=== PATIENT | female | born 1940 | race Caucasian/White ===

== ENCOUNTER 2016-03-24 09:16 | Inpatient (IN) | payer BC, MEDICARE ==
[~2016-03-24] VITALS: Ht 157.5 cm; Wt 45.4 kg
[~2016-03-24 09:16] MED LIST: ACET-2267 PO; AMLO10TA4 PO; ARICEPT PO; ASPI-983 PO; ASPI325T32 PO; ATR20T PO; CITA20TA7 PO; DONE5TAB8 PO; GLMP4T PO; INSU100I14 SQ; INSU100I32 SQ; INSU100V3 SC; INSU100V31 IJ; INSU100V5 SQ; LEVO500T80 PO; LISI5TAB PO; MELO-195 PO; MEMA5TAB PO; MTF500T PO; MULT-1029 PO; TRAM50TA2 PO; VALA500T4 PO
--- OUTSIDE RECORDS SUMMARY | 2016-03-24 09:23 | XMS REPORT | Continuity of Care Document ---
Author Author [facility] [address] Organization [facility] [address] Address Unknown Phone Unavailable Allergies Active Description Code Type Severity Reaction Onset Reported/Identified Relationship to Patient Clinical Status Yes No Known Drug Allergies [id number] Drug Allergy Unknown N/ A 05/01/2013 Medications Problems Date Dx Coded Attending Type Code Diagnosis Diagnosed By 05/08/2013 YESSI FELIX DO Ot 250.00 DIAB ISMAEL WO COMPL, TYPE II OR UNSPEC TY 05/08/2013 GELLENDER DOYESSI Ot 272.4 HYPERLIPIDEMIA NEC/NOS 05/08/2013 GELLENDER DOYESSI Ot 401.9 HYPERTENSION NOS 05/08/2013 GELLENDER DOYESSI Ot 715.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-PELVIS 05/08/2013 GELLENDER DOYESSI Ot 722.10 LUMBAR DISC DISPLACEMENT 05/08/2013 GELLENDER DOYESSI Ot V15.88 HISTORY OF FALL 05/08/2013 AARONDER YESSI SARAVIA Ot V60.3 PERSON LIVING ALONE 01/11/2016 GELYVONNEDER YESSI SARAVIA Ot B02.9 ZOSTER WITHOUT COMPLICATIONS 01/11/2016 GELLENDER YESSI SARAVIA Ot D72.829 ELEVATED WHITE BLOOD CELL COUNT, UNSPECI 01/11/2016 GELLENDER YESSI SARAVIA Ot E10.65 TYPE 1 DIABETES MELLITUS WITH HYPERGLYCE 01/11/2016 GELLENDER DOYESSI Ot E86.0 DEHYDRATION 01/11/2016 GELLENDER DOYESSI Ot F03.90 UNSPECIFIED DEMENTIA WITHOUT BEHAVIORAL 01/11/2016 GELLENDER YESSI SARAVIA Ot F22 DELUSIONAL DISORDERS 01/11/2016 GELLENDER YESSI SARAVIA Ot F32.9 MAJOR DEPRESSIVE DISORDER, SINGLE EPISOD 01/11/2016 GELLENDER YESSI SARAVIA Ot H35.30 UNSPECIFIED MACULAR DEGENERATION 01/11/2016 YESSI FELIX DO Ot 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 01/11/2016 GELLENDER YESSI SARAVIA Ot R32 UNSPECIFIED URINARY INCONTINENCE 01/11/2016 GELLENDER DO, YESSI Gonzalez Ot R53.1 WEAKNESS 01/11/2016 GELLENDER DO, YESSI Gonzalez Ot R74.8 ABNORMAL LEVELS OF OTHER SERUM ENZYMES 01/11/2016 GELLENDER DO, YESSI Gonzalez Ot S89.92XA UNSPECIFIED INJURY OF LEFT LOWER LEG, IN 01/11/2016 GELLENDER DO, YESSI Gonzalez Ot W19.XXXA UNSPECIFIED FALL, INITIAL ENCOUNTER 01/11/2016 GELMCLAREN FLINTDER DO, YESSI Gonzalez Ot Y92.002 BATHRM OF [facility] 01/11/2016 GELMCLAREN FLINTDER DO, YESSI Gonzalez Ot Z79.4 BULB PLANTER (CURRENT) USE OF INSULIN 01/12/2016 [facility] DO, YESSI Gonzalez Ot B02.9 ZOSTER WITHOUT COMPLICATIONS 01/12/[facility] D72.829 ELEVATED WHITE BLOOD CELL COUNT, UNSPECI 01/12/2016 GELMCLAREN FLINTDER DO, YESSI Gonzalez Ot E10.65 TYPE 1 DIABETES MELLITUS WITH HYPERGLYCE 01/12/2016 [facility] Y[facility] Gonzalez Ot E86.0 DEHYDRATION 01/12/2016 GELMCLAREN FLINTDER DO, YESSI Gonzalez Ot F03.90 UNSPECIFIED DEMENTIA WITHOUT BEHAVIORAL 01/12/2016 [facility], YESSI Gonzalez Ot F22 DELUSIONAL DISORDERS 01/12/2016 [facility], YESSI Gonzalez Ot F32.9 MAJOR DEPRESSIVE DISORDER, SINGLE EPISOD 01/12/2016 [facility], YESSI Gonzalez Ot H35.30 UNSPECIFIED MACULAR DEGENERATION 01/12/2016 [facility], YESSI Gonzalez Ot 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 01/12/2016 [facility], YESSI Gonzalez Ot R32 UNSPECIFIED URINARY INCONTINENCE 01/12/2016 GELLENDER DO, YESSI Gonzalez Ot R53.1 WEAKNESS 01/12/2016 GELLENDER DO, YESSI Gonzalez Ot R74.8 ABNORMAL LEVELS OF OTHER SERUM ENZYMES 01/12/2016 GELMCLAREN FLINTDER DO, YESSI Gonzalez Ot S89.92XA UNSPECIFIED INJURY OF LEFT LOWER LEG, IN 01/12/2016 GELLENDER DO, YESSI Gonzalez Ot W19.XXXA UNSPECIFIED FALL, INITIAL ENCOUNTER 01/12/2016 GELMCLAREN FLINTDER DO, YESSI Gonzalez Ot Y92.002 BATHRM OF [facility] 01/12/2016 [facility], YESSI Gonzalez Ot Z79.4 LONGTERM (CURRENT) USE OF INSULIN 01/13/2016 GELLENDER DO, YESSI Gonzalez Ot B02.9 ZOSTER WITHOUT COMPLICATIONS 01/13/2016 GELLENDER DO, YESSI Gonzalez Ot D72.829 ELEVATED WHITE BLOOD CELL COUNT, UNSPECI 01/13/2016 GELLENDER DO, YESSI Gonzalez Ot E10.65 TYPE 1 DIABETES MELLITUS WITH HYPERGLYCE 01/13/2016 GELLENDER DO, YESSI Gonzalez Ot E86.0 DEHYDRATION 01/13/2016 GELLENDER DO, YESSI Gonzalez Ot F03.90 UNSPECIFIED DEMENTIA WITHOUT BEHAVIORAL 01/13/2016 GELLENDER DO, YESSI Gonzalez Ot F22 DELUSIONAL DISORDERS 01/13/2016 GELLENDER DO, YESSI Gonzalez Ot F32.9 MAJOR DEPRESSIVE DISORDER, SINGLE EPISOD 01/13/2016 GELLENDER DO, YESSI Gonzalez Ot H35.30 UNSPECIFIED MACULAR DEGENERATION 01/13/2016 GELLENDER DO, YESSI Gonzalez Ot 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 01/13/2016 GELLENDER DO, YESSI Gonzalez Ot R32 UNSPECIFIED URINARY INCONTINENCE 01/13/2016 GELLENDER DO, YESSI Gonzalez Ot R53.1 WEAKNESS 01/13/2016 GELLENDER DO, YESSI Gonzalez Ot R74.8 ABNORMAL LEVELS OF OTHER SERUM ENZYMES 01/13/2016 GELLENDER DO, YESSI Gonzalez Ot S89.92XA UNSPECIFIED INJURY OF LEFT LOWER LEG, IN 01/13/2016 GELLENDER DO, YESSI Gonzalez Ot W19.XXXA UNSPECIFIED FALL, INITIAL ENCOUNTER 01/13/2016 GELLENDER DO, YESSI Gonzalez Ot Y92.002 BATH OF [facility] 01/13/2016 GELLENDER DO, YESSI Gonzalez Ot Z79.4 BULB PLANTER (CURRENT) USE OF INSULIN 01/13/2016 GELLENDER DO, YESSI Gonzalez Ot B02.9 ZOSTER WITHOUT COMPLICATIONS 01/13/2016 GELLENDER DO, YESSI Gonzalez Ot D72.829 ELEVATED WHITE BLOOD CELL COUNT, UNSPECI 01/13/2016 GELLENDER DO, YESSI Gonzalez Ot E10.65 TYPE 1 DIABETES MELLITUS WITH HYPERGLYCE 01/13/2016 GELLENDER DO, YESSI Gonzalez Ot E86.0 DEHYDRATION 01/13/2016 GELLENDER DO, YESSI Gonzalez Ot F03.90 UNSPECIFIED DEMENTIA WITHOUT BEHAVIORAL 01/13/2016 GELLENDER DO, YESSI Gonzalez Ot F22 DELUSIONAL DISORDERS 01/13/2016 GELLENDER DO, YESSI Gonzalez Ot F32.9 MAJOR DEPRESSIVE DISORDER, SINGLE EPISOD 01/13/2016 GELLENDER DO, YESSI Gonzalez Ot H35.30 UNSPECIFIED MACULAR DEGENERATION 01/13/2016 GELLENDER DO, YESSI Gonzalez Ot 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 01/13/2016 GELLENDER DO, YESSI Gonzalez Ot R32 UNSPECIFIED URINARY INCONTINENCE 01/13/2016 GELLENDER DO, YESSI Gonzalez Ot R53.1 WEAKNESS 01/13/2016 GELLENDER DO, YESSI Gonzalez Ot R74.8 ABNORMAL LEVELS OF OTHER SERUM ENZYMES 01/13/2016 GELLENDER DO, YESSI Gonzalez Ot S89.92XA UNSPECIFIED INJURY OF LEFT LOWER LEG, IN 01/13/2016 GELLENDER DO, YESSI Gonzalez Ot W19.XXXA UNSPECIFIED FALL, INITIAL ENCOUNTER 01/13/2016 GELLENDER DO, YESSI Gonzalez Ot Y92.002 BATHRM OF [facility] 01/13/2016 GELLENDER DO, YESSI Gonzalez Ot Z79.4 LONGTERM (CURRENT) USE OF INSULIN 01/13/2016 GELLENDER DO, YESSI Gonzalez Ot B02.9 ZOSTER WITHOUT COMPLICATIONS 01/13/2016 GELLENDER DO, YESSI Gonzalez Ot D72.829 ELEVATED WHITE BLOOD CELL COUNT, UNSPECI 01/13/2016 GELLENDER DO, YESSI Gonzalez Ot E10.65 TYPE 1 DIABETES MELLITUS WITH HYPERGLYCE 01/13/2016 GELLENDER DO, YESSI Gonzalez Ot E86.0 DEHYDRATION 01/13/2016 GELLENDER DO, YESSI Gonzalez Ot F03.90 UNSPECIFIED DEMENTIA WITHOUT BEHAVIORAL 01/13/2016 GELLENDER DO, YESSI Gonzalez Ot F22 DELUSIONAL DISORDERS 01/13/2016 GELLENDER DO, YESSI Gonzalez Ot F32.9 MAJOR DEPRESSIVE DISORDER, SINGLE EPISOD 01/13/2016 GELLENDER DO, YESSI Gonzalez Ot H35.30 UNSPECIFIED MACULAR DEGENERATION 01/13/2016 GELLENDER DO, YESSI Gonzalez Ot 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 SNGL 01/13/2016 GELLENDER DO, YESSI Gonzalez Ot Z79.4 BULB PLANTER (CURRENT) USE OF INSULIN 01/14/2016 GELLENDER DO, YESSI Gonzalez Ot B02.9 ZOSTER WITHOUT COMPLICATIONS 01/14/2016 GELLENDER DO, YESSI Gonzalez Ot D72.829 ELEVATED WHITE BLOOD CELL COUNT, UNSPECI 01/14/2016 GELLENDER DO, YESSI Gonzalez Ot E10.65 TYPE 1 DIABETES MELLITUS WITH HYPERGLYCE 01/14/2016 GELLENDER DO, YESSI Gonzalez Ot E86.0 DEHYDRATION 01/14/2016 GELLENDER DO, YESSI Gonzalez Ot F03.90 UNSPECIFIED DEMENTIA WITHOUT BEHAVIORAL 01/14/2016 GELLENDER DO, YESSI Gonzalez Ot F22 DELUSIONAL DISORDERS 01/14/2016 GELLENDER DO, YESSI Gonzalez Ot F32.9 MAJOR DEPRESSIVE DISORDER, SINGLE EPISOD 01/14/2016 GELLENDER DO, YESSI Gonzalez Ot H35.30 UNSPECIFIED MACULAR DEGENERATION 01/14/2016 GELLENDER DO, YESSI Gonzalez Ot 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 SN 01/14/2016 GELLENDER DO, YESSI Gonzalez Ot Z79.4 BULB PLANTER (CURRENT) USE OF INSULIN 01/14/2016 GELLENDER DO, YESSI Gonzalez Ot B02.9 ZOSTER WITHOUT COMPLICATIONS 01/14/2016 GELLENDER DO, YESSI Gonzalez Ot D72.829 ELEVATED WHITE BLOOD CELL COUNT, UNSPECI 01/14/2016 GELLENDER DO, YESSI Gonzalez Ot E10.65 TYPE 1 DIABETES MELLITUS WITH HYPERGLYCE 01/14/2016 [facility], YESSI Gonzalez Ot E86.0 DEHYDRATION 01/14/2016 [facility], YESSI Gonzalez Ot F03.90 UNSPECIFIED DEMENTIA WITHOUT BEHAVIORAL 01/14/2016 [facility], YESSI Gonzalez Ot F22 DELUSIONAL DISORDERS 01/14/2016 [facility], YESSI Gonzalez Ot F32.9 MAJOR DEPRESSIVE DISORDER, SINGLE EPISOD 01/14/2016 [facility], YESSI Gonzalez Ot H35.30 UNSPECIFIED MACULAR DEGENERATION 01/14/2016 GELMCLAREN FLINTDER DO, YESSI Gonzalez Ot 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 01/14/2016 GELMCLAREN FLINTDER DO, YESSI Carlos Ot R32 UNSPECIFIED URINARY INCONTINENCE 01/14/2016 [facility], YESSI Gonzalez Ot R53.1 WEAKNESS 01/14/2016 [facility], YESSI Gonzalez Ot R74.8 ABNORMAL LEVELS OF OTHER SERUM ENZYMES 01/14/2016 ANNIEMCLAREN FLINTNASH YESSI Gonzalez Ot S89.92XA UNSPECIFIED INJURY OF LEFT LOWER LEG, IN 01/14/2016 [facility] W19.XXXA UNSPECIFIED FALL, INITIAL ENCOUNTER 01/14/2016 [facility] YESSI Gonzalez Ot Y92.002 BATHRM OF [facility] NON-INSTITUT RES[facility]CE SNGL 01/14/2016 [facility], YESSI Gonzalez Ot Z79.4 BULB PLANTER (CURRENT) USE OF INSULIN 01/14/2016 [facility] YESSI Gonzalez Ot Z91.19 PATIENT'S NONCOMPLIANCE W [facility] Procedures Code Description Performed By Performed On SPINAL CANAL INJECT NEC 05/03/2013 81.92 INJECTION INTO JOINT 05/03/2013 99.23 INJECT STEROID Results Test Result Range Complete blood count (CBC) with automated white blood cell (WBC) differential - 01/07/16 19:05 Blood leukocytes automated count (number/volume) 15.5 10*3/ uL 4.3-11.0 Blood erythrocytes automated count (number/volume) 4.90 10*6 /uL 4.35-5.85 Venous blood hemoglobin measurement (mass/volume) 15.3 g/dL 11.5-16.0 Blood hematocrit (volume fraction) 44 % 35-52 Automated erythrocyte mean corpuscular volume 89 [foz_us] 80-99 Automated erythrocyte mean corpuscular hemoglobin (mass per erythrocyte) 31 pg 25-34 Automated erythrocyte mean corpuscular hemoglobin concentration measurement ( mass/volume) 35 g/dL 32-36 Automated erythrocyte distribution width ratio 13.8 % 10.0-14.5 Automated blood platelet count (count/volume) 237 10*3/uL 130-400 Automated blood platelet mean volume measurement 10.1 [[facility] [place]] 7.4-10.4 Automated blood neutrophils/100 leukocytes 83 % 42-75 Automated blood lymphocytes/100 leukocytes 6 % 12-44 Blood monocytes/100 leukocytes 10 % 0-12 Automated blood eosinophils/100 leukocytes 0 % 0-10 Automated blood basophils/100 leukocytes 1 % 0-10 Blood neutrophils automated count (number/volume) 12.9 10*3 1.8-7.8 Blood lymphocytes automated count (number/volume) 1.0 10*3 1.0-4.0 Blood monocytes automated count (number/volume) 1.5 10*3 0.0-1.0 Automated eosinophil count 0.1 10*3/uL 0.0-0.3 Automated blood basophil count (count/volume) 0.1 10*3/uL 0.0-0.1 PT panel in platelet poor plasma by coagulation assay - 01/07/16 19:05 Prothrombin time (PT) in platelet poor plasma by coagulation assay 11.4 s 12.2-14.7 INR in platelet poor plasma or blood by coagulation assay 0.9 0.8-1.4 Activated partial thromboplastin time (aPTT) in platelet poor plasma bycoagulation assay - 01/07/16 19:05 Activated partial thromboplastin time (aPTT) in platelet poor plasma bycoagulation assay 26 s 24-35 Fibrin D-dimer FEU measurement in platelet poor plasma (mass/volume) - 19:05 Fibrin D-dimer FEU measurement in platelet poor plasma (mass/volume) 1.30 ug/mL 0.00-0.49 Comprehensive metabolic panel - 01/07/16 19:05 Serum or plasma sodium measurement (moles/volume) 130 mmol/ L 135-145 Serum or plasma potassium measurement (moles/volume) 4.6 mmol/L 3.6-5.0 Serum or plasma chloride measurement (moles/volume) 100 mmol /L 98-107 Carbon dioxide 18 mmol/L 21-32 Serum or plasma anion gap determination (moles/volume) 12 mmol/L 5-14 Serum or plasma urea nitrogen measurement (mass/volume) 13 mg/dL 7-18 Serum or plasma creatinine measurement (mass/volume) 0.72 mg /dL 0.60-1.30 Serum or plasma urea nitrogen/creatinine mass ratio 18 NRG Serum or plasma creatinine measurement with calculation of estimated glomerular filtration rate > NRG Serum or plasma glucose measurement (mass/volume) 226 mg/dL 70-105 Serum or plasma calcium measurement (mass/volume) 8.9 mg/dL 8.5-10.1 Serum or plasma total bilirubin measurement (mass/volume) 0.6 mg/dL 0.1-1.0 Serum or plasma alkaline phosphatase measurement (enzymatic activity/volume) 187 U/L 40-136 Serum or plasma aspartate aminotransferase measurement (enzymatic activity/ volume) 76 U/L 5-34 Serum or plasma alanine aminotransferase measurement (enzymatic activity/volume ) 62 U/L 0-55 Serum or plasma protein measurement (mass/volume) 6.8 g/dL 6.4-8.2 Serum or plasma albumin measurement (mass/volume) 3.9 g/dL 3.2-4.5 Serum or plasma troponin i.cardiac measurement (mass/volume) - 01/07/16 19:05 Serum or plasma troponin i.cardiac measurement (mass/volume) < ng/mL <0.30 Serum or plasma C reactive protein measurement (mass/volume) - 01/07/16 19:05 Serum or plasma C reactive protein measurement (mass/volume) 0.64 mg/dL 0.00-0.50 Blood manual differential performed detection - 01/07/16 19:05 Blood monocytes/100 leukocytes 9 % NRG Manual blood segmented neutrophils/100 leukocytes 63 % NRG Blood band neutrophils/100 leukocytes 19 % NRG Manual blood lymphocytes/100 leukocytes 9 % NRG Manual eosinophils/100 leukocytes in nose 0 % NRG Manual blood basophils/100 leukocytes 0 % NRG Blood erythrocyte morphology finding identification NORMAL NRG Serum or plasma lithium measurement (moles/volume) - 01/07/16 19:05 Serum or plasma prealbumin measurement (mass/volume) 17.6 mg /dL 18.0-35.7 Capillary blood glucose measurement by glucometer (mass/volume) - 01/07/16 19: 12 Capillary blood glucose measurement by glucometer (mass/volume) 234 mg/dL 70-110 Complete urinalysis with reflex to culture - 01/07/16 19:35 Urine color determination YELLOW NRG Urine clarity determination CLEAR NRG Urine pH measurement by test strip 5 5- 9 Specific gravity of urine by test strip 1.020 1.016-1.022 Urine protein assay by test strip, semi-quantitative 3+ NEGATIVE Urine glucose detection by automated test strip 4+ NEGATIVE Erythrocytes detection in urine sediment by light microscopy NEGATIVE NEGATIVE Urine ketones detection by automated test strip 2+ NEGATIVE Urine nitrite detection by test strip NEGATIVE NEGATIVE Urine total bilirubin detection by test strip NEGATIVE NEGATIVE Urine urobilinogen measurement by automated test strip (mass/volume) NORMAL NORMAL Urine leukocyte esterase detection by dipstick NEGATIVE NEGATIVE Automated urine sediment erythrocyte count by microscopy (number/high power field) NONE NRG Automated urine sediment leukocyte count by microscopy (number/high power field ) RARE NRG Bacteria detection in urine sediment by light microscopy NONE NRG Squamous epithelial cells detection in urine sediment by light microscopy 2-5 NRG Crystals detection in urine sediment by light microscopy PRESENT NRG Casts detection in urine sediment by light microscopy NONE NRG Mucus detection in urine sediment by light microscopy NEGATIVE NRG Complete urinalysis with reflex to culture NO NRG Amorphous sediment detection in urine sediment by light microscopy MOD CHINA URATES NR Bacterial blood culture - 01/07/16 20:14 FREE TEXT EXTERNAL SEE COMMENTS NRG QUANTITY OF GROWTH Isolated NRG Bacterial blood culture [id number] NR Bacterial blood culture - 01/07/16 20:20 Bacterial blood culture NG NR Blood lactic acid measurement (moles/volume) - 01/07/16 20:46 Blood lactic acid measurement (moles/volume) 0.9 mmol/L 0.5-2.0 Complete blood count (CBC) with automated white blood cell (WBC) differential - 01/08/16 05:22 Blood leukocytes automated count (number/volume) 13.0 10*3/ uL 4.3-11.0 Blood erythrocytes automated count (number/volume) 4.58 10*6 /uL 4.35-5.85 Venous blood hemoglobin measurement (mass/volume) 14.4 g/dL 11.5-16.0 Blood hematocrit (volume fraction) 41 % 35-52 Automated erythrocyte mean corpuscular volume 89 [foz_us] 80-99 Automated erythrocyte mean corpuscular hemoglobin (mass per erythrocyte) 31 pg 25-34 Automated erythrocyte mean corpuscular hemoglobin concentration measurement ( mass/volume) 35 g/dL 32-36 Automated erythrocyte distribution width ratio 13.7 % 10.0-14.5 Automated blood platelet count (count/volume) 219 10*3/uL 130-400 Automated blood platelet mean volume measurement 10.1 [foz_ us] 7.4-10.4 Automated blood neutrophils/100 leukocytes 76 % 42-75 Automated blood lymphocytes/100 leukocytes 12 % 12-44 Blood monocytes/100 leukocytes 11 % 0-12 Automated blood eosinophils/100 leukocytes 1 % 0-10 Automated blood basophils/100 leukocytes 1 % 0-10 Blood neutrophils automated count (number/volume) 9.9 10*3 1.8-7.8 Blood lymphocytes automated count (number/volume) 1.6 10*3 1.0-4.0 Blood monocytes automated count (number/volume) 1.4 10*3 0.0-1.0 Automated eosinophil count 0.1 10*3/uL 0.0-0.3 Automated blood basophil count (count/volume) 0.1 10*3/uL 0.0-0.1 Blood lactic acid measurement (moles/volume) - 01/08/16 05:22 Blood lactic acid measurement (moles/volume) 0.6 mmol/L 0.5-2.0 Comprehensive metabolic panel - 01/08/16 05:22 Serum or plasma sodium measurement (moles/volume) 133 mmol/ L 135-145 Serum or plasma potassium measurement (moles/volume) 4.5 mmol/L 3.6-5.0 Serum or plasma chloride measurement (moles/volume) 105 mmol /L 98-107 Carbon dioxide 14 mmol/L 21-32 Serum or plasma anion gap determination (moles/volume) 14 mmol/L 5-14 Serum or plasma urea nitrogen measurement (mass/volume) 9 mg /dL 7-18 Serum or plasma creatinine measurement (mass/volume) 0.68 mg /dL 0.60-1.30 Serum or plasma urea nitrogen/creatinine mass ratio 13 NRG Serum or plasma creatinine measurement with calculation of estimated glomerular filtration rate > NRG Serum or plasma glucose measurement (mass/volume) 363 mg/dL 70-105 Serum or plasma calcium measurement (mass/volume) 8.1 mg/dL 8.5-10.1 Serum or plasma total bilirubin measurement (mass/volume) 0.4 mg/dL 0.1-1.0 Serum or plasma alkaline phosphatase measurement (enzymatic activity/volume) 165 U/L 40-136 Serum or plasma aspartate aminotransferase measurement (enzymatic activity/ volume) 40 U/L 5-34 Serum or plasma alanine aminotransferase measurement (enzymatic activity/volume ) 53 U/L 0-55 Serum or plasma protein measurement (mass/volume) 6.0 g/dL 6.4-8.2 Serum or plasma albumin measurement (mass/volume) 3.5 g/dL 3.2-4.5 Magnesium - 01/08/16 05:22 Magnesium 1.6 mg/dL 1.8-2.4 THYROID STIMULATING HORMONE - 01/08/16 05:22 THYROID STIMULATING HORMONE 1.14 u[iU]/mL 0.35-4.94 Hemoglobin A1c - 01/08/16 05:22 Hemoglobin A1c 10.0 % 4.5-6.2 Capillary blood glucose measurement by glucometer (mass/volume) - 01/08/16 06: 14 Capillary blood glucose measurement by glucometer (mass/volume) 322 mg/dL 70-110 Capillary blood glucose measurement by glucometer (mass/volume) - 01/08/16 09: 55 Capillary blood glucose measurement by glucometer (mass/volume) 491 mg/dL 70-110 Cyanocobalamin measurement - 01/08/16 11:03 Vitamin B12 790 pg/mL 200-1000 Capillary blood glucose measurement by glucometer (mass/volume) - 01/08/16 14: 32 Capillary blood glucose measurement by glucometer (mass/volume) 346 mg/dL 70-110 Capillary blood glucose measurement by glucometer (mass/volume) - 01/08/16 19: 00 Capillary blood glucose measurement by glucometer (mass/volume) 215 mg/dL 70-110 Capillary blood glucose measurement by glucometer (mass/volume) - 01/08/16 21: 35 Capillary blood glucose measurement by glucometer (mass/volume) 156 mg/dL 70-110 Capillary blood glucose measurement by glucometer (mass/volume) - 01/09/16 03: 36 Capillary blood glucose measurement by glucometer (mass/volume) 44 mg/dL 70-110 Capillary blood glucose measurement by glucometer (mass/volume) - 01/09/16 03: 58 Capillary blood glucose measurement by glucometer (mass/volume) 56 mg/dL 70-110 Capillary blood glucose measurement by glucometer (mass/volume) - 01/09/16 04: 24 Capillary blood glucose measurement by glucometer (mass/volume) 96 mg/dL 70-110 Complete blood count (CBC) with automated white blood cell (WBC) differential - 01/09/16 06:11 Blood leukocytes automated count (number/volume) 17.9 10*3/ uL 4.3-11.0 Blood erythrocytes automated count (number/volume) 4.56 10*6 /uL 4.35-5.85 Venous blood hemoglobin measurement (mass/volume) 14.4 g/dL 11.5-16.0 Blood hematocrit (volume fraction) 40 % 35-52 Automated erythrocyte mean corpuscular volume 88 [foz_us] 80-99 Automated erythrocyte mean corpuscular hemoglobin (mass per erythrocyte) 32 pg 25-34 Automated erythrocyte mean corpuscular hemoglobin concentration measurement ( mass/volume) 36 g/dL 32-36 Automated erythrocyte distribution width ratio 13.7 % 10.0-14.5 Automated blood platelet count (count/volume) 208 10*3/uL 130-400 Automated blood platelet mean volume measurement 9.9 [foz_us ] 7.4-10.4 Automated blood neutrophils/100 leukocytes 82 % 42-75 Automated blood lymphocytes/100 leukocytes 8 % 12-44 Blood monocytes/100 leukocytes 9 % 0-12 Automated blood eosinophils/100 leukocytes 0 % 0-10 Automated blood basophils/100 leukocytes 0 % 0-10 Blood neutrophils automated count (number/volume) 14.7 10*3 1.8-7.8 Blood lymphocytes automated count (number/volume) 1.4 10*3 1.0-4.0 Blood monocytes automated count (number/volume) 1.6 10*3 0.0-1.0 Automated eosinophil count 0.0 10*3/uL 0.0-0.3 Automated blood basophil count (count/volume) 0.0 10*3/uL 0.0-0.1 Comprehensive metabolic panel - 01/09/16 06:11 Serum or plasma sodium measurement (moles/volume) 134 mmol/ L 135-145 Serum or plasma potassium measurement (moles/volume) 4.0 mmol/L 3.6-5.0 Serum or plasma chloride measurement (moles/volume) 108 mmol /L 98-107 Carbon dioxide 18 mmol/L 21-32 Serum or plasma anion gap determination (moles/volume) 8 mmol/L 5-14 Serum or plasma urea nitrogen measurement (mass/volume) 8 mg /dL 7-18 Serum or plasma creatinine measurement (mass/volume) 0.58 mg /dL 0.60-1.30 Serum or plasma urea nitrogen/creatinine mass ratio 14 NRG Serum or plasma creatinine measurement with calculation of estimated glomerular filtration rate > NRG Serum or plasma glucose measurement (mass/volume) 168 mg/dL 70-105 Serum or plasma calcium measurement (mass/volume) 8.3 mg/dL 8.5-10.1 Serum or plasma total bilirubin measurement (mass/volume) 0.4 mg/dL 0.1-1.0 Serum or plasma alkaline phosphatase measurement (enzymatic activity/volume) 184 U/L 40-136 Serum or plasma aspartate aminotransferase measurement (enzymatic activity/ volume) 128 U/L 5-34 Serum or plasma alanine aminotransferase measurement (enzymatic activity/volume ) 70 U/L 0-55 Serum or plasma protein measurement (mass/volume) 5.8 g/dL 6.4-8.2 Serum or plasma albumin measurement (mass/volume) 3.2 g/dL 3.2-4.5 Magnesium - 01/09/16 06:11 Magnesium 1.7 mg/dL 1.8-2.4 Capillary blood glucose measurement by glucometer (mass/volume) - 01/09/16 10: 49 Capillary blood glucose measurement by glucometer (mass/volume) 348 mg/dL 70-110 Complete urinalysis with reflex to culture - 01/09/16 16:00 Urine color determination YELLOW NRG Urine clarity determination CLEAR NRG Urine pH measurement by test strip 5 5- 9 Specific gravity of urine by test strip 1.010 1.016-1.022 Urine protein assay by test strip, semi-quantitative 1+ NEGATIVE Urine glucose detection by automated test strip 3+ NEGATIVE Erythrocytes detection in urine sediment by light microscopy NEGATIVE NEGATIVE Urine ketones detection by automated test strip NEGATIVE NEGATIVE Urine nitrite detection by test strip NEGATIVE NEGATIVE Urine total bilirubin detection by test strip NEGATIVE NEGATIVE Urine urobilinogen measurement by automated test strip (mass/volume) NORMAL NORMAL Urine leukocyte esterase detection by dipstick 2+ NEGATIVE Automated urine sediment erythrocyte count by microscopy (number/high power field) NONE NRG Automated urine sediment leukocyte count by microscopy (number/high power field ) [HPF] NRG Bacteria detection in urine sediment by light microscopy FEW NRG Crystals detection in urine sediment by light microscopy NONE NRG Casts detection in urine sediment by light microscopy NONE NRG Mucus detection in urine sediment by light microscopy NEGATIVE NRG Complete urinalysis with reflex to culture NO NRG Capillary blood glucose measurement by glucometer (mass/volume) - 01/09/16 17: 10 Capillary blood glucose measurement by glucometer (mass/volume) 253 mg/dL 70-110 Capillary blood glucose measurement by glucometer (mass/volume) - 01/09/16 21: 25 Capillary blood glucose measurement by glucometer (mass/volume) 249 mg/dL 70-110 Capillary blood glucose measurement by glucometer (mass/volume) - 01/10/16 06: 53 Capillary blood glucose measurement by glucometer (mass/volume) 377 mg/dL 70-110 Comprehensive metabolic panel - 01/10/16 07:19 Serum or plasma sodium measurement (moles/volume) 133 mmol/ L 135-145 Serum or plasma potassium measurement (moles/volume) 4.1 mmol/L 3.6-5.0 Serum or plasma chloride measurement (moles/volume) 104 mmol /L 98-107 Carbon dioxide 19 mmol/L 21-32 Serum or plasma anion gap determination (moles/volume) 10 mmol/L 5-14 Serum or plasma urea nitrogen measurement (mass/volume) 7 mg /dL 7-18 Serum or plasma creatinine measurement (mass/volume) 0.65 mg /dL 0.60-1.30 Serum or plasma urea nitrogen/creatinine mass ratio 11 NRG Serum or plasma creatinine measurement with calculation of estimated glomerular filtration rate > NRG Serum or plasma glucose measurement (mass/volume) 387 mg/dL 70-105 Serum or plasma calcium measurement (mass/volume) 8.2 mg/dL 8.5-10.1 Serum or plasma total bilirubin measurement (mass/volume) 0.6 mg/dL 0.1-1.0 Serum or plasma alkaline phosphatase measurement (enzymatic activity/volume) 195 U/L 40-136 Serum or plasma aspartate aminotransferase measurement (enzymatic activity/ volume) 42 U/L 5-34 Serum or plasma alanine aminotransferase measurement (enzymatic activity/volume ) 66 U/L 0-55 Serum or plasma protein measurement (mass/volume) 5.9 g/dL 6.4-8.2 Serum or plasma albumin measurement (mass/volume) 3.3 g/dL 3.2-4.5 Complete blood count (CBC) with automated white blood cell (WBC) differential - 01/10/16 07:19 Blood leukocytes automated count (number/volume) 10.1 10*3/ uL 4.3-11.0 Blood erythrocytes automated count (number/volume) 4.63 10*6 /uL 4.35-5.85 Venous blood hemoglobin measurement (mass/volume) 14.5 g/dL 11.5-16.0 Blood hematocrit (volume fraction) 41 % 35-52 Automated erythrocyte mean corpuscular volume 88 [foz_us] 80-99 Automated erythrocyte mean corpuscular hemoglobin (mass per erythrocyte) 31 pg 25-34 Automated erythrocyte mean corpuscular hemoglobin concentration measurement ( mass/volume) 36 g/dL 32-36 Automated erythrocyte distribution width ratio 13.5 % 10.0-14.5 Automated blood platelet count (count/volume) 215 10*3/uL 130-400 Automated blood platelet mean volume measurement 10.3 [foz_ us] 7.4-10.4 Automated blood neutrophils/100 leukocytes 71 % 42-75 Automated blood lymphocytes/100 leukocytes 16 % 12-44 Blood monocytes/100 leukocytes 11 % 0-12 Automated blood eosinophils/100 leukocytes 2 % 0-10 Automated blood basophils/100 leukocytes 1 % 0-10 Blood neutrophils automated count (number/volume) 7.1 10*3 1.8-7.8 Blood lymphocytes automated count (number/volume) 1.6 10*3 1.0-4.0 Blood monocytes automated count (number/volume) 1.1 10*3 0.0-1.0 Automated eosinophil count 0.2 10*3/uL 0.0-0.3 Automated blood basophil count (count/volume) 0.1 10*3/uL 0.0-0.1 Blood blood smear finding identification by light microscopy YES NRG Capillary blood glucose measurement by glucometer (mass/volume) - 01/10/16 10: 00 Capillary blood glucose measurement by glucometer (mass/volume) 306 mg/dL 70-110 Capillary blood glucose measurement by glucometer (mass/volume) - 01/10/16 14: 54 Capillary blood glucose measurement by glucometer (mass/volume) 442 mg/dL 70-110 Capillary blood glucose measurement by glucometer (mass/volume) - 01/10/16 16: 13 Capillary blood glucose measurement by glucometer (mass/volume) 422 mg/dL 70-110 Capillary blood glucose measurement by glucometer (mass/volume) - 01/10/16 18: 40 Capillary blood glucose measurement by glucometer (mass/volume) 338 mg/dL 70-110 Capillary blood glucose measurement by glucometer (mass/volume) - 01/10/16 20: 20 Capillary blood glucose measurement by glucometer (mass/volume) 71 mg/dL 70-110 Capillary blood glucose measurement by glucometer (mass/volume) - 01/10/16 21: 39 Capillary blood glucose measurement by glucometer (mass/volume) 74 mg/dL 70-110 Capillary blood glucose measurement by glucometer (mass/volume) - 01/10/16 23: 28 Capillary blood glucose measurement by glucometer (mass/volume) 55 mg/dL 70-110 Capillary blood glucose measurement by glucometer (mass/volume) - 01/11/16 01: 42 Capillary blood glucose measurement by glucometer (mass/volume) 279 mg/dL 70-110 Complete blood count (CBC) with automated white blood cell (WBC) differential - 01/11/16 05:33 Blood leukocytes automated count (number/volume) 12.1 10*3/ uL 4.3-11.0 Blood erythrocytes automated count (number/volume) 4.43 10*6 /uL 4.35-5.85 Venous blood hemoglobin measurement (mass/volume) 13.8 g/dL 11.5-16.0 Blood hematocrit (volume fraction) 39 % 35-52 Automated erythrocyte mean corpuscular volume 88 [foz_us] 80-99 Automated erythrocyte mean corpuscular hemoglobin (mass per erythrocyte) 31 pg 25-34 Automated erythrocyte mean corpuscular hemoglobin concentration measurement ( mass/volume) 35 g/dL 32-36 Automated erythrocyte distribution width ratio 13.3 % 10.0-14.5 Automated blood platelet count (count/volume) 231 10*3/uL 130-400 Automated blood platelet mean volume measurement 10.0 [foz_ us] 7.4-10.4 Automated blood neutrophils/100 leukocytes 72 % 42-75 Automated blood lymphocytes/100 leukocytes 17 % 12-44 Blood monocytes/100 leukocytes 9 % 0-12 Automated blood eosinophils/100 leukocytes 2 % 0-10 Automated blood basophils/100 leukocytes 1 % 0-10 Blood neutrophils automated count (number/volume) 8.7 10*3 1.8-7.8 Blood lymphocytes automated count (number/volume) 2.0 10*3 1.0-4.0 Blood monocytes automated count (number/volume) 1.1 10*3 0.0-1.0 Automated eosinophil count 0.2 10*3/uL 0.0-0.3 Automated blood basophil count (count/volume) 0.1 10*3/uL 0.0-0.1 Comprehensive metabolic panel - 01/11/16 05:33 Serum or plasma sodium measurement (moles/volume) 136 mmol/ L 135-145 Serum or plasma potassium measurement (moles/volume) 3.8 mmol/L 3.6-5.0 Serum or plasma chloride measurement (moles/volume) 105 mmol /L 98-107 Carbon dioxide 23 mmol/L 21-32 Serum or plasma anion gap determination (moles/volume) 8 mmol/L 5-14 Serum or plasma urea nitrogen measurement (mass/volume) 7 mg /dL 7-18 Serum or plasma creatinine measurement (mass/volume) 0.51 mg /dL 0.60-1.30 Serum or plasma urea nitrogen/creatinine mass ratio 14 NRG Serum or plasma creatinine measurement with calculation of estimated glomerular filtration rate > NRG Serum or plasma glucose measurement (mass/volume) 85 mg/dL 70-105 Serum or plasma calcium measurement (mass/volume) 8.3 mg/dL 8.5-10.1 Serum or plasma total bilirubin measurement (mass/volume) 0.4 mg/dL 0.1-1.0 Serum or plasma alkaline phosphatase measurement (enzymatic activity/volume) 218 U/L 40-136 Serum or plasma aspartate aminotransferase measurement (enzymatic activity/ volume) 129 U/L 5-34 Serum or plasma alanine aminotransferase measurement (enzymatic activity/volume ) 96 U/L 0-55 Serum or plasma protein measurement (mass/volume) 5.6 g/dL 6.4-8.2 Serum or plasma albumin measurement (mass/volume) 3.0 g/dL 3.2-4.5 Capillary blood glucose measurement by glucometer (mass/volume) - 01/11/16 10: 09 Capillary blood glucose measurement by glucometer (mass/volume) 262 mg/dL 70-110 Capillary blood glucose measurement by glucometer (mass/volume) - 01/11/16 14: 37 Capillary blood glucose measurement by glucometer (mass/volume) 410 mg/dL 70-110 Capillary blood glucose measurement by glucometer (mass/volume) - 01/11/16 18: 16 Capillary blood glucose measurement by glucometer (mass/volume) 200 mg/dL 70-110 Capillary blood glucose measurement by glucometer (mass/volume) - 01/11/16 20: 21 Capillary blood glucose measurement by glucometer (mass/volume) 308 mg/dL 70-110 Capillary blood glucose measurement by glucometer (mass/volume) - 01/12/16 05: 43 Capillary blood glucose measurement by glucometer (mass/volume) 60 mg/dL 70-110 Complete blood count (CBC) with automated white blood cell (WBC) differential - 01/12/16 05:44 Blood leukocytes automated count (number/volume) 12.2 10*3/ uL 4.3-11.0 Blood erythrocytes automated count (number/volume) 4.42 10*6 /uL 4.35-5.85 Venous blood hemoglobin measurement (mass/volume) 13.9 g/dL 11.5-16.0 Blood hematocrit (volume fraction) 39 % 35-52 Automated erythrocyte mean corpuscular volume 89 [foz_us] 80-99 Automated erythrocyte mean corpuscular hemoglobin (mass per erythrocyte) 31 pg 25-34 Automated erythrocyte mean corpuscular hemoglobin concentration measurement ( mass/volume) 36 g/dL 32-36 Automated erythrocyte distribution width ratio 13.5 % 10.0-14.5 Automated blood platelet count (count/volume) 275 10*3/uL 130-400 Automated blood platelet mean volume measurement 10.0 [foz_ us] 7.4-10.4 Automated blood neutrophils/100 leukocytes 68 % 42-75 Automated blood lymphocytes/100 leukocytes 19 % 12-44 Blood monocytes/100 leukocytes 10 % 0-12 Automated blood eosinophils/100 leukocytes 3 % 0-10 Automated blood basophils/100 leukocytes 0 % 0-10 Blood neutrophils automated count (number/volume) 8.3 10*3 1.8-7.8 Blood lymphocytes automated count (number/volume) 2.4 10*3 1.0-4.0 Blood monocytes automated count (number/volume) 1.2 10*3 0.0-1.0 Automated eosinophil count 0.3 10*3/uL 0.0-0.3 Automated blood basophil count (count/volume) 0.1 10*3/uL 0.0-0.1 Comprehensive metabolic panel - 01/12/16 05:44 Serum or plasma sodium measurement (moles/volume) 138 mmol/ L 135-145 Serum or plasma potassium measurement (moles/volume) 3.5 mmol/L 3.6-5.0 Serum or plasma chloride measurement (moles/volume) 107 mmol /L 98-107 Carbon dioxide 22 mmol/L 21-32 Serum or plasma anion gap determination (moles/volume) 9 mmol/L 5-14 Serum or plasma urea nitrogen measurement (mass/volume) 9 mg /dL 7-18 Serum or plasma creatinine measurement (mass/volume) 0.50 mg /dL 0.60-1.30 Serum or plasma urea nitrogen/creatinine mass ratio 18 NRG Serum or plasma creatinine measurement with calculation of estimated glomerular filtration rate > NRG Serum or plasma glucose measurement (mass/volume) 57 mg/dL 70-105 Serum or plasma calcium measurement (mass/volume) 8.4 mg/dL 8.5-10.1 Serum or plasma total bilirubin measurement (mass/volume) 0.5 mg/dL 0.1-1.0 Serum or plasma alkaline phosphatase measurement (enzymatic activity/volume) 240 U/L 40-136 Serum or plasma aspartate aminotransferase measurement (enzymatic activity/ volume) 87 U/L 5-34 Serum or plasma alanine aminotransferase measurement (enzymatic activity/volume ) 104 U/L 0-55 Serum or plasma protein measurement (mass/volume) 5.8 g/dL 6.4-8.2 Serum or plasma albumin measurement (mass/volume) 3.2 g/dL 3.2-4.5 Capillary blood glucose measurement by glucometer (mass/volume) - 01/12/16 06: 42 Capillary blood glucose measurement by glucometer (mass/volume) 175 mg/dL 70-110 Capillary blood glucose measurement by glucometer (mass/volume) - 01/12/16 11: 33 Capillary blood glucose measurement by glucometer (mass/volume) 358 mg/dL 70-110 Capillary blood glucose measurement by glucometer (mass/volume) - 01/12/16 16: 11 Capillary blood glucose measurement by glucometer (mass/volume) 307 mg/dL 70-110 Capillary blood glucose measurement by glucometer (mass/volume) - 01/12/16 19: 48 Capillary blood glucose measurement by glucometer (mass/volume) 270 mg/dL 70-110 Automated blood complete blood count (hemogram) panel - 01/13/16 04:50 Blood leukocytes automated count (number/volume) 19.0 10*3/ uL 4.3-11.0 Blood erythrocytes automated count (number/volume) 4.59 10*6 /uL 4.35-5.85 Venous blood hemoglobin measurement (mass/volume) 14.2 g/dL 11.5-16.0 Blood hematocrit (volume fraction) 41 % 35-52 Automated erythrocyte mean corpuscular volume 89 [foz_us] 80-99 Automated erythrocyte mean corpuscular hemoglobin (mass per erythrocyte) 31 pg 25-34 Automated erythrocyte mean corpuscular hemoglobin concentration measurement ( mass/volume) 35 g/dL 32-36 Automated erythrocyte distribution width ratio 13.5 % 10.0-14.5 Automated blood platelet count (count/volume) 358 10*3/uL 130-400 Automated blood platelet mean volume measurement 9.6 [foz_us ] 7.4-10.4 Comprehensive metabolic panel - 01/13/16 04:50 Serum or plasma sodium measurement (moles/volume) 136 mmol/ L 135-145 Serum or plasma potassium measurement (moles/volume) 3.8 mmol/L 3.6-5.0 Serum or plasma chloride measurement (moles/volume) 102 mmol /L 98-107 Carbon dioxide 25 mmol/L 21-32 Serum or plasma anion gap determination (moles/volume) 9 mmol/L 5-14 Serum or plasma urea nitrogen measurement (mass/volume) 11 mg/dL 7-18 Serum or plasma creatinine measurement (mass/volume) 0.55 mg /dL 0.60-1.30 Serum or plasma urea nitrogen/creatinine mass ratio 20 NRG Serum or plasma creatinine measurement with calculation of estimated glomerular filtration rate > NRG Serum or plasma glucose measurement (mass/volume) 42 mg/dL 70-105 Serum or plasma calcium measurement (mass/volume) 9.1 mg/dL 8.5-10.1 Serum or plasma total bilirubin measurement (mass/volume) 0.4 mg/dL 0.1-1.0 Serum or plasma alkaline phosphatase measurement (enzymatic activity/volume) 287 U/L 40-136 Serum or plasma aspartate aminotransferase measurement (enzymatic activity/ volume) 92 U/L 5-34 Serum or plasma alanine aminotransferase measurement (enzymatic activity/volume ) 121 U/L 0-55 Serum or plasma protein measurement (mass/volume) 6.3 g/dL 6.4-8.2 Serum or plasma albumin measurement (mass/volume) 3.3 g/dL 3.2-4.5 Capillary blood glucose measurement by glucometer (mass/volume) - 01/13/16 05: 03 Capillary blood glucose measurement by glucometer (mass/volume) 48 mg/dL 70-110 Capillary blood glucose measurement by glucometer (mass/volume) - 01/13/16 05: 34 Capillary blood glucose measurement by glucometer (mass/volume) 81 mg/dL 70-110 Bacterial blood culture - 01/13/16 08:44 Bacterial blood culture NG NRG Bacterial blood culture - 01/13/16 08:50 Bacterial blood culture NG NRG Capillary blood glucose measurement by glucometer (mass/volume) - 01/13/16 09: 29 Capillary blood glucose measurement by glucometer (mass/volume) 375 mg/dL 70-110 Complete urinalysis with reflex to culture - 01/13/16 16:15 Urine color determination YELLOW NRG Urine clarity determination CLEAR NRG Urine pH measurement by test strip 6.5 5 -9 Specific gravity of urine by test strip 1.010 1.016-1.022 Urine protein assay by test strip, semi-quantitative NEGATIVE NEGATIVE Urine glucose detection by automated test strip 4+ NEGATIVE Erythrocytes detection in urine sediment by light microscopy NEGATIVE NEGATIVE Urine ketones detection by automated test strip NEGATIVE NEGATIVE Urine nitrite detection by test strip NEGATIVE NEGATIVE Urine total bilirubin detection by test strip NEGATIVE NEGATIVE Urine urobilinogen measurement by automated test strip (mass/volume) NORMAL NORMAL Urine leukocyte esterase detection by dipstick 1+ NEGATIVE Automated urine sediment erythrocyte count by microscopy (number/high power field) RARE NRG Automated urine sediment leukocyte count by microscopy (number/high power field ) [HPF] NRG Bacteria detection in urine sediment by light microscopy NONE NRG Squamous epithelial cells detection in urine sediment by light microscopy 0-2 NRG Crystals detection in urine sediment by light microscopy NONE NRG Casts detection in urine sediment by light microscopy NONE NRG Mucus detection in urine sediment by light microscopy NEGATIVE NRG Complete urinalysis with reflex to culture NO NRG Capillary blood glucose measurement by glucometer (mass/volume) - 01/13/16 16: 19 Capillary blood glucose measurement by glucometer (mass/volume) 505 mg/dL 70-110 Capillary blood glucose measurement by glucometer (mass/volume) - 01/13/16 19: 14 Capillary blood glucose measurement by glucometer (mass/volume) 393 mg/dL 70-110 Capillary blood glucose measurement by glucometer (mass/volume) - 01/13/16 20: 59 Capillary blood glucose measurement by glucometer (mass/volume) 291 mg/dL 70-110 Complete blood count (CBC) with automated white blood cell (WBC) differential - 01/14/16 05:15 Blood leukocytes automated count (number/volume) 9.6 10*3/ uL 4.3-11.0 Blood erythrocytes automated count (number/volume) 3.59 10*6 /uL 4.35-5.85 Venous blood hemoglobin measurement (mass/volume) 10.3 g/dL 11.5-16.0 Blood hematocrit (volume fraction) 32 % 35-52 Automated erythrocyte mean corpuscular volume 90 [foz_us] 80-99 Automated erythrocyte mean corpuscular hemoglobin (mass per erythrocyte) 29 pg 25-34 Automated erythrocyte mean corpuscular hemoglobin concentration measurement ( mass/volume) 32 g/dL 32-36 Automated erythrocyte distribution width ratio 13.6 % 10.0-14.5 Automated blood platelet count (count/volume) 431 10*3/uL 130-400 Automated blood platelet mean volume measurement 9.2 [foz_us ] 7.4-10.4 Automated blood neutrophils/100 leukocytes 82 % 42-75 Automated blood lymphocytes/100 leukocytes 8 % 12-44 Blood monocytes/100 leukocytes 8 % 0-12 Automated blood eosinophils/100 leukocytes 2 % 0-10 Automated blood basophils/100 leukocytes 1 % 0-10 Blood neutrophils automated count (number/volume) 7.1 10*3 1.8-7.8 Blood lymphocytes automated count (number/volume) 0.7 10*3 1.0-4.0 Blood monocytes automated count (number/volume) 0.7 10*3 0.0-1.0 Automated eosinophil count 0.1 10*3/uL 0.0-0.3 Automated blood basophil count (count/volume) 0.0 10*3/uL 0.0-0.1 Comprehensive metabolic panel - 01/14/16 05:15 Serum or plasma sodium measurement (moles/volume) 136 mmol/ L 135-145 Serum or plasma potassium measurement (moles/volume) 5.5 mmol/L 3.6-5.0 Serum or plasma chloride measurement (moles/volume) 99 mmol/ L 98-107 Carbon dioxide 27 mmol/L 21-32 Serum or plasma anion gap determination (moles/volume) 10 mmol/L 5-14 Serum or plasma urea nitrogen measurement (mass/volume) 25 mg/dL 7-18 Serum or plasma creatinine measurement (mass/volume) 0.61 mg /dL 0.60-1.30 Serum or plasma urea nitrogen/creatinine mass ratio 41 NRG Serum or plasma creatinine measurement with calculation of estimated glomerular filtration rate > NRG Serum or plasma glucose measurement (mass/volume) 97 mg/dL 70-105 Serum or plasma calcium measurement (mass/volume) 8.3 mg/dL 8.5-10.1 Serum or plasma total bilirubin measurement (mass/volume) 0.7 mg/dL 0.1-1.0 Serum or plasma alkaline phosphatase measurement (enzymatic activity/volume) 252 U/L 40-136 Serum or plasma aspartate aminotransferase measurement (enzymatic activity/ volume) 52 U/L 5-34 Serum or plasma alanine aminotransferase measurement (enzymatic activity/volume ) 41 U/L 0-55 Serum or plasma protein measurement (mass/volume) 6.2 g/dL 6.4-8.2 Serum or plasma albumin measurement (mass/volume) 2.8 g/dL 3.2-4.5 Blood manual differential performed detection - 01/14/16 05:15 Blood monocytes/100 leukocytes 9 % NR Manual blood segmented neutrophils/100 leukocytes 79 % NR Manual blood lymphocytes/100 leukocytes 4 % NRG Manual eosinophils/100 leukocytes in nose 6 % NR Manual blood basophils/100 leukocytes 2 % NR Blood erythrocyte morphology finding identification NORMAL NR Capillary blood glucose measurement by glucometer (mass/volume) - 01/14/16 06: 00 Capillary blood glucose measurement by glucometer (mass/volume) 387 mg/dL 70-110 Automated blood complete blood count (hemogram) panel - 01/14/16 11:04 Blood leukocytes automated count (number/volume) 16.6 10*3/ uL 4.3-11.0 Blood erythrocytes automated count (number/volume) 4.33 10*6 /uL 4.35-5.85 Venous blood hemoglobin measurement (mass/volume) 13.6 g/dL 11.5-16.0 Blood hematocrit (volume fraction) 39 % 35-52 Automated erythrocyte mean corpuscular volume 90 [foz_us] 80-99 Automated erythrocyte mean corpuscular hemoglobin (mass per erythrocyte) 31 pg 25-34 Automated erythrocyte mean corpuscular hemoglobin concentration measurement ( mass/volume) 35 g/dL 32-36 Automated erythrocyte distribution width ratio 13.4 % 10.0-14.5 Automated blood platelet count (count/volume) 375 10*3/uL 130-400 Automated blood platelet mean volume measurement 9.7 [foz_us ] 7.4-10.4 Capillary blood glucose measurement by glucometer (mass/volume) - 01/14/16 12: 20 Capillary blood glucose measurement by glucometer (mass/volume) 508 mg/dL 70-110 Capillary blood glucose measurement by glucometer (mass/volume) - 01/14/16 12: 29 Capillary blood glucose measurement by glucometer (mass/volume) 486 mg/dL 70-110 Capillary blood glucose measurement by glucometer (mass/volume) - 01/14/16 14: 41 Capillary blood glucose measurement by glucometer (mass/volume) 423 mg/dL 70-110 Encounters ACCT No. Visit Date/Time Discharge Status Pt. Type Provider Facility Loc./Unit Complaint [id number] 01/08/2016 09:20:00 2015 15:30:00 DIS Inpatient YESSI FELIX DO [facility] [address] WEAKNESS,UNCONTROLLED HYPERGLYCEMIA,DEHYDRATION [id number] 05/02/2013 18:20:00 2013 14:45:00 DIS Inpatient YESSI FELIX DO [facility] [address] SUDDEN ONSET OF NOT BEING ABLE TO WALK,FALLS
--- NOTE | 2016-03-24 10:22 | Diagnostic Imaging Report ---
EXAMINATION: 2 views of the left hip. INDICATION: Fall. FINDINGS: There is suggestion of a minimally impacted subcapital femoral neck fracture. There is no dislocation or subluxation. No radiopaque foreign body. IMPRESSION: Findings suggestive of minimally impacted subcapital left femoral neck fracture. This can be confirmed with CT scan if needed. Dictated by: Dictated on workstation # [id number]
--- NOTE | 2016-03-24 10:28 | Diagnostic Imaging Report ---
EXAMINATION: AP view of the pelvis. COMPARISON: 01/07/16 FINDINGS: There is a sclerotic line with suggestion of a minimally impacted nondisplaced subcapital left femoral neck fracture. No fracture in the right hip. Deformities in the superior and inferior left pubic rami are age-indeterminate and are not obviously present on the previous radiograph IMPRESSION: Suggestion of a subcapital left femoral neck fracture. There is also deformity in the inferior and superior left pubic rami suggestive of age indeterminate minimally displaced fractures. Correlate clinically and with CT pelvis if needed. Dictated by: Dictated on workstation # [id number]
--- NOTE | 2016-03-24 10:46 | ED Fall/Injury ---
General Chief Complaint: Trauma-Non Activation Stated Complaint: FALL Nursing Triage Note: SAME LEVEL FALL, DENIES ANY LOC Source: patient, family Exam Limitations: no limitations History of Present Illness Time seen by provider: 09:25 Initial Comments This pleasant 76-year-old woman from [facility] presents to the emergency room after slipping on her hardwood floor in the closet. She fell onto her left side and was unable to stand up or bear weight. She has pain in the left hip. She reports lightly striking her head on the door but had no pain or loss of consciousness. She denies pain or tenderness in the neck. There was no prodrome before the fall and she was feeling well prior to the incident. She was wearing socks without wet process head miller on the sole and slid on the slick surface. She is an insulin-dependent diabetic but is otherwise relatively healthy. She was admitted to [facility] for physical therapy. Occurred: just prior to arrival Allergies and Home Medications Allergies Coded Allergies: No Known Drug Allergies (Unverified , 05/01/13) Home Medications Acetaminophen 325 Mg Tablet 650 MG PO Q6H PRN PRN TEMP/MILD PAIN (Reported) TAKES 2 (325MG) TABLETS Amlodipine Besylate 10 Mg Tablet 10 MG PO DAILY (Reported) HOLD FOR SBP < 100 AND/OR DBP < 60 AND PULSE LESS THAN OR EQUAL TO 60 Aspirin 81 Mg Tablet.dr 81 MG PO DAILY (Reported) Atorvastatin 20 Mg Tablet 20 MG PO HS (Reported) Citalopram Hydrobromide 20 Mg Tablet 20 MG PO DAILY (Reported) Donepezil HCl 10 Mg Tablet 10 MG PO HS (Reported) Insulin Aspart 100 Unit/1 Ml Susp 5 UNIT SQ TIDAC (Reported) Insulin Aspart 100 Unit/1 Ml Susp SQ SLIDING/SCALE PRN PRN BS ABOVE 150 ( Reported) USE THIS SLIDING SCALE IN ADDITION TO 5 UNTIS WITH MEALS 150-210 = 1 EXTRA UNIT 211-270 = 2 EXTRA UNITS 271-330 = 3 EXTRA UNITS 331-390 = 4 EXTRA UNITS > 390 = 5 EXTRA UNITS NOT AT BEDTIME Insulin Determir 1,000 Units/10 Ml Soln 10 UNITS SQ DAILY (Reported) Insulin Determir 1,000 Units/10 Ml Soln 5 UNITS SQ HS (Reported) Lisinopril 5 Mg Tablet 5 MG PO DAILY (Reported) HOLD FOR SBP<100 AND/OR DBP<60 AND PULSE LESS THAN OR EQUAL TO 60 Loperamide HCl 2 Mg Tablet 2 MG PO QID PRN PRN LOOSE STOOLS (Reported) Memantine HCl 10 Mg Tablet 10 MG PO BID (Reported) Nicotine 1 Each Patch.td24 14 MG TD DAILY (Reported) Nystatin 15 Gm Cream..g. TP BID (Reported) Tolterodine Tartrate 4 Mg Cap.er.24h 4 MG PO DAILY (Reported) Constitutional: no symptoms reported Eyes: No Symptoms Reported Ears, Nose, Mouth, Throat: no symptoms reported Respiratory: no symptoms reported Cardiovascular: no symptoms reported Gastrointestinal: no symptoms reported Genitourinary: no symptoms reported Musculoskeletal: see HPI Skin: no symptoms reported Psychiatric/Neurological: No Symptoms Reported Past Jzfbokt-Vnmxys-Awqudf Hx Patient Social History Alcohol Use: Denies Use Recreational Drug Use: No Smoking Status: Former Smoker Type Used: Cigarettes Recent Foreign Travel: No Contact w/Someone Who Travel: No Recent Infectious Disease Expo: No Recent Hopitalizations: Yes (DEC 2015) Immunizations Up To Date Tetanus Booster (TDap): More than 5yrs Date of Pneumonia Vaccine: Dec 16, 2010 Date of Influenza Vaccine: Nov 11, 2015 Seasonal Allergies Seasonal Allergies: No Surgeries HX Surgeries: No Respiratory Hx Respiratory Disorders: No Cardiovascular Hx Cardiac Disorders: Yes Cardiac Disorders: Hypertension Neurological Hx Neurological Disorders: Yes Neurological Disorders: Dementia Reproductive System Hx Reproductive Disorders: No Sexually Transmitted Disease: No HIV/AIDS: No 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 Disorders: Denies Genitourinary Hx Genitourinary Disorders: No Gastrointestinal Hx Gastrointestinal Disorders: No Musculoskeletal Hx Musculoskeletal Disorders: No Endocrine Hx Endocrine Disorders: Yes Endocrine Disorders: Diabetes, Insulin dep HEENT HX ENT Disorders: No HEENT Disorders: Macular Degeneration Loss of Vision: Denies Hearing Impairment: Denies Cancer Hx Cancer: No Psychosocial Hx Psychiatric Problems: Yes Behavioral Health Disorders: Depression Integumentary HX Skin/Integumentary Disorder: Yes (current shingles) Skin/Integumentary Disorders: Herpes Blood Transfusions Hx Blood Disorders: No Adverse Reaction to a Blood Tr: No Family Medical History Significant Family History: No Pertinent Family Hx Family Medial History: Stroke 03 FATHER, Onset:70 Physical Exam Vital Signs Vital Sign - Last 12Hours 03/24/16 09:22 Temp 97.8 Pulse 71 Resp 20 B/P 155/75 Pulse Ox 96 O2 Delivery Room Air Capillary Refill : Less Than 3 Seconds General Appearance: WD/WN no apparent distress HEENT: PERRL/EOMI normal ENT inspection pharynx normal Neck: non-tender full range of motion supple normal inspection Cardiovascular: regular rate, rhythm no edema no murmur Respiratory: lungs clear normal breath sounds no respiratory distress no accessory muscle use Gastrointestinal: normal bowel sounds non tender soft Back: normal inspection no CVA tenderness Extremities: non-tender normal inspection no pedal edema other (no pain with palpation or external rotation of the hip. No pain with palpation of the pelvis. She does have pain with attempts to extend the hip.) Neurologic/Psychiatric: list of first job ideas II-XII nml as tested no motor/sensory deficits alert normal mood/affect oriented x 3 Skin: normal color warm/dry Víctor Coma Score Best Eye Response: (4) Open Spontaneously Best Verbal Response: (5) Oriented Best Motor Response: (6) Obeys Commands Víctor Total: 15 Progress/Results/Core Measures Results/Orders Lab Results Laboratory Tests Test 03/24/16 11:05 03/24/16 12:58 Range/Units Activated Partial Thromboplast Time 24 24-35 SEC Alanine Aminotransferase (ALT/SGPT) 66 H 0-55 U/L Albumin 3.4 3.2-4.5 G/DL Alkaline Phosphatase 204 H 40-136 U/L Anion Gap 11 5-14 MMOL/L Aspartate Amino Transf (AST/SGOT) 32 5-34 U/L BUN/Creatinine Ratio 21 Band Neutrophils 9 % Basophils # (Auto) 0.1 0.0-0.1 10^3/uL Basophils % (Manual) 0 % Basophils (%) (Auto) 0 0-10 % Blood Morphology Comment NORMAL Blood Urea Nitrogen 18 7-18 MG/DL Calcium Level 8.7 8.5-10.1 MG/DL Carbon Dioxide Level 21 21-32 MMOL/L Chloride Level 103 98-107 MMOL/L Creatinine 0.86 0.60-1.30 MG/DL Eosinophils # (Auto) 0.1 0.0-0.3 10^3/uL Eosinophils % (Manual) 1 % Eosinophils (%) (Auto) 1 0-10 % Estimat Glomerular Filtration Rate > 60 Glucose Level 299 H 70-105 MG/DL Hematocrit 40 35-52 % Hemoglobin 13.8 11.5-16.0 G/DL INR Comment 0.9 0.8-1.4 Lymphocytes # (Auto) 1.4 1.0-4.0 X 10^3 Lymphocytes % (Manual) 9 % Lymphocytes (%) (Auto) 7 L 12-44 % Mean Corpuscular Hemoglobin 31 25-34 PG Mean Corpuscular Hemoglobin Concent 35 32-36 G/DL Mean Corpuscular Volume 90 80-99 FL Mean Platelet Volume 9.7 7.4-10.4 FL Monocytes # (Auto) 1.4 H 0.0-1.0 X 10^3 Monocytes % (Manual) 4 % Monocytes (%) (Auto) 7 0-12 % Neutrophils # (Auto) 17.5 H 1.8-7.8 X 10^3 Neutrophils % (Manual) 77 % Neutrophils (%) (Auto) 85 H 42-75 % Platelet Count 262 130-400 10^3/uL Potassium Level 4.4 3.6-5.0 MMOL/L Prothrombin Time 12.2 12.2-14.7 SEC Red Blood Count 4.41 4.35-5.85 10^6/uL Red Cell Distribution Width 13.5 10.0-14.5 % Sodium Level 135 135-145 MMOL/L Total Bilirubin 0.6 0.1-1.0 MG/DL Total Protein 6.8 6.4-8.2 G/DL White Blood Count 20.5 H 4.3-11.0 10^3/uL Glucometer 281 H 70-110 MG/DL My Orders Orders-CRUZ REYES MD Pelvis (03/24/16 09:28) Hip, Left, 2 Views (03/24/16 09:28) Ct Pelvis Wo (03/24/16 10:45) Chest 1 View, Ap/Pa Only (03/24/16 10:46) Cbc With Automated Diff (03/24/16 10:46) Comprehensive Metabolic Panel (03/24/16 10:46) Protime With Inr (03/24/16 10:46) Partial Thromboplastin Time (03/24/16 10:46) Saline Lock/Iv-Start (03/24/16 10:46) Ekg Tracing (03/24/16 10:46) Fentanyl Injection (Sublimaze Injection (03/24/16 11:00) Manual Differential (03/24/16 11:05) Fentanyl Injection (Sublimaze Injection (03/24/16 12:45) Accucheck Stat ONCE (03/24/16 12:43) Medications Given in ED Current Medications Medications Dose Ordered Sig/Venessa Route Start Time Stop Time Status Last Admin Dose Admin Fentanyl Citrate 25 mcg ONCE ONCE IVP 03/24/16 11:00 03/24/16 11:01 DC 03/24/16 11:08 25 MCG Fentanyl Citrate 25 mcg ONCE ONCE IVP 03/24/16 12:45 03/24/16 12:46 DC 03/24/16 12:51 25 MCG Vital Signs/I&O Vital Sign - Last 12Hours 03/24/16 09:22 Temp 97.8 Pulse 71 Resp 20 B/P 155/75 Pulse Ox 96 O2 Delivery Room Air Blood Pressure Mean: 101 Progress Note #1: Time: 10:46 Progress Note There is questionable evidence of left hip fracture and possibly pelvic fracture noted on hip and pelvis x-rays. CT is recommended. On repeat examination, patient was unable to raise the left leg off of the bed. Fracture is suspected. CT was ordered. Progress Note #2: Time: 13:07 Progress Note Pelvic fractures, sacral fracture, and subcapital left femoral neck fracture were identified on CT. Case was reviewed with Dr. Bravo. He would like to take her to surgery within the next 1-2 hours. Patient's daughter stated patient is a brittle diabetic and took her long-acting insulin this morning. Fingerstick blood sugar was 281. Dr. Felix was contacted and agrees to consultation. He sees no reason why she wouldn't be able to have surgery today. Plan was discussed with patient and her daughter. They are agreeable. Progress Note #3: Time: 14:16 Progress Note Felder has been placed and sediment and mucus were noted in the urine. UA was sent for processing. Anesthesia is meeting with patient at present. Anesthesia prefers to wait 8 hours after last oral intake which was 08:00. Surgery will be tentatively planned for between 15:30 and 16:00. Patient is comfortable after fentanyl administration. Zofran was given for nausea. ECG Initial ECG Impression Date: Mar 24, 2016 Initial ECG Impression Time: 11:41 Initial ECG Rate: 72 Initial ECG Rhythm: Normal Sinus Comment Normal sinus rhythm with no ST elevation or depression. No abnormal intervals or axis deviation. Diagnostic Imaging Diagonstic Imaging: Xray Plain Films/CT/US/NM/MRI: chest Comments NAME: ROMINA HART [facility] REC#: [id number] PT STATUS: REG ER : 1940 PHYSICIAN: CRUZ REYES MD ADMIT DATE: 03/24/16/ER Draft Date of Exam:03/24/16 CHEST 1 VIEW, AP/PA ONLY INDICATION: Fall with chest discomfort. PA chest obtained at 11:23 a.m. Heart and mediastinal silhouette are normal in appearance. The lungs are clear. There is no pneumothorax or pleural fluid. IMPRESSION: Negative chest. Dictated on workstation # [id number] Dict: 03/24/16 1154 Trans: 03/24/16 1209 [id number] Interpreted by: RONEN BARKLEY MD Diagonstic Imaging: Xray Plain Films/CT/US/NM/MRI: hip Comments Left hip x-ray viewed by me and report reviewed. See report below: NAME: ROMINA HART [facility] REC#: [id number] PT STATUS: REG ER : 1940 PHYSICIAN: CRUZ REYES MD ADMIT DATE: 03/24/16/ER Draft Date of Exam:03/24/16 HIP, LEFT, 2 VIEWS EXAMINATION: 2 views of the left hip. INDICATION: Fall. FINDINGS: There is suggestion of a minimally impacted subcapital femoral neck fracture. There is no dislocation or subluxation. No radiopaque foreign body. IMPRESSION: Findings suggestive of minimally impacted subcapital left femoral neck fracture. This can be confirmed with CT scan if needed. Dictated on workstation # [id number] Dict: 03/24/16 1017 Trans: 03/24/16 1021 [facility] [id number] Interpreted by: JUVE REEVES MD Diagonstic Imaging: Xray Plain Films/CT/US/NM/MRI: pelvis Comments Pelvis x-ray viewed by me and report reviewed. See report below: NAME: ROMINA HART [facility] REC#: [id number] PT STATUS: REG ER : 1940 PHYSICIAN: CRUZ REYES MD ADMIT DATE: 03/24/16/ER Draft Date of Exam:03/24/16 PELVIS EXAMINATION: AP view of the pelvis. COMPARISON: 01/07/16 FINDINGS: There is a sclerotic line with suggestion of a minimally impacted nondisplaced subcapital left femoral neck fracture. No fracture in the right hip. Deformities in the superior and inferior left pubic rami are age-indeterminate and are not obviously present on the previous radiograph IMPRESSION: Suggestion of a subcapital left femoral neck fracture. There is also deformity in the inferior and superior left pubic rami suggestive of age indeterminate minimally displaced fractures. Correlate clinically and with CT pelvis if needed. Dictated on workstation # [id number] Dict: 03/24/16 1019 Trans: 03/24/16 1028 [facility] [id number] Interpreted by: JUVE REEVES MD Diagonstic Imaging: CT Plain Films/CT/US/NM/MRI: pelvis Comments CT pelvis viewed by me and report reviewed. See report below: NAME: ROMINA HART [facility] REC#: [id number] PT STATUS: REG ER : 1940 PHYSICIAN: CRUZ REYES MD ADMIT DATE: 03/24/16/ER Draft Date of Exam:03/24/16 CT PELVIS WO PROCEDURE: CT pelvis without contrast. TECHNIQUE: Multiple contiguous axial images were obtained through the pelvis without the use of intravenous contrast. Sagittal and coronal reformations were performed. INDICATION: Hip pain after fall, greater on the left. COMPARISON: Pelvis radiographs of earlier same day at 9:53 AM FINDINGS: There is a minimally impacted, but complete subcapital fracture of the left femoral neck. There is no significant varus or valgus angulation. No anterior or posterior displacement of the distal fracture fragment. Femoral head remains spherical. There is an acute, mildly comminuted fracture involving the left pubic body, which also involves the most medial aspect of the superior pubic ramus. There is also a transverse fracture through the mid left inferior pubic ramus. There is a nondisplaced fracture in the lateral aspect of the left sacral ala which does not have definitive intra-articular extension into the left SI joint. Diffuse osteoporosis. There is no fracture in the right hemipelvis. No sacral insufficiency fractures identified. Proximal right femur is intact. No free pelvic fluid or evidence of pelvic hematoma. No pelvic lymphadenopathy. Colonic diverticulosis without evidence of diverticulitis. IMPRESSION: 1. Complete, minimally impacted but otherwise nondisplaced subcapital fracture of the left femoral neck. 2. Mildly displaced fractures of the left pubic body and left inferior pubic ramus. 3. Nondisplaced fracture of the lateral left sacral ala. There is no extension into the SI joint. 4. Osteoporosis. Dictated on workstation # [id number] Dict: 03/24/16 1237 Trans: 03/24/16 1246 [facility] [id number] Interpreted by: ALVA WALKER MD Departure Impression Impression: Primary Impression: Subcapital fracture of left hip Qualified Code: S72.012A - Unspecified intracapsular fracture of left femur, initial encounter for closed fracture Additional Impressions: Pelvic fracture Qualified Code: S32.502A - Unspecified fracture of left pubis, initial encounter for closed fracture Sacral fracture Qualified Code: S32.10XA - Unspecified fracture of sacrum, initial encounter for closed fracture Fall on same level Qualified Code: W18.30XA - Fall on same level, unspecified, initial encounter Disposition: ADMITTED INPATIENT Condition: Improved Decision to Admit Reason: Admit from ER (Trauma) Decision to Admit/Date: Mar 24, 2016 Time/Decision to Admit Time: 13:00 Departure-Patient Inst. Referrals: YESSI FELIX DO (PCP/Family) Primary Care Physician CRUZ REYES MD Mar 24, 2016 10:46
[2016-03-24] MEDS ORDERED: fentaNYL INJECTION 100 MCG/2 ML AMP IVP ONE ×2 (11:00→12:45)
[2016-03-24 11:17] LABS: BASOPHILS # (AUTO) 0.1 10^3/uL (0.0-0.1); BASOPHILS % (AUTO) 0 % (0-10); EOSINOPHILS # (AUTO) 0.1 10^3/uL (0.0-0.3); EOSINOPHILS % (AUTO) 1 % (0-10); LYMPHOCYTES # (AUTO) 1.4 X 10^3 (1.0-4.0); LYMPHOCYTES % (AUTO) 7 % (12-44); MEAN CORPUSCULAR HEMOGLOBIN 31 PG (25-34); MEAN CORPUSCULAR HGB CONC 35 G/DL (32-36); MEAN CORPUSCULAR VOLUME 90 FL (80-99); MEAN PLATELET VOLUME 9.7 FL (7.4-10.4); MONOCYTES # (AUTO) 1.4 X 10^3 (0.0-1.0); MONOCYTES % (AUTO) 7 % (0-12); NEUTROPHILS # (AUTO) 17.5 X 10^3 (1.8-7.8); NEUTROPHILS % (AUTO) 85 % (42-75); PLATELET COUNT 262 10^3/uL (130-400); RED BLOOD COUNT 4.41 10^6/uL (4.35-5.85); RED CELL DISTRIBUTION WIDTH 13.5 % (10.0-14.5); WHITE BLOOD COUNT 20.5 10^3/uL (4.3-11.0)
[2016-03-24 11:29] LABS: INR 0.9 (0.8-1.4); PROTHROMBIN TIME PATIENT 12.2 SEC (12.2-14.7)
[2016-03-24 11:34] LABS: BAND NEUTROPHILS 9 %; BASOPHILS % (MANUAL) 0 %; EOSINOPHILS % (MANUAL) 1 %; LYMPHOCYTES % (MANUAL) 9 %; NEUTROPHILS % (MANUAL) 77 %
[2016-03-24 11:38] LABS: ALANINE AMINOTRANSFERASE 66 U/L (0-55); ALBUMIN 3.4 G/DL (3.2-4.5); ANION GAP 11 MMOL/L (5-14); ASPARTATE AMINO TRANSFERASE 32 U/L (5-34); BILIRUBIN,TOTAL 0.6 MG/DL (0.1-1.0); BLOOD UREA NITROGEN 18 MG/DL (7-18); BUN/CREATININE RATIO 21; CALCIUM 8.7 MG/DL (8.5-10.1); CARBON DIOXIDE 21 MMOL/L (21-32); CHLORIDE 103 MMOL/L (98-107); CREATININE SERUM 0.86 MG/DL (0.60-1.30); GFR ESTIMATED > 60; GLUCOSE 299 MG/DL (70-105); POTASSIUM 4.4 MMOL/L (3.6-5.0); SODIUM 135 MMOL/L (135-145); TOTAL PROTEIN 6.8 G/DL (6.4-8.2)
--- NOTE | 2016-03-24 12:09 | Diagnostic Imaging Report ---
INDICATION: Fall with chest discomfort. PA chest obtained at 11:23 a.m. Heart and mediastinal silhouette are normal in appearance. The lungs are clear. There is no pneumothorax or pleural fluid. IMPRESSION: Negative chest. Dictated by: Dictated on workstation # [id number]
--- NOTE | 2016-03-24 12:46 | Diagnostic Imaging Report ---
PROCEDURE: CT pelvis without contrast. TECHNIQUE: Multiple contiguous axial images were obtained through the pelvis without the use of intravenous contrast. Sagittal and coronal reformations were performed. INDICATION: Hip pain after fall, greater on the left. COMPARISON: Pelvis radiographs of earlier same day at 9:53 AM FINDINGS: There is a minimally impacted, but complete subcapital fracture of the left femoral neck. There is no significant varus or valgus angulation. No anterior or posterior displacement of the distal fracture fragment. Femoral head remains spherical. There is an acute, mildly comminuted fracture involving the left pubic body, which also involves the most medial aspect of the superior pubic ramus. There is also a transverse fracture through the mid left inferior pubic ramus. There is a nondisplaced fracture in the lateral aspect of the left sacral ala which does not have definitive intra-articular extension into the left SI joint. Diffuse osteoporosis. There is no fracture in the right hemipelvis. No sacral insufficiency fractures identified. Proximal right femur is intact. No free pelvic fluid or evidence of pelvic hematoma. No pelvic lymphadenopathy. Colonic diverticulosis without evidence of diverticulitis. IMPRESSION: 1. Complete, minimally impacted but otherwise nondisplaced subcapital fracture of the left femoral neck. 2. Mildly displaced fractures of the left pubic body and left inferior pubic ramus. 3. Nondisplaced fracture of the lateral left sacral ala. There is no extension into the SI joint. 4. Osteoporosis. Dictated by: Dictated on workstation # [id number]
[2016-03-24] MEDS ORDERED: LACTATED RINGERS 1,000 ML IV ONE ×3 (13:47→19:35)
[2016-03-24] MEDS ORDERED: ONDANSETRON 4 MG/2 ML (SDV) Z0FRAN ONE ×2 (13:53→19:35)
[2016-03-24] MEDS ORDERED: ONDANSETRON 4 MG/2 ML (SDV) Z0FRAN IVP ONE (14:00)
[2016-03-24 14:25] VITALS: BP 141/74
[2016-03-24] MEDS: LACTATED RINGERS 1,000 ML IV SCH ×2 (14:40→22:21)
[2016-03-24 15:06] LABS: BILIRUBIN,URINE NEGATIVE (NEGATIVE); KETONES,URINE 1+ (NEGATIVE); LEUKOCYTE ESTERASE ,URINE 3+ (NEGATIVE); NITRITE,URINE NEGATIVE (NEGATIVE); PH,URINE 6 (5-9); PROTEIN,URINE 3+ (NEGATIVE); UROBILINOGEN,URINE NORMAL (NORMAL)
[2016-03-24 15:14] LABS: WBC,URINE TNTC /HPF; YEAST,URINE MODERATE /HPF
[2016-03-24] MEDS ORDERED: CATHETER FLUSH 10 ML SYR IV PRN (15:15)
[2016-03-24] MEDS ORDERED: fentaNYL INJECTION 100 MCG/2 ML AMP IV PRN (15:15)
[2016-03-24] MEDS ORDERED: TOLT4CAP13 PO (15:45)
[2016-03-24] MEDS ORDERED: NCT14P TD (15:45)
[2016-03-24] MEDS ORDERED: INSU100V16 SQ ×2 (15:45)
[2016-03-24] MEDS ORDERED: LOPE2TAB34 PO (15:45)
[2016-03-24] MEDS ORDERED: ALBU2.5V4 IH (15:45)
[2016-03-24] MEDS ORDERED: DONE10TA12 PO (15:45)
[2016-03-24] MEDS ORDERED: MEMA10TA2 PO (15:45)
[2016-03-24] MEDS ORDERED: ACET325T38 PO (15:45)
[2016-03-24] MEDS ORDERED: CITA20TA7 PO (15:45)
[2016-03-24] MEDS ORDERED: NYST15CR TP (15:45)
[2016-03-24] MEDS ORDERED: INSU100V5 SQ ×2 (15:45)
[2016-03-24 16:00] VITALS: BP 137/71
--- NOTE | 2016-03-24 18:52 | Consultation ---
History of Present Illness History of Present Illness Patient Consulted On(etelvina/time) 03/24/16 18:49 Date of Admission History of Present Illness patient [facility] a [facility] [place]. Patient went to the closet and fell and hit her left side area Patient brought out to the emergency room. X-ray showed left hip fracture, pelvic fracture and sacral fracture. Patient and known diabetic. Patient has dementia. White blood cell count 20,000. UA shows infection. Patient put on Rocephin. Patient has been alert according to the family the last 2 days Allergies and Home Medications Allergies Coded Allergies: No Known Drug Allergies (Unverified , 05/01/13) Home Medications Acetaminophen 325 Mg Tablet 650 MG PO Q6H PRN PRN TEMP/MILD PAIN (Reported) TAKES 2 (325MG) TABLETS Amlodipine Besylate 10 Mg Tablet 10 MG PO DAILY (Reported) HOLD FOR SBP < 100 AND/OR DBP < 60 AND PULSE LESS THAN OR EQUAL TO 60 Aspirin 81 Mg Tablet.dr 81 MG PO DAILY (Reported) Atorvastatin 20 Mg Tablet 20 MG PO HS (Reported) Citalopram Hydrobromide 20 Mg Tablet 20 MG PO DAILY (Reported) Donepezil HCl 10 Mg Tablet 10 MG PO HS (Reported) Insulin Aspart 100 Unit/1 Ml Susp 5 UNIT SQ TIDAC (Reported) Insulin Aspart 100 Unit/1 Ml Susp SQ SLIDING/SCALE PRN PRN BS ABOVE 150 ( Reported) USE THIS SLIDING SCALE IN ADDITION TO 5 UNTIS WITH MEALS 150-210 = 1 EXTRA UNIT 211-270 = 2 EXTRA UNITS 271-330 = 3 EXTRA UNITS 331-390 = 4 EXTRA UNITS > 390 = 5 EXTRA UNITS NOT AT BEDTIME Insulin Determir 1,000 Units/10 Ml Soln 10 UNITS SQ DAILY (Reported) Insulin Determir 1,000 Units/10 Ml Soln 5 UNITS SQ HS (Reported) Lisinopril 5 Mg Tablet 5 MG PO DAILY (Reported) HOLD FOR SBP<100 AND/OR DBP<60 AND PULSE LESS THAN OR EQUAL TO 60 Loperamide HCl 2 Mg Tablet 2 MG PO QID PRN PRN LOOSE STOOLS (Reported) Memantine HCl 10 Mg Tablet 10 MG PO BID (Reported) Nicotine 1 Each Patch.td24 14 MG TD DAILY (Reported) Nystatin 15 Gm Cream..g. TP BID (Reported) Tolterodine Tartrate 4 Mg Cap.er.24h 4 MG PO DAILY (Reported) Past Vvzihhp-Gvgkha-Dqbpto Hx Patient Social History Alcohol Use: Denies Use Recreational Drug Use: No Smoking Status: Former Smoker Type Used: Cigarettes Recent Foreign Travel: No Contact w/Someone Who Travel: No Recent Infectious Disease Expo: No Recent Hopitalizations: Yes (DEC 2015) Immunizations Up To Date Tetanus Booster (TDap): More than 5yrs Date of Pneumonia Vaccine: Dec 16, 2010 Date of Influenza Vaccine: Nov 11, 2015 Seasonal Allergies Seasonal Allergies: No Surgeries HX Surgeries: No Respiratory Hx Respiratory Disorders: No Cardiovascular Hx Cardiac Disorders: Yes Cardiac Disorders: Hypertension Neurological Hx Neurological Disorders: Yes Neurological Disorders: Dementia Reproductive System Hx Reproductive Disorders: No Sexually Transmitted Disease: No HIV/AIDS: No 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 Disorders: Denies Genitourinary Hx Genitourinary Disorders: No Gastrointestinal Hx Gastrointestinal Disorders: No Musculoskeletal Hx Musculoskeletal Disorders: No Endocrine Hx Endocrine Disorders: Yes Endocrine Disorders: Diabetes, Insulin dep HEENT HX ENT Disorders: No HEENT Disorders: Macular Degeneration Loss of Vision: Denies Hearing Impairment: Denies Cancer Hx Cancer: No Psychosocial Hx Psychiatric Problems: Yes Behavioral Health Disorders: Depression Integumentary HX Skin/Integumentary Disorder: Yes (current shingles) Skin/Integumentary Disorders: Herpes Blood Transfusions Hx Blood Disorders: No Adverse Reaction to a Blood Tr: No Family Medical History Significant Family History: No Pertinent Family Hx Family Medial History: Stroke 03 FATHER, Onset:70 Review of Systems-General Constitutional: no symptoms reported weakness EENTM: no symptoms reported Respiratory: no symptoms reported Cardiovascular: no symptoms reported Gastrointestinal: no symptoms reported Physical Exam-General Problems Physical Exam Vital Signs Vital Sign - Last 12Hours 03/24/16 09:22 Temp 97.8 Pulse 71 Resp 20 B/P 155/75 Pulse Ox 96 O2 Delivery Room Air Capillary Refill : Less Than 3 Seconds General Appearance: no apparent distress thin HEENT: normal ENT inspection Neck: non-tender full range of motion Respiratory: chest non-tender no respiratory distress Cardiovascular: regular rate, rhythm no murmur Gastrointestinal: non tender soft Assessment/Plan Assessment/Plan Admission Diagnosis/Plan left hip fracture. Pelvic fracture. Sacral fracture. Diabetes. Dementia. Hypertension YESSI FELIX DO Mar 24, 2016 18:52
[2016-03-24] MEDS ORDERED: ACETAMINOPHEN 325 MG TABLET/CAPLET (TYLENOL) PO PRN ×2 (19:00→20:15)
[2016-03-24] MEDS ORDERED: LIDOCAINE PF 2% 10 ML (XYLOCAINE) AMP ONE (19:35)
[2016-03-24] MEDS ORDERED: MIDAZOLAM 2 MG/2 ML (VERSED) VIAL ONE (19:35)
[2016-03-24] MEDS ORDERED: proPOfol 200 MG/20 ML (DIPRIVAN) VIAL IV ONE (19:35)
[2016-03-24] MEDS ORDERED: SEVOFLURANE (ULTANE) 15 ML INHAL SOLN ONE (19:35)
[2016-03-24] MEDS ORDERED: fentaNYL INJECTION 100 MCG/2 ML AMP ONE (19:35)
[2016-03-24] MEDS: ATORVASTATIN 20 MG (LIPITOR) TABLET PO SCH (19:43)
[2016-03-24] MEDS: DONEPEZIL 10 MG (ARICEPT) TAB PO SCH (19:43)
[2016-03-24] MEDS: MEMANTINE 10 MG (NAMENDA) TABLET PO SCH (19:44)
--- NOTE | 2016-03-24 19:56 | History & Physicial ---
History of Present Illness History of Present Illness Reason for visit/HPI Patient is a 76 y/o white female who experienced a fall earlier today. Patient fell onto her left side and immediately experienced left hip pain. Patient is a resident of a nursing facility, and EMS transported the patient to [facility]. Upon arrival CT scan revealed a left femoral neck subcapital fracture, Superior and inferior left pubic rami fracture, and left sacral ala fracture. She denies LOC, or other injury. Due to this the patient was admitted to our service for evaluation and treatment. Patient has dementia, and labs reveal UTI. Date of Admission Mar 24, 2016 at 13:27 I consulted on this patient on 03/24/16 19:50 Attending Physician Evelio Bravo MD Admitting Physician Vazquez Higgins DO Consult Allergies and Home Medications Allergies Coded Allergies: No Known Drug Allergies (Unverified , 05/01/13) Home Medications Acetaminophen 325 Mg Tablet 650 MG PO Q6H PRN PRN TEMP/MILD PAIN (Reported) TAKES 2 (325MG) TABLETS Amlodipine Besylate 10 Mg Tablet 10 MG PO DAILY (Reported) HOLD FOR SBP < 100 AND/OR DBP < 60 AND PULSE LESS THAN OR EQUAL TO 60 Aspirin 81 Mg Tablet.dr 81 MG PO DAILY (Reported) Atorvastatin 20 Mg Tablet 20 MG PO HS (Reported) Citalopram Hydrobromide 20 Mg Tablet 20 MG PO DAILY (Reported) Donepezil HCl 10 Mg Tablet 10 MG PO HS (Reported) Insulin Aspart 100 Unit/1 Ml Susp 5 UNIT SQ TIDAC (Reported) Insulin Aspart 100 Unit/1 Ml Susp SQ SLIDING/SCALE PRN PRN BS ABOVE 150 ( Reported) USE THIS SLIDING SCALE IN ADDITION TO 5 UNTIS WITH MEALS 150-210 = 1 EXTRA UNIT 211-270 = 2 EXTRA UNITS 271-330 = 3 EXTRA UNITS 331-390 = 4 EXTRA UNITS > 390 = 5 EXTRA UNITS NOT AT BEDTIME Insulin Determir 1,000 Units/10 Ml Soln 10 UNITS SQ DAILY (Reported) Insulin Determir 1,000 Units/10 Ml Soln 5 UNITS SQ HS (Reported) Lisinopril 5 Mg Tablet 5 MG PO DAILY (Reported) HOLD FOR SBP<100 AND/OR DBP<60 AND PULSE LESS THAN OR EQUAL TO 60 Loperamide HCl 2 Mg Tablet 2 MG PO QID PRN PRN LOOSE STOOLS (Reported) Memantine HCl 10 Mg Tablet 10 MG PO BID (Reported) Nicotine 1 Each Patch.td24 14 MG TD DAILY (Reported) Nystatin 15 Gm Cream..g. TP BID (Reported) Tolterodine Tartrate 4 Mg Cap.er.24h 4 MG PO DAILY (Reported) Past Wunvpaf-Blqseb-Otkvyi Hx Patient Social History Alcohol Use: Denies Use Recreational Drug Use: No Smoking Status: Former Smoker Type Used: Cigarettes Recent Foreign Travel: No Contact w/other who traveled: No Recent Hopitalizations: Yes (DEC 2015) Recent Infectious Disease Expo: No Immunizations Up To Date Tetanus Booster (TDap): More than 5yrs Date of Pneumonia Vaccine: Dec 16, 2010 Date of Influenza Vaccine: Nov 11, 2015 Seasonal Allergies Seasonal Allergies: No Surgeries HX Surgeries: No Respiratory Hx Respiratory Disorders: No Cardiovascular Hx Cardiovascular Disorders: Yes Cardiac Disorders: Hypertension Neurological Hx Neurological Disorders: Yes Neurological Disorders: Dementia Reproductive System Hx Reproductive Disorders: No Sexually Transmitted Disease: No HIV/AIDS: No 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 Disorders: Denies Genitourinary Hx Genitourinary Disorders: No Gastrointestinal Hx Gastrointestinal Disorders: No Musculoskeletal Hx Musculoskeletal Disorders: No Endocrine Hx Endocrine Disorders: Yes Endocrine Disorders: Diabetes, Insulin dep HEENT HX ENT Disorders: No HEENT Disorders: Macular Degeneration Loss of Vision: Denies Hearing Impairment: Denies Cancer Hx Cancer: No Psychosocial Hx Psychiatric Problems: Yes Behavioral Health Disorders: Depression Integumentary HX Skin/Integumentary Disorder: Yes (current shingles) Skin/Integumentary Disorders: Herpes Blood Transfusions Hx Blood Disorders: No Adverse Reaction to a Blood Tr: No Family Medical History Significant Family History: No Pertinent Family Hx Family Hx: Stroke 03 FATHER, Onset:70 Constitutional: No chills, No dizziness EENTM: no symptoms reported Respiratory: no symptoms reported Cardiovascular: no symptoms reported Genitourinary: frequency incontinence Musculoskeletal: other (left hip pain) Skin: no symptoms reported Psychiatric/Neurological: Other (dementia) Physical Exam Vital Signs Vital Sign - Last 12Hours 03/24/16 09:22 Temp 97.8 Pulse 71 Resp 20 B/P 155/75 Pulse Ox 96 O2 Delivery Room Air Capillary Refill : Less Than 3 Seconds General Appearance: No Apparent Distress HEENT: PERRL/EOMI Neck: Normal Inspection Respiratory: No Accessory Muscle Use No Respiratory Distress Cardiovascular: Normal Peripheral Pulses Gastrointestinal: Soft Rectal: Deferred Genital/Rectal: Normal Vaginal Exam Extremity: Normal Capillary Refill Other (Tenderness with palpation of left hip) Neurologic/Psychiatric: Alert Oriented x3 No Motor/Sensory Deficits Normal 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 Patient and family have been educated on risks and benefits of surgical intervention, and wish to proceed at this time. MAR OLGUIN Mar 24, 2016 19:56
[2016-03-24] MEDS ORDERED: ceFAZolin 1,000 MG (ANCEF) VIAL ONE (20:15)
[2016-03-24] MEDS ORDERED: ceFAZolin 2 GM/50 ML NS 50 ML IV ONE (20:15)
[2016-03-24] MEDS ORDERED: NS (IVPB) 100 ML ONE (20:16)
[2016-03-24] MEDS ORDERED: ISOFLURANE (FORANE) 15 ML/15 MIN INHALATION ONE (20:44)
[2016-03-24] MEDS ORDERED: NON-FORMULARY MEDICATION 1 EA EA (Atorvastatin (Lipitor 20MG) 20 MG) PO SCH (21:00)
--- NOTE | 2016-03-24 21:08 | Progress Note-Post Operative ---
Post-Operative Progess Note Chemist Assistant Ghulam Scott, PAC Pre-Operative Diagnosis Left Impacted Femoral Neck Fracture, Closed Post-Operative Diagnosis Same Post-Op Procedure Note Date of Procedure: Mar 24, 2016 Name of Procedure: Left Hip Perc Pinning Procedure Note/Findings Fx Anesthesia Type LMA Estimated blood loss (mL): MOHAMUD Staples MD Mar 24, 2016 9:08 pm
[2016-03-24] MEDS ORDERED: MEPERIDINE (DEMEROL) INJ 50 MG/ML IVP PRN (21:15)
[2016-03-24] MEDS ORDERED: ONDANSETRON 4 MG/2 ML (SDV) Z0FRAN IVP PRN (21:15)
[2016-03-24] MEDS ORDERED: morphine INJ 10 MG/ML 1ML (SYR OR VIAL) IVP PRN (21:15)
[2016-03-24] MEDS ORDERED: KETOROLAC 30 MG/ML VIAL ONE (21:45)
[2016-03-24] MEDS: KETOROLAC 15 MG/ML VIAL IM/IV SCH (21:48)
[2016-03-25] VITALS: BP 155/74
[2016-03-25] MEDS: ceFAZolin 2 GM/50 ML NS 50 ML IV SCH ×2 (02:14→02:15)
[2016-03-25] MEDS: KETOROLAC 15 MG/ML VIAL IM/IV SCH ×2 (03:12→09:22)
[2016-03-25 04:00] VITALS: BP 189/80
[2016-03-25] MEDS: ceFAZolin 2 GM/NS 50 ML IVPB IV SCH ×3 (04:38→20:24)
[2016-03-25 05:15] LABS: BASOPHILS % (AUTO) 0 % (0-10); EOSINOPHILS # (AUTO) 0.3 10^3/uL (0.0-0.3); EOSINOPHILS % (AUTO) 2 % (0-10); LYMPHOCYTES # (AUTO) 1.8 X 10^3 (1.0-4.0); LYMPHOCYTES % (AUTO) 11 % (12-44); MEAN CORPUSCULAR HEMOGLOBIN 31 PG (25-34); MEAN CORPUSCULAR HGB CONC 34 G/DL (32-36); MEAN CORPUSCULAR VOLUME 90 FL (80-99); MEAN PLATELET VOLUME 9.9 FL (7.4-10.4); MONOCYTES # (AUTO) 1.2 X 10^3 (0.0-1.0); MONOCYTES % (AUTO) 8 % (0-12); NEUTROPHILS # (AUTO) 12.5 X 10^3 (1.8-7.8); NEUTROPHILS % (AUTO) 79 % (42-75); PLATELET COUNT 215 10^3/uL (130-400); RED BLOOD COUNT 3.79 10^6/uL (4.35-5.85); RED CELL DISTRIBUTION WIDTH 13.3 % (10.0-14.5); WHITE BLOOD COUNT 15.8 10^3/uL (4.3-11.0)
[2016-03-25 05:21] LABS: ALANINE AMINOTRANSFERASE 49 U/L (0-55); ANION GAP 10 MMOL/L (5-14); ASPARTATE AMINO TRANSFERASE 22 U/L (5-34); BILIRUBIN,TOTAL 0.9 MG/DL (0.1-1.0); BLOOD UREA NITROGEN 13 MG/DL (7-18); BUN/CREATININE RATIO 18; CALCIUM 8.3 MG/DL (8.5-10.1); CARBON DIOXIDE 21 MMOL/L (21-32); CHLORIDE 101 MMOL/L (98-107); CREATININE SERUM 0.74 MG/DL (0.60-1.30); GFR ESTIMATED > 60; GLUCOSE 400 MG/DL (70-105); POTASSIUM 4.6 MMOL/L (3.6-5.0); SODIUM 132 MMOL/L (135-145); TOTAL PROTEIN 5.9 G/DL (6.4-8.2)
--- NOTE | 2016-03-25 07:30 | Progress Note (SOAP) ---
Subjective Subjective/Events-last exam patient feeling good today. Patient is alert. Urine shows yeast so far. Patient put on Diflucan. Blood tests look okay except for sugars being high Spoke to family Objective Exam Vital Signs Date Time Temp Pulse Resp B/P Pulse Ox O2 Delivery O2 Flow Rate FiO2 03/25/16 00:00 99.4 83 18 155/74 96 Room Air 03/24/16 21:48 99.1 03/24/16 16:00 94 20 137/71 94 Room Air 03/24/16 14:30 97.8 75 18 93 03/24/16 14:25 99.5 94 20 141/74 93 Room Air 03/24/16 14:25 Room Air 03/24/16 09:22 97.8 71 20 155/75 96 Room Air I & O 03/25/16 07:00 Intake Total 1100 ml Output Total 1085 ml Balance 15 ml Capillary Refill : Less Than 3 SecondsLess Than 3 Seconds General Appearance: No Apparent Distress Thin HEENT: Normal ENT Inspection Neck: Full Range of Motion Normal Inspection Respiratory: Chest Non Tender Lungs Clear Normal Breath Sounds No Accessory Muscle Use No Respiratory Distress Cardiovascular: Regular Rate, Rhythm No Murmur Gastrointestinal: non tender soft Results Lab Laboratory Tests 03/24/16 11:05 03/25/16 04:15 Laboratory Tests 03/24/16 11:05: Activated Partial Thromboplast Time 24, Alanine Aminotransferase (ALT/SGPT) 66H , Albumin 3.4, Alkaline Phosphatase 204H, Anion Gap 11, Aspartate Amino Transf ( AST/SGOT) 32, BUN/Creatinine Ratio 21, Band Neutrophils 9, Basophils # (Auto) 0.1, Basophils % (Manual) 0, Basophils (%) (Auto) 0, Blood Morphology Comment NORMAL, Blood Urea Nitrogen 18, Calcium Level 8.7, Carbon Dioxide Level 21, Chloride Level 103, Creatinine 0.86, Eosinophils # (Auto) 0.1, Eosinophils % ( Manual) 1, Eosinophils (%) (Auto) 1, Estimat Glomerular Filtration Rate > 60, Glucose Level 299H, Hematocrit 40, Hemoglobin 13.8, INR Comment 0.9, Lymphocytes # (Auto) 1.4, Lymphocytes % (Manual) 9, Lymphocytes (%) (Auto) 7L, Mean Corpuscular Hemoglobin 31, Mean Corpuscular Hemoglobin Concent 35, Mean Corpuscular Volume 90, Mean Platelet Volume 9.7, Monocytes # (Auto) 1.4H, Monocytes % (Manual) 4, Monocytes (%) (Auto) 7, Neutrophils # (Auto) 17.5H, Neutrophils % (Manual) 77, Neutrophils (%) (Auto) 85H, Platelet Count 262, Potassium Level 4.4, Prothrombin Time 12.2, Red Blood Count 4.41, Red Cell Distribution Width 13.5, Sodium Level 135, Total Bilirubin 0.6, Total Protein 6.8, White Blood Count 20.5H 03/24/16 12:58: Glucometer 281H 03/24/16 13:30: Urine Bacteria MODERATEH, Urine Bilirubin NEGATIVE, Urine Casts NONE, Urine Clarity MUCOUS, Urine Color YELLOW, Urine Crystals NONE, Urine Culture Indicated YES, Urine Glucose (UA) 3+H, Urine Ketones 1+H, Urine Leukocyte Esterase 3+H, Urine Mucus NEGATIVE, Urine Nitrite NEGATIVE, Urine Protein 3+H, Urine RBC 10-25H, Urine RBC (Auto) 4+H, Urine Specific [place] 1.025H, Urine Urobilinogen NORMAL, Urine WBC TNTCH, Urine Yeast MODERATEH, Urine pH 6 03/24/16 20:09: Glucometer 289H 03/24/16 21:20: Glucometer 310H 03/25/16 04:15: Alanine Aminotransferase (ALT/SGPT) 49, Albumin 3.0L, Alkaline Phosphatase 171H , Anion Gap 10, Aspartate Amino Transf (AST/SGOT) 22, BUN/Creatinine Ratio 18, Basophils # (Auto) 0.0, Basophils (%) (Auto) 0, Blood Urea Nitrogen 13, Calcium Level 8.3L, Carbon Dioxide Level 21, Chloride Level 101, Creatinine 0.74, Eosinophils # (Auto) 0.3, Eosinophils (%) (Auto) 2, Estimat Glomerular Filtration Rate > 60, Glucose Level 400H, Hematocrit 34L, Hemoglobin 11.7, Lymphocytes # (Auto) 1.8, Lymphocytes (%) (Auto) 11L, Mean Corpuscular Hemoglobin 31, Mean Corpuscular Hemoglobin Concent 34, Mean Corpuscular Volume 90, Mean Platelet Volume 9.9, Monocytes # (Auto) 1.2H, Monocytes (%) (Auto) 8, Neutrophils # (Auto) 12.5H, Neutrophils (%) (Auto) 79H, Platelet Count 215, Potassium Level 4.6, Red Blood Count 3.79L, Red Cell Distribution Width 13.3, Sodium Level 132L, Total Bilirubin 0.9, Total Protein 5.9L, White Blood Count 15.8H Microbiology 03/24/16 Urine Culture - Preliminary, Resulted Yeast Species Assessment/Plan Assessment/Plan Assess & Plan/Chief Complaint left hip fracture. Pelvic fracture. Sacral fracture. Diabetes. Dementia. Hypertension. . 03/25/16. Hip fracture. Pelvic fracture. Sacral fracture. Diabetes. Demented area. Hypertension. Patient looks good this morning. Patient is alert. Urine shows yeast. White blood cell count 15,000 from 20,000 the other day Diagnosis/Problems: Clinical Quality Measures DVT/VTE Risk/Contraindication: Risk Factor Score Per Nursin RFS Level Per Nursing on Admit: 4+=Very High YESSI FELIX DO Mar 25, 2016 07:30
--- NOTE | 2016-03-25 08:18 | Diagnostic Imaging Report ---
Intraoperative view of the left hip. INDICATION: Left hip internal fixation for femoral neck fracture. 33 seconds of fluoroscopy time is provided. IMPRESSION: Images demonstrate 2 views of the left hip with three screws fixating femoral neck fracture in good position. Dictated by: Dictated on workstation # [id number]
[2016-03-25 08:51] VITALS: BP 155/77
[2016-03-25] MEDS: MEMANTINE 10 MG (NAMENDA) TABLET PO SCH ×2 (09:22→20:24)
[2016-03-25] MEDS: lisINopril 5 MG (PRINIVIL) TABLET PO SCH (09:22)
[2016-03-25] MEDS: cefTRIAXone INJECTION 1,000 MG in NS (IVPB) 50 ML IV SCH (09:22)
[2016-03-25] MEDS: amLODIPine 10 MG (NORVASC) TAB PO SCH (09:22)
[2016-03-25] MEDS: NICOTINE 14 MG (NICODERM) PATCH TD SCH (09:22)
[2016-03-25] MEDS: NICOTINE PATCH REMOVAL TP SCH (09:23)
--- NOTE | 2016-03-25 09:51 | Anesthesia-General Post-Op ---
General Patient Condition Mental Status/LOC: Same as Preop Cardiovascular: Satisfactory Nausea/Vomiting: Absent Respiratory: Satisfactory Pain: Controlled Complications: Absent Post Op Complications Complications None Follow Up Care/Instructions Patient Instructions None needed. Anesthesia/Patient Condition Patient Condition Patient is doing well, no complaints, stable vital signs, no apparent adverse anesthesia problems. No complications reported per nursing. D/C home per [facility] Criteria: No MALLORY MARTI CRNA Mar 25, 2016 09:51
[2016-03-25] MEDS: inSUlin DETERMIR 1 UNIT/0.01 ML (LEVEMIR) CHARGE PER UNIT SQ SCH ×2 (10:04→21:16)
[2016-03-25] MEDS: fluCOnazole (DIFLUCAN) 100 MG TAB PO SCH (10:04)
[2016-03-25] MEDS: LACTATED RINGERS 1,000 ML IV SCH ×2 (10:05→20:24)
--- NOTE | 2016-03-25 10:09 | Physical Therapy Evaluation ---
PT Evaluation-General Medical Diagnosis Admission Date Mar 24, 2016 at 13:27 Medical Diagnosis: left hip fracture/pelvic fracture Onset Date: Mar 24, 2016 Therapy Diagnosis Therapy Diagnosis: general debility Height/Weight Height (Feet): 5 Height (Inches): 2.00 Weight (Pounds): 100 Weight (Ounces): 0.0 Precautions Precautions/Isolations: Fall Prevention, Standard Precautions, Pressure Ulcer Weight Bear Status Weight Bearing Restriction: Touch Toe Bearing Location Restriction: L LE Referral Physician: Lawrence Reason for Referral: Evaluation/Treatment Medical History Pertinent Medical History: DM, Dementia, HTN Additional Medical History current shingles Current History s/p fall at [facility] resulting in left femoral neck fracture, superior and inferior pubic rami, left sacral ala fracture Reviewed History: Yes Social History Home: Detention Prior/[facility] FIM Prior Level of Function Functional [place] Measure 0=Not Assessed/NA 4=Minimal Assistance 1=Total Assistance 5=Supervision or Setup 2=Maximal Assistance 6=Modified [place] 3=Moderate Assistance 7=Complete [place] Bed Mobility: 6 Transfers (B,C,W/C) (FIM): 6 Gait: 6 PT Evaluation-Current Subjective Patient is alert and agreeable to participate with PT. Family present. Pain Numeric Pain Scale: 8 Location: Left Location Body Site: Hip Pain Description: Acute Objective Patient Orientation: Person, Time, Situation Problem Solving: Fair Attachments: Felder Catheter, IV ROM/Strength ROM Lower Extremities right LE WFL; left LE limited due to pain with ROM Strenght Lower Extremities right LE 4/5 knee flexion/extension; hip flexion 4/5 left LE 3-/5 knee flexion/extension; hip flexion NT Integumentary/Posture Integumentary refer to nursing notes Bowel Incontinence: No Bladder Incontinence: Felder Cath Posture WNL Neuromuscular (Tone, Coordination, Reflexes) slightly diminished coordination Sensory Vision: Wears Glasses Hearing: Functional Sensation Right Lower Extremit: Intact Sensation Left Lower Extremity: Intact Transfers Functional [place] Measure 0=Not Assessed/NA 4=Minimal Assistance 1=Total Assistance 5=Supervision or Setup 2=Maximal Assistance 6=Modified [place] 3=Moderate Assistance 7=Complete [place] Transfers (B, C, W/C) (FIM): 2 Scootin Supine to/from Sit: 2 Sit to/from Stand: 2 bed t/f WC(FIM only if WC use): 2 patient has difficulty maintaining TTWB left LE Gait Mode of Locomotion: Walk Anticipated Mode of Locomotion: Both Distance (FIM): 0=does not occure Gait Assistive Device: FWW Comments/Gait Description Patient is unable to maintain TTWB left LE to safely take a step with FWW and max assist Balance Sitting Static: Fair Sitting Dynamic: Fair Standing Static: Poor Standing Dynamic: Poor Assessment/Needs 76 y.o. female, will benefit from skilled PT to address functional strength and mobility to improve current LOF. Patient's family desires patient to return to [facility] when medically stable to. Rehab Potential: Good PT Prison Goals Lasting Machine Operator Hand Method Goals PT Prison Goals Time Frame: Mar 30, 2016 Transfers (B,C,W/C) (FIM): 3 Gait (FIM): 1 (TTWB left LE) Gait distance (FIM): 1=up to 49 ft Distance: 3 steps Gait Level of Assist: 3 Gait Assistive Device: FWW PT Plan Problem List Problem List: Activity Tolerance, Functional Strength, Safety, Balance, Gait, Transfer, Bed Mobility Treatment/Plan Treatment Plan: Continue Plan of Care Treatment Plan: Bed Mobility, Education, Functional Activity Isael, Functional Strength, Gait, Safety, Therapeutic Exercise, Transfers Treatment Duration: Mar 30, 2016 # of days/week 5-6 Visits Per Week: 10-11 Pt/Family Agrees w/Plan: Yes Discharge Recommendations Therapy D/C Recommendations: Retirement (TCU/NH) Time/GCodes Time In: 830 Time Out: 900 Total Billed Treatment Time: 30 Total Billed Treatment 1 visit EVMod 30 min NICK STARR PT Mar 25, 2016 10:09
[2016-03-25] MEDS: inSUlin ASPART (NovoLOG) 1 UNIT/0.01 ML (CHARGE PER UNIT) SQ SCH ×2 (11:34→15:56)
[2016-03-25 12:00] VITALS: BP 148/79
--- NOTE | 2016-03-25 13:01 | Physical Therapy Daily Note ---
PT Daily Note-Current Subjective Patient is in recliner with family present. PT asked patient if she remembered how much weight she is allow to put through her left LE. Patient responded, " No one has told me so I guess I can put all my weight." PT reeducated patient on TTWB left LE status. Pain Numeric Pain Scale: 7 Location: Left Location Body Site: Hip Pain Description: Acute Comment: FLACC Appearance increased confusion this p.m. Mental Status Patient Orientation: Confused Attachments: Felder Catheter, IV Transfers Functional [place] Measure 0=Not Assessed/NA 4=Minimal Assistance 1=Total Assistance 5=Supervision or Setup 2=Maximal Assistance 6=Modified [place] 3=Moderate Assistance 7=Complete IndependenceIRFPAI Quality Coding Scale 6 Independent with activity with or without an assistive device 5 Patient requires set up or clean up by helper. Patient completes activity by themselves 4 Supervision or touching assist (CGA). [place] provide cues , steadying assist 3 The helper provides less than half the effort to complete the activity 2 The helper provides more than half the effort to complete the activity 1 Dependent. The helper does all the effort to complete an activity 7 Patient refused to complete or attempt activity 9 The patient did not perform the activity before the current illness or injury 88 Not attempted due to Medical conditions or safety concerns Transfers (B, C, W/C) (FIM): 2 Scootin Rollin Supine to/from Sit: 2 Sit to/from Stand: 2 Bed to/from Chair: 2 Patient is unable to comply with TTWB left LE this p.m. requiring assistance to safely transfer chair to bed. Weight Bearing Weight Bearing Restriction: Touch Toe Bearing Location Restriction: L LE Exercises Supine Ex: Ankle pumps, Heel Slides (AAROM) Supine Reps: 15 Seated Therapy Exercises: Ankle pumps, Long arc quads (AAROM) Seated Reps: 15 Assessment Patient tolerates minimal activity this p.m. due to pain and inability to follow simple direction. Daughter is present and reinforces that patient will be more comfortable at the NH where it is familiar. PT to increase activity as tolerated by patient. PT Sanitizer Goals Half-Way Goals PT Half-Way Goals Time Frame: Mar 30, 2016 Transfers (B,C,W/C) (FIM): 3 Gait (FIM): 1 (TTWB left LE) Gait distance (FIM): 1=up to 49 ft Distance: 3 steps Gait Level of Assist: 3 Gait Assistive Device: FWW PT Plan Treatment/Plan Treatment Plan: Continue Plan of Care Treatment Plan: Bed Mobility, Education, Functional Activity Isael, Functional Strength, Gait, Safety, Therapeutic Exercise, Transfers Treatment Duration: Mar 30, 2016 Visits Per Week: 10-11 Safety Risks/Education Patient Education: Safety Issues Teaching Recipient: Patient, Family Teaching Methods: Discussion Response to Teaching: Reinforcement Needed Discharge Recommendations Therapy D/C Recommendations: Half-Way (TCU/NH) Time/GCodes Time In: 1235 Time Out: 1250 Total Billed Treatment Time: 15 Total Billed Treatment 1 visit FA 15 min NICK STARR PT Mar 25, 2016 13:01
--- NOTE | 2016-03-25 13:39 | Progress Note (SOAP) ---
Subjective Subjective/Events-last exam No complaints feeling good. Objective Exam Vital Signs Date Time Temp Pulse Resp B/P Pulse Ox O2 Delivery O2 Flow Rate FiO2 03/25/16 08:51 98.4 72 18 155/77 99 Nasal Cannula 2.00 03/25/16 04:00 99.0 80 18 189/80 94 Nasal Cannula 2.00 03/25/16 00:00 99.4 83 18 155/74 96 Room Air 03/24/16 21:48 99.1 03/24/16 16:00 94 20 137/71 94 Room Air 03/24/16 14:30 97.8 75 18 93 03/24/16 14:25 99.5 94 20 141/74 93 Room Air 03/24/16 14:25 Room Air I & O 03/25/16 07:00 Intake Total 1100 ml Output Total 1085 ml Balance 15 ml Capillary Refill : Less Than 3 SecondsLess Than 3 Seconds General Appearance: No Apparent Distress Respiratory: No Accessory Muscle Use No Respiratory Distress Cardiovascular: No Murmur Normal Peripheral Pulses Extremity: Other (Dressing dry, calf soft) Results Lab Laboratory Tests 03/24/16 20:09: Glucometer 289H 03/24/16 21:20: Glucometer 310H 03/25/16 04:15: Alanine Aminotransferase (ALT/SGPT) 49, Albumin 3.0L, Alkaline Phosphatase 171H , Anion Gap 10, Aspartate Amino Transf (AST/SGOT) 22, BUN/Creatinine Ratio 18, Basophils # (Auto) 0.0, Basophils (%) (Auto) 0, Blood Urea Nitrogen 13, Calcium Level 8.3L, Carbon Dioxide Level 21, Chloride Level 101, Creatinine 0.74, Eosinophils # (Auto) 0.3, Eosinophils (%) (Auto) 2, Estimat Glomerular Filtration Rate > 60, Glucose Level 400H, Hematocrit 34L, Hemoglobin 11.7, Lymphocytes # (Auto) 1.8, Lymphocytes (%) (Auto) 11L, Mean Corpuscular Hemoglobin 31, Mean Corpuscular Hemoglobin Concent 34, Mean Corpuscular Volume 90, Mean Platelet Volume 9.9, Monocytes # (Auto) 1.2H, Monocytes (%) (Auto) 8, Neutrophils # (Auto) 12.5H, Neutrophils (%) (Auto) 79H, Platelet Count 215, Potassium Level 4.6, Red Blood Count 3.79L, Red Cell Distribution Width 13.3, Sodium Level 132L, Total Bilirubin 0.9, Total Protein 5.9L, White Blood Count 15.8H 03/25/16 08:00: Glucometer 375H Microbiology 03/24/16 Urine Culture - Preliminary, Resulted Yeast Species Assessment/Plan Assessment/Plan Assess & Plan/Chief Complaint S/P Left Hip perc pinning for impacted femoral neck fracture Plan: likely transfer back to SNF tmrw, d/w Dr Call Diagnosis/Problems: Clinical Quality Measures DVT/VTE Risk/Contraindication: Risk Factor Score Per Nursin RFS Level Per Nursing on Admit: 4+=Very High MOHAMUD REINA MD Mar 25, 2016 1:39 pm
--- NOTE | 2016-03-25 13:56 | Occupational Therapy Eval ---
OT Evaluation-General/PLF Medical Diagnosis Admission Date Mar 24, 2016 at 13:27 Medical Diagnosis: left hip fracture/pelvic fracture Onset Date: Mar 24, 2016 Therapy Diagnosis Therapy Diagnosis: decreased self care skills Height/Weight Height (Feet): 5 Height (Inches): 2.00 Weight (Pounds): 100 Weight (Ounces): 0.0 Precautions Precautions/Isolations: Fall Prevention, Standard Precautions, Pressure Ulcer Safety Interventions: Bed Exit Alarm, Reorient-Attempt, Reorient-PRN Weight Bear Status Weight Bearing Restriction: Touch Toe Bearing Location Restriction: L LE Referral Physician: Lawrence Medical History Pertinent Medical History: DM, Dementia, HTN Additional Medical History Macular degeneration, Depression Current History [place] resulting in left femoral neck fracture, superior and inferior pubic rami, left sacral ala fracture Reviewed History: Yes Social History Home: Custodial ADL-Prior Level of Function ADL PLOF Comments Pt has been at [facility]. Daughter states pt is able to complete basic self care without assistance and was recently discharged from therapy services. Drive Self: No OT Current Status Subjective Pt in bed, agrees to treatment. Daughter present. Pt reports pain in left LE, but does not rate. Mental Status/Objective Patient Orientation: Person, Confused Attachments: Felder Catheter, IV Current Glasses/Contacts: Yes Hand Dominance: Right Upper Extremity ROM Grossly WFL Upper Extremity Strength Fair ADL-Treatment ADL-Current Pt supine to sit with moderate assistance. Skilled cues for technique. Pt participated in UE assessment while seated EOB. Daughter requests pt sit in chair for lunch, pt is agreeable. Education provided regarding TTWB status. Pt sit to stand with maximal assistance. Pt initially did not bear weight through left LE, but as transfer progressed, pt unable to maintain TTWB on left LE. Max assist required for transfer to chair with FWW. Pt positioned in chair with needs met and daughter present after session. RN notified. Functional [place] Measure 0=Not Assessed/NA 4=Minimal Assistance 1=Total Assistance 5=Supervision or Setup 2=Maximal Assistance 6=Modified [place] 3=Moderate Assistance 7=Complete IndependenceIRFPAI Quality Coding Scale 6 Independent with activity with or without an assistive device 5 Patient requires set up or clean up by helper. Patient completes activity by themselves 4 Supervision or touching assist (CGA). [place] provide cues , steadying assist 3 The helper provides less than half the effort to complete the activity 2 The helper provides more than half the effort to complete the activity 1 Dependent. The helper does all the effort to complete an activity 7 Patient refused to complete or attempt activity 9 The patient did not perform the activity before the current illness or injury 88 Not attempted due to Medical conditions or safety concerns Education OT Patient Education: Rehab process Teaching Recipient: Patient Teaching Methods: Discussion Response to Teaching: Reinforcement Needed OT Short Term Goals Short Term Goals 1=Demonstrate adherence to instructed precautions during ADL tasks. 2=Patient will verbalize/demonstrate understanding of assistive devices/ modifications for ADL. 3=Patient will improve strength/tolerance for activity to enable patient to perform ADL's. OT Skilled Nursing Goals Supervisor Cooler Service Goals Time Frame: Apr 08, 2016 Eating (FIM): 5 Grooming(FIM): 5 Upper Body Dressing(FIM): 5 Lower Body Dressing(FIM): 3 Toilet/Commode Transfer(FIM): 4 Additional Goals: 1-Demonstrate ADL Tasks, 2-Verbalize Understanding, 3- ImproveStrength/Isael 1=Demonstrate adherence to instructed precautions during ADL tasks. 2=Patient will verbalize/demonstrate understanding of assistive devices/ modifications for ADL. 3=Patient will improve strength/tolerance for activity to enable patient to perform ADL's. OT Education/Plan Problem List/Assessment Assessment: Decreased Activ Tolerance, Decreased Safety Aware, Decreased UE Strength, Dependent Transfers, Impaired Funct Balance, Impaired Self-Care Skills Pt s/p left hip fracture, left superior and inferior pubic rami fracture and left sacral ala fracture. Pt s/p left femoral neck percutaneous pinning. Pt demonstrates decreased mobility, ADL functioning, and strength. Pt to benefit from skilled OT intervention for ADL training, transfers, and strengthening to improve level of function and allow safe discharge. Discharge Recommendations Plan/Recommendations: Continue POC Treatment Plan/Plan of Care Treatment,Training & Education: Yes Patient would benefit from OT for education, treatment and training to promote independence in ADL's, mobility, safety and/or upper extremity function for ADL' s. Plan of Care: ADL Retraining, Functional Mobility, UE Funct Exercise/Act Treatment Duration: Apr 08, 2016 # of days/week 5 Visits Per Week: 5 Agreement: Yes Rehab Potential: Good Time/GCodes Start Time: 11:05 Stop Time: 11:31 Total Time Billed (hr/min): 26 Billed Treatment Time 1 visit, EVL(15minutes), FA(11minutes) JODEE CRONIN OT Mar 25, 2016 13:56
[2016-03-25 16:00] VITALS: BP 126/58
[2016-03-25] MEDS: inSUlin ASPART (NovoLOG) 1 UNIT/0.01 ML (CHARGE PER UNIT) SQ PRN (17:23)
[2016-03-25] MEDS: ACETAMINOPHEN 325 MG TABLET/CAPLET (TYLENOL) PO SCH ×2 (17:30→23:05)
[2016-03-25 20:00] VITALS: BP 135/68
[2016-03-25] MEDS: DONEPEZIL 10 MG (ARICEPT) TAB PO SCH (20:24)
[2016-03-25] MEDS: ATORVASTATIN 20 MG (LIPITOR) TABLET PO SCH (20:24)
[2016-03-26] VITALS: BP 118/60
[2016-03-26 03:52] LABS: BASOPHILS # (AUTO) 0.1 10^3/uL (0.0-0.1); BASOPHILS % (AUTO) 0 % (0-10); EOSINOPHILS # (AUTO) 0.5 10^3/uL (0.0-0.3); EOSINOPHILS % (AUTO) 4 % (0-10); LYMPHOCYTES # (AUTO) 1.8 X 10^3 (1.0-4.0); LYMPHOCYTES % (AUTO) 14 % (12-44); MEAN CORPUSCULAR HEMOGLOBIN 31 PG (25-34); MEAN CORPUSCULAR HGB CONC 35 G/DL (32-36); MEAN CORPUSCULAR VOLUME 90 FL (80-99); MEAN PLATELET VOLUME 9.7 FL (7.4-10.4); MONOCYTES # (AUTO) 1.1 X 10^3 (0.0-1.0); MONOCYTES % (AUTO) 8 % (0-12); NEUTROPHILS # (AUTO) 9.5 X 10^3 (1.8-7.8); NEUTROPHILS % (AUTO) 73 % (42-75); PLATELET COUNT 188 10^3/uL (130-400); RED BLOOD COUNT 3.75 10^6/uL (4.35-5.85); WHITE BLOOD COUNT 12.9 10^3/uL (4.3-11.0)
[2016-03-26 04:00] VITALS: BP 109/66
[2016-03-26 04:30] LABS: ALANINE AMINOTRANSFERASE 41 U/L (0-55); ALBUMIN 2.9 G/DL (3.2-4.5); ANION GAP 10 MMOL/L (5-14); ASPARTATE AMINO TRANSFERASE 34 U/L (5-34); BILIRUBIN,TOTAL 0.7 MG/DL (0.1-1.0); BLOOD UREA NITROGEN 10 MG/DL (7-18); BUN/CREATININE RATIO 16; CARBON DIOXIDE 21 MMOL/L (21-32); CHLORIDE 104 MMOL/L (98-107); CREATININE SERUM 0.61 MG/DL (0.60-1.30); GFR ESTIMATED > 60; GLUCOSE 171 MG/DL (70-105); POTASSIUM 3.7 MMOL/L (3.6-5.0); SODIUM 135 MMOL/L (135-145); TOTAL PROTEIN 5.3 G/DL (6.4-8.2)
[2016-03-26] MEDS: ACETAMINOPHEN 325 MG TABLET/CAPLET (TYLENOL) PO SCH ×4 (05:44→22:49)
[2016-03-26] MEDS: LACTATED RINGERS 1,000 ML IV SCH ×2 (05:45→22:48)
--- NOTE | 2016-03-26 07:55 | Progress Note (SOAP) ---
Subjective Subjective/Events-last exam No Complaints, feels good Objective Exam Vital Signs Date Time Temp Pulse Resp B/P Pulse Ox O2 Delivery O2 Flow Rate FiO2 03/26/16 04:00 99.5 78 20 109/66 93 Room Air 03/26/16 00:00 99.7 73 20 118/60 91 Room Air 03/25/16 20:00 99.1 95 20 135/68 92 Room Air 03/25/16 16:00 100.4 85 20 126/58 93 Room Air 03/25/16 12:00 98.6 84 17 148/79 96 Room Air 03/25/16 08:51 98.4 72 18 155/77 99 Nasal Cannula 2.00 I & O 03/26/16 07:00 Intake Total 4180 ml Output Total 720 ml Balance 3460 ml Capillary Refill : Less Than 3 SecondsLess Than 3 Seconds General Appearance: No Apparent Distress Cardiovascular: Normal Peripheral Pulses Extremity: No Calf Tenderness Swelling Neurologic/Psychiatric: Alert Results Lab Laboratory Tests 03/25/16 08:00: Glucometer 375H 03/25/16 16:59: Glucometer 340H 03/25/16 20:52: Glucometer 337H 03/26/16 03:30: Alanine Aminotransferase (ALT/SGPT) 41, Albumin 2.9L, Alkaline Phosphatase 165H , Anion Gap 10, Aspartate Amino Transf (AST/SGOT) 34, BUN/Creatinine Ratio 16, Basophils # (Auto) 0.1, Basophils (%) (Auto) 0, Blood Urea Nitrogen 10, Calcium Level 8.0L, Carbon Dioxide Level 21, Chloride Level 104, Creatinine 0.61, Eosinophils # (Auto) 0.5H, Eosinophils (%) (Auto) 4, Estimat Glomerular Filtration Rate > 60, Glucose Level 171H, Hematocrit 34L, Hemoglobin 11.6, Lymphocytes # (Auto) 1.8, Lymphocytes (%) (Auto) 14, Mean Corpuscular Hemoglobin 31, Mean Corpuscular Hemoglobin Concent 35, Mean Corpuscular Volume 90, Mean Platelet Volume 9.7, Monocytes # (Auto) 1.1H, Monocytes (%) (Auto) 8, Neutrophils # (Auto) 9.5H, Neutrophils (%) (Auto) 73, Platelet Count 188, Potassium Level 3.7, Red Blood Count 3.75L, Red Cell Distribution Width 13.0, Sodium Level 135, Total Bilirubin 0.7, Total Protein 5.3L, White Blood Count 12.9H 03/26/16 05:31: Glucometer 123H Microbiology 03/24/16 Urine Culture - Preliminary, Resulted Yeast Species Assessment/Plan Assessment/Plan Assess & Plan/Chief Complaint S/P Left Hip perc pinning for impacted femoral neck fracture Plan: Will transfer to SNF Monday Continue Current Care Diagnosis/Problems: Clinical Quality Measures DVT/VTE Risk/Contraindication: Risk Factor Score Per Nursin RFS Level Per Nursing on Admit: 4+=Very High MOHAMUD REINA MD Mar 26, 2016 7:55 am
[2016-03-26 08:00] VITALS: BP 156/72
[2016-03-26] MEDS: cefTRIAXone INJECTION 1,000 MG in NS (IVPB) 50 ML IV SCH (08:25)
[2016-03-26] MEDS: MEMANTINE 10 MG (NAMENDA) TABLET PO SCH ×2 (08:25→20:44)
[2016-03-26] MEDS: NICOTINE 14 MG (NICODERM) PATCH TD SCH (08:25)
[2016-03-26] MEDS: fluCOnazole (DIFLUCAN) 100 MG TAB PO SCH (08:25)
[2016-03-26] MEDS: amLODIPine 10 MG (NORVASC) TAB PO SCH (08:25)
[2016-03-26] MEDS: inSUlin DETERMIR 1 UNIT/0.01 ML (LEVEMIR) CHARGE PER UNIT SQ SCH ×2 (08:26→20:44)
[2016-03-26] MEDS: inSUlin ASPART (NovoLOG) 1 UNIT/0.01 ML (CHARGE PER UNIT) SQ SCH ×3 (08:26→16:00)
[2016-03-26] MEDS: ONDANSETRON 4 MG/2 ML (SDV) Z0FRAN IV PRN (08:27)
[2016-03-26] MEDS: lisINopril 5 MG (PRINIVIL) TABLET PO SCH (08:28)
[2016-03-26] MEDS: NICOTINE PATCH REMOVAL TP SCH (08:39)
--- NOTE | 2016-03-26 10:17 | Physical Therapy Daily Note ---
PT Daily Note-Current Subjective Pt. in bed with daughter and nurse aide present to get patient over to chair for bathing. Pt. moans in pain with movement of L LE but does not give objective pain rating when asked. Mental Status Patient Orientation: Person Attachments: IV Transfers Functional [place] Measure 0=Not Assessed/NA 4=Minimal Assistance 1=Total Assistance 5=Supervision or Setup 2=Maximal Assistance 6=Modified [place] 3=Moderate Assistance 7=Complete IndependenceIRFPAI Quality Coding Scale 6 Independent with activity with or without an assistive device 5 Patient requires set up or clean up by helper. Patient completes activity by themselves 4 Supervision or touching assist (CGA). [place] provide cues , steadying assist 3 The helper provides less than half the effort to complete the activity 2 The helper provides more than half the effort to complete the activity 1 Dependent. The helper does all the effort to complete an activity 7 Patient refused to complete or attempt activity 9 The patient did not perform the activity before the current illness or injury 88 Not attempted due to Medical conditions or safety concerns Transfers (B, C, W/C) (FIM): 1 Supine to/from Sit: 1 (max x 2) Sit to/from Stand: 1 Bed to/from Chair: 1 (mod A x 2) pt. is unable to maintain TTWB on L LE fully throughout transfer bed to chair Weight Bearing Weight Bearing Restriction: Touch Toe Bearing Location Restriction: L LE Treatments transfers Assessment Current Status: Fair Progress Pt. gives minimal assistance to transfer supine to sit and moans in pain with movement of L LE. She is mod A to sit at EOB. Pt. needs constant cuing for bed to chair transfers and is unable to fully maintain TTWB on L LE. Pt. up in chair post session with call light, daughter present and all needs met. PT Penitentiary Goals Dental Practitioner Goals PT Dental Practitioner Goals Time Frame: Mar 30, 2016 Transfers (B,C,W/C) (FIM): 3 Gait (FIM): 1 (TTWB left LE) Gait distance (FIM): 1=up to 49 ft Distance: 3 steps Gait Level of Assist: 3 Gait Assistive Device: FWW PT Plan Treatment/Plan Treatment Plan: Continue Plan of Care Treatment Plan: Bed Mobility, Education, Functional Activity Isael, Functional Strength, Gait, Safety, Therapeutic Exercise, Transfers Treatment Duration: Mar 30, 2016 Visits Per Week: 10-11 Time/GCodes Time In: 915 Time Out: 930 Total Billed Treatment Time: 15 Total Billed Treatment 1, FA 15' LAURA WHITE PT Mar 26, 2016 10:17
--- NOTE | 2016-03-26 10:39 | OPERATIVE REPORT ---
PROCEDURE PHYSICIAN: MOHAMUD BRAVO DATE OF PROCEDURE: 03/24/2016 PREOPERATIVE DIAGNOSIS: Left closed impacted femoral neck fracture. POSTOPERATIVE DIAGNOSIS: Left closed impacted femoral neck fracture. PROCEDURE PERFORMED: Percutaneous pin fixation of left femoral neck fracture. IMPLANTS USED: Synthes 7.3 cannulated screws. SURGEON: Dr. Bravo MOTORCYLES FINAL INSPECTOR: ALVIN Lerma. ROLE OF LASER BEAM COLOR SCANNER OPERATOR: Aid in retraction of the procedure, aid in implantation instrumentation, wound closure. ANESTHESIA: General endotracheal. ESTIMATED BLOOD LOSS: Minimal. IV FLUIDS: Please see anesthesia record. ANTIBIOTICS: Ancef. COMPLICATIONS: None. INDICATION FOR THE PROCEDURE: Mrs. Orourke is a 76-year-old female who fell at [employer] today injuring her left hip. She denies any other injury. Currently has an impacted femoral neck fracture on the left with a superior and inferior pubic ramus fracture and a nondisplaced sacral fracture as well. Risks, benefits and alternatives were discussed with the patient and family. They elected to proceed with operative intervention. DESCRIPTION OF THE PROCEDURE: The patient was taken to the preoperative holding area and brought back to the operative suite. After adequate induction of general anesthetic, preoperative antibiotics, she was placed supine on the flat top Nolan table. A sandbag was placed underneath the left flank and sterile prepped and draped to the lateral aspect of the left thigh was performed. Guide pin was utilized to make a small incision overlying the lateral proximal femur and utilizing the barrel well pin guide from the Synthes 7.3 cannulated set, 3 guide pins were placed into satisfactory position in the femoral head. The lateral cortex was broached and then 80 mm 7.3 cannulated screws were placed into satisfactory position. Final position was checked in AP and frog leg views. Wounds were irrigated, closed in layers. The patient transferred to the recovery room in stable condition having tolerated the procedure well. Job ID: [id number] Dictated Date: 03/24/2016 21:10:20 Telegraph Repeater Installer Date: 03/26/2016 10:30:37 / [email or web address]
[2016-03-26] MEDS: inSUlin ASPART (NovoLOG) 1 UNIT/0.01 ML (CHARGE PER UNIT) SQ PRN ×2 (11:09→16:00)
--- NOTE | 2016-03-26 11:47 | Progress Note (SOAP) ---
Subjective Subjective/Events-last exam Fwup left femoral neck fracture, left pubic fracture, left sacral fracture, uncontrolled diabetes mellitus--insulin requiring, hypertension, dementia. Pain well controlled with scheduled tramadol with tylenol and not making more confused per family. Eating fairly well. Objective Exam Vital Signs Date Time Temp Pulse Resp B/P Pulse Ox O2 Delivery O2 Flow Rate FiO2 03/26/16 08:00 98.0 75 18 156/72 92 Room Air 03/26/16 04:00 99.5 78 20 109/66 93 Room Air 03/26/16 00:00 99.7 73 20 118/60 91 Room Air 03/25/16 20:00 99.1 95 20 135/68 92 Room Air 03/25/16 16:00 100.4 85 20 126/58 93 Room Air 03/25/16 12:00 98.6 84 17 148/79 96 Room Air I & O 03/26/16 07:00 Intake Total 4180 ml Output Total 720 ml Balance 3460 ml Capillary Refill : Less Than 3 SecondsLess Than 3 Seconds General Appearance: No Apparent Distress Neck: Supple Respiratory: Crackles (bases) Cardiovascular: Regular Rate, Rhythm Systolic Murmur Gastrointestinal: normal bowel sounds non tender soft Extremity: Non Tender No Calf Tenderness No Pedal Edema Neurologic/Psychiatric: Alert Skin: Other (left hip dressing dry and in place) Results Lab Laboratory Tests 03/25/16 16:59: Glucometer 340H 03/25/16 20:52: Glucometer 337H 03/26/16 03:30: Alanine Aminotransferase (ALT/SGPT) 41, Albumin 2.9L, Alkaline Phosphatase 165H , Anion Gap 10, Aspartate Amino Transf (AST/SGOT) 34, BUN/Creatinine Ratio 16, Basophils # (Auto) 0.1, Basophils (%) (Auto) 0, Blood Urea Nitrogen 10, Calcium Level 8.0L, Carbon Dioxide Level 21, Chloride Level 104, Creatinine 0.61, Eosinophils # (Auto) 0.5H, Eosinophils (%) (Auto) 4, Estimat Glomerular Filtration Rate > 60, Glucose Level 171H, Hematocrit 34L, Hemoglobin 11.6, Lymphocytes # (Auto) 1.8, Lymphocytes (%) (Auto) 14, Mean Corpuscular Hemoglobin 31, Mean Corpuscular Hemoglobin Concent 35, Mean Corpuscular Volume 90, Mean Platelet Volume 9.7, Monocytes # (Auto) 1.1H, Monocytes (%) (Auto) 8, Neutrophils # (Auto) 9.5H, Neutrophils (%) (Auto) 73, Platelet Count 188, Potassium Level 3.7, Red Blood Count 3.75L, Red Cell Distribution Width 13.0, Sodium Level 135, Total Bilirubin 0.7, Total Protein 5.3L, White Blood Count 12.9H 03/26/16 05:31: Glucometer 123H 03/26/16 10:55: Glucometer 200H Microbiology 03/24/16 Urine Culture - Preliminary, Resulted Yeast Species Assessment/Plan Assessment/Plan Assess & Plan/Chief Complaint 1. Left Femoral Neck fracture--S/P pinning, Left Sacral Fx, Left Sup/Inf pubic rami fx--continue PT and pain control 2. Diabetes mellitus--insulin requiring--on home levemir dose with SSI 3. Dementia--stable 4. UTI with yeast--on diflucan 5. Hypertension--stable, back on home meds Diagnosis/Problems: Clinical Quality Measures DVT/VTE Risk/Contraindication: Risk Factor Score Per Nursin RFS Level Per Nursing on Admit: 4+=Very High AISHA LÓPEZ DO Mar 26, 2016 11:47 am
[2016-03-26 12:00] VITALS: BP 120/59
[2016-03-26 15:46] VITALS: BP 125/67
[2016-03-26] MEDS: ATORVASTATIN 20 MG (LIPITOR) TABLET PO SCH (20:44)
[2016-03-26] MEDS: DONEPEZIL 10 MG (ARICEPT) TAB PO SCH (20:44)
[2016-03-27] VITALS: BP 136/71
[2016-03-27] MEDS: ACETAMINOPHEN 325 MG TABLET/CAPLET (TYLENOL) PO SCH ×4 (05:09→22:42)
[2016-03-27 05:52] LABS: BASOPHILS % (AUTO) 0 % (0-10); EOSINOPHILS # (AUTO) 0.6 10^3/uL (0.0-0.3); EOSINOPHILS % (AUTO) 4 % (0-10); LYMPHOCYTES # (AUTO) 1.8 X 10^3 (1.0-4.0); LYMPHOCYTES % (AUTO) 14 % (12-44); MEAN CORPUSCULAR HEMOGLOBIN 31 PG (25-34); MEAN CORPUSCULAR HGB CONC 34 G/DL (32-36); MEAN CORPUSCULAR VOLUME 91 FL (80-99); MEAN PLATELET VOLUME 10.1 FL (7.4-10.4); MONOCYTES # (AUTO) 1.6 X 10^3 (0.0-1.0); MONOCYTES % (AUTO) 13 % (0-12); NEUTROPHILS # (AUTO) 8.6 X 10^3 (1.8-7.8); NEUTROPHILS % (AUTO) 69 % (42-75); PLATELET COUNT 191 10^3/uL (130-400); RED BLOOD COUNT 3.71 10^6/uL (4.35-5.85); RED CELL DISTRIBUTION WIDTH 13.4 % (10.0-14.5); WHITE BLOOD COUNT 12.6 10^3/uL (4.3-11.0)
[2016-03-27] MEDS: inSUlin ASPART (NovoLOG) 1 UNIT/0.01 ML (CHARGE PER UNIT) SQ SCH ×3 (06:45→16:41)
[2016-03-27 08:00] VITALS: BP 171/81
[2016-03-27 08:10] VITALS: BP 171/81
[2016-03-27] MEDS: NICOTINE PATCH REMOVAL TP SCH (08:59)
[2016-03-27] MEDS: inSUlin DETERMIR 1 UNIT/0.01 ML (LEVEMIR) CHARGE PER UNIT SQ SCH ×2 (09:21→21:00)
[2016-03-27] MEDS: cefTRIAXone INJECTION 1,000 MG in NS (IVPB) 50 ML IV SCH (09:21)
[2016-03-27] MEDS: fluCOnazole (DIFLUCAN) 100 MG TAB PO SCH (09:21)
[2016-03-27] MEDS: MEMANTINE 10 MG (NAMENDA) TABLET PO SCH ×2 (09:21→20:58)
[2016-03-27] MEDS: amLODIPine 10 MG (NORVASC) TAB PO SCH (09:21)
[2016-03-27] MEDS: lisINopril 5 MG (PRINIVIL) TABLET PO SCH (09:21)
--- NOTE | 2016-03-27 10:11 | Progress Note (SOAP) ---
Subjective Subjective/Events-last exam Fwup left femoral neck fracture, left pubic fracture, left sacral fracture, uncontrolled diabetes mellitus--insulin requiring, hypertension, dementia. Reports little more pain this morning but had just been moved. Appetite okay per nursing. Objective Exam Vital Signs Date Time Temp Pulse Resp B/P Pulse Ox O2 Delivery O2 Flow Rate FiO2 03/27/16 08:10 96.4 68 18 171/81 97 Nasal Cannula 2.00 03/27/16 08:00 96.4 68 18 171/81 97 Nasal Cannula 2.00 03/27/16 07:40 98 Nasal Cannula 2.00 03/27/16 00:00 97.3 73 20 136/71 98 Nasal Cannula 2.00 03/26/16 15:46 97.9 74 16 125/67 95 Nasal Cannula 2.00 03/26/16 12:00 98.4 72 20 120/59 90 Room Air I & O 03/27/16 07:00 Intake Total 2382 ml Balance 2382 ml Capillary Refill : Less Than 3 SecondsLess Than 3 Seconds General Appearance: No Apparent Distress Neck: Supple Respiratory: Lungs Clear Cardiovascular: Regular Rate, Rhythm Gastrointestinal: normal bowel sounds non tender soft Extremity: Non Tender No Calf Tenderness No Pedal Edema Other Neurologic/Psychiatric: Alert Oriented x3 Skin: Other (left hip dressing dry and in place) Results Lab Laboratory Tests 03/26/16 10:55: Glucometer 200H 03/26/16 15:51: Glucometer 165H 03/26/16 20:34: Glucometer 217H 03/27/16 03:53: Basophils # (Auto) 0.0, Basophils (%) (Auto) 0, Eosinophils # (Auto) 0.6H, Eosinophils (%) (Auto) 4, Hematocrit 34L, Hemoglobin 11.5, Lymphocytes # (Auto) 1.8, Lymphocytes (%) (Auto) 14, Mean Corpuscular Hemoglobin 31, Mean Corpuscular Hemoglobin Concent 34, Mean Corpuscular Volume 91, Mean Platelet Volume 10.1, Monocytes # (Auto) 1.6H, Monocytes (%) (Auto) 13H, Neutrophils # ( Auto) 8.6H, Neutrophils (%) (Auto) 69, Platelet Count 191, Red Blood Count 3.71L , Red Cell Distribution Width 13.4, White Blood Count 12.6H 03/27/16 05:34: Glucometer 111H Microbiology 03/24/16 Urine Culture - Final, Complete Presumptive Lorena Albicans Assessment/Plan Assessment/Plan Assess & Plan/Chief Complaint 1. Left Femoral Neck fracture--S/P pinning, Left Sacral Fx, Left Sup/Inf pubic rami fx--continue PT and pain control 2. Diabetes mellitus--insulin requiring--on home levemir dose with SSI 3. Dementia--stable 4. UTI with yeast--on diflucan 5. Hypertension--stable, back on home meds Diagnosis/Problems: Clinical Quality Measures DVT/VTE Risk/Contraindication: Risk Factor Score Per Nursin RFS Level Per Nursing on Admit: 4+=Very High AISHA LÓPEZ DO Mar 27, 2016 10:11
[2016-03-27] MEDS: inSUlin ASPART (NovoLOG) 1 UNIT/0.01 ML (CHARGE PER UNIT) SQ PRN (11:32)
[2016-03-27] MEDS: ONDANSETRON 4 MG/2 ML (SDV) Z0FRAN IV PRN (13:26)
[2016-03-27 16:00] VITALS: BP 167/72
[2016-03-27] MEDS: LACTATED RINGERS 1,000 ML IV SCH (20:06)
[2016-03-27] MEDS: DONEPEZIL 10 MG (ARICEPT) TAB PO SCH (20:58)
[2016-03-27] MEDS: ATORVASTATIN 20 MG (LIPITOR) TABLET PO SCH (20:58)
[2016-03-28] VITALS: BP 149/71
[2016-03-28 05:36] LABS: BASOPHILS # (AUTO) 0.1 10^3/uL (0.0-0.1); BASOPHILS % (AUTO) 0 % (0-10); EOSINOPHILS # (AUTO) 0.5 10^3/uL (0.0-0.3); EOSINOPHILS % (AUTO) 4 % (0-10); LYMPHOCYTES # (AUTO) 1.6 X 10^3 (1.0-4.0); LYMPHOCYTES % (AUTO) 14 % (12-44); MEAN CORPUSCULAR HEMOGLOBIN 31 PG (25-34); MEAN CORPUSCULAR HGB CONC 34 G/DL (32-36); MEAN CORPUSCULAR VOLUME 90 FL (80-99); MEAN PLATELET VOLUME 9.8 FL (7.4-10.4); MONOCYTES # (AUTO) 1.5 X 10^3 (0.0-1.0); MONOCYTES % (AUTO) 13 % (0-12); NEUTROPHILS # (AUTO) 7.8 X 10^3 (1.8-7.8); NEUTROPHILS % (AUTO) 68 % (42-75); PLATELET COUNT 224 10^3/uL (130-400); RED BLOOD COUNT 4.07 10^6/uL (4.35-5.85); RED CELL DISTRIBUTION WIDTH 13.2 % (10.0-14.5); WHITE BLOOD COUNT 11.5 10^3/uL (4.3-11.0)
[2016-03-28] MEDS: ACETAMINOPHEN 325 MG TABLET/CAPLET (TYLENOL) PO SCH ×2 (05:36→11:56)
[2016-03-28 06:10] LABS: ANION GAP 13 MMOL/L (5-14); BLOOD UREA NITROGEN 5 MG/DL (7-18); BUN/CREATININE RATIO 9; CALCIUM 8.6 MG/DL (8.5-10.1); CARBON DIOXIDE 22 MMOL/L (21-32); CHLORIDE 103 MMOL/L (98-107); CREATININE SERUM 0.53 MG/DL (0.60-1.30); GFR ESTIMATED > 60; GLUCOSE 126 MG/DL (70-105); POTASSIUM 3.9 MMOL/L (3.6-5.0); SODIUM 138 MMOL/L (135-145)
[2016-03-28] MEDS: inSUlin ASPART (NovoLOG) 1 UNIT/0.01 ML (CHARGE PER UNIT) SQ SCH ×2 (06:58→11:55)
[2016-03-28 08:00] VITALS: BP 152/73
--- NOTE | 2016-03-28 08:10 | Progress Note (SOAP) ---
Subjective Subjective/Events-last exam patient feeling good today. Patient looking good today. Left hip fracture. Pelvic fracture. Sacral fracture. Middle diabetes. Alzheimer's disease. patient voices no complaints Objective Exam Vital Signs Date Time Temp Pulse Resp B/P Pulse Ox O2 Delivery O2 Flow Rate FiO2 03/28/16 00:00 97.4 78 18 149/71 94 Nasal Cannula 2.00 03/27/16 21:00 94 Nasal Cannula 2.00 03/27/16 16:00 98.8 81 18 167/72 98 Nasal Cannula 2.00 03/27/16 14:49 2.00 03/27/16 08:10 96.4 68 18 171/81 97 Nasal Cannula 2.00 I & O 03/28/16 07:00 Intake Total 2030 ml Balance 2030 ml Capillary Refill : Less Than 3 SecondsLess Than 3 Seconds General Appearance: No Apparent Distress Thin HEENT: Normal ENT Inspection Neck: Full Range of Motion Normal Inspection Non Tender Respiratory: Chest Non Tender Lungs Clear Normal Breath Sounds No Accessory Muscle Use No Respiratory Distress Cardiovascular: Regular Rate, Rhythm No Murmur Gastrointestinal: non tender soft Results Lab Laboratory Tests 03/27/16 11:00: Glucometer 188H 03/27/16 16:18: Glucometer 143H 03/27/16 20:59: Glucometer 201H 03/28/16 05:25: Anion Gap 13, BUN/Creatinine Ratio 9, Basophils # (Auto) 0.1, Basophils (%) ( Auto) 0, Blood Urea Nitrogen 5L, Calcium Level 8.6, Carbon Dioxide Level 22, Chloride Level 103, Creatinine 0.53L, Eosinophils # (Auto) 0.5H, Eosinophils (% ) (Auto) 4, Estimat Glomerular Filtration Rate > 60, Glucose Level 126H, Hematocrit 37, Hemoglobin 12.6, Lymphocytes # (Auto) 1.6, Lymphocytes (%) (Auto ) 14, Mean Corpuscular Hemoglobin 31, Mean Corpuscular Hemoglobin Concent 34, Mean Corpuscular Volume 90, Mean Platelet Volume 9.8, Monocytes # (Auto) 1.5H, Monocytes (%) (Auto) 13H, Neutrophils # (Auto) 7.8, Neutrophils (%) (Auto) 68, Platelet Count 224, Potassium Level 3.9, Red Blood Count 4.07L, Red Cell Distribution Width 13.2, Sodium Level 138, White Blood Count 11.5H Microbiology 03/24/16 Urine Culture - Final, Complete Presumptive Lorena Albicans Assessment/Plan Assessment/Plan Assess & Plan/Chief Complaint left hip fracture. Pelvic fracture. Sacral fracture. Diabetes. Dementia. Hypertension. . 03/25/16. Hip fracture. Pelvic fracture. Sacral fracture. Diabetes. Demented area. Hypertension. Patient looks good this morning. Patient is alert. Urine shows yeast. White blood cell count 15,000 from 20,000 the other day. . 03/28/16. Patient doing better. Blood tests look good. Patient voices no complaints. Dementia. Hospital diabetes. Pelvic fracture. Hip fracture. Sacral fracture. Patient voices no complaints Diagnosis/Problems: Clinical Quality Measures DVT/VTE Risk/Contraindication: Risk Factor Score Per Nursin RFS Level Per Nursing on Admit: 4+=Very High YESSI FELIX DO Mar 28, 2016 08:10
[2016-03-28] MEDS: NICOTINE PATCH REMOVAL TP SCH (08:59)
[2016-03-28] MEDS: fluCOnazole (DIFLUCAN) 100 MG TAB PO SCH (09:05)
[2016-03-28] MEDS: lisINopril 5 MG (PRINIVIL) TABLET PO SCH (09:05)
[2016-03-28] MEDS: cefTRIAXone INJECTION 1,000 MG in NS (IVPB) 50 ML IV SCH (09:05)
[2016-03-28] MEDS: amLODIPine 10 MG (NORVASC) TAB PO SCH (09:05)
[2016-03-28] MEDS: MEMANTINE 10 MG (NAMENDA) TABLET PO SCH (09:05)
[2016-03-28] MEDS: inSUlin DETERMIR 1 UNIT/0.01 ML (LEVEMIR) CHARGE PER UNIT SQ SCH (10:00)
--- NOTE | 2016-03-28 10:17 | Physical Therapy Progress Note ---
Therapy Progress Note Patient adamantly declined PT at this time stating, "I just got into bed and I don't want to get up." PT educated patient in possible negative side effects by not participating vs the positive outcome of increased activity. Patient continued to decline. RN notified and states patient will dismiss back to [place] on this date. 1 ref NICK STARR PT Mar 28, 2016 10:17
--- NOTE | 2016-03-28 11:19 | Physical Therapy Daily Note ---
PT Daily Note-Current Subjective Patient is in bed and states, as she looks at the wall and the window, "Yosef, who works out of that window or that window, ordered my lunch." Pain Numeric Pain Scale: 10-Worst Possible Pain Location: Left Location Body Site: Hip Comment: FLACC Appearance very confused and unaware of situation and surroundings Mental Status Patient Orientation: Confused Attachments: IV Transfers Functional [place] Measure 0=Not Assessed/NA 4=Minimal Assistance 1=Total Assistance 5=Supervision or Setup 2=Maximal Assistance 6=Modified [place] 3=Moderate Assistance 7=Complete IndependenceIRFPAI Quality Coding Scale 6 Independent with activity with or without an assistive device 5 Patient requires set up or clean up by helper. Patient completes activity by themselves 4 Supervision or touching assist (CGA). [place] provide cues , steadying assist 3 The helper provides less than half the effort to complete the activity 2 The helper provides more than half the effort to complete the activity 1 Dependent. The helper does all the effort to complete an activity 7 Patient refused to complete or attempt activity 9 The patient did not perform the activity before the current illness or injury 88 Not attempted due to Medical conditions or safety concerns Transfers (B, C, W/C) (FIM): 1 Scootin Rollin Supine to/from Sit: 1 Sit to/from Stand: 1 Bed to/from Chair: 1 Patient is dependent with all mobility and unable to sit EOB without assistance. PT educated patient on TTWB left LE, however, patient stated that no one told her that. Patient is unable to tolerate TTWB left LE. Weight Bearing Weight Bearing Restriction: Touch Toe Bearing Location Restriction: L LE Exercises Seated Therapy Exercises: Ankle pumps, Long arc quads Seated Reps: 15 Assessment Patient tolerates minimal activity at this time and is incontinent urine with dependent assist to change and cleanse. From a PT stand point, patient would benefit from skilled PT upon return to [place]. PT Automatic Spinning Lathe Setter Goals Automatic Spinning Lathe Setter Goals PT Prison Goals Time Frame: Mar 30, 2016 Transfers (B,C,W/C) (FIM): 3 Gait (FIM): 1 (TTWB left LE) Gait distance (FIM): 1=up to 49 ft Distance: 3 steps Gait Level of Assist: 3 Gait Assistive Device: FWW PT Plan Treatment/Plan Treatment Plan: Continue Plan of Care Treatment Plan: Bed Mobility, Education, Functional Activity Isael, Functional Strength, Gait, Safety, Therapeutic Exercise, Transfers Treatment Duration: Mar 30, 2016 Visits Per Week: 10-11 Discharge Recommendations Therapy D/C Recommendations: Usp Placement, Mcc (TCU/NH) Time/GCodes Time In: 1055 Time Out: 1110 Total Billed Treatment Time: 15 Total Billed Treatment 1 visit FA 15 min NICK STARR PT Mar 28, 2016 11:19
[2016-03-28] MEDS: inSUlin ASPART (NovoLOG) 1 UNIT/0.01 ML (CHARGE PER UNIT) SQ PRN (11:55)
--- NOTE | 2016-03-30 07:28 | Discharge Summary ---
Diagnosis/Chief Complaint Date of Admission Mar 24, 2016 at 13:27 Date of Discharge Mar 28, 2016 at 13:15 Discharge Date: Mar 28, 2016 Admission Diagnosis Admission Diagnosis Left femoral neck impacted subcapital fracture Left inferior and superior pubic rami fracture left sacral ala fracture dementia urinary tract infection Proceed with left femoral neck percutaneous pinning at this time. Patient and family have been educated on risks and benefits of surgical intervention, and wish to proceed at this time. Discharge Diagnosis fracture left femur. Fractured sacrum. Fracture left hip. Fractured pelvis. Alzheimer's. Essential hypertension. Type II diabetes. Fall. Long-term use of insulin Reason Hospital Visit patient is a resident of a snf. Patient went to the closet and fell and hit her left side area Patient brought out to the emergency room. X-ray showed left hip fracture, pelvic fracture and sacral fracture. Patient and known diabetic. Patient has dementia. White blood cell count 20,000. UA shows infection. Patient put on Rocephin. Patient has been alert according to the family the last 2 days Discharge Summary Procedures orthopedic surgery Discharge Physical Examination Allergies: Uncoded Allergies: narcotics (Adverse Reaction, Severe, 03/25/16) Vitals & I&Os Vital Signs Date Time Temp Pulse Resp B/P Pulse Ox O2 Delivery O2 Flow Rate FiO2 03/28/16 13:16 03/28/16 08:00 97.6 75 18 93 Nasal Cannula 2.00 Hospital Course Labs (last 24 hrs) Laboratory Tests 03/24/16 11:05: Activated Partial Thromboplast Time 24, Alanine Aminotransferase (ALT/SGPT) 66H , Albumin 3.4, Alkaline Phosphatase 204H, Anion Gap 11, Aspartate Amino Transf ( AST/SGOT) 32, BUN/Creatinine Ratio 21, Band Neutrophils 9, Basophils # (Auto) 0.1, Basophils % (Manual) 0, Basophils (%) (Auto) 0, Blood Morphology Comment NORMAL, Blood Urea Nitrogen 18, Calcium Level 8.7, Carbon Dioxide Level 21, Chloride Level 103, Creatinine 0.86, Eosinophils # (Auto) 0.1, Eosinophils % ( Manual) 1, Eosinophils (%) (Auto) 1, Estimat Glomerular Filtration Rate > 60, Glucose Level 299H, Hematocrit 40, Hemoglobin 13.8, INR Comment 0.9, Lymphocytes # (Auto) 1.4, Lymphocytes % (Manual) 9, Lymphocytes (%) (Auto) 7L, Mean Corpuscular Hemoglobin 31, Mean Corpuscular Hemoglobin Concent 35, Mean Corpuscular Volume 90, Mean Platelet Volume 9.7, Monocytes # (Auto) 1.4H, Monocytes % (Manual) 4, Monocytes (%) (Auto) 7, Neutrophils # (Auto) 17.5H, Neutrophils % (Manual) 77, Neutrophils (%) (Auto) 85H, Platelet Count 262, Potassium Level 4.4, Prothrombin Time 12.2, Red Blood Count 4.41, Red Cell Distribution Width 13.5, Sodium Level 135, Total Bilirubin 0.6, Total Protein 6.8, White Blood Count 20.5H 03/24/16 12:58: Glucometer 281H 03/24/16 13:30: Urine Bacteria MODERATEH, Urine Bilirubin NEGATIVE, Urine Casts NONE, Urine Clarity MUCOUS, Urine Color YELLOW, Urine Crystals NONE, Urine Culture Indicated YES, Urine Glucose (UA) 3+H, Urine Ketones 1+H, Urine Leukocyte Esterase 3+H, Urine Mucus NEGATIVE, Urine Nitrite NEGATIVE, Urine Protein 3+H, Urine RBC 10-25H, Urine RBC (Auto) 4+H, Urine Specific [place] 1.025H, Urine Urobilinogen NORMAL, Urine WBC TNTCH, Urine Yeast MODERATEH, Urine pH 6 03/24/16 20:09: Glucometer 289H 03/24/16 21:20: Glucometer 310H 03/25/16 04:15: Alanine Aminotransferase (ALT/SGPT) 49, Albumin 3.0L, Alkaline Phosphatase 171H , Anion Gap 10, Aspartate Amino Transf (AST/SGOT) 22, BUN/Creatinine Ratio 18, Basophils # (Auto) 0.0, Basophils (%) (Auto) 0, Blood Urea Nitrogen 13, Calcium Level 8.3L, Carbon Dioxide Level 21, Chloride Level 101, Creatinine 0.74, Eosinophils # (Auto) 0.3, Eosinophils (%) (Auto) 2, Estimat Glomerular Filtration Rate > 60, Glucose Level 400H, Hematocrit 34L, Hemoglobin 11.7, Lymphocytes # (Auto) 1.8, Lymphocytes (%) (Auto) 11L, Mean Corpuscular Hemoglobin 31, Mean Corpuscular Hemoglobin Concent 34, Mean Corpuscular Volume 90, Mean Platelet Volume 9.9, Monocytes # (Auto) 1.2H, Monocytes (%) (Auto) 8, Neutrophils # (Auto) 12.5H, Neutrophils (%) (Auto) 79H, Platelet Count 215, Potassium Level 4.6, Red Blood Count 3.79L, Red Cell Distribution Width 13.3, Sodium Level 132L, Total Bilirubin 0.9, Total Protein 5.9L, White Blood Count 15.8H 03/25/16 08:00: Glucometer 375H 03/25/16 16:59: Glucometer 340H 03/25/16 20:52: Glucometer 337H 03/26/16 03:30: Alanine Aminotransferase (ALT/SGPT) 41, Albumin 2.9L, Alkaline Phosphatase 165H , Anion Gap 10, Aspartate Amino Transf (AST/SGOT) 34, BUN/Creatinine Ratio 16, Basophils # (Auto) 0.1, Basophils (%) (Auto) 0, Blood Urea Nitrogen 10, Calcium Level 8.0L, Carbon Dioxide Level 21, Chloride Level 104, Creatinine 0.61, Eosinophils # (Auto) 0.5H, Eosinophils (%) (Auto) 4, Estimat Glomerular Filtration Rate > 60, Glucose Level 171H, Hematocrit 34L, Hemoglobin 11.6, Lymphocytes # (Auto) 1.8, Lymphocytes (%) (Auto) 14, Mean Corpuscular Hemoglobin 31, Mean Corpuscular Hemoglobin Concent 35, Mean Corpuscular Volume 90, Mean Platelet Volume 9.7, Monocytes # (Auto) 1.1H, Monocytes (%) (Auto) 8, Neutrophils # (Auto) 9.5H, Neutrophils (%) (Auto) 73, Platelet Count 188, Potassium Level 3.7, Red Blood Count 3.75L, Red Cell Distribution Width 13.0, Sodium Level 135, Total Bilirubin 0.7, Total Protein 5.3L, White Blood Count 12.9H 03/26/16 05:31: Glucometer 123H 03/26/16 10:55: Glucometer 200H 03/26/16 15:51: Glucometer 165H 03/26/16 20:34: Glucometer 217H 03/27/16 03:53: Basophils # (Auto) 0.0, Basophils (%) (Auto) 0, Eosinophils # (Auto) 0.6H, Eosinophils (%) (Auto) 4, Hematocrit 34L, Hemoglobin 11.5, Lymphocytes # (Auto) 1.8, Lymphocytes (%) (Auto) 14, Mean Corpuscular Hemoglobin 31, Mean Corpuscular Hemoglobin Concent 34, Mean Corpuscular Volume 91, Mean Platelet Volume 10.1, Monocytes # (Auto) 1.6H, Monocytes (%) (Auto) 13H, Neutrophils # ( Auto) 8.6H, Neutrophils (%) (Auto) 69, Platelet Count 191, Red Blood Count 3.71L , Red Cell Distribution Width 13.4, White Blood Count 12.6H 03/27/16 05:34: Glucometer 111H 03/27/16 11:00: Glucometer 188H 03/27/16 16:18: Glucometer 143H 03/27/16 20:59: Glucometer 201H 03/28/16 05:25: Anion Gap 13, BUN/Creatinine Ratio 9, Basophils # (Auto) 0.1, Basophils (%) ( Auto) 0, Blood Urea Nitrogen 5L, Calcium Level 8.6, Carbon Dioxide Level 22, Chloride Level 103, Creatinine 0.53L, Eosinophils # (Auto) 0.5H, Eosinophils (% ) (Auto) 4, Estimat Glomerular Filtration Rate > 60, Glucose Level 126H, Hematocrit 37, Hemoglobin 12.6, Lymphocytes # (Auto) 1.6, Lymphocytes (%) (Auto ) 14, Mean Corpuscular Hemoglobin 31, Mean Corpuscular Hemoglobin Concent 34, Mean Corpuscular Volume 90, Mean Platelet Volume 9.8, Monocytes # (Auto) 1.5H, Monocytes (%) (Auto) 13H, Neutrophils # (Auto) 7.8, Neutrophils (%) (Auto) 68, Platelet Count 224, Potassium Level 3.9, Red Blood Count 4.07L, Red Cell Distribution Width 13.2, Sodium Level 138, White Blood Count 11.5H 03/28/16 11:18: Glucometer 204H Microbiology 03/24/16 Urine Culture - Final, Complete Presumptive Lorena Albicans Laboratory Tests 03/24/16 11:05 03/25/16 04:15 03/26/16 03:30 03/27/16 03:53 03/28/16 05:25 Pending Labs Microbiology Date/Time Source Procedure Growth Status 03/24/16 13:30 Urine Clean Catch Urine Culture - Final Presumptive Lorena Albicans Complete Laboratory Tests 03/24/16 11:05: Activated Partial Thromboplast Time 24, Alanine Aminotransferase (ALT/SGPT) 66, Albumin 3.4, Alkaline Phosphatase 204, Anion Gap 11, Aspartate Amino Transf (AST /SGOT) 32, BUN/Creatinine Ratio 21, Band Neutrophils 9, Basophils # (Auto) 0.1, Basophils % (Manual) 0, Basophils (%) (Auto) 0, Blood Morphology Comment NORMAL , Blood Urea Nitrogen 18, Calcium Level 8.7, Carbon Dioxide Level 21, Chloride Level 103, Creatinine 0.86, Eosinophils # (Auto) 0.1, Eosinophils % (Manual) 1, Eosinophils (%) (Auto) 1, Estimat Glomerular Filtration Rate > 60, Glucose Level 299, Hematocrit 40, Hemoglobin 13.8, INR Comment 0.9, Lymphocytes # (Auto ) 1.4, Lymphocytes % (Manual) 9, Lymphocytes (%) (Auto) 7, Mean Corpuscular Hemoglobin 31, Mean Corpuscular Hemoglobin Concent 35, Mean Corpuscular Volume 90, Mean Platelet Volume 9.7, Monocytes # (Auto) 1.4, Monocytes % (Manual) 4, Monocytes (%) (Auto) 7, Neutrophils # (Auto) 17.5, Neutrophils % (Manual) 77, Neutrophils (%) (Auto) 85, Platelet Count 262, Potassium Level 4.4, Prothrombin Time 12.2, Red Blood Count 4.41, Red Cell Distribution Width 13.5, Sodium Level 135, Total Bilirubin 0.6, Total Protein 6.8, White Blood Count 20.5 03/24/16 12:58: Glucometer 281 03/24/16 13:30: Urine Bacteria MODERATE, Urine Bilirubin NEGATIVE, Urine Casts NONE, Urine Clarity MUCOUS, Urine Color YELLOW, Urine Crystals NONE, Urine Culture Indicated YES, Urine Glucose (UA) 3+, Urine Ketones 1+, Urine Leukocyte Esterase 3+, Urine Mucus NEGATIVE, Urine Nitrite NEGATIVE, Urine Protein 3+, Urine RBC 10-25, Urine RBC (Auto) 4+, Urine Specific [place] 1.025, Urine Urobilinogen NORMAL, Urine WBC TNTC, Urine Yeast MODERATE, Urine pH 6 03/24/16 20:09: Glucometer 289 03/24/16 21:20: Glucometer 310 03/25/16 04:15: Alanine Aminotransferase (ALT/SGPT) 49, Albumin 3.0, Alkaline Phosphatase 171, Anion Gap 10, Aspartate Amino Transf (AST/SGOT) 22, BUN/Creatinine Ratio 18, Basophils # (Auto) 0.0, Basophils (%) (Auto) 0, Blood Urea Nitrogen 13, Calcium Level 8.3, Carbon Dioxide Level 21, Chloride Level 101, Creatinine 0.74, Eosinophils # (Auto) 0.3, Eosinophils (%) (Auto) 2, Estimat Glomerular Filtration Rate > 60, Glucose Level 400, Hematocrit 34, Hemoglobin 11.7, Lymphocytes # (Auto) 1.8, Lymphocytes (%) (Auto) 11, Mean Corpuscular Hemoglobin 31, Mean Corpuscular Hemoglobin Concent 34, Mean Corpuscular Volume 90, Mean Platelet Volume 9.9, Monocytes # (Auto) 1.2, Monocytes (%) (Auto) 8, Neutrophils # (Auto) 12.5, Neutrophils (%) (Auto) 79, Platelet Count 215, Potassium Level 4.6, Red Blood Count 3.79, Red Cell Distribution Width 13.3, Sodium Level 132, Total Bilirubin 0.9, Total Protein 5.9, White Blood Count 15.8 03/25/16 08:00: Glucometer 375 03/25/16 16:59: Glucometer 340 03/25/16 20:52: Glucometer 337 03/26/16 03:30: Alanine Aminotransferase (ALT/SGPT) 41, Albumin 2.9, Alkaline Phosphatase 165, Anion Gap 10, Aspartate Amino Transf (AST/SGOT) 34, BUN/Creatinine Ratio 16, Basophils # (Auto) 0.1, Basophils (%) (Auto) 0, Blood Urea Nitrogen 10, Calcium Level 8.0, Carbon Dioxide Level 21, Chloride Level 104, Creatinine 0.61, Eosinophils # (Auto) 0.5, Eosinophils (%) (Auto) 4, Estimat Glomerular Filtration Rate > 60, Glucose Level 171, Hematocrit 34, Hemoglobin 11.6, Lymphocytes # (Auto) 1.8, Lymphocytes (%) (Auto) 14, Mean Corpuscular Hemoglobin 31, Mean Corpuscular Hemoglobin Concent 35, Mean Corpuscular Volume 90, Mean Platelet Volume 9.7, Monocytes # (Auto) 1.1, Monocytes (%) (Auto) 8, Neutrophils # (Auto) 9.5, Neutrophils (%) (Auto) 73, Platelet Count 188, Potassium Level 3.7, Red Blood Count 3.75, Red Cell Distribution Width 13.0, Sodium Level 135, Total Bilirubin 0.7, Total Protein 5.3, White Blood Count 12.9 03/26/16 05:31: Glucometer 123 03/26/16 10:55: Glucometer 200 03/26/16 15:51: Glucometer 165 03/26/16 20:34: Glucometer 217 03/27/16 03:53: Basophils # (Auto) 0.0, Basophils (%) (Auto) 0, Eosinophils # (Auto) 0.6, Eosinophils (%) (Auto) 4, Hematocrit 34, Hemoglobin 11.5, Lymphocytes # (Auto) 1.8, Lymphocytes (%) (Auto) 14, Mean Corpuscular Hemoglobin 31, Mean Corpuscular Hemoglobin Concent 34, Mean Corpuscular Volume 91, Mean Platelet Volume 10.1, Monocytes # (Auto) 1.6, Monocytes (%) (Auto) 13, Neutrophils # ( Auto) 8.6, Neutrophils (%) (Auto) 69, Platelet Count 191, Red Blood Count 3.71, Red Cell Distribution Width 13.4, White Blood Count 12.6 03/27/16 05:34: Glucometer 111 03/27/16 11:00: Glucometer 188 03/27/16 16:18: Glucometer 143 03/27/16 20:59: Glucometer 201 03/28/16 05:25: Anion Gap 13, BUN/Creatinine Ratio 9, Basophils # (Auto) 0.1, Basophils (%) ( Auto) 0, Blood Urea Nitrogen 5, Calcium Level 8.6, Carbon Dioxide Level 22, Chloride Level 103, Creatinine 0.53, Eosinophils # (Auto) 0.5, Eosinophils (%) ( Auto) 4, Estimat Glomerular Filtration Rate > 60, Glucose Level 126, Hematocrit 37, Hemoglobin 12.6, Lymphocytes # (Auto) 1.6, Lymphocytes (%) (Auto) 14, Mean Corpuscular Hemoglobin 31, Mean Corpuscular Hemoglobin Concent 34, Mean Corpuscular Volume 90, Mean Platelet Volume 9.8, Monocytes # (Auto) 1.5, Monocytes (%) (Auto) 13, Neutrophils # (Auto) 7.8, Neutrophils (%) (Auto) 68, Platelet Count 224, Potassium Level 3.9, Red Blood Count 4.07, Red Cell Distribution Width 13.2, Sodium Level 138, White Blood Count 11.5 03/28/16 11:18: Glucometer 204 Discharge Home Medications: Active Scripts Active Reported Nystatin 15 Gm Cream..g. TP BID Levemir (Insulin Determir) 1,000 Units/10 Ml Soln 5 Units SQ HS Levemir (Insulin Determir) 1,000 Units/10 Ml Soln 10 Units SQ DAILY Novolog (Insulin Aspart) 100 Unit/1 Ml Susp SQ SLIDING/SCALE PRN USE THIS SLIDING SCALE IN ADDITION TO 5 UNTIS WITH MEALS 150-210 = 1 EXTRA UNIT 211-270 = 2 EXTRA UNITS 271-330 = 3 EXTRA UNITS 331-390 = 4 EXTRA UNITS >390 = 5 EXTRA UNITS NOT AT BEDTIME Novolog (Insulin Aspart) 100 Unit/1 Ml Susp 5 Unit SQ TIDAC Loperamide (Loperamide HCl) 2 Mg Tablet 2 Mg PO QID PRN Namenda (Memantine HCl) 10 Mg Tablet 10 Mg PO BID Tylenol (Acetaminophen) 325 Mg Tablet 650 Mg PO Q6H PRN TAKES 2 (325MG) TABLETS Tolterodine Tartrate ER (Tolterodine Tartrate) 4 Mg Cap.er.24h 4 Mg PO DAILY Aricept (Donepezil HCl) 10 Mg Tablet 10 Mg PO HS Citalopram HBr (Citalopram Hydrobromide) 20 Mg Tablet 20 Mg PO DAILY Aspirin EC (Aspirin) 81 Mg Tablet.dr 81 Mg PO DAILY Lipitor 20MG (Atorvastatin Calcium) 20 Mg Tablet 20 Mg PO HS Prinivil (Lisinopril) 5 Mg Tablet 5 Mg PO DAILY HOLD FOR SBP<100 AND/OR DBP<60 AND PULSE LESS THAN OR EQUAL TO 60 Norvasc (Amlodipine Besylate) 10 Mg Tablet 10 Mg PO DAILY HOLD FOR SBP < 100 AND/OR DBP < 60 AND PULSE LESS THAN OR EQUAL TO 60 Instructions to patient/family Please see electonic discharge instructions given to patient. Clinical Quality Measures DVT/VTE Risk/Contraindication: Risk Factor Score Per Nursin RFS Level Per Nursing on Admit: 4+=Very High YESSI FELIX DO Mar 30, 2016 07:28
== END 2016-03-28 13:15 | DRG 481 ==
LOC: EDUNIT# 09:16 → ER 09:17 → UNDOADMIN 13:27 → ICU 13:27 → 4TH 22:30
PROVIDERS: ADMIT Orthopaedic Surgery Orthopaedic Surgery of the Spine; ATTEND Orthopaedic Surgery Orthopaedic Surgery of the Spine
PROC: 0QS734Z Reposition Left Upper Femur with Internal Fixation Device, Percutaneous Approach (ICD-10-PCS; principal; 2016-03-24 20:15)
DX: M80.052A Age-related osteoporosis with current pathological fracture, left femur, initial encounter for fracture (principal); B37.49 Other urogenital candidiasis; E11.65 Type 2 diabetes mellitus with hyperglycemia; I10 Essential (primary) hypertension; F32.9 Major depressive disorder, single episode, unspecified; F03.90 Unspecified dementia, unspecified severity, without behavioral disturbance, psychotic disturbance, mood disturbance, and anxiety; B02.9 Zoster without complications; W01.10XA Fall on same level from slipping, tripping and stumbling with subsequent striking against unspecified object, initial encounter; Y92.128 Other place in nursing home as the place of occurrence of the external cause; Y99.8 Other external cause status; Z79.4 Long term (current) use of insulin; Z87.891 Personal history of nicotine dependence
CPT/HCPCS: 36415; 51702; 71010; 72170; 72192; 73502; 80048; 80053; 81000; 82962; 85007; 85025; 85027; 85610; 85730; 87088; 93005; 96361; 96374; 96375; 96376

== ENCOUNTER 2016-04-19 01:30 | Emergency (ER) | payer BC, MEDICARE ==
[~2016-04-19] VITALS: Ht 157.5 cm; Wt 59.4 kg
[~2016-04-19 01:30] MED LIST changes: +ACET325T38 PO; +ALBU2.5V4 IH; +DONE10TA12 PO; +INSU100V16 SQ; +LOPE2TAB34 PO; +MEMA10TA2 PO; +NCT14P TD; +NYST15CR TP; +TOLT4CAP13 PO
--- OUTSIDE RECORDS SUMMARY | 2016-04-19 01:43 | XMS REPORT | Continuity of Care Document ---
Author Author [facility] Organization [facility] Address Unknown Phone Unavailable Care Team Providers Care Staff Assistant Name Role Phone YESSI FELIX DO PCP Insurance Providers Payer Name Policy Number Subscriber Name Relationship [facility] [id number] Romina Orourke 18 Self / Same As Patient s Medicare [id number] Romina Orourke 18 Self / Same As Patient Advance Directives Directive Response Recorded Date/Time Advance Directives Yes 03/24/16 2:45pm Health Care Power of [employer]ision L[employer] Yes 03/24/16 2:45pm Organ Donor No 03/24/16 2:45pm Resuscitation Status DNR-Pt Request 03/24/16 2:45pm Chief Complaint and Reason for Visit Chief Complaint LEFT HIP FX,PELVIC FX,SACRAL FX Reason for Visit Shingles outbreak Subcapital fracture of left hip Uncontrolled diabetes mellitus with hyperglycemia Weakness Problems Active Problems Medical Problem Onset Date Status Dehydration Unknown Acute Fall on same level Unknown Acute Pelvic fracture Unknown Acute Sacral fracture Unknown Acute Shingles outbreak Unknown Acute Subcapital fracture of left hip Unknown Acute Uncontrolled diabetes mellitus with hyperglycemia Unknown Acute Weakness Unknown Acute Medications Current Home Medications Medication Dose Units Route Directions Days/Qty Instructions Start Date Amlodipine Besylate 10 Mg 10 Mg Oral Daily HOLD FOR SBP < 100 AND/OR DBP < 60 AND PULSE LESS THAN OR EQUAL TO 60 05/01/13 Lisinopril 5 Mg 5 Mg Oral Daily HOLD FOR SBP<100 AND/OR DBP<60 AND PULSE LESS THAN OR EQUAL TO 60 05/01/13 Atorvastatin Calcium 20 Mg 20 Mg Oral Bedtime 05/01/13 Aspirin 81 Mg 81 Mg Oral Daily 01/08/16 Citalopram Hydrobromide 20 Mg 20 Mg Oral Daily 03/24/16 Donepezil Hcl 10 Mg 10 Mg Oral Bedtime 03/24/16 Tolterodine Tartrate 4 Mg 4 Mg Oral Daily 03/24/16 Acetaminophen 325 Mg 650 Mg Oral Every 6 Hours as needed for Temp/Mild Pain TAKES 2 (325MG) TABLETS 03/24/16 Memantine Hcl 10 Mg 10 Mg Oral Twice A Day 03/24/16 Loperamide Hcl 2 Mg 2 Mg Oral Four Times Daily as needed for Loose Stools 03/24/16 Insulin Aspart 100 Unit/1 Ml 5 Unit Sub-Q Three Times A Day Before Meals 03/24/16 Insulin Aspart 100 Unit/1 Ml Sub-Q Sliding/Scale as needed for Bs Above 150 USE THIS SLIDING SCALE IN ADDITION TO 5 UNTIS WITH MEALS 150-210= 1 EXTRA UNIT 211-270=2 EXTRA UNITS 271-330=3 EXTRA UNITS 331-390=4 EXTRA UNITS > 390=5 EXTRA UNITS NOT AT BEDTIME 03/24/16 Insulin Determir 1,000 Units/10 Ml 10 Units Sub-Q Daily 03/24/16 Insulin Determir 1,000 Units/10 Ml 5 Units Sub-Q Bedtime 03/24/16 Nystatin 15 Gm Topical Twice A Day 03/24/16 Past Home Medications Medication Directions Ordered Status Metformin Hcl (Glucophage) 500 Mg Tablet, 1000 Mg Oral Twice A Day 05/01/13 Discontinued Glimepiride 4 Mg Tab, 6 Mg Oral Daily 05/01/13 Discontinued Aspirin 325 Mg Tablet.dr, 325 Mg Oral Daily 05/01/13 Discontinued Mu-Vits-Min Th/Lycopene/Lutein 1 Each Tablet, 1 Tab Oral Daily 05/01/13 Discontinued Insulin Aspart 100 Unit/1 Ml Insuln.pen, Sub-Q Before Meals for Sliding Scale 05/01/13 Discontinued Meloxicam (Mobic) 15 Mg Tablet, 15 Mg Oral Daily 05/01/13 Discontinued Tramadol Hcl 50 Mg Tablet, 50 Mg Oral Every 6 Hours as needed for Pain Discontinued Acetaminophen 500 Mg Tablet, 500-1000 Mg Oral Every 4HRS as needed for Pain 01/08/16 Discontinued Levofloxacin 500 Mg Tablet, 500 Mg Oral Daily@11 01/14/16 Discontinued Valacyclovir Hcl 500 Mg Tablet, 1000 Mg Oral Twice A Day 01/14/16 Discontinued Citalopram Hydrobromide 20 Mg Tablet, 20 Mg Oral Daily 01/14/16 Discontinued Insulin Regular, Human 100 Unit/1 Ml Vial, 100 Unit Injection As Directed 09/21 Discontinued Memantine Hcl 5 Mg Tablet, 5 Mg Oral Daily 01/14/16 Discontinued Donepezil Hcl 5 Mg Tablet, 5 Mg Oral Bedtime 01/14/16 Discontinued Insulin Degludec 100 Unit/1 Ml Insuln.pen, 21 Unit Sub-Q Bedtime 01/14/16 Discontinued Nicotine 1 Each Patch.td24, 14 Mg Transderm Daily 03/24/16 Discontinued Albuterol Sulfate 2.5 Mg/3 Ml Vial.neb, 2.5 Mg Inhalation Take Today At 8:00AM , 2:00PM, And 8:00PM 03/24/16 Discontinued Social History Social History Problem Response Recorded Date/Time Alcohol Use Denies Use 05/01/2013 12:00pm Recreational Drug Use No 05/01/2013 12:00pm Recent Foreign Travel No 05/01/2013 12:00pm Recent Infectious Disease Exposure No 05/01/2013 12:00pm Hospitalization with Isolation Denies 05/08/2013 3:18pm Sexually Transmitted Disease No 03/24/2016 2:45pm HIV/AIDS No 03/24/2016 2:45pm Smoking Status Former Smoker 03/24/2016 2:45pm Type Used Cigarettes 03/28/2016 1:53pm Recent Hopitalizations Y DEC 2015 03/24/2016 2:45pm Sexually Transmitted Disease No 03/24/2016 2:45pm Hospitalization with Isolation Denies 05/08/2013 3:18pm Query Response Start Date Stop Date Smoking Status Former Smoker Hospital Discharge Instructions No hospital discharge instructions. Plan of Care Discharge Date 03/28/16 1:15pm Disposition 09 ADMITTED INPATIENT Instructions/Education Provided Hip Fracture Forms Provided PDI Medical Prescriptions See Medication Section Referrals (Unspecified) - Reason(s) for Referral: Follow up with Dr. Bravo as instructed Functional Status Query Response Date Recorded Patient Orientation Confused March 28, 2016 11:19am Patient Orientation Person March 28, 2016 1:53pm Comprehension Ability Understands Concepts March 27, 2016 7:40am Allergies, Adverse Reactions, Alerts Allergen Type Severity Reaction Status Last Updated narcotics Adverse Reaction Severe Active 03/25/16 Immunizations No immunization records. Vital Signs Acute Vital Signs Vital Response Date/Time Temperature (Fahrenheit) 97.6 degrees F (97.6 - 99.5) 03/28/2016 8:00am Temperature (Calculated Celsius) 36.14783 degrees C (36.4 - 37.5) 03/28/2016 8:00am Temperature Source Tympanic 03/28/2016 8:00am Pulse Rate (adult) 75 bpm (60 - 90) 03/28/2016 8:00am Respiratory Rate 18 bpm (12 - 24) 03/28/2016 8:00am O2 Sat by Pulse Oximetry 93 % (88 - 100) 03/28/2016 8:00am Blood Pressure 152/73 mm Hg 03/28/2016 8:00am Blood Pressure Mean 99 mm Hg 03/28/2016 8:00am Pain Numeric Pain Scale 10-Worst Possible Pain 03/28/2016 11:19am Height (Feet) 5 feet 03/24/2016 2:45pm Height (Inches) 2.00 inches 03/24/2016 2:45pm Height (Calculated Centimeters) 157.715251 cm 03/24/2016 2:45pm Weight (Pounds) 100 pounds 03/24/2016 2:45pm Weight (Ounces) 0.0 oz 03/24/2016 2:45pm Weight (Calculated Grams) 56623.24 gm 03/24/2016 2:45pm Weight (Calculated Kilograms) 45.834441 kilograms 03/24/2016 2:45pm Calculated BMI 18.3 03/24/2016 2:45pm Capillary Refill Capillary Refill Less Than 3 Seconds 03/27/2016 9:00pm Results Laboratory Results Test Name Result Units Flags Reference Collection Date/Time Result Date/ Time Comments White Blood Count 11.5 10^3/uL H 4.3-11.0 03/28/2016 5:25am 03/28/2016 5: 39am Red Blood Count 4.07 10^6/uL L 4.35-5.85 03/28/2016 5:25am 03/28/2016 5: 39am Hemoglobin 12.6 G/DL 11.5-16.0 03/28/2016 5:03/28/2016 5:39am Hematocrit 37 % 35-52 03/28/2016 5:03/28/2016 5:39am Mean Corpuscular Volume 90 FL 80-99 03/28/2016 5:03/28/2016 5: 39am Mean Corpuscular Hemoglobin 31 PG 25-34 03/28/2016 5:03/28/2016 5: 39am Mean Corpuscular Hemoglobin Concent 34 G/DL 32-36 03/28/2016 5: 5:39am Red Cell Distribution Width 13.2 % 10.0-14.5 03/28/2016 5:2016 5:39am Platelet Count 224 10^3/uL 130-400 03/28/2016 5:03/28/2016 5:39am Mean Platelet Volume 9.8 FL 7.4-10.4 03/28/2016 5:03/28/2016 5: 39am Neutrophils (%) (Auto) 68 % 42-75 03/28/2016 5:03/28/2016 5:39am Lymphocytes (%) (Auto) 14 % 12-44 03/28/2016 5:03/28/2016 5:39am Monocytes (%) (Auto) 13 % H 0-12 03/28/2016 5:03/28/2016 5:39am Eosinophils (%) (Auto) 4 % 0-10 03/28/2016 5:03/28/2016 5:39am Basophils (%) (Auto) 0 % 0-10 03/28/2016 5:03/28/2016 5:39am Neutrophils # (Auto) 7.8 X 10^3 1.8-7.8 03/28/2016 5:03/28/2016 5: 39am Lymphocytes # (Auto) 1.6 X 10^3 1.0-4.0 03/28/2016 5:03/28/2016 5: 39am Monocytes # (Auto) 1.5 X 10^3 H 0.0-1.0 03/28/2016 5:03/28/2016 5: 39am Eosinophils # (Auto) 0.5 10^3/uL H 0.0-0.3 03/28/2016 5:25am 03/28/2016 5 :39am Basophils # (Auto) 0.1 10^3/uL 0.0-0.1 03/28/2016 5:25am 03/28/2016 5: 39am Neutrophils % (Manual) 77 % 03/24/2016 11:05am 03/24/2016 11:35am Band Neutrophils 9 % 03/24/2016 11:05am 03/24/2016 11:35am Lymphocytes % (Manual) 9 % 03/24/2016 11:05am 03/24/2016 11:35am Monocytes % (Manual) 4 % 03/24/2016 11:05am 03/24/2016 11:35am Eosinophils % (Manual) 1 % 03/24/2016 11:05am 03/24/2016 11:35am Basophils % (Manual) 0 % 03/24/2016 11:05am 03/24/2016 11:35am Blood Morphology Comment NORMAL 03/24/2016 11:05am 03/24/2016 11: 35am Prothrombin Time 12.2 SEC 12.2-14.7 03/24/2016 11:05am 03/24/2016 11: 30am INR Comment 0.9 0.8-1.4 03/24/2016 11:05am 03/24/2016 11:30am INTERPRETIVE DATA SUGGESTED THERAPEUTIC RANGE FOR INR'S: VENOUS THROMBOSIS, PULMONARY EMBOLISM, OR PREVENTION OF SYSTEMIC EMBOLISM (EG. IN ATRIAL FIBRILLATION): 2.0 - 3.0 MECHANICAL PROSTHETIC HEART VALVES: 2.5 - 3.5* *NOTE: INR'S UP TO 4.5 MAY BE NECESSARY IN SELECTED GROUPS OF HIGH RISK PATIENTS. [place] [place] [employer] OF CHEST PHYSICIANS CONSENSUS CONFERENCE ON ANTITHROMBOTIC THERAPY (2000). Activated Partial Thromboplast Time 24 SEC 24-35 03/24/2016 11:05am 11:30am Urine Color YELLOW 03/24/2016 1:30pm 03/24/2016 3:14pm Urine Clarity MUCOUS 03/24/2016 1:30pm 03/24/2016 3:14pm Urine pH 6 5-9 03/24/2016 1:30pm 03/24/2016 3:14pm Urine Specific [place] 1.025 * 1.016-1.022 03/24/2016 1:30pm 2016 3:14pm Urine Protein 3+ * NEGATIVE 03/24/2016 1:30pm 03/24/2016 3:14pm Urine Glucose (UA) 3+ * NEGATIVE 03/24/2016 1:30pm 03/24/2016 3:14pm Urine RBC (Auto) 4+ * NEGATIVE 03/24/2016 1:30pm 03/24/2016 3:14pm Urine Ketones 1+ * NEGATIVE 03/24/2016 1:30pm 03/24/2016 3:14pm Urine Nitrite NEGATIVE NEGATIVE 03/24/2016 1:30pm 03/24/2016 3:14pm Urine Bilirubin NEGATIVE NEGATIVE 03/24/2016 1:30pm 03/24/2016 3: 14pm Urine Urobilinogen NORMAL MG/DL NORMAL 03/24/2016 1:30pm 03/24/2016 3: 14pm Urine Leukocyte Esterase 3+ * NEGATIVE 03/24/2016 1:30pm 03/24/2016 3: 14pm Urine RBC 10-25 /HPF * 03/24/2016 1:30pm 03/24/2016 3:14pm Urine WBC TNTC /HPF * 03/24/2016 1:30pm 03/24/2016 3:14pm Urine Bacteria MODERATE /HPF * 03/24/2016 1:30pm 03/24/2016 3:14pm Urine Crystals NONE /LPF 03/24/2016 1:30pm 03/24/2016 3:14pm Urine Casts NONE /LPF 03/24/2016 1:30pm 03/24/2016 3:14pm Urine Mucus NEGATIVE /LPF 03/24/2016 1:30pm 03/24/2016 3:14pm Urine Yeast MODERATE /HPF * 03/24/2016 1:30pm 03/24/2016 3:14pm Urine Culture Indicated YES 03/24/2016 1:30pm 03/24/2016 3:14pm Sodium Level 138 MMOL/L 135-145 03/28/2016 5:25am 03/28/2016 6:11am Potassium Level 3.9 MMOL/L 3.6-5.0 03/28/2016 5:25am 03/28/2016 6:11am Chloride Level 103 MMOL/L 98-107 03/28/2016 5:25am 03/28/2016 6:11am Carbon Dioxide Level 22 MMOL/L 21-32 03/28/2016 5:25am 03/28/2016 6: 11am Anion Gap 13 MMOL/L 5-14 03/28/2016 5:25am 03/28/2016 6:11am Blood Urea Nitrogen 5 MG/DL L 7-18 03/28/2016 5:25am 03/28/2016 6:11am Creatinine 0.53 MG/DL L 0.60-1.30 03/28/2016 5:25am 03/28/2016 6:11am BUN/Creatinine Ratio 9 03/28/2016 5:25am 03/28/2016 6:11am Estimat Glomerular Filtration Rate > 60 03/28/2016 5:25am 2016 6:11am GFR INTERPRETIVE DATA UNITS FOR ESTIMATED GFR (eGFR): mL/min/1.73 M2 REFERENCE RANGE FOR ESTIMATED GFR (eGFR) eGFR NORMAL eGFR >60 MODERATELY DECREASED eGFR 30-59 SEVERLY DECREASED eGFR 15-29 KIDNEY FAILURE <15 (OR DIALYSIS) Glucose Level 126 MG/DL H 70-105 03/28/2016 5:25am 03/28/2016 6:11am Glucometer 204 MG/DL H 70-110 03/28/2016 11:18am 03/28/2016 11:38am Calcium Level 8.6 MG/DL 8.5-10.1 03/28/2016 5:25am 03/28/2016 6:11am Total Bilirubin 0.7 MG/DL 0.1-1.0 03/26/2016 3:30am 03/26/2016 4:31am Alkaline Phosphatase 165 U/L H 40-136 03/26/2016 3:30am 03/26/2016 4: 31am Aspartate Amino Transf (AST/SGOT) 34 U/L 5-34 03/26/2016 3:30am 2016 4:31am Alanine Aminotransferase (ALT/SGPT) 41 U/L 0-55 03/26/2016 3:30am 03/26 4:31am Total Protein 5.3 G/DL L 6.4-8.2 03/26/2016 3:30am 03/26/2016 4:31am Albumin 2.9 G/DL L 3.2-4.5 03/26/2016 3:30am 03/26/2016 4:31am Microbiology Results Procedure Source Result Collection Date/Time Result Date/Time Urine Culture Urine, Clean Catch PRESUMPTIVE PERCY ALBICANS 03/24/2016 1: 30pm 03/26/2016 5:21pm Procedures Procedure Status Date Provider(s) Internal fixation of left hip Completed 03/24/16 MOHAMUD BRAVO MD Tracing only of electrocardiogram Completed 03/24/16 CRUZ REYES MD Encounters Encounter Location Arrival/Admit Date Discharge/Depart Date Attending Provider Discharged Inpatient [facility] 03/24/16 1:27pm 1:15pm MOHAMUD BRAVO MD Recent Diagnosis Shingles outbreak Subcapital fracture of left hip Uncontrolled diabetes mellitus with hyperglycemia Weakness
[2016-04-19] MEDS ORDERED: fentaNYL INJECTION 100 MCG/2 ML AMP IVP STA (02:07)
[2016-04-19] MEDS ORDERED: ONDANSETRON 4 MG/2 ML (SDV) Z0FRAN IVP ONE (02:15)
--- NOTE | 2016-04-19 02:18 | ED Upper Extremity ---
General Chief Complaint: Trauma-Non Activation Stated Complaint: L UPPER ARM INJURY Nursing Triage Note: Fall from bed to floor and assited up by staff before EMS arrival. Pt is alert and answers brief, simple questions. Pain to upper left arm near shoulder. No LOC reported, denied by staff Nursing Sepsis Screen: No Definite Risk Source: patient, family Exam Limitations: no limitations History of Present Illness Time seen by provider: 01:55 Initial Comments Here by EMS. Per report, patient fell from bed to the floor. She was assisted back into bed and noted left arm is burning. Reportedly this is near the shoulder and patient states that is where it hurts. She is able to move her hand or wrist and fingers. Pain is on the left side. Denies hitting her head having other injury. She is recovering from a left hip fracture currently and had repair. She is currently in physical therapy for this. Location Injury Occurred: Patient found in bed by EMS and staff had assisted pt up from floor Onset: just prior to arrival Severity: moderate Pain/Injury Location: left arm Method of Injury: fell Modifying Factors: Improves With Immobilization, Worse With Movement, Improves With Rest Allergies and Home Medications Allergies Uncoded Allergies: narcotics (Adverse Reaction, Severe, 03/25/16) Home Medications Acetaminophen 325 Mg Tablet 650 MG PO Q6H PRN PRN TEMP/MILD PAIN (Reported) TAKES 2 (325MG) TABLETS Amlodipine Besylate 10 Mg Tablet 10 MG PO DAILY (Reported) HOLD FOR SBP < 100 AND/OR DBP < 60 AND PULSE LESS THAN OR EQUAL TO 60 Aspirin 81 Mg Tablet.dr 81 MG PO DAILY (Reported) Atorvastatin 20 Mg Tablet 20 MG PO HS (Reported) Citalopram Hydrobromide 20 Mg Tablet 20 MG PO DAILY (Reported) Donepezil HCl 10 Mg Tablet 10 MG PO HS (Reported) Insulin Aspart 100 Unit/1 Ml Susp 5 UNIT SQ TIDAC (Reported) Insulin Aspart 100 Unit/1 Ml Susp SQ SLIDING/SCALE PRN PRN BS ABOVE 150 ( Reported) USE THIS SLIDING SCALE IN ADDITION TO 5 UNTIS WITH MEALS 150-210 = 1 EXTRA UNIT 211-270 = 2 EXTRA UNITS 271-330 = 3 EXTRA UNITS 331-390 = 4 EXTRA UNITS > 390 = 5 EXTRA UNITS NOT AT BEDTIME Insulin Determir 1,000 Units/10 Ml Soln 10 UNITS SQ DAILY (Reported) Insulin Determir 1,000 Units/10 Ml Soln 5 UNITS SQ HS (Reported) Lisinopril 5 Mg Tablet 5 MG PO DAILY (Reported) HOLD FOR SBP<100 AND/OR DBP<60 AND PULSE LESS THAN OR EQUAL TO 60 Loperamide HCl 2 Mg Tablet 2 MG PO QID PRN PRN LOOSE STOOLS (Reported) Memantine HCl 10 Mg Tablet 10 MG PO BID (Reported) Nystatin 15 Gm Cream..g. TP BID (Reported) Tolterodine Tartrate 4 Mg Cap.er.24h 4 MG PO DAILY (Reported) Constitutional: see HPINo chills, No fever EENTM: no symptoms reported Respiratory: no symptoms reported Cardiovascular: no symptoms reported Gastrointestinal: nauseaNo vomiting Genitourinary: no symptoms reported Musculoskeletal: see HPI joint pain muscle pain Skin: no symptoms reported Psychiatric/Neurological: No Symptoms ReportedDenies Numbness, Denies Tingling Past Ujozvat-Eqzcxa-Zuhioe Hx Patient Social History Alcohol Use: Denies Use Recreational Drug Use: No Smoking Status: Former Smoker Type Used: Cigarettes 2nd Hand Smoke Exposure: No Recent Foreign Travel: No Contact w/Someone Who Travel: No Recent Infectious Disease Expo: No Recent Hopitalizations: No Immunizations Up To Date Tetanus Booster (TDap): More than 5yrs Date of Pneumonia Vaccine: Dec 16, 2010 Date of Influenza Vaccine: Nov 11, 2015 Seasonal Allergies Seasonal Allergies: No Surgeries HX Surgeries: No Respiratory Hx Respiratory Disorders: No Cardiovascular Hx Cardiac Disorders: Yes Cardiac Disorders: Hypertension Neurological Hx Neurological Disorders: Yes Neurological Disorders: Dementia Reproductive System Hx Reproductive Disorders: No Sexually Transmitted Disease: No HIV/AIDS: No 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 Disorders: Denies Genitourinary Hx Genitourinary Disorders: No Genitourinary Disorders: UTI-Chronic Gastrointestinal Hx Gastrointestinal Disorders: No Musculoskeletal Hx Musculoskeletal Disorders: No Endocrine Hx Endocrine Disorders: Yes Endocrine Disorders: Diabetes, Insulin dep HEENT HX ENT Disorders: No HEENT Disorders: Macular Degeneration Loss of Vision: Denies Hearing Impairment: Denies Cancer Hx Cancer: No Psychosocial Hx Psychiatric Problems: Yes Behavioral Health Disorders: Depression Integumentary HX Skin/Integumentary Disorder: Yes (current shingles) Skin/Integumentary Disorders: Herpes Blood Transfusions Hx Blood Disorders: No Adverse Reaction to a Blood Tr: No Reviewed Nursing Assessment Reviewed/Agree w Nursing PMH: Yes Family Medical History Significant Family History: No Pertinent Family Hx Family Medial History: Stroke 03 FATHER, Onset:70 Physical Exam Vital Signs Vital Sign - Last 12Hours 04/19/16 01:30 Temp 99.0 Pulse 75 Resp 16 B/P 164/79 Pulse Ox 98 O2 Delivery Room Air Capillary Refill : Less Than 3 Seconds General Appearance: WD/WN no apparent distress HEENT: PERRL/EOMI pharynx normal other (no obvious head injury. No abrasions , bumps or bruising noted.) Neck: non-tender full range of motion supple normal inspection Cardiovascular: regular rate, rhythm no murmur Respiratory: lungs clear normal breath sounds Gastrointestinal: non tender soft Back: normal inspection no CVA tenderness no vertebral tenderness Shoulder: limited ROM (left shoulder) soft tissue tenderness (left upper humerus) swelling (left upper humerus) Elbow/Forearm: non-tender, no evidence of injury, normal ROM, Right, Left Wrist: Yes normal inspection, Yes non-tender, Yes no evidence of injury, Yes normal ROM Hand: normal inspection, non-tender, no evidence of injury, normal ROM, Bilateral Neurologic/Psychiatric: no motor/sensory deficits alert oriented x 3 Skin: normal color warm/dry Progress/Results/Core Measures Results/Orders My Orders Orders-MARY ROBLES MD Chest 1 View, Ap/Pa Only (04/19/16 01:40) Humerus, Left, 2 Views (04/19/16 01:40) Ondansetron Injection (Zofran Injectio (04/19/16 02:15) Fentanyl Injection (Sublimaze Injection (04/19/16 02:07) Forearm, Left, 2 Views (04/19/16 02:35) Medications Given in ED Current Medications Medications Dose Ordered Sig/Venessa Route Start Time Stop Time Status Last Admin Dose Admin Ondansetron HCl 4 mg ONCE ONCE IVP 04/19/16 02:15 04/19/16 02:16 DC 04/19/16 02:24 4 MG Vital Signs/I&O Vital Sign - Last 12Hours 04/19/16 04/19/16 01:30 02:24 Temp 99.0 99.0 Pulse 75 Resp 16 B/P 164/79 Pulse Ox 98 O2 Delivery Room Air Blood Pressure Mean: 107 Progress Note : Progress Note Seen and evaluated. X-ray left humerus ordered. Proximal fracture noted. Sling applied. Fentanyl 25 g IV and Zofran 4 mg IV for pain and nausea. Patient reports now that she has left forearm pain just to the area of the proximal forearm. This is nontender and previous exam but she states that it's tender now. X-ray of the forearm ordered. Discharged home with return precautions. Patient and family verbalize understanding instructions and agreement with plan. Departure Impression Impression: Primary Impression: Closed fracture of left proximal humerus Qualified Code: S42.295A - Other nondisplaced fracture of upper end of left humerus, initial encounter for closed fracture Disposition: HOME, SELF-CARE Condition: Stable Departure-Patient Inst. Decision time for Depature: 03:14 Referrals: YESSI FELIX DO (PCP/Family) Primary Care Physician MOHAMUD REINA MD Patient Instructions: Upper Arm Fracture Add. Discharge Instructions: All discharge instructions reviewed with patient and/or family. Voiced understanding. Follow-up with Dr. REINA within one week for recheck and further evaluation of the fracture. Use sling at all times except when showering. Discussed with Dr. REINA regarding further orders for therapy of hip with concerns of left arm fracture. Return for worse pain, fever, vomiting, weakness, breathing problems or other concerns as needed. Continue home medications as directed. Copy Copies To 1: MOHAMUD REINA MD, TIMOTHY D MD Apr 19, 2016 02:18
[2016-04-19] MEDS ORDERED: TRAM50TA2 PO (03:33)
[2016-04-19 03:51] VITALS: BP 145/79
--- NOTE | 2016-04-19 07:00 | Diagnostic Imaging Report ---
INDICATION: Fall with left humeral fracture. Single view of the chest is obtained. Comparison is made to study of 03/24/2016. FINDINGS: Overall heart size and pulmonary vascularity are within normal limits. There is no pneumothorax or consolidation. There is a minimally displaced fracture involving the proximal left humerus without dislocation. IMPRESSION: No acute abnormality identified in the chest apart from proximal left humeral fracture. Dictated by: Dictated on workstation # [id number]
--- NOTE | 2016-04-19 07:02 | Diagnostic Imaging Report ---
INDICATION: Fall with left arm pain. FINDINGS: AP and lateral views of the left humerus reveal comminuted humeral head and neck fracture without dislocation. There is no significant displacement of fracture fragments. No other fracture or malalignment is identified. IMPRESSION: Comminuted proximal left humeral fracture involving the humeral head and neck without dislocation. Dictated by: Dictated on workstation # [id number]
--- NOTE | 2016-04-19 08:11 | Diagnostic Imaging Report ---
EXAMINATION: 2 views of the left forearm. INDICATION: Fall. FINDINGS: Positioning is suboptimal, however no definite fracture is seen. The proximal and distal joints appear grossly unremarkable. No radiopaque foreign body. IMPRESSION: No fracture seen. Dictated by: Dictated on workstation # [id number]
== END 2016-04-19 03:51 | disposition home or self-care (01) ==
LOC: EDUNIT# 01:32 → ER 01:38
DX: S42.295A Other nondisplaced fracture of upper end of left humerus, initial encounter for closed fracture (principal); E11.9 Type 2 diabetes mellitus without complications; Z79.4 Long term (current) use of insulin; Z79.82 Long term (current) use of aspirin; Z79.899 Other long term (current) drug therapy; W06.XXXA Fall from bed, initial encounter; Y92.122 Bedroom in nursing home as the place of occurrence of the external cause; Y99.8 Other external cause status
CPT/HCPCS: 71010; 73060; 73090; 96374; 96375; 99285

== ENCOUNTER → 2016-04-23 | Outpatient (CLI) | payer MEDICARE, BC ==
--- OUTSIDE RECORDS SUMMARY | 2016-04-24 00:46 | XMS REPORT | Continuity of Care Document ---
Author Author [facility] Organization [facility] Address Unknown Phone Unavailable Care Team Providers Care Car Carder Name Role Phone YESSI FELIX DO PCP Insurance Providers Payer Name Policy Number Subscriber Name Relationship [facility] [id number] Romina Orourke 18 Self / Same As Patient s Medicare [id number] Romina Orourke 18 Self / Same As Patient Advance Directives Directive Response Recorded Date/Time Advance Directives Yes 03/24/16 2:45pm Health Care Power of Pigment Grinder Yes 03/24/16 2:45pm Organ Donor No 03/24/16 [...] - 99.5) 03/28/2016 8:00am Temperature (Calculated Celsius) 36.67688 degrees C (36.4 - 37.5) 03/28/2016 8:00am [...] 2.00 inches 03/24/2016 2:45pm Height (Calculated Centimeters) 157.203014 cm 03/24/2016 2:45pm Weight (Pounds) 100 pounds 03/24/2016 2:45pm Weight (Ounces) 0.0 oz 03/24/2016 2:45pm Weight (Calculated Grams) 72759.24 gm 03/24/2016 2:45pm Weight (Calculated Kilograms) 45.116217 kilograms 03/24/2016 2:45pm Calculated BMI 18.3 03/24/2016 [...] SELECTED GROUPS OF HIGH RISK PATIENTS. [employer] [place] [employer] OF CHEST PHYSICIANS CONSENSUS CONFERENCE ON ANTITHROMBOTIC THERAPY (2000). Activated Partial Thromboplast Time 24 SEC 24-35 03/24/2016 11:05am 11:30am Urine Color YELLOW 03/24/2016 1:30pm 03/24/2016 3:14pm Urine Clarity MUCOUS 03/24/2016 1:30pm 03/24/2016 3:14pm Urine pH 6 5-9 03/24/2016 1:30pm 03/24/2016 3:14pm Urine Specific [place] 1.025 * 1.016-1.022 03/24/2016 1:30pm 2016 3:14pm [...] Discharge/Depart Date Attending Provider Discharged Inpatient [facility] 03/24/16 1:27pm 1:15pm MOHAMUD BRAVO MD Recent Diagnosis Shingles outbreak Subcapital fracture of left hip Uncontrolled diabetes mellitus with hyperglycemia Weakness
--- OUTSIDE RECORDS SUMMARY | 2016-04-24 00:49 | XMS REPORT | Continuity of Care Document ---
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 [employer] CONSENSUS CONFERENCE ON ANTITHROMBOTIC THERAPY (2000). Activated Partial Thromboplast Time 24 SEC 24-35 03/24/2016 11:05am 11:30am Urine Color YELLOW 03/24/2016 1:30pm 03/24/2016 3:14pm Urine Clarity MUCOUS 03/24/2016 1:30pm 03/24/2016 3:14pm Urine pH 6 5-9 03/24/2016 1:30pm 03/24/2016 3:14pm Urine Specific [place] 1.025 * 1.016-1.022 03/24/2016 1:30pm 2016 3:14pm [...] Discharge/Depart Date Attending Provider Discharged Inpatient [facility] [address] 03/24/16 1:27pm 1:15pm MOHAMUD BRAVO MD Recent Diagnosis Shingles outbreak Subcapital fracture of left hip Uncontrolled diabetes mellitus with hyperglycemia Weakness
[2016-04-24 00:59] LABS: BILIRUBIN,URINE NEGATIVE (NEGATIVE); KETONES,URINE NEGATIVE (NEGATIVE); LEUKOCYTE ESTERASE ,URINE 3+ (NEGATIVE); NITRITE,URINE NEGATIVE (NEGATIVE); PH,URINE 6 (5-9); PROTEIN,URINE 2+ (NEGATIVE); UROBILINOGEN,URINE NORMAL (NORMAL)
[2016-04-24 01:02] LABS: SQUAMOUS EPITHELIAL CELL,UR RARE /HPF; WBC,URINE TNTC /HPF; YEAST,URINE FEW /HPF
== END ==
LOC: CVS 19:00
PROVIDERS: ATTEND Family Medicine
DX: R10.84 Generalized abdominal pain (principal); R41.0 Disorientation, unspecified; R44.3 Hallucinations, unspecified; R82.99 Other abnormal findings in urine
CPT/HCPCS: 81000; 87088

== ENCOUNTER → 2016-06-30 | Outpatient (CLI) | payer BC, MEDICARE ==
--- NOTE | 2016-06-30 15:20 | Diagnostic Imaging Report ---
EXAMINATION: Two views of the left hip. INDICATION: Fall. COMPARISON: Correlation with intraoperative fluoroscopic images of 03/24/2016 reviewed. FINDINGS: There is internal fixation with three screws seen for subcapital femoral neck fracture. This is demonstrating no definite change compared to 03/24/2016. No subluxation or dislocation of the joint. No definite fracture is seen. IMPRESSION: Stable internal fixation screws for femoral neck fracture similar to 03/24/2016 exam. No displacement or new fractures are identified. Dictated by: Dictated on workstation # [id number]
--- NOTE | 2016-06-30 15:21 | Diagnostic Imaging Report ---
EXAMINATION: Two views of the left femur. INDICATION: Fall. FINDINGS: There are three screws seen through the femoral neck, similar in position and appearance to intraoperative fluoroscopic image of 03/24/16 exam during internal fixation. No definite new fracture is seen. The slightly impacted subcapital femoral neck fracture is unchanged in appearance. The mid and distal left femur appear unremarkable with no fracture seen. Prominent degenerative changes in the knee and mild degenerative changes in the hip joints are noted. IMPRESSION: Internal fixation for femoral neck fracture similar to 03/24/16 exam. No other new fracture is seen. Dictated by: Dictated on workstation # [id number]
--- NOTE | 2016-06-30 15:49 | Diagnostic Imaging Report ---
EXAMINATION: Three views of the lumbar spine. INDICATION: Fall. FINDINGS: There is a compression fracture of approximately 40% seen of uncertain age. This is new from the MRI of the lumbar spine dated 05/02/2013. Other lumbar spine vertebra appear normal in height. There is significant disc degenerative changes and moderate disc height loss at the L4-5 level. Multilevel anterior osteophytes are noted. No significant posterior osteophyte. IMPRESSION: Age-indeterminate 40% compression fracture of the L3 vertebral body. Further evaluation with an MRI of the lumbar spine is suggested to assess if this is an acute fracture. The findings were discussed with Dr. Higgins at the time of dictation. Dictated by: Dictated on workstation # [id number]
== END ==
LOC: RAD 14:46
PROVIDERS: ATTEND Family Medicine
DX: S32.030A Wedge compression fracture of third lumbar vertebra, initial encounter for closed fracture (principal); W19.XXXA Unspecified fall, initial encounter
CPT/HCPCS: 72100; 73502; 73552

== ENCOUNTER → 2016-07-01 | Outpatient (CLI) | payer BC, MEDICARE ==
--- NOTE | 2016-07-05 08:09 | Diagnostic Imaging Report ---
PROCEDURE: MRI lumbar spine. TECHNIQUE: Multiplanar, multisequence MRI of the lumbar spine was performed without contrast. INDICATION: Low back pain. FINDINGS: There is a compression fracture at L3 vertebral body associated with prominent bone marrow edema compatible with an acute to subacute fracture. It is reducing the AP dimension of the vertebral body by about 50%. There is no compression fracture seen at other levels. There is mildly hyperintense T2 lesion measuring 1.3 cm seen in L4 vertebral body with peripheral hyperintensity on T1 and lobulated appearance, similar to 2014 exam compatible with an atypical hemangioma. No suspicious bone marrow lesion is identified. The alignment at the lumbar spine is satisfactory. There is straightening of the thoracolumbar junction. The vertebral body heights are preserved. There is disc desiccation at all levels. There is endplate irregularity at L4-L5 level and adjacent endplate Modic type 1 and 2 reactive changes. Small Schmorl's nodes in the lower thoracic spine are seen. The cauda equina and conus medullaris appear grossly unremarkable. T12-L1: There is no disc herniation, no spinal canal, or foramina stenosis. L1-L2: No disc herniation. There is mild facet hypertrophy. No spinal canal or foramina stenosis. L2-L3: There is a mild disc bulge and qelw-tj-xhzxtaqu facet hypertrophy. There is a mild spinal canal stenosis reducing the AP dimension of the canal to 9 mm with no significant lateral recess stenosis. No significant foramina stenosis. L3-L4: There is a disc bulge and snxs-su-cvywvzhl facet hypertrophy. No significant central canal stenosis. There is bilateral moderate lateral recess stenosis, however. The foramina demonstrate fjxd-hu-pxsjihdi narrowing bilaterally. L4-L5: There is a diffuse disc bulge and posterior ligamentous thickening. There is associated mmqmtcob-hs-jeukxw central canal stenosis reducing the AP dimension of the canal to 6.7 mm and there is bilateral ecsnnohq-jd-iryqnr lateral recess stenosis worse on the right side. The foramina demonstrate cunykmks-fz-uzqxiq stenosis bilaterally. L5-S1: No disc herniation. There is bilateral moderate facet hypertrophy. No central canal stenosis. There is no significant lateral recess stenosis. The foramina demonstrate bilateral moderate stenosis. IMPRESSION: 1. There is a 50% compression fracture of L3 vertebral body, associated with prominent bone marrow edema suggestive of an acute to subacute compression fracture. 2. Degenerative changes. There is zbtmagxj-cv-zngady central canal stenosis at the L4-L5 level. Multilevel neuroforaminal and lateral recess stenosis also seen as described above. Dictated by: Dictated on workstation # [id number]
== END ==
LOC: RAD 11:00
PROVIDERS: ATTEND Family Medicine
DX: S32.030A Wedge compression fracture of third lumbar vertebra, initial encounter for closed fracture (principal); M48.06 Spinal stenosis, lumbar region; M47.896 Other spondylosis, lumbar region; X58.XXXA Exposure to other specified factors, initial encounter
CPT/HCPCS: 72148

== ENCOUNTER → 2016-09-09 | Outpatient (CLI) | payer BC, MEDICARE ==
[2016-09-09 21:48] LABS: BILIRUBIN,URINE NEGATIVE (NEGATIVE); KETONES,URINE NEGATIVE (NEGATIVE); LEUKOCYTE ESTERASE ,URINE 3+ (NEGATIVE); NITRITE,URINE NEGATIVE (NEGATIVE); PH,URINE 5 (5-9); PROTEIN,URINE 1+ (NEGATIVE); UROBILINOGEN,URINE NORMAL (NORMAL)
[2016-09-09 21:57] LABS: WBC,URINE TNTC /HPF; YEAST,URINE SMALL /HPF
== END ==
LOC: CVS 21:42
PROVIDERS: ATTEND Family Medicine
DX: R41.0 Disorientation, unspecified (principal); R30.0 Dysuria; R39.15 Urgency of urination; R35.0 Frequency of micturition
CPT/HCPCS: 81000; 87088; 87186

== ENCOUNTER 2016-12-31 02:30 | Emergency (ER) | payer BC, MEDICARE ==
[~2016-12-31] VITALS: Ht 157.5 cm; Wt 59.4 kg
[~2016-12-31 02:30] MED LIST changes: -NCT14P TD; +NICO-587 TD
[2016-12-31] MEDS ORDERED: GLIM4TAB (02:39)
[2016-12-31] MEDS ORDERED: METF500T4 (02:39)
[2016-12-31] MEDS ORDERED: inSUlin (REGULAR) HUMAN 1 UNIT/0.01 ML (CHARGE PER UNIT) IV STA ×2 (02:41→04:11)
[2016-12-31 02:51] LABS: BASOPHILS # (AUTO) 0.1 10^3/uL (0.0-0.1); BASOPHILS % (AUTO) 1 % (0-10); EOSINOPHILS # (AUTO) 0.2 10^3/uL (0.0-0.3); EOSINOPHILS % (AUTO) 2 % (0-10); LYMPHOCYTES # (AUTO) 2.4 X 10^3 (1.0-4.0); LYMPHOCYTES % (AUTO) 25 % (12-44); MEAN CORPUSCULAR HEMOGLOBIN 30 PG (25-34); MEAN CORPUSCULAR HGB CONC 34 G/DL (32-36); MEAN CORPUSCULAR VOLUME 87 FL (80-99); MEAN PLATELET VOLUME 9.8 FL (7.4-10.4); MONOCYTES # (AUTO) 1.1 X 10^3 (0.0-1.0); MONOCYTES % (AUTO) 11 % (0-12); NEUTROPHILS # (AUTO) 5.9 X 10^3 (1.8-7.8); NEUTROPHILS % (AUTO) 62 % (42-75); PLATELET COUNT 290 10^3/uL (130-400); RED BLOOD COUNT 4.15 10^6/uL (4.35-5.85); RED CELL DISTRIBUTION WIDTH 13.7 % (10.0-14.5); WHITE BLOOD COUNT 9.6 10^3/uL (4.3-11.0)
[2016-12-31 03:26] LABS: ALBUMIN 2.9 GM/DL (3.2-4.5); BILIRUBIN,TOTAL 0.6 MG/DL (0.1-1.0); CALCIUM 8.2 MG/DL (8.5-10.1); CREATININE SERUM 1.04 MG/DL (0.60-1.30); MAGNESIUM 1.6 MG/DL (1.8-2.4); PHOSPHORUS 3.4 MG/DL (2.3-4.7); POTASSIUM 4.2 MMOL/L (3.6-5.0); TOTAL PROTEIN 6.1 GM/DL (6.4-8.2)
--- NOTE | 2016-12-31 03:27 | ED General ---
General Chief Complaint: Glucose Problems Stated Complaint: HIGH BLOOD SUGAR Nursing Triage Note: HIGH BLOOD GLUCOSE Nursing Sepsis Screen: No Definite Risk Source of Information: Patient Exam Limitations: No Limitations History of Present Illness Time Seen by Provider: 02:35 Initial Comments Here with report of high blood sugar over the last several days. She's been unable to get it down at the [facility] through additional insulin dosing. She only complains of increased thirst and being off balance. States that she is urinating quite a bit more as well. She reports that they have been given her meds as ordered. Timing/Duration: 3-4 Days Severity: Moderate Associated Systoms: No Chest Pain, No Fever/Chills, No Nausea/Vomiting, No Shortness of Air, No Weakness Allergies and Home Medications Allergies Uncoded Allergies: narcotics (Adverse Reaction, Severe, 03/25/16) Home Medications Acetaminophen 325 Mg Tablet, 650 MG PO Q6H PRN for TEMP/MILD PAIN, (Reported) TAKES 2 (325MG) TABLETS Amlodipine Besylate 10 Mg Tablet, 10 MG PO DAILY, (Reported) HOLD FOR SBP < 100 AND/OR DBP < 60 AND PULSE LESS THAN OR EQUAL TO 60 Aspirin 81 Mg Tablet.dr, 81 MG PO DAILY, (Reported) Atorvastatin 20 Mg Tablet, 20 MG PO HS, (Reported) Cephalexin 500 Mg Tablet, 500 MG PO BID, #14 Ref 0 Prescribed by: MARY ROBLES on 12/31/16 0419 Citalopram Hydrobromide 20 Mg Tablet, 20 MG PO DAILY, (Reported) Donepezil HCl 10 Mg Tablet, 10 MG PO HS, (Reported) Glimepiride 4 Mg Tablet, (Reported) Insulin Aspart 100 Unit/1 Ml Susp, 5 UNIT SQ TIDAC, (Reported) Insulin Aspart 100 Unit/1 Ml Susp, SQ SLIDING/SCALE PRN for BS ABOVE 150, ( Reported) USE THIS SLIDING SCALE IN ADDITION TO 5 UNTIS WITH MEALS 150-210 = 1 EXTRA UNIT 211-270 = 2 EXTRA UNITS 271-330 = 3 EXTRA UNITS 331-390 = 4 EXTRA UNITS > 390 = 5 EXTRA UNITS NOT AT BEDTIME Insulin Determir 1,000 Units/10 Ml Soln, 10 UNITS SQ DAILY, (Reported) Insulin Determir 1,000 Units/10 Ml Soln, 5 UNITS SQ HS, (Reported) Lisinopril 5 Mg Tablet, 5 MG PO DAILY, (Reported) HOLD FOR SBP<100 AND/OR DBP<60 AND PULSE LESS THAN OR EQUAL TO 60 Loperamide HCl 2 Mg Tablet, 2 MG PO QID PRN for LOOSE STOOLS, (Reported) Memantine HCl 10 Mg Tablet, 10 MG PO BID, (Reported) Metformin HCl 500 Mg Tablet, (Reported) Nystatin 15 Gm Cream..g., TP BID, (Reported) Tolterodine Tartrate 4 Mg Cap.er.24h, 4 MG PO DAILY, (Reported) Tramadol HCl 50 Mg Tablet, 50 MG PO Q6H PRN for PAIN, #20 Ref 0 Prescribed by: MARY ROBLES on 04/19/16 0333 Constitutional: see HPI, No chills, No fever EENTM: no symptoms reported Respiratory: no symptoms reported Cardiovascular: no symptoms reported Gastrointestinal: no symptoms reported Genitourinary: see HPI, frequency, No pain Musculoskeletal: no symptoms reported Skin: no symptoms reported All Other Systems Reviewed Negative Unless Noted: Yes Past Qhljdny-Pnsfdu-Ryqfod Hx Patient Social History Alcohol Use: Rarely Uses Alcohol Beverage of Choice: Wine Recreational Drug Use: No Smoking Status: Former Smoker Type Used: Cigarettes Former Smoker, Quit: Jan 13, 2016 2nd Hand Smoke Exposure: No Recent Foreign Travel: No Contact w/Someone Who Travel: No Recent Infectious Disease Expo: No Recent Hopitalizations: No Immunizations Up To Date Tetanus Booster (TDap): More than 5yrs Date of Pneumonia Vaccine: Dec 16, 2010 Date of Influenza Vaccine: Nov 11, 2015 Seasonal Allergies Seasonal Allergies: No Surgeries History of Surgeries: No Respiratory History of Respiratory Disorde: No Cardiovascular History of Cardiac Disorders: Yes Cardiac Disorders: Hypertension Neurological History of Neurological Disord: Yes Neurological Disorders: Dementia Reproductive System : No Hx Reproductive Disorders: No Sexually Transmitted Disease: No HIV/AIDS: No 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 Disorders: Denies 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 Genitourinary History of Genitourinary Disor: Yes Genitourinary Disorders: UTI-Chronic Gastrointestinal History of Gastrointestinal Di: No Musculoskeletal History of Musculoskeletal Dis: No Endocrine History of Endocrine Disorders: Yes Endocrine Disorders: Diabetes, Insulin dep HEENT HEENT Disorders: Macular Degeneration Loss of Vision: Denies Hearing Impairment: Denies Cancer History of Cancer: No Psychosocial History of Psychiatric Problem: Yes Behavioral Health Disorders: Depression Integumentary History of Skin or Integumenta: Yes (current shingles) Skin/Integumentary Disorders: Herpes Blood Transfusions History of Blood Disorders: No Adverse Reaction to a Blood Tr: No Reviewed Nursing Assessment Reviewed/Agree w Nursing PMH: Yes Family Medical History Significant Family History: No Pertinent Family Hx Family Medial History: Stroke 03 FATHER, Onset:70 Physical Exam Vital Signs Vital Sign - Last 12Hours 12/31/16 02:40 Temp 97.7 Pulse 76 Resp 18 B/P (MAP) 152/80 Pulse Ox 94 O2 Delivery Room Air Capillary Refill : Less Than 3 Seconds General Appearance: No Apparent Distress, WD/WN HEENT: PERRL/EOMI, Pharynx Normal, Other (mucous membranes dry) Neck: Full Range of Motion, Normal Inspection, Non Tender, Supple Respiratory: Lungs Clear, Normal Breath Sounds Cardiovascular: Regular Rate, Rhythm, No Murmur Gastrointestinal: Non Tender, Soft Back: Normal Inspection, No CVA Tenderness, No Vertebral Tenderness Extremity: Normal Inspection, Normal Range of Motion, Non Tender Neurologic/Psychiatric: Alert, Oriented x3, No Motor/Sensory Deficits Skin: Normal Color, Warm/Dry Progress/Results/Core Measures Suspected Sepsis Recent Fever Within 48 Hours: No Infection Criteria Present: None New/Unexplained Altered Menta: No Sepsis Screen: No Definite Risk Sepsis Diagnosis: SIRS Temperature:97.7 Pulse: 76 Respiratory Rate: 18 Laboratory Tests 12/31/16 02:35: White Blood Count 9.6 Blood Pressure 152 /80 Mean: 104 Laboratory Tests 12/31/16 02:35: Creatinine 1.04, Platelet Count 290, Total Bilirubin 0.6 Results/Orders Lab Results Laboratory Tests Test 12/31/16 02:35 12/31/16 02:40 12/31/16 03:25 12/31/16 03:52 Range/Units White Blood Count 9.6 4.3-11.0 10^3/uL Red Blood Count 4.15 L 4.35-5.85 10^6/uL Hemoglobin 12.3 11.5-16.0 G/DL Hematocrit 36 35-52 % Mean Corpuscular Volume 87 80-99 FL Mean Corpuscular Hemoglobin 30 25-34 PG Mean Corpuscular Hemoglobin Concent 34 32-36 G/DL Red Cell Distribution Width 13.7 10.0-14.5 % Platelet Count 290 130-400 10^3/uL Mean Platelet Volume 9.8 7.4-10.4 FL Neutrophils (%) (Auto) 62 42-75 % Lymphocytes (%) (Auto) 25 12-44 % Monocytes (%) (Auto) 11 0-12 % Eosinophils (%) (Auto) 2 0-10 % Basophils (%) (Auto) 1 0-10 % Neutrophils # (Auto) 5.9 1.8-7.8 X 10^3 Lymphocytes # (Auto) 2.4 1.0-4.0 X 10^3 Monocytes # (Auto) 1.1 H 0.0-1.0 X 10^3 Eosinophils # (Auto) 0.2 0.0-0.3 10^3/uL Basophils # (Auto) 0.1 0.0-0.1 10^3/uL Sodium Level 135 135-145 MMOL/L Potassium Level 4.2 3.6-5.0 MMOL/L Chloride Level 102 98-107 MMOL/L Carbon Dioxide Level 23 21-32 MMOL/L Anion Gap 10 5-14 MMOL/L Blood Urea Nitrogen 18 7-18 MG/DL Creatinine 1.04 0.60-1.30 MG/DL Estimat Glomerular Filtration Rate 51 BUN/Creatinine Ratio 17 Glucose Level 632 *H 70-105 MG/DL Calcium Level 8.2 L 8.5-10.1 MG/DL Phosphorus Level 3.4 2.3-4.7 MG/DL Magnesium Level 1.6 L 1.8-2.4 MG/DL Total Bilirubin 0.6 0.1-1.0 MG/DL Aspartate Amino Transf (AST/SGOT) 31 5-34 U/L Alanine Aminotransferase (ALT/SGPT) 22 0-55 U/L Alkaline Phosphatase 148 H 40-136 U/L Total Protein 6.1 L 6.4-8.2 GM/DL Albumin 2.9 L 3.2-4.5 GM/DL Glucometer 471 *H 335 H 70-110 MG/DL Urine Color YELLOW Urine Clarity VERY CLOUDY H Urine pH 7 5-9 Urine Specific [place] 1.010 L 1.016-1.022 Urine Protein 1+ H NEGATIVE Urine Glucose (UA) 4+ H NEGATIVE Urine Ketones 1+ H NEGATIVE Urine Nitrite NEGATIVE NEGATIVE Urine Bilirubin NEGATIVE NEGATIVE Urine Urobilinogen NORMAL NORMAL MG/DL Urine Leukocyte Esterase 3+ H NEGATIVE Urine RBC (Auto) 2+ H NEGATIVE Urine RBC 5-10 H /HPF Urine WBC >100 H /HPF Urine Squamous Epithelial Cells 2-5 /HPF Urine Crystals NONE /LPF Urine Bacteria FEW H /HPF Urine Casts NONE /LPF Urine Mucus NEGATIVE /LPF Urine Yeast MODERATE H /HPF Urine Culture Indicated YES My Orders Orders - MARY ROBLES MD Cbc With Automated Diff (12/31/16 02:41) Comprehensive Metabolic Panel (12/31/16 02:41) Ua Culture If Indicated (12/31/16 02:41) Insulin (Regular) Human (Humulin R (Per (12/31/16 02:41) Magnesium (12/31/16 02:42) Phosphorus (12/31/16 02:42) Urine Culture (12/31/16 03:25) Insulin (Regular) Human (Humulin R (Per (12/31/16 04:11) Cephalexin Capsule (Keflex Capsule) (12/31/16 04:11) Vital Signs/I&O Vital Sign - Last 12Hours 12/31/16 02:40 Temp 97.7 Pulse 76 Resp 18 B/P (MAP) 152/80 Pulse Ox 94 O2 Delivery Room Air Capillary Refill : Less Than 3 Seconds Blood Pressure Mean: 104 Point of Care Testing Finger Stick Blood Glucose: 471 Blood Glucose Action Taken: ERP NOTIFIED Progress Note : Progress Note Seen and evaluated. IV, labs, normal saline 1 L bolus initiated by EMS. Insulin 15 units IV. UA ordered. Monitor patient. UA grossly positive. Keflex 500 mg by mouth ordered. Repeat insulin 10 units IV for blood sugar now 335. Patient is of diffuse states. We will treat UTI outpatient. This is likely the cause of her hyperglycemia. Discharged home with return precautions. Patient and her son verbalized understanding instructions and agreement with plan. Departure Impression Impression: Primary Impression: Hyperglycemia Additional Impression: Urinary tract infection Qualified Codes: N30.00 - Acute cystitis without hematuria Disposition: HOME, SELF-CARE Condition: Improved Departure-Patient Inst. Decision time for Depature: 04:18 Referrals: YESSI FELIX DO (PCP/Family) Primary Care Physician Patient Instructions: Hyperglycemia, Adult (DC), Urinary Tract Infection, Adult (DC) Add. Discharge Instructions: All discharge instructions reviewed with patient and/or family. Voiced understanding. Take medications as directed. Follow-up with your Dr. in a few days for recheck and further evaluation. Return for worse pain, fever, vomiting, weakness, breathing problems or other concerns as needed. Drink plenty of fluids and carefully watch your blood sugars. Scripts Cephalexin (Cephalexin) 500 Mg Tablet 500 MG PO BID, #14 TAB 0 Refills Prov: MARY ROBLES MD 12/31/16 Copy Copies To 1: FRED VARGAS MD, TIMOTHY D MD Dec 31, 2016 03:27
[2016-12-31 03:32] LABS: BILIRUBIN,URINE NEGATIVE (NEGATIVE); KETONES,URINE 1+ (NEGATIVE); LEUKOCYTE ESTERASE ,URINE 3+ (NEGATIVE); NITRITE,URINE NEGATIVE (NEGATIVE); PH,URINE 7 (5-9); PROTEIN,URINE 1+ (NEGATIVE); UROBILINOGEN,URINE NORMAL (NORMAL)
[2016-12-31 04:00] LABS: WBC,URINE >100 /HPF; YEAST,URINE MODERATE /HPF
[2016-12-31] MEDS ORDERED: CEPHALEXIN 250 MG (KEFLEX) CAP PO STA (04:11)
[2016-12-31] MEDS ORDERED: CEPH500T PO (04:19)
[2016-12-31 04:34] VITALS: BP 129/57
== END 2016-12-31 04:30 | disposition home or self-care (01) ==
LOC: EDUNIT# 02:30 → ER 02:35
DX: E11.65 Type 2 diabetes mellitus with hyperglycemia (principal); N39.0 Urinary tract infection, site not specified; I10 Essential (primary) hypertension; F32.9 Major depressive disorder, single episode, unspecified; F03.90 Unspecified dementia, unspecified severity, without behavioral disturbance, psychotic disturbance, mood disturbance, and anxiety; Z87.440 Personal history of urinary (tract) infections; Z86.19 Personal history of other infectious and parasitic diseases; Z79.4 Long term (current) use of insulin; Z79.82 Long term (current) use of aspirin; Z87.891 Personal history of nicotine dependence
CPT/HCPCS: 36415; 80053; 81000; 82962; 83735; 84100; 85025; 87077; 87088; 87186

== ENCOUNTER → 2018-05-25 | Outpatient (CLI) | payer BC, MEDICARE ==
[~2018-05-25] MED LIST changes: +CEPH500T PO; -CITA20TA7 PO; +CITA20TA9 PO; +GLIM4TAB; +METF-397
--- NOTE | 2018-05-25 14:48 | Diagnostic Imaging Report ---
INDICATION: Low-back pain, fall one week ago. Time of exam 1:32 p.m. FINDINGS: Curvature and alignment is normal. There is a compression fracture involving the L3 vertebral body with moderate central and anterior compression noted. No definite retropulsion is seen. This was present on prior radiographs from 06/30/2016. No new lumbar compression fractures are seen. There is multilevel degenerative disc disease with variable disc space narrowing and marginal spurring. Aorta is calcified. IMPRESSION: Chronic compression fracture deformity of the L3 vertebral body. No new abnormality is detected. Dictated by: Dictated on workstation # [id number]
== END ==
LOC: RAD 13:21
PROVIDERS: ATTEND Nurse Practitioner Family
DX: M48.56XA Collapsed vertebra, not elsewhere classified, lumbar region, initial encounter for fracture (principal); W19.XXXA Unspecified fall, initial encounter
CPT/HCPCS: 72100

== ENCOUNTER 2018-12-01 09:58 | Emergency (ER) | payer BC, MEDICARE ==
[~2018-12-01] VITALS: Ht 157.4 cm; Wt 53.6 kg
--- NOTE | 2018-12-01 10:12 | ED Upper Extremity ---
General Chief Complaint: Trauma-Non Activation Stated Complaint: FALL Source: patient Exam Limitations: no limitations (BRADLEY CALLE STUDENT) History of Present Illness Date Seen by Provider: Dec 01, 2018 Time Seen by Provider: 10:00 Initial Comments Patient presents to the ED today after slipping on the porch this morning, resulting in a fall on her left shoulder. She complains of moderate pain and limited range of motion to that shoulder. She denies hitting her head, losing consciousness, or a syncopal episode prior to the fall. She denies any other associated symptoms. Location Injury Occurred: Home Onset: this morning Severity: moderate Pain/Injury Location: left shoulder Method of Injury: fell Modifying Factors: Improves With Rest (BRADLEY CALLE STUDENT) Initial Comments Here with report of fall this morning approximately 2 hours ago. States she slipped on the porch and landed on her left side. Initially complained of some left shoulder pain and she does have previous fracture there. Also complains of some hip pain. She is able to walk with assistance and actually is doing much better and without complaints currently. Method of Injury: fell Modifying Factors: Improves With Immobilization; Worse With Movement; Improves With Rest (MARY ROBLES MD) Allergies and Home Medications Allergies Uncoded Allergies: narcotics (Adverse Reaction, Severe, 03/25/16) Home Medications Acetaminophen 325 Mg Tablet, 650 MG PO Q6H PRN for TEMP/MILD PAIN, (Reported) TAKES 2 (325MG) TABLETS Amlodipine Besylate 10 Mg Tablet, 10 MG PO DAILY, (Reported) HOLD FOR SBP < 100 AND/OR DBP < 60 AND PULSE LESS THAN OR EQUAL TO 60 Aspirin 81 Mg Tablet.dr, 81 MG PO DAILY, (Reported) Atorvastatin 20 Mg Tablet, 20 MG PO HS, (Reported) Citalopram Hydrobromide 20 Mg Tablet, 20 MG PO DAILY, (Reported) Donepezil HCl 10 Mg Tablet, 10 MG PO HS, (Reported) Insulin Aspart 100 Unit/1 Ml Susp, 5 UNIT SQ TIDAC, (Reported) Insulin Aspart 100 Unit/1 Ml Susp, SQ SLIDING/SCALE PRN for BS ABOVE 150, (Reported) USE THIS SLIDING SCALE IN ADDITION TO 5 UNTIS WITH MEALS 150-210 = 1 EXTRA UNIT 211-270 = 2 EXTRA UNITS 271-330 = 3 EXTRA UNITS 331-390 = 4 EXTRA UNITS >390 = 5 EXTRA UNITS NOT AT BEDTIME Insulin Determir 1,000 Units/10 Ml Soln, 10 UNITS SQ DAILY, (Reported) Insulin Determir 1,000 Units/10 Ml Soln, 5 UNITS SQ HS, (Reported) Lisinopril 5 Mg Tablet, 5 MG PO DAILY, (Reported) HOLD FOR SBP<100 AND/OR DBP<60 AND PULSE LESS THAN OR EQUAL TO 60 Loperamide HCl 2 Mg Tablet, 2 MG PO QID PRN for LOOSE STOOLS, (Reported) Memantine HCl 10 Mg Tablet, 10 MG PO BID, (Reported) Nystatin 15 Gm Cream..g., TP BID, (Reported) Tolterodine Tartrate 4 Mg Cap.er.24h, 4 MG PO DAILY, (Reported) Tramadol HCl 50 Mg Tablet, 50 MG PO Q6H PRN for PAIN Prescribed by: MARY ROBLES on 04/19/16 0333 Patient Home Medication List Home Medication List Reviewed: Yes (MARY ROBLES MD) Review of Systems Constitutional: no symptoms reported EENTM: no symptoms reported Respiratory: no symptoms reported Cardiovascular: no symptoms reported Gastrointestinal: no symptoms reported Genitourinary: no symptoms reported : No Musculoskeletal: see HPI Skin: no symptoms reported Psychiatric/Neurological: No Symptoms Reported (BRDALEY CALLE) Constitutional: no symptoms reported Respiratory: no symptoms reported Cardiovascular: no symptoms reported Musculoskeletal: see HPI, joint pain, muscle pain Skin: no symptoms reported (MARY ROBLES MD) Past Lgzqiwp-Fvncsh-Jbngyq Hx Past Med/Social Hx: Reviewed Nursing Past Med/Soc Hx (MARY ROBLES MD) Patient Social History Alcohol Beverage of Choice: Wine Type Used: Cigarettes Former Smoker, Quit: Jan 13, 2016 2nd Hand Smoke Exposure: No Recent Foreign Travel: No Contact w/Someone Who Travel: No Recent Hopitalizations: No (BRADLEY CALLE STUDENT) Immunizations Up To Date Tetanus Booster (TDap): More than 5yrs Date of Pneumonia Vaccine: Dec 16, 2010 Date of Influenza Vaccine: Nov 11, 2015 (BRADLEY CALLE STUDENT) Seasonal Allergies Seasonal Allergies: No (BRADLEY CALLE) Past Medical History Surgeries: No Respiratory: No Cardiac: Yes Hypertension Neurological: Yes Dementia Reproductive Disorders: No 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 Disorders: Denies [employer]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 Sexually Transmitted Disease: No HIV/AIDS: No Genitourinary: Yes UTI-Chronic Gastrointestinal: No Musculoskeletal: No Endocrine: Yes Diabetes, Insulin dep Macular Degeneration Loss of Vision: Denies Hearing Impairment: Denies Cancer: No Psychosocial: Yes Depression Integumentary: Yes (current shingles) Herpes Blood Disorders: No Adverse Reaction/Blood Tranf: No (BRADLEY CALLE STUDENT) Family Medical History Reviewed Nursing Family Hx (MARY ROBLES MD) Stroke 03 FATHER, Onset:69 No Pertinent Family Hx (BRADLEY CALLE) Physical Exam Vital Signs Vital Signs - First Documented 12/01/18 10:00 Temp 36.3 Pulse 77 B/P (MAP) 148/77 (100) Pulse Ox 99 O2 Delivery Room Air (MARY ROBLES MD) Vital Signs Capillary Refill : (BRADLEY CALLE) Height, Weight, BMI Height: 5'2.00" Weight: 131lbs. 0.0oz. [id number]; 18.3 BMI Method:Stated General Appearance: WD/WN, no apparent distress HEENT: PERRL/EOMI, pharynx normal Neck: non-tender, full range of motion, supple, normal inspection Cardiovascular: normal peripheral pulses, regular rate, rhythm, no edema, no gallop, no JVD, no murmur Respiratory: chest non-tender, lungs clear, normal breath sounds, no respiratory distress, no accessory muscle use Gastrointestinal: normal bowel sounds, non tender, soft, no organomegaly, no pulsatile mass Back: normal inspection, no CVA tenderness, no vertebral tenderness Shoulder: bone tenderness, limited ROM, pain Elbow/Forearm: normal inspection Wrist: Yes normal inspection Hand: normal inspection Neurologic/Tendon: normal sensation Neurologic/Psychiatric: alert, normal mood/affect, oriented x 3 Skin: normal color, warm/dry Lymphatic: no adenopathy (BRADLEY CALLE STUDENT) General Appearance: WD/WN, no apparent distress HEENT: PERRL/EOMI, pharynx normal Neck: non-tender, full range of motion, supple, normal inspection Cardiovascular: regular rate, rhythm, no murmur Respiratory: lungs clear, normal breath sounds Back: other (normal and stable pelvis without pain and no deformity to either hip.) Shoulder: bone tenderness; No deformity; pain; No swelling Elbow/Forearm: normal inspection Wrist: Yes normal inspection Hand: normal inspection Neurologic/Psychiatric: alert, normal mood/affect Skin: normal color, warm/dry (MARY ROBLES MD) Progress/Results/Core Measures Results/Orders My Orders Orders - MARY ROBLES MD Shoulder, Left, 3 Views (12/01/18 10:09) Pelvis/Saranya Hips 5> Views (12/01/18 10:09) Ct Head Wo (12/01/18 10:49) (MARY ROBLES MD) Vital Signs/I&O 12/01/18 10:00 Temp 36.3 Pulse 77 B/P (MAP) 148/77 (100) Pulse Ox 99 O2 Delivery Room Air (MARY ROBLES MD) Progress Progress Note : Progress Note Seen and evaluated. X-ray left shoulder and pelvis with bilateral hips. After evaluation and talking with her care nurse, we will go ahead and get CT of her head as she intermittently does have confusion so would be hard to watch for that for head injury. She denies hitting her head and there is no obvious injury to her head but she is 78 with history of fall on concrete and boards. Monitor patient. 1125: No acute fractures or other findings. Discharged home with return precautions. Patient and care nurse verbalize understanding instructions and agreement with plan. (MARY ROBLES MD) Diagnostic Imaging Diagonstic Imaging: CT Plain Films/CT/US/NM/MRI: head Comments [facility] [place], [place] NAME: ROMINA HART [facility] REC#: [id number] PT STATUS: REG ER : 1940 PHYSICIAN: MARY ROBLES MD ADMIT DATE: 12/01/18/ER Draft Date of Exam:12/01/18 CT HEAD WO PROCEDURE: CT head without contrast. TECHNIQUE: Multiple contiguous axial images were obtained through the brain without the use of intravenous contrast. Auto Exposure Controls were utilized during the CT exam to meet ALARA standards for radiation dose reduction. INDICATION: Fell. Headache. FINDINGS: This study is less than optimal due to streak artifact. There is no mass, shift of the midline or hemorrhage to suggest an acute intracranial abnormality. The ventricles are not abnormally dilated and stable in size when compared to the prior exam of 01/07/2016. The senescent changes seen producing cortical atrophy and periventricular encephalomalacia are again evident and no different. The bone windows show no sign of a fracture or of a destructive lesion. The orbits and sinuses were not visualized in their entirety. Where visualized, there is no acute abnormality. IMPRESSION: 1. There is no evidence for an acute intracranial abnormality. When compared to the prior study there has been no significant change. 2. If clinical concern regarding an acute abnormality persists, then MRI would be recommended for further study. Dictated on workstation # [id number] Dict: 12/01/18 1112 Trans: 12/01/18 1119 [facility] [id number] Interpreted by: MAYUR EDGE MD Electronically signed by: Hanna Imaging: Xray Plain Films/CT/US/NM/MRI: pelvis, hip Comments [facility], [place] NAME: ROMINA HART [facility] REC#: [id number] PT STATUS: REG ER : 1940 PHYSICIAN: MARY ROBLES MD ADMIT DATE: 12/01/18/ER Draft Date of Exam:12/01/18 PELVIS/SARANYA HIPS 5> VIEWS Pelvis and bilateral hips. INDICATION: Fell. Single AP view of the pelvis and AP and lateral views of both hip joints were obtained. FINDINGS: There is no fracture, dislocation or acute bony abnormality noted. As seen on the prior exam of 03/24/2016, there is deformity of both pubic rami on the left due to prior trauma. Also, in the interval since the previous study, 3 orthopedic fixation screws have been inserted into the left femoral neck. The orthopedic hardware appears to be in good position. There is moderate degenerative disease involving the hip and sacroiliac joints. The degenerative changes do not appear to have progressed since the prior study. The soft tissues are unremarkable. IMPRESSION: 1. There are post traumatic and post surgical changes involving the left pelvis and the left hip. There is no acute bony abnormality appreciated. Dictated on workstation # [id number] Dict: 12/01/18 1103 Trans: 12/01/18 1110 [id number] Interpreted by: MAYUR EDGE MD Electronically signed by: Hanna Imaging: Xray Plain Films/CT/US/NM/MRI: other Comments [facility] [place] NAME: ROMINA HART [facility] REC#: [id number] PT STATUS: REG ER : 1940 PHYSICIAN: MARY ROBLES MD ADMIT DATE: 12/01/18/ER Draft Date of Exam:12/01/18 SHOULDER, LEFT, 3 VIEWS EXAMINATION: Left shoulder at 1029 hours. INDICATION: Injury, arm pain. Three views were obtained. FINDINGS: The previous left humerus exam of 04/19/2016 noted a comminuted proximal left humeral fracture and humeral head fracture. In the interval since that exam, the fractures have healed. There is deformity of the humeral head and proximal humerus due to the prior trauma. There is no fracture or acute bony abnormality appreciated however. There is moderate degenerative disease of the glenohumeral, and acromioclavicular joints. The soft tissues are unremarkable. IMPRESSION: There is evidence of prior trauma to the humeral head and proximal humerus but there is no sign of an acute abnormality. Dictated on workstation # [id number] Dict: 12/01/18 1045 Trans: 12/01/18 1059 [facility] [id number] Interpreted by: MAYUR EDEG MD Electronically signed by: (MARY ROBLES MD) Departure Impression Primary Impression: Contusion of shoulder, left Qualified Codes: S40.012A - Contusion of left shoulder, initial encounter Additional Impressions: Left hip pain Fall from standing Qualified Codes: W19.XXXA - Unspecified fall, initial encounter Disposition: 01 HOME, SELF-CARE Condition: Stable Departure-Patient Inst. Decision time for Depature: 11:27 (MARY ROBLES MD) Referrals: YESSI FELIX DO (PCP/Family) Primary Care Physician Patient Instructions: Hip Pain (DC), Contusion (DC), Shoulder Pain (DC) Add. Discharge Instructions: All discharge instructions reviewed with patient and/or family. Voiced understanding. Follow-up with your doctor in 2-3 days for recheck and further evaluation. Return for worse pain, swelling, weakness, vision or balance problems or other concerns as needed. Continue home medications as previously prescribed. BRADLEY CALLE STUDENT Dec 01, 2018 10:12 MARY ROBLES MD Dec 01, 2018 10:52
--- NOTE | 2018-12-01 10:59 | Diagnostic Imaging Report ---
EXAMINATION: Left shoulder at 1029 hours. INDICATION: Injury, arm pain. Three views were obtained. FINDINGS: The previous left humerus exam of 04/19/2016 noted a comminuted proximal left humeral fracture and humeral head fracture. In the interval since that exam, the fractures have healed. There is deformity of the humeral head and proximal humerus due to the prior trauma. There is no fracture or acute bony abnormality appreciated however. There is moderate degenerative disease of the glenohumeral, and acromioclavicular joints. The soft tissues are unremarkable. IMPRESSION: There is evidence of prior trauma to the humeral head and proximal humerus but there is no sign of an acute abnormality. Dictated by: Dictated on workstation # [id number]
--- NOTE | 2018-12-01 11:11 | Diagnostic Imaging Report ---
Pelvis and bilateral hips. INDICATION: Fell. Single AP view of the pelvis and AP and lateral views of both hip joints were obtained. FINDINGS: There is no fracture, dislocation or acute bony abnormality noted. As seen on the prior exam of 03/24/2016, there is deformity of both pubic rami on the left due to prior trauma. Also, in the interval since the previous study, 3 orthopedic fixation screws have been inserted into the left femoral neck. The orthopedic hardware appears to be in good position. There is moderate degenerative disease involving the hip and sacroiliac joints. The degenerative changes do not appear to have progressed since the prior study. The soft tissues are unremarkable. IMPRESSION: There are post traumatic and post surgical changes involving the left pelvis and the left hip. There is no acute bony abnormality appreciated. Dictated by: Dictated on workstation # [id number]
--- NOTE | 2018-12-01 11:19 | Diagnostic Imaging Report ---
PROCEDURE: CT head without contrast. TECHNIQUE: Multiple contiguous axial images were obtained through the brain without the use of intravenous contrast. Auto Exposure Controls were utilized during the CT exam to meet ALARA standards for radiation dose reduction. INDICATION: Fell. Headache. FINDINGS: This study is less than optimal due to streak artifact. There is no mass, shift of the midline or hemorrhage to suggest an acute intracranial abnormality. The ventricles are not abnormally dilated and stable in size when compared to the prior exam of 01/07/2016. The senescent changes seen producing cortical atrophy and periventricular encephalomalacia are again evident and no different. The bone windows show no sign of a fracture or of a destructive lesion. The orbits and sinuses were not visualized in their entirety. Where visualized, there is no acute abnormality. IMPRESSION: 1. There is no evidence for an acute intracranial abnormality. When compared to the prior study there has been no significant change. 2. If clinical concern regarding an acute abnormality persists, then MRI would be recommended for further study.-+ Dictated by: Dictated on workstation # [id number]
[2018-12-01 11:32] VITALS: BP 148/77
== END 2018-12-01 11:32 | disposition home or self-care (01) ==
LOC: EDUNIT# 09:58 → ER 09:59
DX: S40.012A Contusion of left shoulder, initial encounter (principal); M25.552 Pain in left hip; I10 Essential (primary) hypertension; E11.9 Type 2 diabetes mellitus without complications; F03.90 Unspecified dementia, unspecified severity, without behavioral disturbance, psychotic disturbance, mood disturbance, and anxiety; F32.9 Major depressive disorder, single episode, unspecified; Z87.440 Personal history of urinary (tract) infections; Z88.5 Allergy status to narcotic agent; Z79.82 Long term (current) use of aspirin; Z79.4 Long term (current) use of insulin; Z87.891 Personal history of nicotine dependence; W01.0XXA Fall on same level from slipping, tripping and stumbling without subsequent striking against object, initial encounter
CPT/HCPCS: 70450; 73030; 73523

== ENCOUNTER 2018-12-07 14:35 | Emergency (ER) | payer BC, MEDICARE ==
[~2018-12-07] VITALS: Ht 154 cm; Wt 55.0 kg
[~2018-12-07 14:35] MED LIST changes: -GLIM4TAB; +GLIM4TAB3; +TRM50T PO
[2018-12-07] MEDS ORDERED: NS IV 500 ML 500 ML IV ONE (15:15)
[2018-12-07 15:54] LABS: BILIRUBIN,URINE NEGATIVE (NEGATIVE); CLARITY,URINE CLEAR; COLOR,URINE YELLOW; GLUCOSE, URINE (UA) 4+ (NEGATIVE); KETONES,URINE 2+ (NEGATIVE); LEUKOCYTE ESTERASE ,URINE NEGATIVE (NEGATIVE); NITRITE,URINE POSITIVE (NEGATIVE); PH,URINE 5 (5-9); PROTEIN,URINE 1+ (NEGATIVE)
[2018-12-07 15:57] LABS: BASOPHILS % (AUTO) 0 % (0-10); EOSINOPHILS # (AUTO) 0.1 10^3/uL (0.0-0.3); EOSINOPHILS % (AUTO) 1 % (0-10); HEMATOCRIT 38 % (35-52); HEMOGLOBIN 12.9 G/DL (11.5-16.0); LYMPHOCYTES # (AUTO) 1.5 X 10^3 (1.0-4.0); LYMPHOCYTES % (AUTO) 13 % (12-44); MEAN CORPUSCULAR HEMOGLOBIN 29 PG (25-34); MEAN CORPUSCULAR HGB CONC 34 G/DL (32-36); MEAN CORPUSCULAR VOLUME 86 FL (80-99); MEAN PLATELET VOLUME 9.3 FL (7.4-10.4); MONOCYTES # (AUTO) 0.9 X 10^3 (0.0-1.0); MONOCYTES % (AUTO) 9 % (0-12); NEUTROPHILS # (AUTO) 8.5 X 10^3 (1.8-7.8); NEUTROPHILS % (AUTO) 77 % (42-75); PLATELET COUNT 306 10^3/uL (130-400); RED CELL DISTRIBUTION WIDTH 14.1 % (10.0-14.5)
--- NOTE | 2018-12-07 15:58 | ED General ---
General Chief Complaint: Cardiac/General Problems Stated Complaint: FATIGUE. LBP Nursing Triage Note: pt extremely tired, low blood pressure, states seeing things not there. elevated blood sugar Nursing Sepsis Screen: No Definite Risk Source of Information: Patient Exam Limitations: No Limitations History of Present Illness Date Seen by Provider: Dec 07, 2018 Time Seen by Provider: 15:08 Initial Comments Here with report of fatigue and feeling tired and noted to have blood pressure low at her care facility. When the blood pressure was noted to be low, nursing facility began to encourage fluids and family arrived and continue this. Overall she is doing a little better now. There is a questionable urinary tract infection earlier this week and sample grew normal johnnie so no antibiotics started. No reported nausea, vomiting or diarrhea. She did have a fall last week and was evaluated here and did not show any acute fracture or injuries within the head. Overall she is doing better currently. Timing/Duration: 4-6 Hours, Changing Over Time Severity: Moderate Modifying Factors: improves with Rest Associated Systoms: No Chest Pain, No Cough, No Fever/Chills, No Nausea/Vomiting, No Shortness of Air; Weakness Allergies and Home Medications Allergies Uncoded Allergies: narcotics (Adverse Reaction, Severe, 03/25/16) Home Medications Acetaminophen 325 Mg Tablet, 650 MG PO Q6H PRN for TEMP/MILD PAIN, (Reported) TAKES 2 (325MG) TABLETS Amlodipine Besylate 10 Mg Tablet, 10 MG PO DAILY, (Reported) HOLD FOR SBP < 100 AND/OR DBP < 60 AND PULSE LESS THAN OR EQUAL TO 60 Aspirin 81 Mg Tablet.dr, 81 MG PO DAILY, (Reported) Atorvastatin 20 Mg Tablet, 20 MG PO HS, (Reported) Citalopram Hydrobromide 20 Mg Tablet, 20 MG PO DAILY, (Reported) Donepezil HCl 10 Mg Tablet, 10 MG PO HS, (Reported) Insulin Aspart 100 Unit/1 Ml Susp, 5 UNIT SQ TIDAC, (Reported) Insulin Aspart 100 Unit/1 Ml Susp, SQ SLIDING/SCALE PRN for BS ABOVE 150, (Reported) USE THIS SLIDING SCALE IN ADDITION TO 5 UNTIS WITH MEALS 150-210 = 1 EXTRA UNIT 211-270 = 2 EXTRA UNITS 271-330 = 3 EXTRA UNITS 331-390 = 4 EXTRA UNITS >390 = 5 EXTRA UNITS NOT AT BEDTIME Insulin Determir 1,000 Units/10 Ml Soln, 10 UNITS SQ DAILY, (Reported) Insulin Determir 1,000 Units/10 Ml Soln, 5 UNITS SQ HS, (Reported) Lisinopril 5 Mg Tablet, 5 MG PO DAILY, (Reported) HOLD FOR SBP<100 AND/OR DBP<60 AND PULSE LESS THAN OR EQUAL TO 60 Loperamide HCl 2 Mg Tablet, 2 MG PO QID PRN for LOOSE STOOLS, (Reported) Memantine HCl 10 Mg Tablet, 10 MG PO BID, (Reported) Nystatin 15 Gm Cream..g., TP BID, (Reported) Tolterodine Tartrate 4 Mg Cap.er.24h, 4 MG PO DAILY, (Reported) Tramadol HCl 50 Mg Tablet, 50 MG PO Q6H PRN for PAIN Prescribed by: MARY ROBLES on 04/19/16 0333 Patient Home Medication List Home Medication List Reviewed: Yes Review of Systems Review of Systems Constitutional: see HPI; No chills, No fever EENTM: no symptoms reported Respiratory: no symptoms reported Cardiovascular: see HPI; No palpitations; other (low blood pressure and near syncope) Gastrointestinal: No abdominal pain, No nausea, No vomiting Genitourinary: no symptoms reported Musculoskeletal: no symptoms reported Skin: no symptoms reported Psychiatric/Neurological: No Symptoms Reported All Other Systems Reviewed Negative Unless Noted: Yes Past Oyencvv-Yoyfuk-Pndbie Hx Past Med/Social Hx: Reviewed Nursing Past Med/Soc Hx Patient Social History Alcohol Beverage of Choice: Wine Type Used: Cigarettes Former Smoker, Quit: Jan 13, 2016 2nd Hand Smoke Exposure: No Recent Foreign Travel: No Contact w/Someone Who Travel: No Recent Infectious Disease Expo: No Recent Hopitalizations: No Immunizations Up To Date Tetanus Booster (TDap): More than 5yrs Date of Pneumonia Vaccine: Dec 16, 2010 Date of Influenza Vaccine: Nov 11, 2015 Seasonal Allergies Seasonal Allergies: No Past Medical History Surgeries: No Respiratory: No Cardiac: Yes Hypertension Neurological: Yes Dementia Reproductive Disorders: No 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 Disorders: Denies [employer] History: Menopausal Sexually Transmitted Disease: No HIV/AIDS: No Genitourinary: Yes UTI-Chronic Gastrointestinal: No Musculoskeletal: No Endocrine: Yes Diabetes, Insulin dep Macular Degeneration Loss of Vision: Denies Hearing Impairment: Denies Cancer: No Psychosocial: Yes Depression Integumentary: Yes (current shingles) Herpes Blood Disorders: No Adverse Reaction/Blood Tranf: No Family Medical History Reviewed Nursing Family Hx Stroke 03 FATHER, Onset:69 No Pertinent Family Hx Physical Exam Vital Signs Vital Signs - First Documented 12/07/18 14:51 Pulse 58 Resp 16 B/P (MAP) 116/57 (76) Pulse Ox 97 O2 Delivery Room Air Capillary Refill : Less Than 3 Seconds Height, Weight, BMI Height: 5'2.00" Weight: 131lbs. 0.0oz. [id number]; 23.00 BMI Method:Stated General Appearance: No Apparent Distress, WD/WN HEENT: PERRL/EOMI, Pharynx Normal Neck: Non Tender, Supple Respiratory: Lungs Clear, Normal Breath Sounds Cardiovascular: Regular Rate, Rhythm, No Murmur Gastrointestinal: Non Tender, Soft Back: Normal Inspection, No CVA Tenderness, No Vertebral Tenderness Extremity: Normal Inspection, Normal Range of Motion, Non Tender Neurologic/Psychiatric: Alert, Oriented x3 Skin: Normal Color, Warm/Dry Progress/Results/Core Measures Suspected Sepsis Recent Fever Within 48 Hours: No Infection Criteria Present: None New/Unexplained Altered Menta: No Sepsis Screen: No Definite Risk SIRS Temperature: Pulse: 58 Respiratory Rate: 16 Laboratory Tests 12/07/18 15:48: White Blood Count 11.0 Blood Pressure 116 /57 Mean: 76 Laboratory Tests 12/07/18 15:48: Creatinine 0.99, Platelet Count 306, Total Bilirubin 0.7 Results/Orders Lab Results Laboratory Tests Test 12/07/18 15:45 12/07/18 15:48 Range/Units Urine Color YELLOW Urine Clarity CLEAR Urine pH 5 5-9 Urine Specific [place] 1.020 1.016-1.022 Urine Protein 1+ H NEGATIVE Urine Glucose (UA) 4+ H NEGATIVE Urine Ketones 2+ H NEGATIVE Urine Nitrite POSITIVE H NEGATIVE Urine Bilirubin NEGATIVE NEGATIVE Urine Urobilinogen NORMAL NORMAL MG/DL Urine Leukocyte Esterase NEGATIVE NEGATIVE Urine RBC (Auto) NEGATIVE NEGATIVE Urine RBC NONE /HPF Urine WBC 0-2 /HPF Urine Squamous Epithelial Cells NONE /HPF Urine Crystals NONE /LPF Urine Bacteria LARGE H /HPF Urine Casts PRESENT /LPF Urine Hyaline Casts 10-25 H /LPF Urine Mucus NEGATIVE /LPF Urine Culture Indicated YES White Blood Count 11.0 4.3-11.0 10^3/uL Red Blood Count 4.41 4.35-5.85 10^6/uL Hemoglobin 12.9 11.5-16.0 G/DL Hematocrit 38 35-52 % Mean Corpuscular Volume 86 80-99 FL Mean Corpuscular Hemoglobin 29 25-34 PG Mean Corpuscular Hemoglobin Concent 34 32-36 G/DL Red Cell Distribution Width 14.1 10.0-14.5 % Platelet Count 306 130-400 10^3/uL Mean Platelet Volume 9.3 7.4-10.4 FL Neutrophils (%) (Auto) 77 H 42-75 % Lymphocytes (%) (Auto) 13 12-44 % Monocytes (%) (Auto) 9 0-12 % Eosinophils (%) (Auto) 1 0-10 % Basophils (%) (Auto) 0 0-10 % Neutrophils # (Auto) 8.5 H 1.8-7.8 X 10^3 Lymphocytes # (Auto) 1.5 1.0-4.0 X 10^3 Monocytes # (Auto) 0.9 0.0-1.0 X 10^3 Eosinophils # (Auto) 0.1 0.0-0.3 10^3/uL Basophils # (Auto) 0.0 0.0-0.1 10^3/uL Sodium Level 137 135-145 MMOL/L Potassium Level 4.1 3.6-5.0 MMOL/L Chloride Level 104 98-107 MMOL/L Carbon Dioxide Level 22 21-32 MMOL/L Anion Gap 11 5-14 MMOL/L Blood Urea Nitrogen 20 H 7-18 MG/DL Creatinine 0.99 0.60-1.30 MG/DL Estimat Glomerular Filtration Rate 54 BUN/Creatinine Ratio 20 Glucose Level 161 H 70-105 MG/DL Calcium Level 9.3 8.5-10.1 MG/DL Corrected Calcium 9.6 8.5-10.1 MG/DL Total Bilirubin 0.7 0.1-1.0 MG/DL Aspartate Amino Transf (AST/SGOT) 18 5-34 U/L Alanine Aminotransferase (ALT/SGPT) 24 0-55 U/L Alkaline Phosphatase 201 H 40-136 U/L C-Reactive Protein High Sensitivity 0.53 H 0.00-0.50 MG/DL Total Protein 7.0 6.4-8.2 GM/DL Albumin 3.6 3.2-4.5 GM/DL My Orders Orders - MARY ROBLES MD Cbc With Automated Diff (12/07/18 15:15) Comprehensive Metabolic Panel (12/07/18 15:15) Hs C Reactive Protein (12/07/18 15:15) Ua Culture If Indicated (12/07/18 15:15) Ed Iv/Invasive Line Start (12/07/18 15:15) Ns Iv 500 Ml (Sodium Chloride 0.9%) (12/07/18 15:15) Straight Cath For Spec.-Adult (12/07/18 15:15) Urine Culture (12/07/18 15:45) Ceftriaxone For Iv Use (Rocephin For I (12/07/18 16:30) Medications Given in ED Current Medications Medications Dose Ordered Sig/Venessa Route Start Time Stop Time Status Last Admin Dose Admin Ceftriaxone Sodium 1000 mg/ Sterile Water 10 ml @ 200 mls/hr ONCE ONCE IV 12/07/18 16:30 12/07/18 16:32 DC 12/07/18 16:32 200 MLS/HR Sodium Chloride 500 ml @ 0 mls/hr Q0M ONCE IV 12/07/18 15:15 12/07/18 15:16 DC 12/07/18 15:48 0 MLS/HR Vital Signs/I&O 12/07/18 14:51 Pulse 58 Resp 16 B/P (MAP) 116/57 (76) Pulse Ox 97 O2 Delivery Room Air Capillary Refill : Less Than 3 Seconds Blood Pressure Mean: 76 POS Progress Note : Progress Note Seen and evaluated. IV, labs, UA via straight catheter and normal saline 500 mL bolus ordered. Monitor patient. 1654: UA is definitely positive for urinary tract infection. Historically her cultures would be sensitive to ceftriaxone and Bactrim. We have given Rocephin 1 g IV now and will continue outpatient t reatment with Bactrim for 3 more days. I will send a copy of the chart over to Dr. Mcdonnell. Discharged home with return precautions. Patient family verbalized understanding instructions and agreement with plan. Departure Impression Primary Impression: Urinary tract infection Qualified Codes: N30.00 - Acute cystitis without hematuria Disposition: HOME, SELF-CARE Condition: Improved Departure-Patient Inst. Decision time for Depature: 16:56 Referrals: YESSI FELIX DO (PCP/Family) Primary Care Physician Patient Instructions: Urinary Tract Infection, Adult (DC) Add. Discharge Instructions: All discharge instructions reviewed with patient and/or family. Voiced understanding. Take medications as directed. Follow-up with your doctor early next week for recheck and further evaluation. Return for worsening, fever, vomiting, weakness, breathing problems or other concerns as needed. Drink plenty of fluids. Scripts Sulfamethoxazole/Trimethoprim (Sulfamethoxazole-Tmp Ds Tablet) 1 Each Tablet 1 EACH PO BID, #8 TAB 0 Refills Prov: MARY ROBLES MD 12/07/18 Copy Copies To 1: FRED MCDONNELL MD, TIMOTHY D MD Dec 07, 2018 15:58 POS
[2018-12-07 16:20] LABS: BACTERIA,URINE LARGE /HPF; WBC,URINE 0-2 /HPF
[2018-12-07 16:29] LABS: ALBUMIN 3.6 GM/DL (3.2-4.5); BILIRUBIN,TOTAL 0.7 MG/DL (0.1-1.0); CALCIUM 9.3 MG/DL (8.5-10.1); CREATININE SERUM 0.99 MG/DL (0.60-1.30); POTASSIUM 4.1 MMOL/L (3.6-5.0)
[2018-12-07] MEDS ORDERED: cefTRIAXone FOR IV USE 1,000 MG in WATER (STERILE) FOR INJECTION 10 ML IV ONE (16:30)
[2018-12-07] MEDS ORDERED: SULF-222 PO (16:57)
[2018-12-07 17:10] VITALS: BP 118/67
[2018-12-10] MEDS ORDERED: OXYB5TAB13 PO (08:58)
[2018-12-10] MEDS ORDERED: TRM50T PO (08:59)
[2018-12-13] MEDS ORDERED: INSU100V5 SQ (09:19)
[2018-12-13] MEDS ORDERED: TRM50T PO (09:19)
[2018-12-13] MEDS ORDERED: MELA3TAB65 PO (09:19)
[2018-12-13] MEDS ORDERED: INSU100I14 SQ (09:19)
[2018-12-13] MEDS ORDERED: LORA0.5T PO (09:19)
[2018-12-13] MEDS ORDERED: POLY17PO31 PO (09:19)
[2018-12-13] MEDS ORDERED: SENN-141 PO (09:19)
== END 2018-12-07 17:12 | disposition home or self-care (01) ==
LOC: EDUNIT# 14:35 → ER 14:36
DX: N39.0 Urinary tract infection, site not specified (principal); I10 Essential (primary) hypertension; E11.9 Type 2 diabetes mellitus without complications; F03.90 Unspecified dementia, unspecified severity, without behavioral disturbance, psychotic disturbance, mood disturbance, and anxiety; F32.9 Major depressive disorder, single episode, unspecified; Z87.442 Personal history of urinary calculi; Z88.5 Allergy status to narcotic agent; Z79.82 Long term (current) use of aspirin; Z79.4 Long term (current) use of insulin; Z87.891 Personal history of nicotine dependence
CPT/HCPCS: 36415; 51701; 80053; 81000; 85025; 86141; 87077; 87088; 87184; 96374

== ENCOUNTER 2018-12-09 11:25 | Inpatient (IN) | payer BC, MEDICARE ==
[~2018-12-09] VITALS: Ht 152.4 cm; Wt 54.5 kg
[~2018-12-09 11:25] MED LIST changes: +GLIM4TAB; -GLIM4TAB3; +SULF-222 PO; -TRM50T PO
--- NOTE | 2018-12-09 11:53 | ED Lower Extremity ---
General Chief Complaint: Lower Extremity Stated Complaint: RT KNEE PAIN Source: patient Exam Limitations: no limitations History of Present Illness Date Seen by Provider: Dec 09, 2018 Time Seen by Provider: 11:51 Initial Comments To ER with reports of right knee and bilateral hip pain after a fall. She fell at the [facility] today. Did not hit her head no other injuries no complaints. Onset: just prior to arrival Severity: moderate Pain/Injury Location: bilateral hip; right knee Method of Injury: fell Allergies and Home Medications Allergies Uncoded Allergies: narcotics (Adverse Reaction, Severe, 03/25/16) Home Medications Acetaminophen 325 Mg Tablet, 650 MG PO Q6H PRN for TEMP/MILD PAIN, (Reported) TAKES 2 (325MG) TABLETS Amlodipine Besylate 10 Mg Tablet, 10 MG PO DAILY, (Reported) HOLD FOR SBP < 100 AND/OR DBP < 60 AND PULSE LESS THAN OR EQUAL TO 60 Aspirin 81 Mg Tablet.dr, 81 MG PO DAILY, (Reported) Atorvastatin 20 Mg Tablet, 20 MG PO HS, (Reported) Citalopram Hydrobromide 20 Mg Tablet, 20 MG PO DAILY, (Reported) Donepezil HCl 10 Mg Tablet, 10 MG PO HS, (Reported) Insulin Aspart 100 Unit/1 Ml Susp, 5 UNIT SQ TIDAC, (Reported) Insulin Aspart 100 Unit/1 Ml Susp, SQ SLIDING/SCALE PRN for BS ABOVE 150, (Reported) USE THIS SLIDING SCALE IN ADDITION TO 5 UNTIS WITH MEALS 150-210 = 1 EXTRA UNIT 211-270 = 2 EXTRA UNITS 271-330 = 3 EXTRA UNITS 331-390 = 4 EXTRA UNITS >390 = 5 EXTRA UNITS NOT AT BEDTIME Insulin Determir 1,000 Units/10 Ml Soln, 10 UNITS SQ DAILY, (Reported) Insulin Determir 1,000 Units/10 Ml Soln, 5 UNITS SQ HS, (Reported) Lisinopril 5 Mg Tablet, 5 MG PO DAILY, (Reported) HOLD FOR SBP<100 AND/OR DBP<60 AND PULSE LESS THAN OR EQUAL TO 60 Loperamide HCl 2 Mg Tablet, 2 MG PO QID PRN for LOOSE STOOLS, (Reported) Memantine HCl 10 Mg Tablet, 10 MG PO BID, (Reported) Nystatin 15 Gm Cream..g., TP BID, (Reported) Sulfamethoxazole/Trimethoprim 1 Each Tablet, 1 EACH PO BID Prescribed by: MARY ROBLES on 12/07/18 1657 Tolterodine Tartrate 4 Mg Cap.er.24h, 4 MG PO DAILY, (Reported) Tramadol HCl 50 Mg Tablet, 50 MG PO Q6H PRN for PAIN Prescribed by: MARY ROBLES on 04/19/16 0333 Patient Home Medication List Home Medication List Reviewed: Yes Review of Systems Constitutional: see HPI EENTM: see HPI Respiratory: no symptoms reported Cardiovascular: no symptoms reported Genitourinary: no symptoms reported Musculoskeletal: see HPI Skin: no symptoms reported Psychiatric/Neurological: No Symptoms Reported Past Etmdqea-Vtfamp-Cdmsuq Hx Patient Social History Alcohol Beverage of Choice: Wine Type Used: Cigarettes Former Smoker, Quit: Jan 13, 2016 2nd Hand Smoke Exposure: No Recent Foreign Travel: No Contact w/Someone Who Travel: No Recent Hopitalizations: No Immunizations Up To Date Tetanus Booster (TDap): More than 5yrs Date of Pneumonia Vaccine: Dec 16, 2010 Date of Influenza Vaccine: Nov 11, 2015 Seasonal Allergies Seasonal Allergies: No Past Medical History Surgeries: No Respiratory: No Cardiac: Yes Hypertension Neurological: Yes Dementia Reproductive Disorders: No 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 Disorders: Denies [employer]CH[employer]IC History: Menopausal Sexually Transmitted Disease: No HIV/AIDS: No Genitourinary: Yes UTI-Chronic Gastrointestinal: No Musculoskeletal: No Endocrine: Yes Diabetes, Insulin dep Macular Degeneration Loss of Vision: Denies Hearing Impairment: Denies Cancer: No Psychosocial: Yes Depression Integumentary: Yes (current shingles) Herpes Blood Disorders: No Adverse Reaction/Blood Tranf: No Family Medical History Stroke 03 FATHER, Onset:70 No Pertinent Family Hx Physical Exam Vital Signs Vital Signs - First Documented 12/09/18 11:30 Temp 35.7 Pulse 62 Resp 16 B/P (MAP) 135/85 (102) Pulse Ox 95 Capillary Refill : Height, Weight, BMI Height: 5'2.00" Weight: 131lbs. 0.0oz. 59.803377zs; 23.00 BMI Method:Stated General Appearance: WD/WN, no apparent distress HEENT: PERRL/EOMI, normal ENT inspection Respiratory: no respiratory distress, no accessory muscle use Hips: bilateral hip non-tender, bilateral hip normal inspection, bilateral hip normal range of motion, bilateral hip other (full range of motion of both knees and both hips no bruising no swelling or deformity) Legs: bilateral leg non-tender, bilateral leg normal inspection, bilateral leg normal range of motion Knees: bilateral knee non-tender, bilateral knee normal inspection, bilateral knee normal range of motion Ankles: bilateral ankle non-tender, bilateral ankle normal inspection, bilateral ankle normal range of motion Feet: bilateral foot non-tender, bilateral foot normal inspection, bilateral foot normal range of motion Neurologic/Psychiatric: alert, normal mood/affect, oriented x 3 Skin: normal color, warm/dry Progress/Results/Core Measures Results/Orders Lab Results Laboratory Tests Test 12/09/18 11:53 Range/Units Glucometer 240 H 70-110 MG/DL My Orders Orders - CONNIE PHILIPPE APRN Knee, Right, 3 Views (12/09/18 11:49) Accucheck Stat ONCE (12/09/18 11:51) Pelvis/Saranya Hips 5> Views (12/09/18 11:49) General/Regular (12/09/18 Lunch) Cbc With Automated Diff (12/09/18 13:24) Comprehensive Metabolic Panel (12/09/18 13:24) Ua Culture If Indicated (12/09/18 13:24) Ed Iv/Invasive Line Start (12/09/18 13:24) Chest 1 View, Ap/Pa Only (12/09/18 13:24) Ekg Tracing (12/09/18 13:24) Vital Signs/I&O 12/09/18 11:30 Temp 35.7 Pulse 62 Resp 16 B/P (MAP) 135/85 (102) Pulse Ox 95 Departure Communication (Admissions) Time/Spoke to Admitting Phy: 13:[address] Segura, will admit Time/Spoke to Consulting Phy: 13:[address] Neumann, will consult, operative repair tomorrow. Family was initially hesitant about this given her advanced dementia and wanted to consider nonoperative treatment. I spoke with Dr. Spangler and he advises that would entail nonweightbearing for 6-8 weeks with weekly x-rays. Family is concerned that due to her dementia and wandering at night time she would be unable to follow directions and stay nonweightbearing for 6-8 weeks. She resides at [facility], [facility]. NAME: ROMINA HART [facility] REC#: [id number] PT STATUS: REG ER : 1940 PHYSICIAN: CONNIE PHILIPPE APRN ADMIT DATE: 12/09/18/ER Draft POSDate of Exam:12/09/18 PELVIS/SARANYA HIPS 5> VIEWS INDICATION: Pain fell on of the last month. EXAMINATION: Pelvis and hips 12/09/2018 Correlation made to previous imaging from 12/01/2018 FINDINGS: Postoperative findings seen in the left hip similar to previous imaging. There are degenerative findings in both hips. There is a new fracture through the right femoral neck at the junction of the femoral head and neck minimally displaced. No dislocation. Remaining visualized pelvis stable with chronic findings. The pubic symphysis and superior and inferior pubic rami left worse than right but stable from previous. IMPRESSION: 1. New fracture right femoral neck as above. 2. Remaining findings appear chronic with marked osteopenia overall limiting evaluation. Dictated on workstation # [id number] Dict: 12/09/18 1224 Trans: 12/09/18 1229 [facility] [id number] Interpreted by: HEIDI AGUILAR MD Electronically signed by: Impression Primary Impression: Fracture of femoral neck, right Qualified Codes: S72.001A - Fracture of unspecified part of neck of right femur, initial encounter for closed fracture Additional Impression: Advanced dementia Disposition: 09 ADMITTED INPATIENT Condition: Stable Admissions Decision to Admit Reason: Admit from ER (General) Decision to Admit/Date: Dec 09, 2018 Time/Decision to Admit Time: 13:12 Departure-Patient Inst. Referrals: YESSI FELIX DO (PCP/Family) Primary Care Physician CONNIE PHILIPPE APRN Dec 09, 2018 11:53 POS
--- NOTE | 2018-12-09 12:29 | Diagnostic Imaging Report ---
INDICATION: Pain fell on of the last month. EXAMINATION: Pelvis and hips 12/09/2018 Correlation made to previous imaging from 12/01/2018 FINDINGS: Postoperative findings seen in the left hip similar to previous imaging. There are degenerative findings in both hips. There is a new fracture through the right femoral neck at the junction of the femoral head and neck minimally displaced. No dislocation. Remaining visualized pelvis stable with chronic findings. The pubic symphysis and superior and inferior pubic rami left worse than right but stable from previous. IMPRESSION: 1. New fracture right femoral neck as above. 2. Remaining findings appear chronic with marked osteopenia overall limiting evaluation. Dictated by: Dictated on workstation # [id number]
--- NOTE | 2018-12-09 12:43 | Diagnostic Imaging Report ---
INDICATION: Fall, pain EXAMINATION: Right knee dated 12/09/2018 FINDINGS: 3 views of the knee. There is marked osteopenia limiting evaluation. Patellofemoral narrowing and spurring appear severe. There is mild medial compartment degenerative disease. There is a small suprapatellar effusion. There is a sclerotic lesion along the lateral aspect of the lower femoral region. It likely lies outside of the femur however nonemergent follow-up recommended for reevaluation of this finding. It has a chronic calcified appearance. IMPRESSION: 1. Chronic changes as above with severe degenerative findings noted. No acute fractures are seen. 2. Nonspecific density seen laterally along the distal femur. Nonemergent further evaluation recommended. Dictated by: Dictated on workstation # [id number]
--- NOTE | 2018-12-09 13:00 | NUR ---
MEAL TRAY TO PT AT THIS TIME.
[2018-12-09 13:44] LABS: BASOPHILS % (AUTO) 0 % (0-10); EOSINOPHILS # (AUTO) 0.2 10^3/uL (0.0-0.3); EOSINOPHILS % (AUTO) 1 % (0-10); HEMATOCRIT 40 % (35-52); HEMOGLOBIN 13.8 G/DL (11.5-16.0); LYMPHOCYTES # (AUTO) 1.3 X 10^3 (1.0-4.0); LYMPHOCYTES % (AUTO) 11 % (12-44); MEAN CORPUSCULAR HEMOGLOBIN 29 PG (25-34); MEAN CORPUSCULAR HGB CONC 34 G/DL (32-36); MEAN CORPUSCULAR VOLUME 85 FL (80-99); MEAN PLATELET VOLUME 9.7 FL (7.4-10.4); MONOCYTES # (AUTO) 0.9 X 10^3 (0.0-1.0); MONOCYTES % (AUTO) 8 % (0-12); NEUTROPHILS # (AUTO) 9.7 X 10^3 (1.8-7.8); NEUTROPHILS % (AUTO) 80 % (42-75); PLATELET COUNT 295 10^3/uL (130-400); RED CELL DISTRIBUTION WIDTH 14.6 % (10.0-14.5); WHITE BLOOD COUNT 12.1 10^3/uL (4.3-11.0)
--- NOTE | 2018-12-09 13:57 | Diagnostic Imaging Report ---
INDICATION: Patient fell complaining of right-sided pain. EXAMINATION: Single view chest dated 12/09/2018. COMPARISON: 04/19/2016 FINDINGS: The cardiomediastinal silhouette is unremarkable. The pulmonary vasculature is within normal limits. The lungs and pleural spaces are clear. IMPRESSION: No evidence of an acute cardiopulmonary process. Dictated by: Dictated on workstation # [id number]
[2018-12-09 14:00] LABS: ALBUMIN 3.9 GM/DL (3.2-4.5); BILIRUBIN,TOTAL 0.8 MG/DL (0.1-1.0); CALCIUM 9.2 MG/DL (8.5-10.1); CREATININE SERUM 1.02 MG/DL (0.60-1.30); POTASSIUM 5.1 MMOL/L (3.6-5.0); TOTAL PROTEIN 7.8 GM/DL (6.4-8.2)
[2018-12-09 14:02] LABS: BILIRUBIN,URINE NEGATIVE (NEGATIVE); CLARITY,URINE CLEAR; COLOR,URINE YELLOW; GLUCOSE, URINE (UA) 1+ (NEGATIVE); KETONES,URINE 1+ (NEGATIVE); LEUKOCYTE ESTERASE ,URINE NEGATIVE (NEGATIVE); NITRITE,URINE NEGATIVE (NEGATIVE); PH,URINE 6 (5-9); PROTEIN,URINE 1+ (NEGATIVE)
[2018-12-09 14:08] LABS: BACTERIA,URINE NEGATIVE /HPF; SQUAMOUS EPITHELIAL CELL,UR RARE /HPF
[2018-12-09 15:13] VITALS: BP 148/66
[2018-12-09] MEDS ORDERED: ONDANSETRON 4 MG/2 ML (SDV) Z0FRAN IV PRN (15:30)
[2018-12-09] MEDS ORDERED: fentaNYL INJECTION 100 MCG/2 ML AMP IV PRN (15:30)
[2018-12-09] MEDS ORDERED: NS IV 1000 ML 1,000 ML IV SCH (15:30)
[2018-12-09] MEDS ORDERED: ONDANSETRON 4 MG (ZOFRAN) ORAL DISSOLVE TAB PO PRN (17:45)
[2018-12-09] MEDS ORDERED: POLYETHYLENE GLYCOL 17 GM (MIRALAX) PACK PO PRN (17:45)
[2018-12-09] MEDS ORDERED: BISACODYL 10 MG SUPP (DULCOLAX) PR PRN (17:45)
[2018-12-09] MEDS ORDERED: ANTACID SUSP 30 ML UDC (MYLANTA) PO PRN (17:45)
--- NOTE | 2018-12-09 17:59 | History & Physical-Hospitalist ---
History of Present Illness HPI/Chief Complaint Antonia Orourke is a 78-year-old female with past medical history of hypertension, type II diabetes mellitus with insulin use, hyperlipidemia, dementia, who presented with hip pain after a ground-level fall. She has a history of dementia and is a poor historian. [facility]. Her family would like to proceed with surgery according to the ER physician. Upon my examination no family is present. She states that she is feeling well. She denies any pain at the current time. Source: patient Exam Limitations: no limitations Date Seen 12/09/18 Time Seen by a Provider: 17:00 Attending Physician Georgina Rg MD PCP Vazquez Higgins DO Referring Physician Date of Admission Dec 09, 2018 at 13:26 Home Medications & Allergies Home Medications Reviewed patient Home Medication Reconciliation performed by pharmacy medication reconciliations pathological technician and/or nursing. Patients Allergies have been reviewed. Allergies Allergies Uncoded Allergies narcotics ( Adverse Reaction, Severe, 03/25/16) Past Ioszrok-Tsbdpi-Ulzrgr Hx Past Med/Social Hx: Reviewed Nursing Past Med/Soc Hx Patient Social History Alcohol Use: Denies Use Number of Drinks Today: Alcohol Beverage of Choice: Wine Recreational Drug Use: No Smoking Status: Former Smoker Former Smoker, Quit: Jan 13, 2016 Type Used: Cigarettes 2nd Hand Smoke Exposure: No Recent Foreign Travel: No Contact w/other who traveled: No Recent Hopitalizations: No Recent Infectious Disease Expo: No Immunizations Up To Date Tetanus Booster (TDap): More than 5yrs Date of Pneumonia Vaccine: Dec 16, 2010 Date of Influenza Vaccine: Nov 28, 2018 Seasonal Allergies Seasonal Allergies: No Past Medical History Cardiac: Hypertension Neurological: Dementia Reproductive: No Sexually Transmitted Disease: No HIV/AIDS: No 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 Disorders: Denies Menopausal Genitourinary: UTI-Chronic Endocrine: Diabetes, Insulin dep HEENT: Macular Degeneration Loss of Vision: Denies Hearing Impairment: Denies Psychosocial: Sleep Difficulties, Depression Skin/Integumentary: Herpes History of Blood Disorders: No Adverse Reaction to Blood Conde: No Family History Stroke 03 FATHER, Onset:70 No Pertinent Family Hx Review of Systems Constitutional: no symptoms reported, see HPI EENTM: no symptoms reported Respiratory: no symptoms reported Cardiovascular: no symptoms reported Gastrointestinal: no symptoms reported Genitourinary: no symptoms reported Musculoskeletal: joint pain Skin: no symptoms reported Psychiatric/Neurological: No Symptoms Reported Physical Exam Physical Exam Vital Signs Vital Signs - First Documented 12/09/18 11:30 Temp 35.7 Pulse 62 Resp 16 B/P (MAP) 135/85 (102) Pulse Ox 95 Capillary Refill : Less Than 3 SecondsLess Than 3 Seconds Height, Weight, BMI Height: 5'2.00" Weight: 131lbs. 0.0oz. [id number]; 23.46 BMI Method:Stated General Appearance: No Apparent Distress, WD/WN, Other (lying comfortably in bed) HEENT: PERRL/EOMI, Pharynx Normal Neck: Normal Inspection, Supple Respiratory: Lungs Clear, Normal Breath Sounds, No Respiratory Distress Cardiovascular: Regular Rate, Rhythm, No Edema, No Murmur Gastrointestinal: Normal Bowel Sounds, Non Tender, Soft Extremity: Normal Inspection, Non Tender, Pedal Edema Neurologic/Psychiatric: Alert, Normal Mood/Affect Skin: Normal Color, Warm/Dry Results Results/Procedures Labs Laboratory Tests 12/09/18 13:38 Patient resulted labs reviewed. Imaging: Reviewed Imaging Report Assessment/Plan Admission Diagnosis displaced fracture of right femoral neck Admission Status: Inpatient Order (span 2 midnights) Reason for Inpatient Admission: displaced fracture of right femoral neck requiring surgical intervention Assessment and Plan Displaced fracture of right femoral neck hip x-ray revealed right femoral neck fracture Ortho consulted, planning for surgery tomorrow morning Pain regimen ordered bowel regimen ordered order incentive spirometer Preoperative evaluation RCRI score 1 with insulin use Obtain preoperative BNP intermediate risk patient, intermediate risk procedure Dementia High risk for perioperative delirium Monitor and reorient as needed DVT prophylaxis: Lovenox Diagnosis/Problems Diagnosis/Problems (1) Displaced fracture of right femoral neck Status: Acute Clinical Quality Measures DVT/VTE Risk/Contraindication: Risk Factor Score Per Nursin RFS Level Per Nursing on Admit: 4+=Very High GEORGINA RG MD Dec 09, 2018 17:59 POS
[2018-12-09] MEDS: LACTATED RINGERS 1,000 ML IV SCH (18:18)
[2018-12-09 20:00] VITALS: BP 146/77
--- NOTE | 2018-12-09 20:02 | Consultation - Ortho ---
Consult - Ortho Subjective Date of Exam 12/09/18 Chief Complaint Impacted subcapital fracture right hip HPI/Events since last exam Mrs Orourke is a 78-year-old white female who fell this morning while walking injuring her right hip. She was seen in the emergency room where she was evaluated and x-rayed noted to have an impacted subcapital fracture of the right hip. She apparently has fallen multiple times in the past few weeks. She has a history of dementia and gets up and walks around without help. She said a previous subcapital fracture on the left and it was fixed with 3 screws seen in March [address] REINA. She did very well with that. Her dementia has worsened over the past few months. She was seen in emergency room last Monday after a fall and there is no fracture noted. Again she did have a fall this morning with hip pain after the fall. She was admitted by Dr. Segura. Unable to obtain history from the patient. History is obtained from Dr. Segura's history and physical and also Vinh Ramirez evaluation in the emergency room and also family members. Medical, Surgical History Reviewed and no additions or changes Social History Reviewed and no additions or changes Family History Reviewed and no additions or changes Review of Systems Reviewed and no additions or changes Allergies: Uncoded Allergies: narcotics (Adverse Reaction, Severe, 03/25/16) Home Meds Active Scripts Sulfamethoxazole/Trimethoprim (Sulfamethoxazole-Tmp Ds Tablet) 1 Each Tablet, 1 EACH PO BID, #8 TAB 0 Refills Prov:MARY ROBLES MD 12/07/18 Tramadol HCl (Tramadol HCl) 50 Mg Tablet, 50 MG PO Q6H PRN for PAIN, #20 TAB 0 Refills Prov:MARY ROBLES MD 04/19/16 Reported Medications Metformin HCl (Metformin HCl) 500 Mg Tablet 12/31/16 Glimepiride (Glimepiride) 4 Mg Tablet 12/31/16 Nystatin (Nystatin) 15 Gm Cream..g., TP BID, TUBE 03/24/16 Insulin Determir (Levemir) 1,000 Units/10 Ml Soln, 5 UNITS SQ HS, EA 03/24/16 Insulin Determir (Levemir) 1,000 Units/10 Ml Soln, 10 UNITS SQ DAILY, EA 03/24/16 Insulin Aspart (Novolog) 100 Unit/1 Ml Susp, SQ SLIDING/SCALE PRN for BS ABOVE 150, ML USE THIS SLIDING SCALE IN ADDITION TO 5 UNTIS WITH MEALS 150-210 = 1 EXTRA UNIT 211-270 = 2 EXTRA UNITS 271-330 = 3 EXTRA UNITS 331-390 = 4 EXTRA UNITS >390 = 5 EXTRA UNITS NOT AT BEDTIME 03/24/16 Insulin Aspart (Novolog) 100 Unit/1 Ml Susp, 5 UNIT SQ TIDAC, ML 03/24/16 Loperamide HCl (Loperamide) 2 Mg Tablet, 2 MG PO QID PRN for LOOSE STOOLS, TAB 03/24/16 Memantine HCl (Namenda) 10 Mg Tablet, 10 MG PO BID, TAB 03/24/16 Acetaminophen (Tylenol) 325 Mg Tablet, 650 MG PO Q6H PRN for TEMP/MILD PAIN, TAB TAKES 2 (325MG) TABLETS 03/24/16 Tolterodine Tartrate (Tolterodine Tartrate ER) 4 Mg Cap.er.24h, 4 MG PO DAILY, CAP 03/24/16 Donepezil HCl (Aricept) 10 Mg Tablet, 10 MG PO HS, TAB 03/24/16 Citalopram Hydrobromide (Citalopram HBr) 20 Mg Tablet, 20 MG PO DAILY, TAB 03/24/16 Aspirin (Aspirin EC) 81 Mg Tablet.dr, 81 MG PO DAILY, TAB 01/08/16 Atorvastatin (Lipitor 20MG) 20 Mg Tablet, 20 MG PO HS, TAB 05/01/13 Lisinopril (Prinivil) 5 Mg Tablet, 5 MG PO DAILY, TAB HOLD FOR SBP<100 AND/OR DBP<60 AND PULSE LESS THAN OR EQUAL TO 60 05/01/13 Amlodipine Besylate (Norvasc) 10 Mg Tablet, 10 MG PO DAILY, TAB HOLD FOR SBP < 100 AND/OR DBP < 60 AND PULSE LESS THAN OR EQUAL TO 60 05/01/13 Objective Exam Constitutional: [] HEENT: [] Neck: [] No pain with palpation or motion Cardiovascular: [] Respiratory: [] Gastrointestinal: [] Genitourinary: [] Skin: [] Back/Spine: [] No pain with palpation or motion Extremities: [] Upper extremitiesno deformity. No crepitation. Good motion without pain. Good radial pulses. Good capillary refill. Unable to obtain good sensory evaluation patient's dementia Lower extremitiespain with palpation motion right hip. No pain at the knee, ankle. Left hip without pain. No pain left knee or ankle. Clinical pulses. No pain left hip with range of motion. Previously healed surgical scar Neurologic: [] Psychiatric: [] Hematologic/lymphatic/immunologic: [] Vital Signs Vital Signs Date Time Temp Pulse Resp B/P (MAP) Pulse Ox O2 Delivery O2 Flow Rate FiO2 12/09/18 15:52 98 Room Air 12/09/18 15:13 36.6 82 16 148/66 (93) 95 Room Air 12/09/18 15:13 36.6 82 16 148/66 95 Room Air 12/09/18 14:24 67 18 149/62 98 12/09/18 13:58 35.7 62 16 135/85 (102) 95 12/09/18 11:30 35.7 62 16 135/85 (102) 95 Lab Results Laboratory Tests 12/09/18 11:53: Glucometer 240H 12/09/18 13:38: White Blood Count 12.1H, Red Blood Count 4.74, Hemoglobin 13.8, Hematocrit 40, Mean Corpuscular Volume 85, Mean Corpuscular Hemoglobin 29, Mean Corpuscular Hemoglobin Concent 34, Red Cell Distribution Width 14.6H, Platelet Count 295, Mean Platelet Volume 9.7, Neutrophils (%) (Auto) 80H, Lymphocytes (%) (Auto) 11L , Monocytes (%) (Auto) 8, Eosinophils (%) (Auto) 1, Basophils (%) (Auto) 0, Neutrophils # (Auto) 9.7H, Lymphocytes # (Auto) 1.3, Monocytes # (Auto) 0.9, Eosinophils # (Auto) 0.2, Basophils # (Auto) 0.0, Sodium Level 138, Potassium Level 5.1H, Chloride Level 106, Carbon Dioxide Level 18L, Anion Gap 14, Blood Urea Nitrogen 19H, Creatinine 1.02, Estimat Glomerular Filtration Rate 52, BUN/Creatinine Ratio 19, Glucose Level 225H, Calcium Level 9.2, Corrected Calcium 9.3, Total Bilirubin 0.8, Aspartate Amino Transf (AST/SGOT) 34, Alanine Aminotransferase (ALT/SGPT) 30, Alkaline Phosphatase 169H, B-Type Natriuretic Peptide 45.3, Total Protein 7.8, Albumin 3.9 12/09/18 13:50: Urine Color YELLOW, Urine Clarity CLEAR, Urine pH 6, Urine Specific [place] 1.010L, Urine Protein 1+H, Urine Glucose (UA) 1+H, Urine Ketones 1+H, Urine Nitrite NEGATIVE, Urine Bilirubin NEGATIVE, Urine Urobilinogen NORMAL, Urine Leukocyte Esterase NEGATIVE, Urine RBC (Auto) NEGATIVE, Urine RBC NONE, Urine WBC NONE, Urine Squamous Epithelial Cells RARE, Urine Crystals NONE, Urine Bacteria NEGATIVE, Urine Casts NONE, Urine Mucus NEGATIVE, Urine Culture Indicated NO 12/09/18 15:53: Glucometer 279H Imaging X-rays were reviewed which shows an impacted subcapital fracture of the right hip and valgus. No displacement on the lateral view. Previous superior and inferior pubic rami fractures on the left. Previous impacted subcapital fracture on the left with 3 screws Assessment and Plan Assessment Impacted subcapital fracture right hip Problem List Impacted subcapital fracture right hip Plan Treatment options were discussed with the family. I talked to her son and also her daughter about treatment options. I discussed nonoperative treatment with nonweightbearing with progressive weightbearing over time. He may be difficult to keep her from nonweightbearing due to her dementia. Surgical options include in situ screw fixation and hemiarthroplasty. After discussing both procedures as well as the risks and complications both her son and daughter want to proceed with in situ screw fixation. They understand she is at increased risk with surgery and anesthesia due to her age and medical condition. And they would like to proceed with surgery with in situ screw fixation of the impacted subcapital fracture of the right hip. Final Diagonsis Impacted subcapital fracture right hip Level of the visit: Level 3 DANIEL MUSE MD Dec 09, 2018 20:02 POS
[2018-12-09] MEDS ORDERED: ENOXAPARIN 40 MG/0.4 ML (LOVENOX) SYR SQ SCH (21:00)
[2018-12-09] MEDS: SENNOSIDES 8.6 MG (SENOKOT) TAB PO SCH (21:57)
[2018-12-09] MEDS: DOCUSATE SODIUM 100 MG (COLACE) CAP PO SCH (21:57)
[2018-12-09] MEDS: inSUlin ASPART (NovoLOG) 1 UNIT/0.01 ML (CHARGE PER UNIT) SC SCH (21:58)
--- NOTE | 2018-12-09 22:00 | NUR ---
DR RG CALLED REGARDING ADMINISTERING LOVENOX TO PT SINCE PT IS GETTING SURGERY TOMORROW. DR RG SAID TO ADMINISTER THE ONE DOSE THIS EVENING
[2018-12-09 23:46] VITALS: BP 148/66
[2018-12-10] VITALS (10 sets, daily range): BP systolic 109–163; BP diastolic 61–75
[2018-12-10] MEDS ORDERED: RT-ALBUTEROL SULF 2.5 MG/3 ML PRE-MIX VIAL INH PRN
[2018-12-10] MEDS: inSUlin ASPART (NovoLOG) 1 UNIT/0.01 ML (CHARGE PER UNIT) SC SCH ×4 (06:12→21:30)
[2018-12-10 06:39] LABS: BASOPHILS # (AUTO) 0.1 10^3/uL (0.0-0.1); BASOPHILS % (AUTO) 1 % (0-10); EOSINOPHILS # (AUTO) 0.4 10^3/uL (0.0-0.3); EOSINOPHILS % (AUTO) 4 % (0-10); HEMATOCRIT 38 % (35-52); HEMOGLOBIN 12.8 G/DL (11.5-16.0); LYMPHOCYTES # (AUTO) 1.4 X 10^3 (1.0-4.0); LYMPHOCYTES % (AUTO) 13 % (12-44); MEAN CORPUSCULAR HEMOGLOBIN 29 PG (25-34); MEAN CORPUSCULAR HGB CONC 34 G/DL (32-36); MEAN CORPUSCULAR VOLUME 87 FL (80-99); MEAN PLATELET VOLUME 9.3 FL (7.4-10.4); MONOCYTES % (AUTO) 9 % (0-12); NEUTROPHILS # (AUTO) 7.9 X 10^3 (1.8-7.8); NEUTROPHILS % (AUTO) 74 % (42-75); PLATELET COUNT 243 10^3/uL (130-400); RED CELL DISTRIBUTION WIDTH 14.2 % (10.0-14.5); WHITE BLOOD COUNT 10.8 10^3/uL (4.3-11.0)
[2018-12-10 06:54] LABS: CALCIUM 8.6 MG/DL (8.5-10.1); CREATININE SERUM 0.95 MG/DL (0.60-1.30); POTASSIUM 4.1 MMOL/L (3.6-5.0)
[2018-12-10] MEDS: LACTATED RINGERS 1,000 ML IV SCH ×2 (07:55→16:14)
[2018-12-10] MEDS: DOCUSATE SODIUM 100 MG (COLACE) CAP PO SCH ×2 (08:06→21:29)
[2018-12-10] MEDS: SENNOSIDES 8.6 MG (SENOKOT) TAB PO SCH ×2 (08:06→21:29)
[2018-12-10] MEDS ORDERED: INSU100I14 SQ ×2 (08:58)
[2018-12-10] MEDS ORDERED: OXYB5TAB9 PO (08:58)
[2018-12-10] MEDS ORDERED: MEMA28CA5 PO (08:58)
[2018-12-10] MEDS ORDERED: ASPI-999 PO (08:58)
[2018-12-10] MEDS ORDERED: DONE10TA41 PO (08:58)
[2018-12-10] MEDS ORDERED: INSU100I14 SC (08:58)
[2018-12-10] MEDS ORDERED: CITA10TA7 PO (08:58)
[2018-12-10] MEDS ORDERED: fentaNYL INJECTION 100 MCG/2 ML AMP ONE (08:58)
[2018-12-10] MEDS ORDERED: LISI-556 PO (08:58)
[2018-12-10] MEDS ORDERED: QUET25TA73 PO (08:58)
[2018-12-10] MEDS ORDERED: IBUP-30 PO (08:58)
[2018-12-10] MEDS ORDERED: OMG1KC PO (08:58)
[2018-12-10] MEDS ORDERED: ACET-168 PO (08:58)
[2018-12-10] MEDS ORDERED: AMLO5TAB9 PO (08:58)
[2018-12-10] MEDS ORDERED: LOPE2CAP PO (08:58)
[2018-12-10] MEDS ORDERED: SULF1TAB35 PO (08:59)
[2018-12-10] MEDS ORDERED: TRAM50TA2 PO (08:59)
[2018-12-10] MEDS ORDERED: GUAI5SYR PO (08:59)
[2018-12-10] MEDS ORDERED: MIDAZOLAM 2 MG/2 ML (VERSED) VIAL ONE (08:59)
[2018-12-10] MEDS ORDERED: LORA0.5T PO (08:59)
[2018-12-10] MEDS ORDERED: INSU100I29 SC (09:03)
--- NOTE | 2018-12-10 09:04 | NUR ---
UPDATED MED REC WITH MAR ON THE PATIENTS CHART.
[2018-12-10] MEDS ORDERED: SEVOFLURANE (ULTANE) 15 ML INHAL SOLN ONE ×3 (09:12→11:09)
[2018-12-10] MEDS ORDERED: DEXAMETHASONE 10 MG/ML (DECADRON) 1 ML VIAL ONE (09:12)
[2018-12-10] MEDS ORDERED: ONDANSETRON 4 MG/2 ML (SDV) Z0FRAN ONE (09:12)
[2018-12-10] MEDS ORDERED: LIDOCAINE PF 2% 5 ML (XYLOCAINE) VIAL ONE (09:12)
[2018-12-10] MEDS ORDERED: proPOfol 200 MG/20 ML (DIPRIVAN) VIAL IV ONE (09:12)
--- NOTE | 2018-12-10 09:31 | Progress Note ---
Subjective Date Seen by a Provider: Dec 10, 2018 Time Seen by a Provider: 09:10 Subjective/Events-last exam PT SEEN WITH HER FAMILY IN THE ROOM, ANSWERING QUESTIONS FOR HER - PT ABLE TO REPORT THAT SHE HAD NO PAIN, KNOWS THAT SHE IS IN THE HOSPITAL. HER FAMILY IS PLANNING ON HER HAVING EVALUATION FOR INPT REHAB Review of Systems General: No Chills; Fatigue HEENT: No Head Aches Pulmonary: No Dyspnea, No Cough Cardiovascular: No: Chest Pain, Palpitations Gastrointestinal: No: Nausea, Abdominal Pain Musculoskeletal: other (HIP FX, PT DENIES PAIN) Neurological: Confusion Objective Exam Last Set of Vital Signs Vital Signs Date Time Temp Pulse Resp B/P (MAP) Pulse Ox O2 Delivery O2 Flow Rate FiO2 12/10/18 08:00 36.6 79 16 163/74 (103) 95 Room Air Capillary Refill : Less Than 3 SecondsLess Than 3 Seconds I&O Intake and Output 12/10/18 00:00 Intake Total 100 ml Output Total 1000 ml Balance -900 ml IV Total 100 ml Output Urine Total 1000 ml Daily Weight Change No No General: Alert, Other (ORIENTED TO PERSON, WAS ABLE TO STATE THAT SHE IS IN THE HOSPITAL) HEENT: PERRLA Neck: Supple Lungs: Clear to Auscultation Heart: Regular Rate Abdomen: Normal Bowel Sounds, Soft, No Tenderness Extremities: No Cyanosis, Other (NO BRUISING TO RIGHT HIP) Skin: No Rashes, No Breakdown Psych/Mental Status: Other (ALERT, PLEASANT) Results Lab Laboratory Tests 12/09/18 11:53: Glucometer 240H 12/09/18 13:38: White Blood Count 12.1H, Red Blood Count 4.74, Hemoglobin 13.8, Hematocrit 40, Mean Corpuscular Volume 85, Mean Corpuscular Hemoglobin 29, Mean Corpuscular Hemoglobin Concent 34, Red Cell Distribution Width 14.6H, Platelet Count 295, Mean Platelet Volume 9.7, Neutrophils (%) (Auto) 80H, Lymphocytes (%) (Auto) 11L , Monocytes (%) (Auto) 8, Eosinophils (%) (Auto) 1, Basophils (%) (Auto) 0, Neutrophils # (Auto) 9.7H, Lymphocytes # (Auto) 1.3, Monocytes # (Auto) 0.9, Eosinophils # (Auto) 0.2, Basophils # (Auto) 0.0, Sodium Level 138, Potassium Level 5.1H, Chloride Level 106, Carbon Dioxide Level 18L, Anion Gap 14, Blood Urea Nitrogen 19H, Creatinine 1.02, Estimat Glomerular Filtration Rate 52, BUN/Creatinine Ratio 19, Glucose Level 225H, Calcium Level 9.2, Corrected Calcium 9.3, Total Bilirubin 0.8, Aspartate Amino Transf (AST/SGOT) 34, Alanine Aminotransferase (ALT/SGPT) 30, Alkaline Phosphatase 169H, B-Type Natriuretic Peptide 45.3, Total Protein 7.8, Albumin 3.9 12/09/18 13:50: Urine Color YELLOW, Urine Clarity CLEAR, Urine pH 6, Urine Specific [place] 1.010L, Urine Protein 1+H, Urine Glucose (UA) 1+H, Urine Ketones 1+H, Urine Nitrite NEGATIVE, Urine Bilirubin NEGATIVE, Urine Urobilinogen NORMAL, Urine Leukocyte Esterase NEGATIVE, Urine RBC (Auto) NEGATIVE, Urine RBC NONE, Urine WBC NONE, Urine Squamous Epithelial Cells RARE, Urine Crystals NONE, Urine Bacteria NEGATIVE, Urine Casts NONE, Urine Mucus NEGATIVE, Urine Culture Indicated NO 12/09/18 15:53: Glucometer 279H 12/09/18 21:13: Glucometer 317H 12/10/18 05:09: Glucometer 130H 12/10/18 06:35: White Blood Count 10.8, Red Blood Count 4.35, Hemoglobin 12.8, Hematocrit 38, Mean Corpuscular Volume 87, Mean Corpuscular Hemoglobin 29, Mean Corpuscular Hemoglobin Concent 34, Red Cell Distribution Width 14.2, Platelet Count 243, Mean Platelet Volume 9.3, Neutrophils (%) (Auto) 74, Lymphocytes (%) (Auto) 13, Monocytes (%) (Auto) 9, Eosinophils (%) (Auto) 4, Basophils (%) (Auto) 1, Neutrophils # (Auto) 7.9H, Lymphocytes # (Auto) 1.4, Monocytes # (Auto) 1.0, Eosinophils # (Auto) 0.4H, Basophils # (Auto) 0.1, Sodium Level 137, Potassium Level 4.1, Chloride Level 106, Carbon Dioxide Level 21, Anion Gap 10, Blood Urea Nitrogen 11, Creatinine 0.95, Estimat Glomerular Filtration Rate 57, BUN/Creatinine Ratio 12, Glucose Level 130H, Calcium Level 8.6 Assessment/Plan Assessment/Plan Assess & Plan/Chief Complaint RIGHT HIP FRACTURE ADVANCED DEMENTIA DIABETES MELLITUS DEPRESSION/ANXIETY RIGHT HIP FRACTURE - DISCUSSED HER CASE WITH ORTHOPEDIC SURGEON - PLAN IS FOR PATIENT TO HAVE PI NNING/SCREWS TO HIP AND THEN EVAL FOR INPT REHAB. I AM NOT SURE IF SHE WILL BE ABLE TO COGNITIVELY PARTICIPATE IN THE INPT REHAB UNIT'S REQUIREMENT. - IF SHE CANNOT PARTICIPATE IN THE REQUIRED 3 HOURS OF THERAPY - THEN WILL SEE ABOUT PT GOING BACK TO [facility] WITH PHYSICAL THERAPY. ADVANCED DEMENTIA WITH DEPRESSION AND ANXIETY - CONTINUE WITH ARICEPT, NAMENDA AND CITALOPRAM AND QUETIAPINE AND PRN LORAZEPAM FOR HER OVERWHELMING ANXIETY. DIABETES MELLITUS - MONITOR FSBS AND MAY CONSIDER FURTHER MEDICATION ADJUSTMENTS. Clinical Quality Measures DVT/VTE Risk/Contraindication: Risk Factor Score Per Nursin RFS Level Per Nursing on Admit: 4+=Very High FRED VARGAS MD Dec 10, 2018 09:31 POS
--- NOTE | 2018-12-10 09:32 | History & Physical-Hospitalist ---
[facility] 12/10/18 0932: History of Present Illness HPI/Chief Complaint Antonia Orourke is a 78-year-old female with past medical history of hypertension, type II diabetes mellitus with insulin use, hyperlipidemia, dementia, who presented with hip pain after a ground-level fall. She has a history of dementia and is a poor historian. She lives at a care home. Her family would like to proceed with surgery according to the ER physician. Family was present on examination. She states that she is feeling well. She denies any pain at the current time. She has not needed pain medications since her admission from the ER. This information was gleaned from her medical record due to patient being a poor historian. Date Seen 12/10/18 Time Seen by a Provider: 09:27 Attending Physician Fred Mcdonnell MD PCP Vazquez Higgins DO Referring Physician Date of Admission Dec 09, 2018 at 13:26 Home Medications & Allergies Home Medications Reviewed patient Home Medication Reconciliation performed by pharmacy medication reconciliations concrete technician and/or nursing. Patients Allergies have been reviewed. Allergies Allergies Uncoded Allergies narcotics ( Adverse Reaction, Severe, 03/25/16) Past Kzlrqsq-Ibzukq-Kfjdzk Hx Past Med/Social Hx: Reviewed Nursing Past Med/Soc Hx Patient Social History Alcohol Use: Denies Use Number of Drinks Today: Alcohol Beverage of Choice: Wine Recreational Drug Use: No Smoking Status: Former Smoker Former Smoker, Quit: Jan 13, 2016 Type Used: Cigarettes 2nd Hand Smoke Exposure: No Recent Foreign Travel: No Contact w/other who traveled: No Recent Hopitalizations: No Recent Infectious Disease Expo: No Immunizations Up To Date Tetanus Booster (TDap): More than 5yrs Date of Pneumonia Vaccine: Dec 16, 2010 Date of Influenza Vaccine: Nov 28, 2018 Seasonal Allergies Seasonal Allergies: No Past Medical History Surgeries: Hysterectomy Currently Using CPAP: No Currently Using BIPAP: No Cardiac: Hypertension Neurological: Dementia : No Reproductive: No Sexually Transmitted Disease: No HIV/AIDS: No 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 Disorders: Denies Hysterectomy, Menopausal Genitourinary: UTI-Chronic Endocrine: Diabetes, Insulin dep HEENT: Macular Degeneration Loss of Vision: Denies Hearing Impairment: Denies Psychosocial: Sleep Difficulties, Depression Skin/Integumentary: Herpes History of Blood Disorders: No Adverse Reaction to Blood Conde: No Family History Stroke 03 FATHER, Onset:70 No Pertinent Family Hx Review of Systems Constitutional: no symptoms reported; No see HPI, No chills, No diaphoresis, No dizziness, No fever, No malaise, No weakness, No weight gain, No weight loss, No other EENTM: no symptoms reported; No see HPI, No ear discharge, No hearing loss, No ear pain, No blurred vision, No double vision, No eye pain, No tearing, No vision loss, No dental problems, No hoarseness, No mouth pain, No mouth swelling , No epistaxis, No nose congestion, No nose pain, No throat pain, No throat swelling, No other Respiratory: no symptoms reported; No see HPI, No cough, No dyspnea on exertion, No hemoptysis, No orthopnea, No phlegm, No short of breath, No stridor, No wheezing, No other Cardiovascular: no symptoms reported; No see HPI, No chest pain, No edema, No Hx of Intervention, No palpitations, No syncope, No vascular heart diseas, No other Gastrointestinal: No RUQ, No LUQ, No RLQ, No LLQ; no symptoms reported; No see HPI, No abdominal pain, No constipation, No diarrhea, No dysphagia, No hematemesis, No heartburn, No jaundice, No loss of appetite, No melena, No nausea, No vomiting, No other Genitourinary: no symptoms reported; No see HPI, No decreased output, No discharge, No dysuria, No frequency, No hematuria, No hesitancy, No incontinence, No nocturia, No pain, No other : No Musculoskeletal: no symptoms reported; No see HPI, No back pain, No gout, No joint pain, No joint swelling, No muscle pain, No muscle stiffness, No muscle cramps, No muscle twitching, No muscle weakness, No neck pain, No other Skin: no symptoms reported Psychiatric/Neurological: No Symptoms Reported Physical Exam Physical Exam Vital Signs Vital Signs - First Documented 12/09/18 11:30 Temp 35.7 Pulse 62 Resp 16 B/P (MAP) 135/85 (102) Pulse Ox 95 Capillary Refill : Less Than 3 SecondsLess Than 3 Seconds Height, Weight, BMI Height: 5'2.00" Weight: 131lbs. 0.0oz. 59.146822hw; 23.46 BMI Method:Stated General Appearance: No Apparent Distress, WD/WN Eyes: Bilateral Eye Normal Inspection, Bilateral Eye PERRL, Bilateral Eye EOMI HEENT: Moist Mucous Membranes Neck: Normal Inspection, Non Tender, Supple Respiratory: Chest Non Tender, Lungs Clear, Normal Breath Sounds, No Accessory Muscle Use, No Respiratory Distress Cardiovascular: Regular Rate, Rhythm, No Edema, No Gallop, No JVD, No Murmur, Normal Peripheral Pulses Gastrointestinal: Normal Bowel Sounds, No Organomegaly, No Pulsatile Mass, Non Tender, Soft Extremity: Normal Capillary Refill, Normal Inspection, No Calf Tenderness, No Pedal Edema Neurologic/Psychiatric: Alert, Oriented x3, No Motor/Sensory Deficits Skin: Normal Color, Warm/Dry Lymphatic: No Adenopathy Results Results/Procedures Labs Laboratory Tests 12/09/18 13:38 12/10/18 06:35 Patient resulted labs reviewed. Imaging: Reviewed Imaging Report Assessment/Plan Admission Diagnosis displaced fracture of right femoral neck Admission Status: Inpatient Order (span 2 midnights) Reason for Inpatient Admission: hip fracture Assessment and Plan 1. Right Hip Fracture: Orthopedic intervention - Rehab starting tomorrow: evaluation of whether or not inpatient rehab will accept - Pain management post-op 2. Dementia: - Continue home regiment: Donepezil, Quetiapine, and Memantine 3. T2DM: - Continue insulin and routine monitor of blood Gluc 4. Depression and Anxiety: - Continue home regiment: Lorazepam and Citalopram Clinical Quality Measures DVT/VTE Risk/Contraindication: Risk Factor Score Per Nursin RFS Level Per Nursing on Admit: 4+=Very High FRED MCDONNELL MD 12/10/18 7112: History of Present Illness Source: patient, family, RN notes reviewed, other (ER NOTES) Past Eceqmiy-Ftvnpm-Osobzx Hx Family History Stroke 03 FATHER, Onset:70 Supervisory-Addendum Brief Verification & Attestation Participated in pt care: history, MDM, physical Personally performed: exam, history, MDM Care discussed with: Medical Student Procedures: performed SEE SOAP NOTE FOR FULL DETAILS I EXAMINED PATIENT WITH THE MEDICAL STUDENT AND DISCUSSED HER CASE/CARE WITH THE SURGEON AND HER FAMILY. VIV HURT STUD Dec 10, 2018 09:32 FRED ORR MD Dec 10, 2018 21:49 POS
--- NOTE | 2018-12-10 09:41 | Progress Note-Pre Operative ---
Pre-Operative Progress Note H&P Reviewed The H&P was reviewed, patient examined and no changes noted. I spoke with the patient sons and daughter who's on the phone and we discussed the procedure risks and complications. Had no further questions or concerns. They would like to proceed with in situ screw fixation of the impacted subcapital fracture of the right hip Date Seen by Provider: Dec 10, 2018 Time Seen by Provider: 09:00 Date H&P Reviewed: Dec 10, 2018 Time H&P Reviewed: 09:15 Pre-Operative Diagnosis: impacted subcapital fracture right hip. No changes to H&P DANIEL MUSE MD Dec 10, 2018 09:41 POS
[2018-12-10] MEDS ORDERED: NS (IVPB) 100 ML ONE (09:48)
[2018-12-10] MEDS ORDERED: ceFAZolin INJECTION 2,000 MG ONE (09:48)
[2018-12-10] MEDS ORDERED: ceFAZolin 2 GM IV Premixed 50 ML IV ONE (10:00)
[2018-12-10] MEDS ORDERED: NEO/POLY/BAC (NEOSPORIN) OINT 15 GM TUBE ONE (10:59)
[2018-12-10] MEDS ORDERED: BUPIVACAINE 0.25% 30 ML (SENSORCAINE) VIAL ONE (11:09)
--- NOTE | 2018-12-10 11:25 | Diagnostic Imaging Report ---
INDICATION: Hip fracture. FINDINGS: 48 seconds of intraoperative fluoroscopy was utilized during open reduction and internal fixation of the right hip fracture with partially threaded cannulated screws. Two images were obtained. IMPRESSION: Intraoperative fluoroscopy as described. Dictated by: Dictated on workstation # [id number]
[2018-12-10] MEDS ORDERED: PROMETHAZINE INJ 25 MG/ML (PHENERGAN) AMP IVP ONE (11:30)
[2018-12-10] MEDS ORDERED: ONDANSETRON 4 MG/2 ML (SDV) Z0FRAN IVP PRN (11:30)
[2018-12-10] MEDS ORDERED: morphine INJ 10 MG/ML 1ML (SYR OR VIAL) IVP ONE (11:30)
--- NOTE | 2018-12-10 11:45 | Operative Report - Ortho ---
Operative Report Surgeon (s)/Finger Waver (s) Surgeon DANIEL MUSE MD Finger Waver n/a Pre-Operative Diagnosis impacted subcapital fracture right hip. No changes to H&P Post-Operative Diagnosis same Operative Report Date of Procedure: Dec 10, 2018 Name of Procedure Performed: Percutaneous in situ cannulated screw fixation of impacted subcapital fracture right hip 7.3 mm screws by 75, 80 and 90 mm Description & Findings The patient was seen in the preoperative area and the right leg was marked. Surgical procedure was discussed with the family preop and they would like to p roceed. Patient was taken to the operating room and after administration of general anesthesia in her hospital bed she was placed on the fracture table with the peroneal post in place. He right foot and ankle were placed in the traction boot with no traction on the leg. The left leg was placed in a padded well leg rice. X-ray/fluoroscopy was used to visualize the fracture which remained impacted in slight valgus with no displacement on the lateral view. At this point the right hip and thigh were prepped and draped in the usual sterile manner. A guidepin was inserted through the skin into the lateral cortex of the femur. This was placed into the inferior central neck on the AP and lateral views. Next 2 additional pins were placed through a small incision anterior superior and posterior superior. These were placed up to the subchondral bone. They were measured and the anterior superior screw was 75 mm, the posterior superior screw was 80 mm and the inferior screw was 90 mm in length. The cortex was drilled and the screws were inserted of the guidewires to the subchondral bone. Images used to check position and maximum internal or external rotation in both AP and lateral views and no penetration of the head was noted. At this point the guidewires were removed. The wound is irrigated with normal saline. Subcutaneous tissue was closed with 2-0 Vicryl. Skin with skin clips. Wound was dressed with antibiotic ointment, Adaptic and 4 x 4's which were taped in position. At this point anesthesia inserted a iliac fascial block. The patient was then transferred to her hospital bed, then to recovery room in good condition. She tolerated the procedure well. Drains none Complications none Anesthesia Type Gen. Estimated Blood Loss Less than 30 mL Packing none. Specimen(s) collected/removed None DANIEL MUSE MD Dec 10, 2018 11:45 POS
--- NOTE | 2018-12-10 14:05 | NUR ---
Pt is Jainism. Forging Die Finisher provided prayer and Communion.
[2018-12-10] MEDS: ceFAZolin 2 GM IV Premixed 50 ML IV SCH (16:15)
[2018-12-10] MEDS: ENOXAPARIN 40 MG/0.4 ML (LOVENOX) SYR SC SCH (21:30)
[2018-12-11] VITALS (7 sets, daily range): BP systolic 120–162; BP diastolic 49–78
[2018-12-11] MEDS: ceFAZolin 2 GM IV Premixed 50 ML IV SCH ×2 (00:19→09:17)
[2018-12-11] MEDS: LACTATED RINGERS 1,000 ML IV SCH ×2 (05:53→20:11)
[2018-12-11] MEDS: inSUlin ASPART (NovoLOG) 1 UNIT/0.01 ML (CHARGE PER UNIT) SC SCH ×4 (06:20→21:57)
[2018-12-11 07:12] LABS: BASOPHILS % (AUTO) 0 % (0-10); EOSINOPHILS # (AUTO) 0.4 10^3/uL (0.0-0.3); EOSINOPHILS % (AUTO) 4 % (0-10); HEMATOCRIT 36 % (35-52); HEMOGLOBIN 12.1 G/DL (11.5-16.0); LYMPHOCYTES # (AUTO) 1.6 X 10^3 (1.0-4.0); LYMPHOCYTES % (AUTO) 14 % (12-44); MEAN CORPUSCULAR HEMOGLOBIN 30 PG (25-34); MEAN CORPUSCULAR HGB CONC 34 G/DL (32-36); MEAN CORPUSCULAR VOLUME 88 FL (80-99); MEAN PLATELET VOLUME 9.8 FL (7.4-10.4); MONOCYTES % (AUTO) 9 % (0-12); NEUTROPHILS # (AUTO) 8.1 X 10^3 (1.8-7.8); NEUTROPHILS % (AUTO) 73 % (42-75); PLATELET COUNT 238 10^3/uL (130-400); RED CELL DISTRIBUTION WIDTH 14.4 % (10.0-14.5); WHITE BLOOD COUNT 11.1 10^3/uL (4.3-11.0)
[2018-12-11 07:46] LABS: BUN/CREATININE RATIO 14; CALCIUM 8.5 MG/DL (8.5-10.1); CARBON DIOXIDE 24 MMOL/L (21-32); CHLORIDE 108 MMOL/L (98-107); CREATININE SERUM 0.79 MG/DL (0.60-1.30); GFR ESTIMATED > 60; GLUCOSE 72 MG/DL (70-105); POTASSIUM 4.1 MMOL/L (3.6-5.0); SODIUM 140 MMOL/L (135-145)
--- NOTE | 2018-12-11 08:11 | Progress Note ---
Subjective Date Seen by a Provider: Dec 11, 2018 Time Seen by a Provider: 08:50 Subjective/Events-last exam PT IS A 78 Y/O FEMALE WHO IS POST-OP DAY #1 FROM RIGHT HIP FRACTURE SURGERY. ROMINA IS SITTING UP IN THE CHAIR AT BEDSIDE - SHE DENIES ANY PAIN UNLESS SHE IS BEING MOVED. SHE STATES THAT SHE HAS NOT HAD A BOWEL MOVEMENT, SHE DENIES ABDOMINAL PAIN, NAUSEA, CHEST PAIN AND SHORTNESS OF BREATH. Review of Systems General: No Fatigue, No Malaise HEENT: No Head Aches Pulmonary: No Dyspnea, No Cough Cardiovascular: No: Chest Pain, Palpitations Gastrointestinal: Constipation; No: Nausea, Abdominal Pain Genitourinary: Other (HUERTA IN PLACE) Musculoskeletal: leg pain (INTERMITTENT) Neurological: Weakness, Confusion Objective Exam Last Set of Vital Signs Vital Signs Date Time Temp Pulse Resp B/P (MAP) Pulse Ox O2 Delivery O2 Flow Rate FiO2 12/11/18 04:00 36.8 75 18 135/62 (86) 98 Room Air 12/10/18 12:10 2 Capillary Refill : Less Than 3 SecondsLess Than 3 Seconds I&O Intake and Output 12/11/18 00:00 Intake Total 660 ml Output Total 1050 ml Balance -390 ml Intake Oral 560 ml IV Total 100 ml Output Urine Total 1050 ml General: Alert, Cooperative, No Acute Distress, Other (ORIENTED TO PERSON AND PLACE, NOT TIME) HEENT: Atraumatic, PERRLA Neck: Supple Lungs: Clear to Auscultation Heart: Regular Rate Abdomen: Normal Bowel Sounds, Soft Skin: Other (RIGHT HIP SURGICAL DRESSING IN PLACE) Psych/Mental Status: Mental Status NL, Mood NL Results Lab Laboratory Tests 12/10/18 15:47: Glucometer 362H 12/10/18 21:05: Glucometer 222H 12/11/18 06:10: White Blood Count 11.1H, Red Blood Count 4.10L, Hemoglobin 12.1, Hematocrit 36, Mean Corpuscular Volume 88, Mean Corpuscular Hemoglobin 30, Mean Corpuscular Hemoglobin Concent 34, Red Cell Distribution Width 14.4, Platelet Count 238, Mean Platelet Volume 9.8, Neutrophils (%) (Auto) 73, Lymphocytes (%) (Auto) 14, Monocytes (%) (Auto) 9, Eosinophils (%) (Auto) 4, Basophils (%) (Auto) 0, Neutrophils # (Auto) 8.1H, Lymphocytes # (Auto) 1.6, Monocytes # (Auto) 1.0, E osinophils # (Auto) 0.4H, Basophils # (Auto) 0.0, Sodium Level 140, Potassium Level 4.1, Chloride Level 108H, Carbon Dioxide Level 24, Anion Gap 8, Blood Urea Nitrogen 11, Creatinine 0.79, Estimat Glomerular Filtration Rate > 60, BUN/Creatinine Ratio 14, Glucose Level 72, Calcium Level 8.5 12/11/18 06:18: Glucometer 72 Assessment/Plan Assessment/Plan Assess & Plan/Chief Complaint RIGHT HIP FRACTURE ADVANCED DEMENTIA DIABETES MELLITUS DEPRESSION/ANXIETY RIGHT HIP FRACTURE - POD#1 - DISCUSSED HER CASE WITH ORTHOPEDIC SURGEON - PRIOR TO SURGERY - HE PLACED TWO SCREWS INTO RIGHT HIP, PT WAS MADE NON WEIGHT BEARING. - DISCUSSED CASE WITH HER SON DEYSI - HE WILL TALK TO THE REST OF HIS FAMILY - BUT HE INDICATED THAT SINCE SHE CANNOT GO DOWN TO INPT REHAB DUE TO HER NON- WEIGHT BEARING STATUS - THE PLAN WOULD BE TO CONSIDER VIA [facility]. ADVANCED DEMENTIA WITH DEPRESSION AND ANXIETY - CONTINUE WITH ARICEPT, NAMENDA AND CITALOPRAM AND QUETIAPINE AND PRN LORAZEPAM FOR HER OVERWHELMING ANXIETY. DIABETES MELLITUS - MONITOR FSBS AND MAY CONSIDER FURTHER MEDICATION ADJUSTMENTS. Clinical Quality Measures DVT/VTE Risk/Contraindication: Risk Factor Score Per Nursin RFS Level Per Nursing on Admit: 4+=Very High FRED VARGAS MD Dec 11, 2018 08:11 POS
[2018-12-11] MEDS ORDERED: METHYLNALTREXONE 12 MG/0.6 ML (RELISTOR) VIAL SQ ONE (09:15)
[2018-12-11] MEDS: SENNOSIDES 8.6 MG (SENOKOT) TAB PO SCH ×2 (09:17→20:12)
[2018-12-11] MEDS: DOCUSATE SODIUM 100 MG (COLACE) CAP PO SCH ×2 (09:17→20:12)
--- NOTE | 2018-12-11 09:39 | Physical Therapy Evaluation ---
PT Evaluation-General Medical Diagnosis Admission Date Dec 09, 2018 at 13:26 Medical Diagnosis: R hip fx Onset Date: Dec 09, 2018 Therapy Diagnosis Therapy Diagnosis: weakness, debility Height/Weight Height (Feet): 5 Height (Inches): 2.00 Weight (Pounds): 131 Weight (Ounces): 0.0 Precautions Precautions/Isolations: Fall Prevention, Standard Precautions Weight Bear Status Right Lower Extremity: Right Non Weight Bearing Left Lower Extremity: Left Weight Bearing/Tolerated Referral Physician: Nel Reason for Referral: Evaluation/Treatment Medical History Pertinent Medical History: DM, Dementia, HTN Current History ER secondary to fall; lives at [facility]. Reviewed History: Yes Social History Home: [facility] Prior Prior Level of Function SCALE: Activities may be completed with or without assistive devices. 0-Fxwzxjboud-syavcnt completes the activity by him/herself with no assistance from a helper. 5-Set-up or Clean-up Assistance-helper sets up or cleans up; patient completes activity. [place] assists only prior to or following the activity. 4-Supervision or Touching Assistance-helper provides verbal cues and/or touc christi/steadying and/or contact guard assistance as patient completes activity. Assistance may be provided throughout the activity or intermittently. 3-Partial/Moderate Assistance-helper does LESS THAN HALF the effort. [place] lifts, holds or supports trunk or limbs, but provides less than half the effort. 2-Substantial/Maximal Assistance-helper does MORE THAN HALF the effort. [place] lifts or holds trunk or limbs and provides more than half the effort. 8-Vbgvmwyjn-ferkvk does ALL the effort. Patient does none of the effort to complete the activity. Or, the assistance of 2 or more helpers is required for the patient to complete the activity. If activity was not attempted, code reason: 7-Patient Refused. 9-Not Applicable-not attempted and the patient did not perform the activity before the current illness, exacerbation or injury. 10-Not Attempted due to Environmental Limitations-(lack of equipment, weather restraints, etc.). 88-Not Attempted due to Medical Conditions or Safety Concerns. Bed Mobility: 4 Transfers (B,C,W/C): 3 Prior Devices Use: Manual wheelchair PT Evaluation-Current Subjective Patient is awake and alert and agrees to PT at this time. Patient would like to move to chair. Patient cannot accurately report history. Pain Numeric Pain Scale: 0-No Pain Location: No Pain Reported Objective Patient Orientation: Confused (Dementia) Problem Solving: Fair Attachments: SCD's, Felder Catheter, IV ROM/Strength ROM Lower Extremities WFL Strength Lower Extremities LLE: grossly 3/5, RLE: grossly 2/5 Integumentary/Posture Integumentary See nursing notes Bowel Incontinence: No Bladder Incontinence: Yes Posture WFL Neuromuscular (Tone, Coordination, Reflexes) grossly intact Sensory Vision: Wears Glasses Hearing: Functional Transfers Roll Left to Right (QC): 2 Lying to Sitting/Side of Bed(Q: 2 Sit to Stand (QC): 1 Chair/Vhl-vp-Peapd Xfer(QC): 1 Balance Sitting Static: Normal Sitting Dynamic: Normal Standing Static: Poor Standing Dynamic: Poor Assessment/Needs Patient required substantial assistance for bed mobility to sit to EOB due to difficulty with following instructions and weakness in BLE. Patient was unable to assist with standing from EOB or transfer to chair. Patient instructed to maintain NWB on RLE. Patient unable to complete seated LAQ without assistance d/t weakness. Patient positioned in chair with legs elevated. Rehab Potential: Fair PT Sanitation Truck Cleaner Goals Sanitation Truck Cleaner Goals Sit to Lying (QC): 4 Lying-Sitting on Side/Bed(QC): 4 Sit to Stand (QC): 3 Roll Left to Right (QC): 4 Chair/Ajc-qe-Czhzt Xfer(QC): 3 PT Plan Problem List Problem List: Activity Tolerance, Functional Strength, Safety, Balance, Gait, Transfer, Bed Mobility Treatment/Plan Treatment Plan: Continue Plan of Care Treatment Plan: Bed Mobility, Education, Functional Activity Isael, Functional Strength, Gait, Safety, Therapeutic Exercise, Transfers Treatment Duration: Dec 18, 2018 Frequency: 11 times per week Estimated Hrs Per Day: .5 hour per day Patient and/or Family Agrees t: Yes Safety Risks/Education Patient Education: Reviewed Precautions, Safety Issues Teaching Recipient: Patient Teaching Methods: Discussion Response to Teaching: Verbalize Understanding Time/GCodes Time In: 821 Time Out: 838 Total Billed Treatment Time: 17 Total Billed Treatment 1 visit EVModC 17min NICK STARR PT Dec 11, 2018 09:39 POS
--- NOTE | 2018-12-11 11:46 | Progress Note - Ortho ---
Progress Note Subjective Date of Exam 12/11/18 Chief Complaint POD#1 percutaneous in situ cannulated screw fixation of an impacted subcapital fracture of the right hip HPI/Events since last exam Mrs Orourke is up sitting in the chair. She states she's having no pain. She seemed to answer all questions appropriately Review of Systems Reviewed and no additions or changes Allergies: Uncoded Allergies: narcotics (Adverse Reaction, Severe, 03/25/16) Home Meds Reported Medications Insulin Detemir (Levemir Flextouch) 100 Unit/1 Ml Insuln.pen, 33 UNITS SC 1200, EA 12/10/18 Sulfamethoxazole/Trimethoprim (Bactrim Ds Tablet) 1 Each Tablet, 1 TAB PO BID for 4 Days, TAB START DATE 12-08-18 12/10/18 Lorazepam (Lorazepam) 0.5 Mg Tablet, 0.25 MG PO Q6H PRN for ANXIETY, TAB 12/10/18 Tramadol HCl (Tramadol HCl) 50 Mg Tablet, 50 MG PO Q6H PRN for PAIN-MODERATE, TAB 12/10/18 Guaifenesin/Dextromethorphan (Guaifenesin Dm Syrup) 5 Ml Syrup, 5 ML PO Q4H PRN for COUGH, ML 12/10/18 Loperamide HCl (Loperamide) 2 Mg Capsule, 2 MG PO UD PRN for DIARRHEA, CAP 12/10/18 Ibuprofen (Advil) 200 Mg Tablet, 400 MG PO Q4H PRN for MUSCLE TENSION, TAB 12/10/18 [place] 3 Polyunsat Fatty Acids (Fish Oil 1,000 mg Capsule) 1,000 Mg Cap, 1000 MG PO DAILY, CAP 12/10/18 Oxybutynin Chloride (Oxybutynin Chloride) 5 Mg Tablet, 5 MG PO BID, TAB 12/10/18 Memantine HCl (Memantine HCl ER) 28 Mg Cap.spr.24, 28 MG PO DAILY, TAB 12/10/18 Lisinopril (Lisinopril) 5 Mg Tablet, 5 MG PO DAILY, TAB 12/10/18 Donepezil HCl (Donepezil HCl) 10 Mg Tablet, 10 MG PO DAILY, TAB 12/10/18 Citalopram Hydrobromide (Citalopram HBr) 10 Mg Tablet, 10 MG PO DAILY, TAB 12/10/18 Quetiapine Fumarate (Quetiapine Fumarate) 25 Mg Tablet, 12.5 MG PO BID, TAB TAKES 1/2 (25MG) TABLET 12/10/18 Aspirin (Aspirin) 81 Mg Tab.chew, 81 MG PO DAILY, TAB 12/10/18 Amlodipine Besylate (Amlodipine Besylate) 5 Mg Tablet, 5 MG PO DAILY, TAB 12/10/18 Insulin Aspart (Novolog Flexpen) 300 Units/3 Ml Solution, 6 UNITS SC 0800, EA 12/10/18 Insulin Aspart (Novolog Flexpen) 300 Units/3 Ml Solution, SQ AC for SLIDING SC ABHILASH, EA </= 150 = NO INSULIN 151-200 = 2 UNITS 201-250 = 3 UNITS 251-300 = 4 UNITS 301-350 = 5 UNITS 351-400 = 6 UNITS IF REFUSING TO EAT HOLD SSI UNTIL SHE EATS HER MEAL 12/10/18 Insulin Aspart (Novolog Flexpen) 300 Units/3 Ml Solution, 8 UNITS SQ 1200,1700, EA 12/10/18 Acetaminophen (Acetaminophen Extra Strength) 500 Mg Tablet, 1000 MG PO Q8H PRN for PAIN-MILD OR TEMPATURE, TAB 12/10/18 Discontinued Reported Medications Metformin HCl (Metformin HCl) 500 Mg Tablet 12/31/16 Glimepiride (Glimepiride) 4 Mg Tablet 12/31/16 Nystatin (Nystatin) 15 Gm Cream..g., TP BID, TUBE 03/24/16 Insulin Determir (Levemir) 1,000 Units/10 Ml Soln, 5 UNITS SQ HS, EA 03/24/16 Insulin Determir (Levemir) 1,000 Units/10 Ml Soln, 10 UNITS SQ DAILY, EA 03/24/16 Insulin Aspart (Novolog) 100 Unit/1 Ml Susp, SQ SLIDING/SCALE PRN for BS ABOVE 150, ML USE THIS SLIDING SCALE IN ADDITION TO 5 UNTIS WITH MEALS 150-210 = 1 EXTRA UNIT 211-270 = 2 EXTRA UNITS 271-330 = 3 EXTRA UNITS 331-390 = 4 EXTRA UNITS >390 = 5 EXTRA UNITS NOT AT BEDTIME 03/24/16 Insulin Aspart (Novolog) 100 Unit/1 Ml Susp, 5 UNIT SQ TIDAC, ML 03/24/16 Loperamide HCl (Loperamide) 2 Mg Tablet, 2 MG PO QID PRN for LOOSE STOOLS, TAB 03/24/16 Memantine HCl (Namenda) 10 Mg Tablet, 10 MG PO BID, TAB 03/24/16 Acetaminophen (Tylenol) 325 Mg Tablet, 650 MG PO Q6H PRN for TEMP/MILD PAIN, TAB TAKES 2 (325MG) TABLETS 03/24/16 Tolterodine Tartrate (Tolterodine Tartrate ER) 4 Mg Cap.er.24h, 4 MG PO DAILY, CAP 03/24/16 Donepezil HCl (Aricept) 10 Mg Tablet, 10 MG PO HS, TAB 03/24/16 Citalopram Hydrobromide (Citalopram HBr) 20 Mg Tablet, 20 MG PO DAILY, TAB 03/24/16 Aspirin (Aspirin EC) 81 Mg Tablet.dr, 81 MG PO DAILY, TAB 01/08/16 Atorvastatin (Lipitor 20MG) 20 Mg Tablet, 20 MG PO HS, TAB 05/01/13 Lisinopril (Prinivil) 5 Mg Tablet, 5 MG PO DAILY, TAB HOLD FOR SBP<100 AND/OR DBP<60 AND PULSE LESS THAN OR EQUAL TO 60 05/01/13 Amlodipine Besylate (Norvasc) 10 Mg Tablet, 10 MG PO DAILY, TAB HOLD FOR SBP < 100 AND/OR DBP < 60 AND PULSE LESS THAN OR EQUAL TO 60 05/01/13 Discontinued Scripts Sulfamethoxazole/Trimethoprim (Sulfamethoxazole-Tmp Ds Tablet) 1 Each Tablet, 1 EACH PO BID, #8 TAB 0 Refills Prov:MARY ROBLES MD 12/07/18 Tramadol HCl (Tramadol HCl) 50 Mg Tablet, 50 MG PO Q6H PRN for PAIN, #20 TAB 0 Refills Prov:MARY ROBLES MD 04/19/16 Objective Exam Constitutional: [] HEENT: [] Neck: [] Cardiovascular: [] Respiratory: [] Gastrointestinal: [] Genitourinary: [] Skin: [] Back/Spine: [] Extremities: [] Dressing intact her right hip. Mild pain with general range of motion of the hip. No pain at the knee. No swelling. No calf tenderness bilaterally. She states she has normal sensation to the foot and toes and is able to dorsiflex and plantarflex foot and ankle without pain or weakness Neurologic: [] Psychiatric: [] Hematologic/lymphatic/immunologic: [] Vital Signs Vital Signs Date Time Temp Pulse Resp B/P (MAP) Pulse Ox O2 Delivery O2 Flow Rate FiO2 12/11/18 08:25 98 Room Air 12/11/18 08:00 36.2 75 16 120/62 (81) 98 Room Air 12/11/18 04:00 36.8 75 18 135/62 (86) 98 Room Air 12/11/18 00:30 36.6 74 18 148/78 (101) 98 Room Air 12/10/18 22:07 Room Air 12/10/18 20:00 Room Air 12/10/18 19:37 36.8 73 20 123/69 (87) 96 Room Air 12/10/18 16:00 37.1 71 20 122/70 (87) 94 Room Air 12/10/18 15:15 92 Room Air 12/10/18 12:10 Nasal Cannula 2 12/10/18 12:10 36.3 18 140/68 (92) 98 Nasal Cannula 2 12/10/18 12:01 Nasal Cannula 2 12/10/18 12:00 18 142/71 (94) 98 Nasal Cannula 2 12/10/18 11:50 Room Air 12/10/18 11:50 18 139/75 (96) 95 Room Air I & O 12/11/18 07:00 Intake Total 1810 ml Output Total 1200 ml Balance 610 ml Lab Results Laboratory Tests 12/10/18 15:47: Glucometer 362H 12/10/18 21:05: Glucometer 222H 12/11/18 06:10: White Blood Count 11.1H, Red Blood Count 4.10L, Hemoglobin 12.1, Hematocrit 36, Mean Corpuscular Volume 88, Mean Corpuscular Hemoglobin 30, Mean Corpuscular Hemoglobin Concent 34, Red Cell Distribution Width 14.4, Platelet Count 238, Mean Platelet Volume 9.8, Neutrophils (%) (Auto) 73, Lymphocytes (%) (Auto) 14, Monocytes (%) (Auto) 9, Eosinophils (%) (Auto) 4, Basophils (%) (Auto) 0, Neutrophils # (Auto) 8.1H, Lymphocytes # (Auto) 1.6, Monocytes # (Auto) 1.0, Eosinophils # (Auto) 0.4H, Basophils # (Auto) 0.0, Sodium Level 140, Potassium Level 4.1, Chloride Level 108H, Carbon Dioxide Level 24, Anion Gap 8, Blood Urea Nitrogen 11, Creatinine 0.79, Estimat Glomerular Filtration Rate > 60, BUN/Creatinine Ratio 14, Glucose Level 72, Calcium Level 8.5 12/11/18 06:18: Glucometer 72 Assessment and Plan Assessment Doing well postop Problem List Unchanged Plan Continue out of bed to chair as tolerated no weightbearing on the right Final Diagonsis Impacted subcapital fracture right hip status post in situ screw fixation Level of the visit: Level 3 Clinical Quality Measures DVT/VTE Risk/Contraindication: Risk Factor Score Per Nursin RFS Level Per Nursing on Admit: 4+=Very High DANIEL MUSE MD Dec 11, 2018 11:46 POS
--- NOTE | 2018-12-11 11:59 | NUR ---
provided prayer and Communion.
--- NOTE | 2018-12-11 12:14 | NUR ---
CM/SS spoke with patient's son in regards to the SS consult. Patient is from [facility] and has dementia. Patient has previously been at [facility] after a hip fx, the family would like for her to return to SNF [facility] at this time. Referral sent to [facility].
--- NOTE | 2018-12-11 13:09 | Anesthesia-General Post-Op ---
General Patient Condition Mental Status/LOC: Same as Preop Cardiovascular: Satisfactory Nausea/Vomiting: Absent Respiratory: Satisfactory Pain: Controlled Complications: Absent Post Op Complications Complications None Follow Up Care/Instructions Patient Instructions None needed. Anesthesia/Patient Condition Patient Condition Patient is doing well, no complaints, stable vital signs, no apparent adverse anesthesia problems. No complications reported per nursing. KAREN AGUIAR CRNA Dec 11, 2018 13:09 POS
--- NOTE | 2018-12-11 14:10 | Physical Therapy Daily Note ---
PT Daily Note-Current Subjective Patient agrees to PT at this time. Patient states she is not feeling well and has finished her lunch. Patient cannot recall how long she has been in chair. Pain Numeric Pain Scale: 10-Worst Possible Pain Location: Left Location Body Site: Hip Pain Description: Acute Comment: FLACC Mental Status Patient Orientation: Confused Attachments: Felder Catheter, IV Transfers SCALE: Activities may be completed with or without assistive devices. 0-Khyrqwimwm-gqoftpq completes the activity by him/herself with no assistance from a helper. 5-Set-up or Clean-up Assistance-helper sets up or cleans up; patient completes activity. Petros assists only prior to or following the activity. 4-Supervision or Touching Assistance-helper provides verbal cues and/or touching/steadying and/or contact guard assistance as patient completes activity. Assistance may be provided throughout the activity or intermittently. 3-Partial/Moderate Assistance-helper does LESS THAN HALF the effort. Petros lifts, holds or supports trunk or limbs, but provides less than half the effort. 2-Substantial/Maximal Assistance-helper does MORE THAN HALF the effort. Petros lifts or holds trunk or limbs and provides more than half the effort. 5-Pobnfkpkg-ighjvh does ALL the effort. Patient does none of the effort to complete the activity. Or, the assistance of 2 or more helpers is required for the patient to complete the activity. If activity was not attempted, code reason: 7-Patient Refused. 9-Not Applicable-not attempted and the patient did not perform the activity before the current illness, exacerbation or injury. 10-Not Attempted due to Environmental Limitations-(lack of equipment, weather restraints, etc.). 88-Not Attempted due to Medical Conditions or Safety Concerns. Transfers (B, C, W/C): 1 Roll Left to Right (QC): 2 Sit to Lying (QC): 1 Sit to Stand (QC): 1 Chair/Pnb-ed-Xbbrp Xfer(QC): 1 assist of two for sit to lying transfer Weight Bearing Right Lower Extremity: Right Non Weight Bearing Left Lower Extremity: Left Weight Bearing/Tolerated Exercises Supine Ex: Heel Slides (AA/PROM) Supine Reps: 10 Assessment Patient reminded of NWB of RLE prior to standing and transfer but patient noncompliant during transfer. Patient was completely dependent to stand from recliner and transfer to bed. Patient able to scoot self backwards on bed but required assistance of two to transfer from sitting EOB to supine. AA and PROM exercises performed to maintain hip and knee mobility. Patient left supine in bed with nursing present. PT Jail Goals Jail Goals Sit to Lying (QC): 4 Lying-Sitting on Side/Bed(QC): 4 Sit to Stand (QC): 3 Roll Left to Right (QC): 4 Chair/Aro-uc-Gvvwx Xfer(QC): 3 PT Plan Treatment/Plan Treatment Plan: Continue Plan of Care Treatment Plan: Bed Mobility, Education, Functional Activity Isael, Functional Strength, Gait, Safety, Therapeutic Exercise, Transfers Treatment Duration: Dec 18, 2018 Frequency: 11 times per week Estimated Hrs Per Day: .5 hour per day Patient and/or Family Agrees t: Yes Time/GCodes Time In: 1319 Time Out: 1332 Total Billed Treatment Time: 13 Total Billed Treatment 1 visit FA 13min NICK STARR PT Dec 11, 2018 14:10 POS
--- NOTE | 2018-12-11 16:24 | NUR ---
"RD ASSESSMENT PMHx: HTN; T2DM; HLD; dementia; chronic UTI PT INTERACTION: Pt was awake and pleasant during nutrition assessment. Note pt has AMS and is a poor historian, per chart review. Pt states current appetite is not good, but could not give a timeline for how long it had been poor. Pt states following a regular diet at home, and currently has no issues with chewing/swallowing food at this time. Pt states some recent episodes of nausea/vomiting, but again could not give a timeline. Pt states no recent issues with c/d at this time. Note no BM has been recorded and pt is currently on bowel regimen of colace, senna, miralax, and bisacodyl, per chart review. Pt states no recent wt changes. Note unable to determine recent wt hx, per chart review. ABNORMAL NUTRITION-RELATED LAB VALUES: Cl 108 (H) Est. kcal needs: 2036-8666 kcal (25-30 kcal/kg) Est. Pro needs: 55-65 g Pro (1.0-1.2 g Pro/kg) PES STATEMENT: Inadequate oral intake (NI-2.1) related to nausea | vomiting as evidenced by pt interview INTERVENTION: Continue with current diet order of CHO 60g/m 1snack diet. Pt may benefit from nutritional supplementation if PO intake remains low. MONITOR/EVALUATE: PO Intake; Plan of Care; Hydration Status; Weight Status; Lab Values Alfonso Fernández, MS, RD, LD Ext. 133"
[2018-12-11] MEDS: MELATONIN 3 MG TABLET PO PRN (20:12)
[2018-12-11] MEDS: ACETAMINOPHEN 325 MG TABLET PO PRN (20:12)
--- NOTE | 2018-12-11 20:30 | NUR ---
PT RETURNED TO FLOOR BY CART FROM SURGERY. REPORT GIVEN BY PAIGE GRAFF. Addendum: 12/12/18 at 0345 by EVELYN BARRIENTOS RN ERROR. WRONG PATIENT.
[2018-12-11] MEDS: ENOXAPARIN 40 MG/0.4 ML (LOVENOX) SYR SC SCH (22:00)
[2018-12-12 04:40] VITALS: BP 149/72
[2018-12-12] MEDS: inSUlin ASPART (NovoLOG) 1 UNIT/0.01 ML (CHARGE PER UNIT) SC SCH ×4 (05:07→20:42)
[2018-12-12 05:10] LABS: BASOPHILS # (AUTO) 0.1 10^3/uL (0.0-0.1); BASOPHILS % (AUTO) 1 % (0-10); EOSINOPHILS # (AUTO) 0.5 10^3/uL (0.0-0.3); EOSINOPHILS % (AUTO) 6 % (0-10); HEMATOCRIT 34 % (35-52); HEMOGLOBIN 11.6 G/DL (11.5-16.0); LYMPHOCYTES # (AUTO) 2.2 X 10^3 (1.0-4.0); LYMPHOCYTES % (AUTO) 23 % (12-44); MEAN CORPUSCULAR HEMOGLOBIN 30 PG (25-34); MEAN CORPUSCULAR HGB CONC 34 G/DL (32-36); MEAN CORPUSCULAR VOLUME 88 FL (80-99); MEAN PLATELET VOLUME 9.9 FL (7.4-10.4); MONOCYTES # (AUTO) 1.2 X 10^3 (0.0-1.0); MONOCYTES % (AUTO) 13 % (0-12); NEUTROPHILS # (AUTO) 5.5 X 10^3 (1.8-7.8); NEUTROPHILS % (AUTO) 58 % (42-75); PLATELET COUNT 227 10^3/uL (130-400); RED CELL DISTRIBUTION WIDTH 14.1 % (10.0-14.5); WHITE BLOOD COUNT 9.5 10^3/uL (4.3-11.0)
[2018-12-12 05:32] LABS: BUN/CREATININE RATIO 13; CALCIUM 8.4 MG/DL (8.5-10.1); CARBON DIOXIDE 25 MMOL/L (21-32); CHLORIDE 108 MMOL/L (98-107); CREATININE SERUM 0.69 MG/DL (0.60-1.30); GFR ESTIMATED > 60; GLUCOSE 91 MG/DL (70-105); SODIUM 141 MMOL/L (135-145)
[2018-12-12 08:00] VITALS: BP 161/68
[2018-12-12] MEDS ORDERED: POLYETHYLENE GLYCOL 17 GM (MIRALAX) PACK PO ONE (08:15)
[2018-12-12] MEDS: SENNOSIDES 8.6 MG (SENOKOT) TAB PO SCH ×2 (09:13→20:41)
[2018-12-12] MEDS: DOCUSATE SODIUM 100 MG (COLACE) CAP PO SCH ×2 (09:13→20:41)
--- NOTE | 2018-12-12 09:27 | Progress Note - Ortho ---
Progress Note Subjective Date of Exam 12/12/18 Chief Complaint POD#2 percutaneous in situ screw fixation and subcapital fracture right hip HPI/Events since last exam is doing well. She states she has some mild pain in her hip. She points to the posterior aspect of the hip. She states she can feel her toes and has no pain in her calves Review of Systems Reviewed and no additions or changes Allergies: Uncoded Allergies: narcotics (Adverse Reaction, Severe, 03/25/16) Home Meds Reported Medications Insulin Detemir (Levemir Flextouch) 100 Unit/1 Ml Insuln.pen, 33 UNITS SC 1200, EA 12/10/18 Sulfamethoxazole/Trimethoprim (Bactrim Ds Tablet) 1 Each Tablet, 1 TAB PO BID for 4 Days, TAB START DATE 12-08-18 12/10/18 Lorazepam (Lorazepam) 0.5 Mg Tablet, 0.25 MG PO Q6H PRN for ANXIETY, TAB 12/10/18 Tramadol HCl (Tramadol HCl) 50 Mg Tablet, 50 MG PO Q6H PRN for PAIN-MODERATE, TAB 12/10/18 Guaifenesin/Dextromethorphan (Guaifenesin Dm Syrup) 5 Ml Syrup, 5 ML PO Q4H PRN for COUGH, ML 12/10/18 Loperamide HCl (Loperamide) 2 Mg Capsule, 2 MG PO UD PRN for DIARRHEA, CAP 12/10/18 Ibuprofen (Advil) 200 Mg Tablet, 400 MG PO Q4H PRN for MUSCLE TENSION, TAB 12/10/18 [place] 3 Polyunsat Fatty Acids (Fish Oil 1,000 mg Capsule) 1,000 Mg Cap, 1000 MG PO DAILY, CAP 12/10/18 Oxybutynin Chloride (Oxybutynin Chloride) 5 Mg Tablet, 5 MG PO BID, TAB 12/10/18 Memantine HCl (Memantine HCl ER) 28 Mg Cap.spr.24, 28 MG PO DAILY, TAB 12/10/18 Lisinopril (Lisinopril) 5 Mg Tablet, 5 MG PO DAILY, TAB 12/10/18 Donepezil HCl (Donepezil HCl) 10 Mg Tablet, 10 MG PO DAILY, TAB 12/10/18 Citalopram Hydrobromide (Citalopram HBr) 10 Mg Tablet, 10 MG PO DAILY, TAB 12/10/18 Quetiapine Fumarate (Quetiapine Fumarate) 25 Mg Tablet, 12.5 MG PO BID, TAB TAKES 1/2 (25MG) TABLET 12/10/18 Aspirin (Aspirin) 81 Mg Tab.chew, 81 MG PO DAILY, TAB 12/10/18 Amlodipine Besylate (Amlodipine Besylate) 5 Mg Tablet, 5 MG PO DAILY, TAB 12/10/18 Insulin Aspart (Novolog Flexpen) 300 Units/3 Ml Solution, 6 UNITS SC 0800, EA 12/10/18 Insulin Aspart (Novolog Flexpen) 300 Units/3 Ml Solution, SQ AC for SLIDING SCALE, EA </= 150 = NO INSULIN 151-200 = 2 UNITS 201-250 = 3 UNITS 251-300 = 4 UNITS 301-350 = 5 UNITS 351-400 = 6 UNITS IF REFUSING TO EAT HOLD SSI UNTIL SHE EATS HER MEAL 12/10/18 Insulin Aspart (Novolog Flexpen) 300 Units/3 Ml Solution, 8 UNITS SQ 1200,1700, EA 12/10/18 Acetaminophen (Acetaminophen Extra Strength) 500 Mg Tablet, 1000 MG PO Q8H PRN for PAIN-MILD OR TEMPATURE, TAB 12/10/18 Discontinued Reported Medications Metformin HCl (Metformin HCl) 500 Mg Tablet 12/31/16 Glimepiride (Glimepiride) 4 Mg Tablet 12/31/16 Nystatin (Nystatin) 15 Gm Cream..g., TP BID, TUBE 03/24/16 Insulin Determir (Levemir) 1,000 Units/10 Ml Soln, 5 UNITS SQ HS, EA 03/24/16 Insulin Determir (Levemir) 1,000 Units/10 Ml Soln, 10 UNITS SQ DAILY, EA 03/24/16 Insulin Aspart (Novolog) 100 Unit/1 Ml Susp, SQ SLIDING/SCALE PRN for BS ABOVE 150, ML USE THIS SLIDING SCALE IN ADDITION TO 5 UNTIS WITH MEALS 150-210 = 1 EXTRA UNIT 211-270 = 2 EXTRA UNITS 271-330 = 3 EXTRA UNITS 331-390 = 4 EXTRA UNITS >390 = 5 EXTRA UNITS NOT AT BEDTIME 03/24/16 Insulin Aspart (Novolog) 100 Unit/1 Ml Susp, 5 UNIT SQ TIDAC, ML 03/24/16 Loperamide HCl (Loperamide) 2 Mg Tablet, 2 MG PO QID PRN for LOOSE STOOLS, TAB 03/24/16 Memantine HCl (Namenda) 10 Mg Tablet, 10 MG PO BID, TAB 03/24/16 Acetaminophen (Tylenol) 325 Mg Tablet, 650 MG PO Q6H PRN for TEMP/MILD PAIN, TAB TAKES 2 (325MG) TABLETS 03/24/16 Tolterodine Tartrate (Tolterodine Tartrate ER) 4 Mg Cap.er.24h, 4 MG PO DAILY, CAP 03/24/16 Donepezil HCl (Aricept) 10 Mg Tablet, 10 MG PO HS, TAB 03/24/16 Citalopram Hydrobromide (Citalopram HBr) 20 Mg Tablet, 20 MG PO DAILY, TAB 03/24/16 Aspirin (Aspirin EC) 81 Mg Tablet.dr, 81 MG PO DAILY, TAB 01/08/16 Atorvastatin (Lipitor 20MG) 20 Mg Tablet, 20 MG PO HS, TAB 05/01/13 Lisinopril (Prinivil) 5 Mg Tablet, 5 MG PO DAILY, TAB HOLD FOR SBP<100 AND/OR DBP<60 AND PULSE LESS THAN OR EQUAL TO 60 05/01/13 Amlodipine Besylate (Norvasc) 10 Mg Tablet, 10 MG PO DAILY, TAB HOLD FOR SBP < 100 AND/OR DBP < 60 AND PULSE LESS THAN OR EQUAL TO 60 05/01/13 Discontinued Scripts Sulfamethoxazole/Trimethoprim (Sulfamethoxazole-Tmp Ds Tablet) 1 Each Tablet, 1 EACH PO BID, #8 TAB 0 Refills Prov:MARY ROBLES MD 12/07/18 Tramadol HCl (Tramadol HCl) 50 Mg Tablet, 50 MG PO Q6H PRN for PAIN, #20 TAB 0 Refills Prov:MARY ROBLES MD 04/19/16 Objective Exam Constitutional: [] HEENT: [] Neck: [] Cardiovascular: [] Respiratory: [] Gastrointestinal: [] Genitourinary: [] Skin: [] Back/Spine: [] Extremities: [Her dressing is intact. I peeled the dressing back her incision looks good without redness or drainage. Mild pain with gentle range of motion right hip. No pain at the knee, calf or ankle. She has no calf tenderness and negative Homans. She states she has normal sensation to the foot and toes. No calf tenderness and negative Homans on the left. No weakness noted on dorsiflexion and plantar flexion of foot and ankle] Neurologic: [] Psychiatric: [] Hematologic/lymphatic/immunologic: [] Vital Signs Vital Signs Date Time Temp Pulse Resp B/P (MAP) Pulse Ox O2 Delivery O2 Flow Rate FiO2 12/12/18 04:40 36.2 71 19 149/72 (97) 97 Room Air 12/11/18 23:33 36.5 69 20 145/64 (91) 96 Room Air 12/11/18 20:00 Room Air 12/11/18 20:00 37.2 79 18 162/49 (86) 97 Room Air 12/11/18 19:05 Room Air 12/11/18 16:00 37.4 72 20 149/77 (101) 98 Room Air 12/11/18 12:00 36.3 76 18 138/74 (95) 96 Room Air I & O 12/12/18 07:00 Intake Total 2490 ml Output Total 1700 ml Balance 790 ml Lab Results Laboratory Tests 12/11/18 11:30: Glucometer 253H 12/11/18 15:58: Glucometer 201H 12/11/18 21:35: Glucometer 168H 12/12/18 04:26: Glucometer 96 12/12/18 04:45: White Blood Count 9.5, Red Blood Count 3.92L, Hemoglobin 11.6, Hematocrit 34L, Mean Corpuscular Volume 88, Mean Corpuscular Hemoglobin 30, Mean Corpuscular Hemoglobin Concent 34, Red Cell Distribution Width 14.1, Platelet Count 227, Mean Platelet Volume 9.9, Neutrophils (%) (Auto) 58, Lymphocytes (%) (Auto) 23, Monocytes (%) (Auto) 13H, Eosinophils (%) (Auto) 6, Basophils (%) (Auto) 1, Neutrophils # (Auto) 5.5, Lymphocytes # (Auto) 2.2, Monocytes # (Auto) 1.2H, Eosinophils # (Auto) 0.5H, Basophils # (Auto) 0.1, Sodium Level 141, Potassium Level 4.0, Chloride Level 108H, Carbon Dioxide Level 25, Anion Gap 8, Blood Urea Nitrogen 9, Creatinine 0.69, Estimat Glomerular Filtration Rate > 60, BUN/Creatinine Ratio 13, Glucose Level 91, Calcium Level 8.4L Microbiology 12/10/18 MRSA Screen - Final, Complete MRSA not isolated Assessment and Plan Assessment Doing well postop day number 2 Problem List Unchanged Plan Continue bed to chair. I talked to Dr. Mcdonnell in one of her sons and the plan is for transfer to [facility] tomorrow. She will need to be nonweightbearing for approximately 3-4 weeks Final Diagonsis Impacted subcapital fracture right hip status post post percutaneous in situ screw fixation Level of the visit: Level 3 Clinical Quality Measures DVT/VTE Risk/Contraindication: Risk Factor Score Per Nursin RFS Level Per Nursing on Admit: 4+=Very High DANIEL MUSE MD Dec 12, 2018 09:27 POS
[2018-12-12 09:30] VITALS: BP 149/72
--- NOTE | 2018-12-12 09:32 | Progress Note ---
Subjective Date Seen by a Provider: Dec 12, 2018 Time Seen by a Provider: 09:10 Subjective/Events-last exam PT STATES THAT SHE IS NOT HAVING ANY PAIN. HER SON IS AT HER BEDSIDE TODAY- HE REPORTS THAT HE WOULD RATHER SEE HIS MOM GO BACK TO [facility]. DR. TRAVIS - ORTHOPEDIC SURGEON CAME TO THE EXAM ROOM AND DISCUSSED HER BONE HEALTH AND THE FACT THAT SHE CANNOT AMBULATE DUE TO HER LACK OF BONE HEALTH. THE PATIENT DOES NOT UNDERSTAND HER RESTRICTION. Review of Systems General: No Chills; Fatigue, Malaise HEENT: No Head Aches, No Visual Changes Pulmonary: No Dyspnea, No Cough Cardiovascular: No: Chest Pain Gastrointestinal: No: Nausea, Abdominal Pain Genitourinary: No Dysuria Musculoskeletal: leg pain (ON RIGHT) Neurological: Weakness, Confusion Objective Exam Last Set of Vital Signs Vital Signs Date Time Temp Pulse Resp B/P (MAP) Pulse Ox O2 Delivery O2 Flow Rate FiO2 12/12/18 04:40 36.2 71 19 149/72 (97) 97 Room Air 12/10/18 12:10 2 Capillary Refill : Less Than 3 SecondsLess Than 3 Seconds I&O Intake and Output 12/12/18 00:00 Intake Total 3440 ml Output Total 1600 ml Balance 1840 ml Intake Oral 1390 ml IV Total 2050 ml Output Urine Total 1600 ml # Voids 2 General: Alert, Other (ORIENTED TO PERSON, NOT PLACE OR TIME) HEENT: Atraumatic, PERRLA, Mucous Memb Moist/[place] Neck: Supple Lungs: Clear to Auscultation, Normal Air Movement Heart: Regular Rate Abdomen: Normal Bowel Sounds, Soft Neuro: Normal Speech Psych/Mental Status: Mental Status NL Results Lab Laboratory Tests 12/11/18 11:30: Glucometer 253H 12/11/18 15:58: Glucometer 201H 12/11/18 21:35: Glucometer 168H 12/12/18 04:26: Glucometer 96 12/12/18 04:45: White Blood Count 9.5, Red Blood Count 3.92L, Hemoglobin 11.6, Hematocrit 34L, Mean Corpuscular Volume 88, Mean Corpuscular Hemoglobin 30, Mean Corpuscular Hemoglobin Concent 34, Red Cell Distribution Width 14.1, Platelet Count 227, Mean Platelet Volume 9.9, Neutrophils (%) (Auto) 58, Lymphocytes (%) (Auto) 23, Monocytes (%) (Auto) 13H, Eosinophils (%) (Auto) 6, Basophils (%) (Auto) 1, Neutrophils # (Auto) 5.5, Lymphocytes # (Auto) 2.2, Monocytes # (Auto) 1.2H, Eosinophils # (Auto) 0.5H, Basophils # (Auto) 0.1, Sodium Level 141, Potassium Level 4.0, Chloride Level 108H, Carbon Dioxide Level 25, Anion Gap 8, Blood Urea Nitrogen 9, Creatinine 0.69, Estimat Glomerular Filtration Rate > 60, BUN/Creatinine Ratio 13, Glucose Level 91, Calcium Level 8.4L Microbiology 12/10/18 MRSA Screen - Final, Complete MRSA not isolated Assessment/Plan Assessment/Plan Assess & Plan/Chief Complaint RIGHT HIP FRACTURE ADVANCED DEMENTIA DIABETES MELLITUS DEPRESSION/ANXIETY RIGHT HIP FRACTURE - POD#1 - DISCUSSED HER CASE WITH ORTHOPEDIC SURGEON - PRIOR TO SURGERY - HE PLACED TWO SCREWS INTO RIGHT HIP, PT WAS MADE NON WEIGHT BEARING. - PT TO BE PLACED AT [facility]. ADVANCED DEMENTIA WITH DEPRESSION AND ANXIETY - CONTINUE WITH ARICEPT, NAMENDA AND CITALOPRAM AND QUETIAPINE AND PRN LORAZEPAM FOR HER OVERWHELMING ANXIETY. DIABETES MELLITUS - MONITOR FSBS AND MAY CONSIDER FURTHER MEDICATION ADJUSTMENTS. Clinical Quality Measures DVT/VTE Risk/Contraindication: Risk Factor Score Per Nursin RFS Level Per Nursing on Admit: 4+=Very High FRED VARGAS MD Dec 12, 2018 09:32 POS
[2018-12-12] MEDS: LACTATED RINGERS 1,000 ML IV SCH ×2 (09:37→23:11)
--- NOTE | 2018-12-12 10:42 | Physical Therapy Daily Note ---
PT Daily Note-Current Subjective pt in bed pre-tx agrees to PT. pt with multiple family/friends in room. Pt denies pain and has no Signs of pain pre-tx. Appearance pt in recliner with feet elevated and chair alarm set, family/friends back in room post-tx. all needs met, has nurse call Mental Status Patient Orientation: Person, Confused Attachments: Other-See Comments (pure wick), IV pt is fixated on a "baby" through session. Pt instructs PT to take the baby from her arms and take care of it, asks multiple time during session if baby is okay, and asks for baby back post session. Pt is pleasant for therapy this session. Transfers SCALE: Activities may be completed with or without assistive devices. 6-Rjxraqbcfq-txgnsfr completes the activity by him/herself with no assistance from a helper. 5-Set-up or Clean-up Assistance-helper sets up or cleans up; patient completes a ctivity. [place] assists only prior to or following the activity. 4-Supervision or Touching Assistance-helper provides verbal cues and/or touching/steadying and/or contact guard assistance as patient completes activity. Assistance may be provided throughout the activity or intermittently. 3-Partial/Moderate Assistance-helper does LESS THAN HALF the effort. [place] lifts, holds or supports trunk or limbs, but provides less than half the effort. 2-Substantial/Maximal Assistance-helper does MORE THAN HALF the effort. [place] lifts or holds trunk or limbs and provides more than half the effort. 6-Cmawutodw-kxodpc does ALL the effort. Patient does none of the effort to complete the activity. Or, the assistance of 2 or more helpers is required for the patient to complete the activity. If activity was not attempted, code reason: 7-Patient Refused. 9-Not Applicable-not attempted and the patient did not perform the activity before the current illness, exacerbation or injury. 10-Not Attempted due to Environmental Limitations-(lack of equipment, weather restraints, etc.). 88-Not Attempted due to Medical Conditions or Safety Concerns. Sit to Stand (QC): 1 (x1) Chair/Aph-ai-Mgsen Xfer(QC): 1 (x1) PT performs dependent stand pivot transfer following 2 attempts to stand by pushing up from the bed. Weight Bearing Right Lower Extremity: Right Non Weight Bearing Left Lower Extremity: Left Weight Bearing/Tolerated Gait Training Does the Patient Walk?: No and Walking Goal IS indicated Wheelchair Training Does the Pt Use a Wheelchair?: No Exercises Seated Therapy Exercises: Ankle pumps, Long arc quads, Hip flexion, Glut set Seated Reps: 10 Treatments Pt performed bed mobility, transfer training, and functional LE strengthening. Assessment Current Status: Poor Progress Pt remains confused throughout session. Pt unable to stand with multiple attempts. Pt is dependent for standing pivot transfer. PT Mcfp Goals Mcfp Goals Sit to Lying (QC): 4 Lying-Sitting on Side/Bed(QC): 4 Sit to Stand (QC): 3 Roll Left to Right (QC): 4 Chair/Qyh-ni-Duqfr Xfer(QC): 3 PT Plan Problem List Problem List: Activity Tolerance, Functional Strength, Safety, Balance, Gait, Transfer, Bed Mobility Treatment/Plan Treatment Plan: Continue Plan of Care Treatment Plan: Bed Mobility, Concurrent Therapy, Education, Functional Activity Isael, Functional Strength, Gait, Safety, Therapeutic Exercise, Transfers Treatment Duration: Dec 18, 2018 Frequency: 11 times per week Estimated Hrs Per Day: .5 hour per day Patient and/or Family Agrees t: Yes Safety Risks/Education Patient Education: Transfer Techniques, Reviewed Precautions, Correct Positioning, Safety Issues Teaching Recipient: Patient Teaching Methods: Demonstration, Discussion Response to Teaching: Reinforcement Needed Time/GCodes Time In: 1002 Time Out: 1015 Total Billed Treatment Time: 13 Total Billed Treatment 1 visit FA JHOANA FIGUEROA PT Dec 12, 2018 10:42 POS
--- NOTE | 2018-12-12 11:59 | NUR ---
provided prayer and Communion.
[2018-12-12 12:00] VITALS: BP 149/73
--- NOTE | 2018-12-12 14:26 | Physical Therapy Daily Note ---
PT Daily Note-Current Subjective Pt in chair pre-tx. Pt agrees to PT this afternoon. pt denies pain and has no visual signs of pain at this time. Appearance Pt in bed post-tx. pt with nurse tech in room and all needs met at this time. Mental Status Patient Orientation: Person, Confused Attachments: IV Transfers SCALE: Activities may be completed with or without assistive devices. 5-Khmlciplmv-wrjhlah completes the activity by him/herself with no assistance from a helper. 5-Set-up or Clean-up Assistance-helper sets up or cleans up; patient completes activity. [place] assists only prior to or following the activity. 4-Supervision or Touching Assistance-helper provides verbal cues and/or touching/steadying and/or contact guard assistance as patient completes activity. Assistance may be provided throughout the activity or intermittently. 3-Partial/Moderate Assistance-helper does LESS THAN HALF the effort. [place] lifts, holds or supports trunk or limbs, but provides less than half the effort. 2-Substantial/Maximal Assistance-helper does MORE THAN HALF the effort. [place] lifts or holds trunk or limbs and provides more than half the effort. 6-Poydcpiks-mxedfo does ALL the effort. Patient does none of the effort to complete the activity. Or, the assistance of 2 or more helpers is required for the patient to complete the activity. If activity was not attempted, code reason: 7-Patient Refused. 9-Not Applicable-not attempted and the patient did not perform the activity before the current illness, exacerbation or injury. 10-Not Attempted due to Environmental Limitations-(lack of equipment, weather restraints, etc.). 88-Not Attempted due to Medical Conditions or Safety Concerns. Sit to Stand (QC): 1 (x1) Chair/Ohj-qu-Vohax Xfer(QC): 1 (x1) stand pivot transfer. Pt unable to coordinate steps when ques are given. Weight Bearing Right Lower Extremity: Right Non Weight Bearing Left Lower Extremity: Left Weight Bearing/Tolerated Treatments pt performed transfer training, bed mobility training, and education this session. Assessment Current Status: Poor Progress Pt does not maintain NWB status on the RLE and appears to WB through the R LE with repeated queing to keep weight off of the leg. pt not able to stand with attempts this session. Pt able to stand with PT while nurse tech cleans pts bottom. Pt yells with pain 2-3 times this session (prior to stand, with sitting, with laying down) but pt then smiles as if she isn't hurting. Pt continues to be dependent for standing and transfers this session. PT [employer] Goals Intermediate Goals Sit to Lying (QC): 4 Lying-Sitting on Side/Bed(QC): 4 Sit to Stand (QC): 3 Roll Left to Right (QC): 4 Chair/Frd-yu-Nxhet Xfer(QC): 3 PT Plan Problem List Problem List: Activity Tolerance, Functional Strength, Safety, Balance, Gait, Transfer, Bed Mobility, ROM Treatment/Plan Treatment Plan: Continue Plan of Care Treatment Plan: Bed Mobility, Concurrent Therapy, Education, Functional Activity Isael, Functional Strength, Gait, Safety, Therapeutic Exercise, Transfers Treatment Duration: Dec 18, 2018 Frequency: 11 times per week Estimated Hrs Per Day: .5 hour per day Patient and/or Family Agrees t: Yes Safety Risks/Education Patient Education: Transfer Techniques, Correct Positioning, Safety Issues Teaching Recipient: Patient Teaching Methods: Demonstration, Discussion Response to Teaching: Return Demonstration, Reinforcement Needed Time/GCodes Time In: 1358 Time Out: 1406 Total Billed Treatment Time: 8 Total Billed Treatment 1 visit FA JHOANA VANEGAS PT Dec 12, 2018 14:26 POS
[2018-12-12 16:00] VITALS: BP 171/73
[2018-12-12] MEDS: ACETAMINOPHEN 325 MG TABLET PO PRN (20:41)
[2018-12-12] MEDS: MELATONIN 3 MG TABLET PO PRN (20:41)
[2018-12-12] MEDS: ENOXAPARIN 40 MG/0.4 ML (LOVENOX) SYR SC SCH (23:11)
[2018-12-13] VITALS: BP 138/76
[2018-12-13] MEDS: inSUlin ASPART (NovoLOG) 1 UNIT/0.01 ML (CHARGE PER UNIT) SC SCH (05:22)
[2018-12-13 05:48] LABS: BASOPHILS # (AUTO) 0.1 10^3/uL (0.0-0.1); BASOPHILS % (AUTO) 1 % (0-10); EOSINOPHILS # (AUTO) 0.5 10^3/uL (0.0-0.3); EOSINOPHILS % (AUTO) 6 % (0-10); HEMATOCRIT 36 % (35-52); HEMOGLOBIN 12.1 G/DL (11.5-16.0); LYMPHOCYTES # (AUTO) 2.2 X 10^3 (1.0-4.0); LYMPHOCYTES % (AUTO) 26 % (12-44); MEAN CORPUSCULAR HEMOGLOBIN 29 PG (25-34); MEAN CORPUSCULAR HGB CONC 34 G/DL (32-36); MEAN CORPUSCULAR VOLUME 87 FL (80-99); MEAN PLATELET VOLUME 9.4 FL (7.4-10.4); MONOCYTES # (AUTO) 1.2 X 10^3 (0.0-1.0); MONOCYTES % (AUTO) 14 % (0-12); NEUTROPHILS # (AUTO) 4.5 X 10^3 (1.8-7.8); NEUTROPHILS % (AUTO) 53 % (42-75); PLATELET COUNT 266 10^3/uL (130-400); RED CELL DISTRIBUTION WIDTH 14.2 % (10.0-14.5); WHITE BLOOD COUNT 8.4 10^3/uL (4.3-11.0)
[2018-12-13 06:11] LABS: BUN/CREATININE RATIO 12; CALCIUM 8.7 MG/DL (8.5-10.1); CARBON DIOXIDE 26 MMOL/L (21-32); CHLORIDE 106 MMOL/L (98-107); CREATININE SERUM 0.68 MG/DL (0.60-1.30); GFR ESTIMATED > 60; GLUCOSE 68 MG/DL (70-105); POTASSIUM 3.9 MMOL/L (3.6-5.0); SODIUM 140 MMOL/L (135-145)
--- NOTE | 2018-12-13 07:30 | Progress Note - Hospitalist ---
Subjective HPI/CC On Admission Date Seen by Provider: Dec 13, 2018 Time Seen by Provider: 07:25 Antonia Orourke is a 78-year-old female with past medical history of hypertension, type II diabetes mellitus with insulin use, hyperlipidemia, dementia, who presented with hip pain after a ground-level fall. She has a history of dementia and is a poor historian. She lives at a usp. Her family would like to proceed with surgery according to the ER physician. Family was present on examination. She states that she is feeling well. She denies any pain at the current time. She has not needed pain medications since her admiss ion from the ER. This information was gleaned from her medical record due to patient being a poor historian. Subjective/Events-last exam Patients vitals are stable and normal. She states that she was able to sleep well and has had no reported pain at all. She is pleasant and cooperative. She voids and has reported BMs yesterday. She has no complaints at this time at all. Review of Systems General: No Chills, No Night Sweats, No Fatigue, No Malaise, No Appetite, No Other HEENT: No Head Aches, No Visual Changes, No Eye Pain, No Ear Pain, No Dysphasia, No Sinus Congestion, No Post Nasal Drip, No Sore Throat, No Other Pulmonary: No Dyspnea, No Cough, No Pleuritic Chest Pain, No Other Cardiovascular: No: Chest Pain, Palpitations, Orthopnea, Paroxysmal Noc. Dyspnea, Edema, Lt Headedness, Other Gastrointestinal: No: Nausea, Vomiting, Abdominal Pain, Diarrhea, Constipation, Melena, Hematochezia, Other Genitourinary: No Dysuria, No Frequency, No Incontinence, No Hematuria, No Retention, No Other Musculoskeletal: No: other, neck pain, shoulder pain, arm pain, back pain, hand pain, leg pain, foot pain Neurological: No: Weakness, Numbness, Incoordination, Change in speech, Confusion, Seizures, Other Focused Exam Respiratory: Chest Non Tender, Lungs Clear, Normal Breath Sounds, No Accessory Muscle Use, No Respiratory Distress Cardiovascular: Regular Rate, Rhythm, No Edema, No Gallop, No JVD, No Murmur, Normal Peripheral Pulses Peripheral Pulses: 2+ Dorsalis Pedis (R), 2+ Left Dors-Pedis (L), 2+ Radial Pulses (R), 2+ Radial Pulses (L) Skin: normal color, warm/dry Objective Exam Vital Signs Vital Signs Date Time Temp Pulse Resp B/P (MAP) Pulse Ox O2 Delivery O2 Flow Rate FiO2 12/13/18 02:19 Room Air 12/13/18 00:00 36.5 69 18 138/76 (96) 100 12/10/18 12:10 2 Capillary Refill : Less Than 3 SecondsLess Than 3 Seconds General Appearance: No Apparent Distress, WD/WN HEENT: Moist Mucous Membranes Respiratory: Chest Non Tender, Lungs Clear, Normal Breath Sounds, No Accessory Muscle Use, No Respiratory Distress Cardiovascular: Regular Rate, Rhythm, No Edema, No Gallop, No JVD, No Murmur, Normal Peripheral Pulses Gastrointestinal: Normal Bowel Sounds, No Organomegaly, No Pulsatile Mass, Non Tender, Soft Extremity: Normal Capillary Refill, Normal Inspection, Non Tender, No Calf Tenderness, No Pedal Edema Neurologic/Psychiatric: Alert, Oriented x3, No Motor/Sensory Deficits, Normal Mood/Affect Skin: Normal Color, Warm/Dry Lymphatic: No Adenopathy Results/Procedures Lab Laboratory Tests 12/13/18 05:37 Patient resulted labs reviewed. Imaging: Reviewed Imaging Report Assessment/Plan Assessment and Plan Assess & Plan/Chief Complaint 1. Right Hip Fracture: Orthopedic intervention - Rehab starting tomorrow: evaluation of whether or not inpatient rehab will accept - Pain management post-op 2. Dementia: - Continue home regiment: Donepezil, Quetiapine, and Memantine 3. T2DM: - Continue insulin and routine monitor of blood Gluc 4. Depression and Anxiety: - Continue home regiment: Lorazepam and Citalopram Clinical Quality Measures DVT/VTE Risk/Contraindication: Risk Factor Score Per Nursin RFS Level Per Nursing on Admit: 4+=Very High VIV HURT MED STUD Dec 13, 2018 07:30 POS
[2018-12-13 08:00] VITALS: BP 135/77
--- NOTE | 2018-12-13 09:12 | Discharge Summary ---
Diagnosis/Chief Complaint Date of Admission Dec 09, 2018 at 13:26 Date of Discharge Discharge Date: Dec 13, 2018 Discharge Time: 13:00 Discharge Summary Discharge Physical Examination Allergies: Uncoded Allergies: narcotics (Adverse Reaction, Severe, 03/25/16) Vitals & I&Os Vital Signs Date Time Temp Pulse Resp B/P (MAP) Pulse Ox O2 Delivery O2 Flow Rate FiO2 12/13/18 08:01 Room Air 12/13/18 00:00 36.5 69 18 138/76 (96) 100 12/10/18 12:10 2 Hospital Course Pending Labs Laboratory Tests 12/13/18 05:17: Glucometer 66 12/13/18 05:37: White Blood Count 8.4, Red Blood Count 4.14, Hemoglobin 12.1, Hematocrit 36, Mean Corpuscular Volume 87, Mean Corpuscular Hemoglobin 29, Mean Corpuscular Hemoglobin Concent 34, Red Cell Distribution Width 14.2, Platelet Count 266, Mean Platelet Volume 9.4, Neutrophils (%) (Auto) 53, Lymphocytes (%) (Auto) 26, Monocytes (%) (Auto) 14, Eosinophils (%) (Auto) 6, Basophils (%) (Auto) 1, Neutrophils # (Auto) 4.5, Lymphocytes # (Auto) 2.2, Monocytes # (Auto) 1.2, Eosinophils # (Auto) 0.5, Basophils # (Auto) 0.1, Sodium Level 140, Potassium Level 3.9, Chloride Level 106, Carbon Dioxide Level 26, Anion Gap 8, Blood Urea Nitrogen 8, Creatinine 0.68, Estimat Glomerular Filtration Rate > 60, BUN/Creatinine Ratio 12, Glucose Level 68, Calcium Level 8.7 12/13/18 06:36: Glucometer 209 Discharge Instructions to patient/family Please see electronic discharge instructions given to patient. Discharge Medications Reviewed and agree with Discharge Medication list on patient's Discharge Instruction sheet Clinical Quality Measures DVT/VTE Risk/Contraindication: Risk Factor Score Per Nursin RFS Level Per Nursing on Admit: 4+=Very High FRED VARGAS MD Dec 13, 2018 09:12 POS
[2018-12-13] MEDS ORDERED: TRAM50TA2 PO (09:19)
[2018-12-13] MEDS ORDERED: MELA3TAB PO (09:19)
[2018-12-13] MEDS ORDERED: POLY17PO31 PO (09:19)
[2018-12-13] MEDS ORDERED: LORA0.5T PO (09:19)
[2018-12-13] MEDS ORDERED: INSU100I14 SQ (09:19)
[2018-12-13] MEDS ORDERED: SENN-141 PO (09:19)
[2018-12-13] MEDS ORDERED: INSU100V5 SQ (09:19)
--- NOTE | 2018-12-13 09:22 | Discharge Inst-Skilled Nursing ---
Discharge Inst-Skilled NF Reconcile Patient Problems Problems Reviewed?: Yes Patient Instructions Patient Problems: RIGHT HIP FRACTURE - POST-OP - CANNOT BEAR WEIGHT ON RIGHT LEG DEMENTIA HYPERTENSION Consult/Follow Up/Orders Follow Up Appt.: 1 WK WITH [facility] Skilled NF Admit to: [facility] Certification (SNF) I certify that SNF services are required to be given on an inpatient basis because of the above named patient's need for senior living care on a con tinuing basis for the conditions(s) for which he/she was receiving inpatient hospital services prior to his/her transfer to the [facility]. Senior Care Facility Order: Nursing Services, Field Test Engineer-Evaluate & Treat, Physical Therapy-Evaluate & Treat, Speech Language-Evaluate & Treat Oxygen Delivery Method: Room Air Discharge Diet: Regular Diet Daily Activity as Tolerated: Yes Resuscitation Status: Do Not Resuscitate New & Resume Previous Orders New & Resume Previous Orders NON-WEIGHT BEARING ON RIGHT Ferd Gonzalez Sathya Dec 13, 2018 09:20 Medication List: Active Scripts Active Melatonin 3 Mg Tablet 3 Mg PO HS PRN Levemir (Insulin Determir) 1,000 Units/10 Ml Soln 10 Unit SQ HS Senna (Sennosides) 8.6 Mg Tablet 8.6 Mg PO BID Polyethylene Glycol 3350 17 Gm Powd.pack 17 Gm PO DAILY PRN PRN Lorazepam 0.5 Mg Tablet 0.25 Mg PO Q6H PRN Tramadol HCl 50 Mg Tablet 50 Mg PO Q6H PRN Novolog Flexpen (Insulin Aspart) 300 Units/3 Ml Solution 5 Units SQ 1200,1700 Reported Levemir Flextouch (Insulin Detemir) 100 Unit/1 Ml Insuln.pen 33 Units SC 1200 Bactrim Ds Tablet (Sulfamethoxazole/Trimethoprim) 1 Each Tablet 1 Tab PO BID 4 Days START DATE 12-08-18 Guaifenesin Dm Syrup (Guaifenesin/Dextromethorphan) 5 Ml Syrup 5 Ml PO Q4H PRN Loperamide (Loperamide HCl) 2 Mg Capsule 2 Mg PO UD PRN Advil (Ibuprofen) 200 Mg Tablet 400 Mg PO Q4H PRN Fish Oil 1,000 mg Capsule ([place] 3 Polyunsat Fatty Acids) 1,000 Mg Cap 1,000 Mg PO DAILY Oxybutynin Chloride 5 Mg Tablet 5 Mg PO BID Memantine HCl ER (Memantine HCl) 28 Mg Cap.spr.24 28 Mg PO DAILY Lisinopril 5 Mg Tablet 5 Mg PO DAILY Donepezil HCl 10 Mg Tablet 10 Mg PO DAILY Citalopram HBr (Citalopram Hydrobromide) 10 Mg Tablet 10 Mg PO DAILY Quetiapine Fumarate 25 Mg Tablet 12.5 Mg PO BID TAKES 1/2 (25MG) TABLET Aspirin 81 Mg Tab.chew 81 Mg PO DAILY Amlodipine Besylate 5 Mg Tablet 5 Mg PO DAILY Novolog Flexpen (Insulin Aspart) 300 Units/3 Ml Solution 6 Units SC 0800 Novolog Flexpen (Insulin Aspart) 300 Units/3 Ml Solution SQ AC </= 150 = NO INSULIN 151-200 = 2 UNITS 201-250 = 3 UNITS 251-300 = 4 UNITS 301-350 = 5 UNITS 351-400 = 6 UNITS IF REFUSING TO EAT HOLD SSI UNTIL SHE EATS HER MEAL Acetaminophen Extra Strength (Acetaminophen) 500 Mg Tablet 1,000 Mg PO Q8H PRN Lab results: Laboratory Tests Test 12/12/18 11:38 12/12/18 16:29 12/12/18 20:29 12/13/18 05:17 Range/Units Glucometer 243 H 314 H 183 H 66 L 70-110 MG/DL Test 12/13/18 05:37 12/13/18 06:36 Range/Units White Blood Count 8.4 4.3-11.0 10^3/uL Red Blood Count 4.14 L 4.35-5.85 10^6/uL Hemoglobin 12.1 11.5-16.0 G/DL Hematocrit 36 35-52 % Mean Corpuscular Volume 87 80-99 FL Mean Corpuscular Hemoglobin 29 25-34 PG Mean Corpuscular Hemoglobin Concent 34 32-36 G/DL Red Cell Distribution Width 14.2 10.0-14.5 % Platelet Count 266 130-400 10^3/uL Mean Platelet Volume 9.4 7.4-10.4 FL Neutrophils (%) (Auto) 53 42-75 % Lymphocytes (%) (Auto) 26 12-44 % Monocytes (%) (Auto) 14 H 0-12 % Eosinophils (%) (Auto) 6 0-10 % Basophils (%) (Auto) 1 0-10 % Neutrophils # (Auto) 4.5 1.8-7.8 X 10^3 Lymphocytes # (Auto) 2.2 1.0-4.0 X 10^3 Monocytes # (Auto) 1.2 H 0.0-1.0 X 10^3 Eosinophils # (Auto) 0.5 H 0.0-0.3 10^3/uL Basophils # (Auto) 0.1 0.0-0.1 10^3/uL Sodium Level 140 135-145 MMOL/L Potassium Level 3.9 3.6-5.0 MMOL/L Chloride Level 106 98-107 MMOL/L Carbon Dioxide Level 26 21-32 MMOL/L Anion Gap 8 5-14 MMOL/L Blood Urea Nitrogen 8 7-18 MG/DL Creatinine 0.68 0.60-1.30 MG/DL Estimat Glomerular Filtration Rate > 60 BUN/Creatinine Ratio 12 Glucose Level 68 L 70-105 MG/DL Calcium Level 8.7 8.5-10.1 MG/DL Glucometer 209 H 70-110 MG/DL My orders: Orders - FRED AVRGAS MD Patient Visit (12/12/18 ) Functional Activities, Ea 15 (12/12/18 ) Attending Discharge Inpt/Inobs (12/13/18 09:12) FRED VARGAS MD Dec 13, 2018 09:22 POS
[2018-12-13] MEDS: DOCUSATE SODIUM 100 MG (COLACE) CAP PO SCH (09:47)
[2018-12-13] MEDS: SENNOSIDES 8.6 MG (SENOKOT) TAB PO SCH (09:47)
--- NOTE | 2018-12-13 10:16 | Physical Therapy Daily Note ---
PT Daily Note-Current Subjective Patient agrees to PT at this time. Patient states she is comfy in bed but is willing to move to chair. Patient reported no pain initially but expressed severe pain during transfers. Pain Numeric Pain Scale: 10-Worst Possible Pain Location: Right Location Body Site: Hip Pain Description: Acute Comment: FLACC Mental Status Patient Orientation: Confused Attachments: Felder Catheter, IV Transfers SCALE: Activities may be completed with or without assistive devices. 7-Xdpgwhipvl-lwmeexh completes the activity by him/herself with no assistance from a helper. 5-Set-up or Clean-up Assistance-helper sets up or cleans up; patient completes activity. Edelstein assists only prior to or following the activity. 4-Supervision or Touching Assistance-helper provides verbal cues and/or touching/steadying and/or contact guard assistance as patient completes activity. Assistance may be provided throughout the activity or intermittently. 3-Partial/Moderate Assistance-helper does LESS THAN HALF the effort. Edelstein lifts, holds or supports trunk or limbs, but provides less than half the effort. 2-Substantial/Maximal Assistance-helper does MORE THAN HALF the effort. Edelstein lifts or holds trunk or limbs and provides more than half the effort. 0-Lyzftrgir-mkthzj does ALL the effort. Patient does none of the effort to complete the activity. Or, the assistance of 2 or more helpers is required for the patient to complete the activity. If activity was not attempted, code reason: 7-Patient Refused. 9-Not Applicable-not attempted and the patient did not perform the activity before the current illness, exacerbation or injury. 10-Not Attempted due to Environmental Limitations-(lack of equipment, weather restraints, etc.). 88-Not Attempted due to Medical Conditions or Safety Concerns. Roll Left to Right (QC): 1 Sit to Stand (QC): 1 Chair/Xny-ym-Yoexy Xfer(QC): 1 Weight Bearing Right Lower Extremity: Right Non Weight Bearing Left Lower Extremity: Left Weight Bearing/Tolerated Exercises Seated Therapy Exercises: Long arc quads Seated Reps: 8 Assessment Patient required max assist to move to sitting EOB. Patient was able to move LEs some to EOB but required assistance to move legs and use of pad to move upper body to sitting position. Patient stood and transferred to chair with max assist of one. Patient was unable to follow NWB precautions. Patient positioned in chair with legs elevated. PT Chief Nuclear Medicine Technologist Goals Senior Living Goals Sit to Lying (QC): 4 Lying-Sitting on Side/Bed(QC): 4 Sit to Stand (QC): 3 Roll Left to Right (QC): 4 Chair/Ozb-pa-Qydfe Xfer(QC): 3 PT Plan Treatment/Plan Treatment Plan: Modify Plan, see comments (d/t inability to cognitively follow directions and learn skilled tasks) Treatment Plan: Bed Mobility, Concurrent Therapy, Education, Functional Activity Isael, Functional Strength, Gait, Safety, Therapeutic Exercise, Transfers Treatment Duration: Dec 18, 2018 Frequency: 6 times per week Estimated Hrs Per Day: .5 hour per day Patient and/or Family Agrees t: Yes Time/GCodes Time In: 910 Time Out: 922 Total Billed Treatment Time: 12 Total Billed Treatment 1 visit FA 12min NICK STARR PT Dec 13, 2018 10:16 POS
[2018-12-13 11:20] VITALS: BP 135/77
--- NOTE | 2018-12-13 16:58 | NUR ---
Arrangements completed for pt discharge to [facility] foir further rehab care. Both sons Derrick and Elvis were notified and agreeable with transfer plan. CARE assessment completed. All medical evaluations, scripts and discharge orders were faxed to [facility].
== END 2018-12-13 11:22 | DRG 482 ==
LOC: EDUNIT# 11:25 → ER 11:26 → 4TH 13:26
PROVIDERS: ADMIT Internal Medicine; ATTEND Family Medicine
PROC: 0QS634Z Reposition Right Upper Femur with Internal Fixation Device, Percutaneous Approach (ICD-10-PCS; principal; 2018-12-10 10:16)
DX: S72.011A Unspecified intracapsular fracture of right femur, initial encounter for closed fracture (principal); I10 Essential (primary) hypertension; F03.90 Unspecified dementia, unspecified severity, without behavioral disturbance, psychotic disturbance, mood disturbance, and anxiety; E11.9 Type 2 diabetes mellitus without complications; H35.30 Unspecified macular degeneration; E78.5 Hyperlipidemia, unspecified; W18.39XA Other fall on same level, initial encounter; F41.9 Anxiety disorder, unspecified; Z79.4 Long term (current) use of insulin; Z87.891 Personal history of nicotine dependence; F32.9 Major depressive disorder, single episode, unspecified; Y92.128 Other place in nursing home as the place of occurrence of the external cause
CPT/HCPCS: 36415; 51702; 71045; 73523; 73562; 80048; 80053; 81000; 82962; 83880; 85025; 86850; 86900; 86901; 87081; 93005; 94664; 94760

== ENCOUNTER → 2018-12-21 | Outpatient (CLI) | payer BC, MEDICARE ==
[~2018-12-21] MED LIST changes: +ACET-168 PO; +AMLO5TAB9 PO; +ASPI-999 PO; +CITA10TA7 PO; +DONE10TA41 PO; +GUAI5SYR PO; +IBUP-30 PO; +INSU100I14 SC; +INSU100I29 SC; +LISI-556 PO; +LOPE2CAP PO; +LORA0.5T PO; +MELA3TAB PO; +MEMA28CA5 PO; +OMG1KC PO; +OXYB5TAB9 PO; +POLY17PO31 PO; +QUET25TA73 PO; +SENN-141 PO; +SULF1TAB35 PO
--- NOTE | 2018-12-21 09:12 | Diagnostic Imaging Report ---
INDICATION: Subcapital fracture, follow-up TECHNIQUE: 2 views of the right hip. CORRELATION STUDY: 12/09/2018 FINDINGS: Since the prior study, 3 partially threaded cannulated screws have been placed transfixing the impacted right subcapital femoral neck fracture. Single screw tip does extend to approximately the level of the femoral head cortex. There is unchanged foreshortening at the femoral neck. Femoral head acetabular relationship appears maintained. Skin bennie are present. IMPRESSION: 1. Internal fixation has been performed of the impacted right subcapital femoral neck fracture. Dictated by: Dictated on workstation # [id number]
== END ==
LOC: ORTHO 08:37
PROVIDERS: ATTEND Orthopaedic Surgery
DX: S72.011D Unspecified intracapsular fracture of right femur, subsequent encounter for closed fracture with routine healing (principal); X58.XXXD Exposure to other specified factors, subsequent encounter
CPT/HCPCS: 73502

== ENCOUNTER → 2019-01-14 | Outpatient (CLI) | payer BC, MEDICARE ==
--- NOTE | 2019-01-14 10:28 | Diagnostic Imaging Report ---
INDICATION: Followup hip fracture. COMPARISON: 12/21/2018. FINDINGS: Two radiographic views of the right hip were obtained and again show post surgical changes of previous ORIF of the proximal right femur. Three partially threaded cannulated screws are identified traversing the right femoral head and neck. There is a chronic appearing deformity near the junction of the femoral head and neck, consistent with an old fracture. No new acute fracture or dislocation is seen. There is no evidence of hardware fracture or failure. The femoroacetabular joint space is maintained. No unexpected radiopaque foreign bodies are identified. IMPRESSION: Stable post surgical changes of the right hip as described above. Dictated by: Dictated on workstation # [id number]
== END ==
LOC: ORTHO 08:53
PROVIDERS: ATTEND Orthopaedic Surgery
DX: S72.011D Unspecified intracapsular fracture of right femur, subsequent encounter for closed fracture with routine healing (principal); Z98.890 Other specified postprocedural states; X58.XXXD Exposure to other specified factors, subsequent encounter
CPT/HCPCS: 73502

== ENCOUNTER → 2019-01-28 | Outpatient (CLI) | payer BC, MEDICARE ==
--- NOTE | 2019-01-28 09:30 | Diagnostic Imaging Report ---
EXAMINATION: Right hip radiographs, 2 views. COMPARISON: January 14, 2019. HISTORY: 78-year-old female, history of right proximal femur fracture status post open reduction and internal fixation. FINDINGS: There are 3 lag screws traversing the right intertrochanteric femur and femoral neck extending into the right femoral head. The more superiorly located fixation screw extends very near the cortical margin of the right femoral head. The fixation screws are intact. The right hip is not dislocated. There is no new fracture or apparent procedural complication. IMPRESSION: 1. Status post open reduction and internal fixation of the right proximal femur without interval procedural complication. Dictated by: Dictated on workstation # [id number]
== END ==
LOC: ORTHO 08:49
PROVIDERS: ATTEND Orthopaedic Surgery
DX: S72.011D Unspecified intracapsular fracture of right femur, subsequent encounter for closed fracture with routine healing (principal); Z98.890 Other specified postprocedural states
CPT/HCPCS: 73502

== ENCOUNTER 2019-03-03 15:42 | Emergency (ER) | payer BC, MEDICARE ==
[~2019-03-03] VITALS: Ht 157.5 cm; Wt 55.0 kg
[~2019-03-03 15:42] MED LIST changes: -GLIM4TAB; +GLIM4TAB3; -MELA3TAB PO; +MELA3TAB65 PO; +OXYB5TAB13 PO; -OXYB5TAB9 PO; +TRM50T PO
--- NOTE | 2019-03-03 16:15 | ED Lower Extremity ---
General Chief Complaint: Trauma-Non Activation Stated Complaint: FALL Nursing Triage Note: PT TO [facility] WITH COMPLAINT OF TAILBONE PAIN. PT FELL MONDAY NIGHT AND HAS BEEN COMPLAINING OF PAIN. PT STATES WHEN LYING STILL, DOES NOT HAVE PAIN. Nursing Sepsis Screen: No Definite Risk Source: patient, caregiver (Patient has cognitive impairment and is a poor hi storian. Caregiver is present to correct her story when needed.) Exam Limitations: clinical condition (GIO BECERRA MEDICAL STUDENT) History of Present Illness Date Seen by Provider: Mar 03, 2019 Time Seen by Provider: 16:03 Initial Comments Ms. Orourke is a 78 year old female presenting for buttock pain after a fall. History given by patient & activities therapist. 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 She did not hit her head during the fall and did not lose consciousness. She was asymptomatic after the fall until this morning. Today she complains of pain in her tailbone. The pain does not radiate and does not involve her hips. She rates the pain as a 8/10 when she has to sit up and put pressure on her bottom. Lying down helps her pain, she says she feels fine when lying at rest. Patient denies any loss of bladder or bowel control. She denies any leg or abdominal pain. She denies any paresthesias or anesthesia of her legs. (GIO BECERRA MEDICAL STUDENT) Onset: yesterday Severity: mild Pain/Injury Location: left other (pelvis) Method of Injury: fell Modifying Factors: Worse With Movement; Improves With Rest (MARY ROBLES MD) Allergies and Home Medications Allergies Uncoded Allergies: narcotics (Adverse Reaction, Severe, 03/25/16) Home Medications Acetaminophen 500 Mg Tablet, 1,000 MG PO Q8H PRN for PAIN-MILD OR TEMPATURE, (Reported) Amlodipine Besylate 5 Mg Tablet, 5 MG PO DAILY, (Reported) Aspirin 81 Mg Tab.chew, 81 MG PO DAILY, (Reported) Citalopram Hydrobromide 10 Mg Tablet, 10 MG PO DAILY, (Reported) Donepezil HCl 10 Mg Tablet, 10 MG PO DAILY, (Reported) Guaifenesin/Dextromethorphan 5 Ml Syrup, 5 ML PO Q4H PRN for COUGH, (Reported) Ibuprofen 200 Mg Tablet, 400 MG PO Q4H PRN for MUSCLE TENSION, (Reported) Insulin Aspart 300 Units/3 Ml Solution, SQ AC, (Reported) </= 150 = NO INSULIN 151-200 = 2 UNITS 201-250 = 3 UNITS 251-300 = 4 UNITS 301-350 = 5 UNITS 351-400 = 6 UNITS IF REFUSING TO EAT HOLD SSI UNTIL SHE EATS HER MEAL Insulin Aspart 300 Units/3 Ml Solution, 6 UNITS SC 0800, (Reported) Insulin Aspart 300 Units/3 Ml Solution, 5 UNITS SQ 1200,1700 Prescribed by: FRED VARGAS on 12/13/18918 Insulin Determir 1,000 Units/10 Ml Soln, 10 UNIT SQ HS Prescribed by: FRED VARGAS on 12/13/18918 Lisinopril 5 Mg Tablet, 5 MG PO DAILY, (Reported) Loperamide HCl 2 Mg Capsule, 2 MG PO UD PRN for DIARRHEA, (Reported) Lorazepam 0.5 Mg Tablet, 0.25 MG PO Q6H PRN for ANXIETY Prescribed by: FRED VARGAS on 12/13/18918 Melatonin 3 Mg Tablet, 3 MG PO HS PRN for SLEEP Prescribed by: FRED VARGAS on 12/13/18918 Memantine HCl 28 Mg Cap.spr.24, 28 MG PO DAILY, (Reported) Oxybutynin Chloride 5 Mg Tablet, 5 MG PO BID, (Reported) Polyethylene Glycol 3350 17 Gm Powd.pack, 17 GM PO DAILY PRN PRN for CONSTIPATION-1ST LINE Prescribed by: FRED VARGAS on 12/13/18918 Quetiapine Fumarate 25 Mg Tablet, 12.5 MG PO BID, (Reported) TAKES 1/2 (25MG) TABLET Sennosides 8.6 Mg Tablet, 8.6 MG PO BID Prescribed by: FRED VARGAS on 12/13/18918 Tramadol HCl 50 Mg Tablet, 50 MG PO Q6H PRN for PAIN-MODERATE Prescribed by: FRED VARGAS on 12/13/18918 Patient Home Medication List Home Medication List Reviewed: Yes (MARY ROBLES MD) Review of Systems Constitutional: no symptoms reported, other (Denies fever, chills, dizziness) EENTM: no symptoms reported, other (Denies visual disturbances) Respiratory: no symptoms reported, other (No cough, No SOA) Cardiovascular: no symptoms reported, other (No chest pain, no palpitations) Musculoskeletal: other (Pain on her buttock/tailbone. No weakness reported) Skin: no symptoms reported, other (No abrasions, lacerations reported ) Psychiatric/Neurological: Pre-Existing Deficit, Other (History of psychosis and dementia) (GIO BECERRA MEDICAL STUDENT) Musculoskeletal: joint pain; No muscle pain; other (Pain on her buttock/tailbo ne. No weakness reported) Skin: No change in color, No lesions (MARY ROBLES MD) Past Nosazov-Qbepqc-Ktoxfp Hx Past Med/Social Hx: Reviewed Nursing Past Med/Soc Hx (MARY ROBLES MD) Patient Social History Alcohol Use: Denies Use Number of Drinks Today: Alcohol Beverage of Choice: Wine Recreational Drug Use: No Smoking Status: Former Smoker Type Used: Cigarettes Former Smoker, Quit: Jan 13, 2016 2nd Hand Smoke Exposure: No Recent Foreign Travel: No Contact w/Someone Who Travel: No Recent Infectious Disease Expo: No Recent Hopitalizations: No (GIO BECERRA MEDICAL STUDENT) Immunizations Up To Date Tetanus Booster (TDap): More than 5yrs Date of Pneumonia Vaccine: Dec 16, 2010 Date of Influenza Vaccine: Nov 28, 2018 (GIO BECERRA MEDICAL STUDENT) Seasonal Allergies Seasonal Allergies: No (GIO BECERRA MEDICAL STUDENT) Past Medical History Surgeries: Yes Hysterectomy Respiratory: No Currently Using CPAP: No Currently Using BIPAP: No Cardiac: Yes Hypertension Neurological: Yes Dementia Reproductive Disorders: No 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, 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 Sexually Transmitted Disease: No HIV/AIDS: No Genitourinary: Yes UTI-Chronic Gastrointestinal: No Musculoskeletal: No Endocrine: Yes Diabetes, Insulin dep Macular Degeneration Loss of Vision: Denies Hearing Impairment: Denies Cancer: No Psychosocial: Yes Sleep Difficulties, Depression Integumentary: Yes (current shingles) Herpes Blood Disorders: No Adverse Reaction/Blood Tranf: No (GIO BECERRA MEDICAL STUDENT) Family Medical History Reviewed Nursing Family Hx (MARY ROBLES MD) Stroke 03 FATHER, Onset:70 No Pertinent Family Hx (GIO BECERRA MEDICAL STUDENT) Physical Exam Vital Signs Vital Signs - First Documented 03/03/19 15:45 Temp 36.5 Pulse 62 Resp 20 B/P (MAP) 142/69 (93) Pulse Ox 100 O2 Delivery Room Air (MARY ROBLES MD) Vital Signs Capillary Refill : Less Than 3 Seconds (GIO BECERRA MEDICAL STUDENT) Height, Weight, BMI Height: 5'2.00" Weight: 131lbs. 0.0oz. 59.434268zn; 22.00 BMI Method:Stated General Appearance: WD/WN, no apparent distress HEENT: TMs normal, pharynx normal Cardiovascular: regular rate, rhythm, no edema, no murmur Respiratory: chest non-tender, normal breath sounds Gastrointestinal: normal bowel sounds, non tender, soft Back: normal inspection, no vertebral tenderness, other (Coccyx tender to pa lpation) Hips: bilateral hip non-tender, bilateral hip normal inspection, bilateral hip no evidence of injury Legs: bilateral leg other (Sensation intact on lower extremity dermatomes) Neurologic/Tendon: normal sensation, normal motor functions Neurologic/Psychiatric: alert, normal mood/affect, oriented x 3 Skin: normal color, warm/dry (GIO BECERRA MEDICAL STUDENT) General Appearance: WD/WN, no apparent distress Cardiovascular: regular rate, rhythm, no edema, no murmur Respiratory: lungs clear, normal breath sounds Gastrointestinal: non tender, soft Back: other (Coccyx tender to palpation) Neurologic/Psychiatric: alert, normal mood/affect Skin: normal color, warm/dry; No ecchymosis (MARY ROBLES MD) Progress/Results/Core Measures Results/Orders My Orders Orders - MARY ROBLES MD Pelvis (03/03/19 16:11) Sacrum And Coccyx (03/03/19 16:11) (MARY ROBLES MD) Vital Signs/I&O 03/03/19 15:45 Temp 36.5 Pulse 62 Resp 20 B/P (MAP) 142/69 (93) Pulse Ox 100 O2 Delivery Room Air (MARY ROBLES MD) Blood Pressure Mean: 93 Progress Progress Note : Progress Note . I seen and evaluated the patient and agree with above except as indicated. Plan of care. X-ray of pelvis as well as sacral and coccyx ordered. Monitor patient. 1710: No acute fractures. Discharged home with return precautions. C aregiver verbalized understanding instructions and agreement with plan. (MARY ROBLES MD) Departure Impression Primary Impression: Sacral contusion Qualified Codes: S30.0XXA - Contusion of lower back and pelvis, initial encounter Disposition: 01 HOME, SELF-CARE Condition: Improved Departure-Patient Inst. Decision time for Depature: 17:17 (MARY ROBLES MD) Referrals: FRED VARGAS MD (PCP/Family) Primary Care Physician Patient Instructions: Contusion (DC), Coccyx Injury (DC) Add. Discharge Instructions: All discharge instructions reviewed with patient and/or family. Voiced understanding. You may use Tylenol/acetaminophen 650 mg every 6-8 hours as needed for pain. You may use ice packs to area concern. For stool problems, you may use MiraLAX or the generic, one capful twice daily for 3 days and then decrease to one capful daily thereafter to keep stools soft. You may increase or decrease dose to achieve normal stool habits. Return for worse pain, weakness, numbness between the legs, difficulties with going to the bathroom or other concerns as needed. GIO BECERRA MEDICAL STUDENT Mar 03, 2019 16:15 MARY ROBLES MD Mar 03, 2019 17:18
--- NOTE | 2019-03-03 17:01 | Diagnostic Imaging Report ---
INDICATION: Fell. EXAMINATION: Pelvis at 4:50 p.m. A single AP view was obtained. FINDINGS: As noted on the prior exam of 12/09/2018, there are three orthopedic fixation screws obliquely traversing a long-standing fracture of the left femoral neck. The orthopedic hardware appears to be in good position. There is also deformity of the pubic rami on the left from prior trauma. The prior exam also noted a slightly impacted fracture of the right femoral neck. In the interval since the prior exam, three orthopedic fixation screws have been inserted into the right femoral neck. The orthopedic hardware appears to be in good position. There is also some deformity of the inferior pubic ramus on the right due to prior trauma. There is no acute fracture visualized. There is moderate degenerative disease of the hip and sacroiliac joints. The soft tissues are unremarkable. IMPRESSION: There are postsurgical and post traumatic changes involving both femurs and the pelvis. There is no acute bony abnormality identified. Dictated by: Dictated on workstation # [id number]
--- NOTE | 2019-03-03 17:03 | Diagnostic Imaging Report ---
INDICATION: Fell. EXAMINATION: Sacrum and coccyx at 4:51 p.m. AP and lateral views were obtained. FINDINGS: There is no fracture, dislocation or acute bony abnormality evident. When compared to the prior lumbar spine exam of 05/25/2018 there has been no significant change. There is mild symmetrical sclerosis of the sacroiliac joints. IMPRESSION: There is no evidence for an acute bony abnormality. Dictated by: Dictated on workstation # [id number]
[2019-03-03 17:29] VITALS: BP 142/69
== END 2019-03-03 17:29 | disposition home or self-care (01) ==
LOC: EDUNIT# 15:42 → ER 15:45
DX: S30.0XXA Contusion of lower back and pelvis, initial encounter (principal); I10 Essential (primary) hypertension; E11.9 Type 2 diabetes mellitus without complications; F32.9 Major depressive disorder, single episode, unspecified; F03.90 Unspecified dementia, unspecified severity, without behavioral disturbance, psychotic disturbance, mood disturbance, and anxiety; Z90.710 Acquired absence of both cervix and uterus; Z88.8 Allergy status to other drugs, medicaments and biological substances; Z87.440 Personal history of urinary (tract) infections; Z79.82 Long term (current) use of aspirin; Z79.4 Long term (current) use of insulin; Z87.891 Personal history of nicotine dependence; W03.XXXA Other fall on same level due to collision with another person, initial encounter; Y92.129 Unspecified place in nursing home as the place of occurrence of the external cause
CPT/HCPCS: 72170; 72220

== ENCOUNTER 2019-03-05 07:11 | Emergency (ER) | payer BC, MEDICARE ==
[~2019-03-05] VITALS: Ht 157 cm; Wt 50.0 kg
--- NOTE | 2019-03-05 07:24 | ED Fall/Injury ---
General Stated Complaint: FALL Source: patient Exam Limitations: no limitations History of Present Illness Date Seen by Provider: Mar 05, 2019 Time Seen by Provider: 07:10 Initial Comments With report of fall this morning. Apparently she was walking back from the kitchen when she fell and hit her head. She has hematoma right forehead. Denies other injury or concerns. Able to walk afterwards. Seen for similar a few days ago. She does have advanced dementia and is usually pleasantly confused and is very similar today. She has had recent persistent insomnia and the patient's nurse is reporting that she is having difficulty with the insulin dosing because she recently had increase in her insulin to 12 units 3 times a day which is causing her to bottom out more. She was previously on 6 units at lunch and supper with sliding scale. They also DC'd her melatonin. All of this happened at behavioral health visit inpatient at [facility] and she was discharged from there last 02/27/19. Occurred: just prior to arrival (approximately 30 minutes ago) Severity: mild Injuries/Pain Location: head Context: lost balance Loss of Consciousness: no loss of consciousness Associated Symptoms (Fall): No Abdominal Pain, No Chest Pain; Confusion (, secondary to dementia but not different today.); No Nausea/Vomiting, No Shortness of Air Allergies and Home Medications Allergies Uncoded Allergies: narcotics (Adverse Reaction, Severe, 03/25/16) Home Medications Acetaminophen 500 Mg Tablet, 1,000 MG PO Q8H PRN for PAIN-MILD OR TEMPATURE, (Reported) Amlodipine Besylate 5 Mg Tablet, 5 MG PO DAILY, (Reported) Aspirin 81 Mg Tab.chew, 81 MG PO DAILY, (Reported) Citalopram Hydrobromide 10 Mg Tablet, 10 MG PO DAILY, (Reported) Donepezil HCl 10 Mg Tablet, 10 MG PO DAILY, (Reported) Guaifenesin/Dextromethorphan 5 Ml Syrup, 5 ML PO Q4H PRN for COUGH, (Reported) Ibuprofen 200 Mg Tablet, 400 MG PO Q4H PRN for MUSCLE TENSION, (Reported) Insulin Aspart 300 Units/3 Ml Solution, SQ AC, (Reported) </= 150 = NO INSULIN 151-200 = 2 UNITS 201-250 = 3 UNITS 251-300 = 4 UNITS 3 01-350 = 5 UNITS 351-400 = 6 UNITS IF REFUSING TO EAT HOLD SSI UNTIL SHE EATS HER MEAL Insulin Aspart 300 Units/3 Ml Solution, 6 UNITS SC 0800, (Reported) Insulin Aspart 300 Units/3 Ml Solution, 5 UNITS SQ 1200,1700 Prescribed by: FRED MCDONNELL on 12/13/18918 Insulin Determir 1,000 Units/10 Ml Soln, 10 UNIT SQ HS Prescribed by: FRED MCDONNELL on 12/13/18918 Lisinopril 5 Mg Tablet, 5 MG PO DAILY, (Reported) Loperamide HCl 2 Mg Capsule, 2 MG PO UD PRN for DIARRHEA, (Reported) Lorazepam 0.5 Mg Tablet, 0.25 MG PO Q6H PRN for ANXIETY Prescribed by: FRED MCDONNELL on 12/13/18918 Melatonin 3 Mg Tablet, 3 MG PO HS PRN for SLEEP Prescribed by: FRED MCDONNELL on 12/13/18918 Memantine HCl 28 Mg Cap.spr.24, 28 MG PO DAILY, (Reported) Oxybutynin Chloride 5 Mg Tablet, 5 MG PO BID, (Reported) Polyethylene Glycol 3350 17 Gm Powd.pack, 17 GM PO DAILY PRN PRN for CONSTIPATION-1ST LINE Prescribed by: FRED MCDONNELL on 12/13/18918 Quetiapine Fumarate 25 Mg Tablet, 12.5 MG PO BID, (Reported) TAKES 1/2 (25MG) TABLET Sennosides 8.6 Mg Tablet, 8.6 MG PO BID Prescribed by: FRED MCDONNELL on 12/13/18918 Tramadol HCl 50 Mg Tablet, 50 MG PO Q6H PRN for PAIN-MODERATE Prescribed by: FRED MCDONNELL on 12/13/18918 Patient Home Medication List Home Medication List Reviewed: Yes Review of Systems Review of Systems Constitutional: see HPI; No fever, No weakness Eyes: No Symptoms Reported Respiratory: no symptoms reported Cardiovascular: no symptoms reported Gastrointestinal: no symptoms reported Musculoskeletal: joint pain (mild right shoulder); No muscle pain Skin: change in color (contusion right forehead), lumps (right forehead) Psychiatric/Neurological: No Symptoms Reported Past Rualuvt-Jlhywu-Nzakza Hx Past Med/Social Hx: Reviewed Nursing Past Med/Soc Hx Patient Social History Alcohol Use: Past History Alcohol Beverage of Choice: Wine Smoking Status: Former Smoker Type Used: Cigarettes Former Smoker, Quit: Jan 13, 2016 2nd Hand Smoke Exposure: No Recent Foreign Travel: No Contact w/Someone Who Travel: No Recent Hopitalizations: No Immunizations Up To Date Tetanus Booster (TDap): More than 5yrs Date of Pneumonia Vaccine: Dec 16, 2010 Date of Influenza Vaccine: Nov 28, 2018 Seasonal Allergies Seasonal Allergies: No Past Medical History Surgeries: Yes Hysterectomy Respiratory: No Currently Using CPAP: No Currently Using BIPAP: No Cardiac: Yes Hypertension Neurological: Yes Dementia Reproductive Disorders: No 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 Disorders: Denies [employer] History: Hysterectomy, Menopausal Sexually Transmitted Disease: No HIV/AIDS: No Genitourinary: Yes UTI-Chronic Gastrointestinal: No Musculoskeletal: No Endocrine: Yes Diabetes, Insulin dep Macular Degeneration Loss of Vision: Denies Hearing Impairment: Denies Cancer: No Psychosocial: Yes Sleep Difficulties, Depression Integumentary: Yes (current shingles) Herpes Blood Disorders: No Adverse Reaction/Blood Tranf: No Family Medical History Reviewed Nursing Family Hx Stroke 03 FATHER, Onset:70 No Pertinent Family Hx Physical Exam Vital Signs Vital Signs - First Documented 03/05/19 07:14 Temp 36.3 Pulse 75 Resp 18 B/P (MAP) 124/66 (85) Pulse Ox 98 Capillary Refill : Height, Weight, BMI Height: 5'2.00" Weight: 131lbs. 0.0oz. 59.155461wh; 22.00 BMI Method:Stated General Appearance: WD/WN, no apparent distress HEENT: PERRL/EOMI, pharynx normal Neck: non-tender, full range of motion, supple, normal inspection Cardiovascular: regular rate, rhythm, no murmur Respiratory: lungs clear, normal breath sounds Gastrointestinal: non tender, soft Back: normal inspection, no CVA tenderness, no vertebral tenderness Extremities: normal range of motion, non-tender, normal inspection, pelvis stable Neurologic/Psychiatric: alert, oriented x 3 Skin: warm/dry, ecchymosis (right for head with 3 cm area of contusion. No lacerations.) Víctor Coma Score Best Eye Response: (4) Open Spontaneously Best Verbal Response: (5) Oriented Best Motor Response: (6) Obeys Commands Progress/Results/Core Measures Results/Orders My Orders Orders - MARY ROBLES MD Ct Head Wo (03/05/19 07:16) Vital Signs/I&O 1/28/20 07:14 Temp 36.3 Pulse 75 Resp 18 B/P (MAP) 124/66 (85) Pulse Ox 98 Progress Progress Note : Progress Note Seen and evaluated. CT head ordered. Monitor patient. 0800: CT negative. I have discussed the case with Dr. Mcdonnell. We will change the Risperdal dosing to 0.5 mg by mouth at noon and 1 mg by mouth at at bedtime. We will add back the melatonin 3 mg by mouth every at bedtime and repeat dose after midnight for persistent insomnia. We will also DC to 12 unit NovoLog dosing 3 times a day and changed that back to 6 units at lunch and 6 units at supper with sliding scale continuing. She will follow-up a week. I have discussed all of this with the patient's nurse and orders were written for that. Discharged home with return precautions. Caregiver verbalized understanding of instructions and agreement with plan. Diagnostic Imaging Diagonstic Imaging: CT Plain Films/CT/US/NM/MRI: head Comments [facility], [place] NAME: ROMINA HART [facility] REC#: [id number] PT STATUS: REG ER : 1940 PHYSICIAN: MARY ROBLES MD ADMIT DATE: 03/05/19/ER Draft Date of Exam:03/05/19 CT HEAD WO PROCEDURE: CT head without contrast. TECHNIQUE: Multiple contiguous axial images were obtained through the brain without the use of intravenous contrast. Auto Exposure Controls were utilized during the CT exam to meet ALARA standards for radiation dose reduction. INDICATION: Fall COMPARISON: 12/01/2018 FINDINGS: Mild atrophy. No intracranial hemorrhage. No intracranial mass, mass effect, midline shift, herniation, hydrocephalus, or extra-axial fluid collection. Periventricular and subcortical white matter hypodensities are present, most consistent with moderate chronic small vessel white matter ischemic disease. No definite CT evidence of an acute ischemic infarction. The orbits are unremarkable. Right forehead hematoma without underlying calvarial fracture. The calvarium and extracalvarial soft tissues are otherwise unremarkable. The visualized paranasal sinuses are clear. IMPRESSION: No acute intracranial abnormality. Hematoma associated with the right forehead without underlying calvarial fracture. Mild atrophy with associated background chronic small vessel white matter ischemic disease. Dictated on workstation # [id number] Dict: 03/05/19 0741 Trans: 03/05/19 0747 RAMONE [id number] Interpreted by: TD SHIRLEY MD Electronically signed by: Departure Impression Primary Impression: Closed head injury without loss of consciousness Qualified Codes: S09.90XA - Unspecified injury of head, initial encounter Disposition: 01 HOME, SELF-CARE Condition: Stable Departure-Patient Inst. Decision time for Depature: 08:05 Referrals: FRED MCDONNELL MD (PCP/Family) Primary Care Physician Patient Instructions: Closed Head Injury (DC) Add. Discharge Instructions: Follow-up with Dr. Mcdonnell for recheck and further evaluation this week. Call her office today for appointment. Make medication changes as ordered. Return for worse pain, fever, vomiting, weakness, breathing problems, increasing dizziness or other concerns as needed. Copy Copies To 1: FRED MCDONNELL MD, TIMOTHY D MD Mar 05, 2019 07:24
--- NOTE | 2019-03-05 07:37 | NUR ---
SEE LIST FOR CURRENT MEDS
--- NOTE | 2019-03-05 07:47 | Diagnostic Imaging Report ---
PROCEDURE: CT head without contrast. TECHNIQUE: Multiple contiguous axial images were obtained through the brain without the use of intravenous contrast. Auto Exposure Controls were utilized during the CT exam to meet ALARA standards for radiation dose reduction. INDICATION: Fall COMPARISON: 12/01/2018 FINDINGS: Mild atrophy. No intracranial hemorrhage. No intracranial mass, mass effect, midline shift, herniation, hydrocephalus, or extra-axial fluid collection. Periventricular and subcortical white matter hypodensities are present, most consistent with moderate chronic small vessel white matter ischemic disease. No definite CT evidence of an acute ischemic infarction. The orbits are unremarkable. Right forehead hematoma without underlying calvarial fracture. The calvarium and extracalvarial soft tissues are otherwise unremarkable. The visualized paranasal sinuses are clear. IMPRESSION: No acute intracranial abnormality. Hematoma associated with the right forehead without underlying calvarial fracture. Mild atrophy with associated background chronic small vessel white matter ischemic disease. Dictated by: Dictated on workstation # [id number]
[2019-03-05 08:22] VITALS: BP 124/66
== END 2019-03-05 08:21 | disposition home or self-care (01) ==
LOC: EDUNIT# 07:11 → ER 07:12
DX: S09.90XA Unspecified injury of head, initial encounter (principal); I10 Essential (primary) hypertension; F03.90 Unspecified dementia, unspecified severity, without behavioral disturbance, psychotic disturbance, mood disturbance, and anxiety; E11.9 Type 2 diabetes mellitus without complications; F32.9 Major depressive disorder, single episode, unspecified; Z87.440 Personal history of urinary (tract) infections; Z88.5 Allergy status to narcotic agent; Z79.82 Long term (current) use of aspirin; Z79.4 Long term (current) use of insulin; Z87.891 Personal history of nicotine dependence; Z90.710 Acquired absence of both cervix and uterus; W18.39XA Other fall on same level, initial encounter; Y92.000 Kitchen of unspecified non-institutional (private) residence as the place of occurrence of the external cause
CPT/HCPCS: 70450